=== PATIENT | female | born 1950 | race Caucasian/White ===

== ENCOUNTER 2017-06-03 18:30 | Inpatient (IN) ==
[2017-06-03] MEDS ORDERED: Lidocaine/EPI 1:100k 1% 20 ML VIAL INFILT ONE (18:58)
--- NOTE | 2017-06-03 19:50 | Emergency Department Note ---
Disposition Clinical Impression: Syncope Qualifiers: Syncope type: unspecified Qualified Code(s): R55 - Syncope and collapse Laceration of head Qualifiers: Encounter type: initial encounter Location of open wound of head: unspecified part of head Foreign body presence: without foreign body Qualified Code(s): S01.91XA - Laceration without foreign body of unspecified part of head, initial encounter Disposition: Admitted As Inpatient Condition: Good Fall HPI - General Chief Complaint: ED Fall Stated Complaint: fall Time Seen by Provider: 06/03/17 18:32 Source: patient Mode of arrival: EMS Limitations: no limitations Nursing Notes Reviewed: Yes Vital Signs Reviewed: Yes - History of Present Illness HPI Narrative: Patient is a 67-year-old female past medical history of an KS with 2 stents presented to the ED with after a fall with a laceration on her head. Patient states that just prior to coming the knee she was walking down the [place]" felt like something was not right" and got lightheaded and dizzy. Patient lost consciousness and is unsure how long she was down but believes it to be only a couple minutes.She states that she woke up and then fainted again after seeing her blood. She woke up again after that and walked back to her apartment and called 911. Patient states she did not hit anything else other than her head and is only bleeding from the laceration on her face above her eyebrow. She does not remembers any other part of her body hitting. She denies having pain that is abnormal from her chronic pain. Patient states that she is on Plavix. She states that she has never fainted before. She denies being sick recently or having a fever. She says that she was just walking and did not go up any stairs of have any chest pain prior to syncopal episode. She was able to walk without limping. Patient can't remember her last tetanus shot. Patient lives alone. Patient currently denies any vision changes, focal weakness, shortness of breath, chest pain, nausea, or vomiting. - Related Data Home Medications Medication Instructions Recorded Confirmed Atorvastatin [Lipitor] 40 mg PO HS 06/04/17 06/04/17 Clopidogrel [Plavix] 75 mg PO DAILY 06/04/17 06/04/17 Gabapentin [Neurontin] 1,200 mg PO HS 08/21/17 08/21/17 Gabapentin [Neurontin] 600 mg PO BID 06/04/17 06/04/17 Previous Rx's Medication Instructions Recorded Aspirin Enteric Coated [Aspirin EC] 81 mg PO DAILY tablet. 03/03/16 Lisinopril [Zestril] 5 mg PO DAILY #30 tablet 03/03/16 Metoprolol [Lopressor] 12.5 mg PO BID #30 tablet 03/03/16 Allergies Allergy/AdvReac Type Severity Reaction Status Date / Time sumatriptan [From Imitrex] Allergy Swelling Verified 06/03/17 18:43 of Lip/Tongue/Throat venom-honey bee Allergy Swelling Verified 06/03/17 18:43 [bee venom (honey bee)] of Lip/Tongue/Throat morphine AdvReac Nausea Verified 06/03/17 18:43 All systems ED: reviewed and negative except as stated. Review of Systems: As Per HPI Constitutional: Denies: fever, chills Neurological: Denies: weakness, numbness, confusion, abnormal gait Fall PMH - Past Medical History Medical history: Reports: arthritis, cancer, coronary artery disease, DVT, fibromyalgia, hyperlipidemia, hypertension, kidney stones, malignancy, migraine , myocardial infarction, seizures Surgical history: Reports: non-contributory, cholecystectomy, hip replacement, other Psychiatric history: Reports: anxiety, bipolar, depression, panic disorder, PTSD - Social History Smoking Status: Former smoker Alcohol use: Reports: none Drug use: Reports: none Physical Exam Constitutional: Alert, in no acute distress, well nourished, well developed. Head: 3-4cm in width laceration superior to her R eyebrow in an v-shape, fat and muscle visualized, Normocephalic, atraumatic, normal contour and symmetric, no masses, lesions or scars EENT: R eye periorbial swelling, PERRL, EOMI, peripheral and central vision intact, mouth with moist mucous membranes, Heart: Normal, regular rate and rhythm, no murmurs Lungs: Clear to auscultation, no wheezes, rales, or rhonchi Abdomen: Soft, nondistended, nontender, and no masses palpable, bowel sounds present and normal, no guarding or rigidity. Extremities: + 1 pitting edema, 1.5cm abrasion on R hand, No clubbing, cyanosis, radial pulse +2/4, capillary refill <2sec. Skin: Skin warm and dry, no rashes, no jaundice Neurologic: Cranial nerves II through XII intact, no focal deficits, strength within normal limits in all extremities Psych: Cooperative with exam, good eye contact, cognitive function intact, judgment good insight good, speech clear, thought process logical, and goal directed - General Limitations: no limitations General appearance: alert, in no apparent distress Course Course Narrative: CT of head, neck, and face were obtained and showed no acute abnormalities. CXR was negative. Cardiac work up showed an EKG with normal sinus rhythm and a negative troponin. CBC showed no elevation in WBC and normal kidney function. UA was pending. Laceration of face was sutured with 14 stitches. Tetnus shot was ordered. Patient was admitted to the medical floor for observation and work up for unknown cause of first syncopal episode. Vital Signs Temperature 98.0 F 06/03/17 18:44 Pulse Rate 78 06/03/17 18:44 Respiratory Rate 16 06/03/17 18:44 Blood Pressure 140/69 06/03/17 18:44 O2 Sat by Pulse Oximetry 96 06/03/17 18:44 Temperature 97.8 F 06/05/17 11:30 Pulse Rate 68 06/05/17 11:30 Respiratory Rate 16 06/05/17 11:30 Blood Pressure 109/60 06/05/17 11:30 O2 Sat by Pulse Oximetry 96 06/05/17 11:30 Oxygen Delivery Oxygen Delivery Room Air Fall - Medical Records Medical records reviewed: Yes I reviewed the patient's medical records. - Lab Data Lab results reviewed: Yes I reviewed the patient's lab results. Lab results narrative: All Lab Results (24 Hours) 06/03/17 06/03/17 06/03/17 Range/Units 19:44 19:44 19:44 WBC 7.7 (4.3-11.1) K/mcL RBC 4.17 (3.82-4.97) M/mcL Hgb 11.9 (11.5-15.4) g/dL Hct 37.9 (35.3-44.9) % MCV 90.9 (83.0-100.0) fL MCH 28.5 (28.0-33.3) pg MCHC 31.4 L (31.6-35.5) g/dL RDW 12.4 (11.5-14.5) % Plt Count 242 (140-400) K/mcL MPV 9.9 (9.4-12.4) fL Immature Gran % 0.3 (0-4) % Seg Neutrophils % 70.4 % Lymphocytes % 19.9 % Monocytes % 6.7 % Eosinophils % 2.3 % Basophils % 0.4 % Neutrophils # 5.4 (1.6-8.9) K/mcL Lymphocytes # 1.5 (0.6-4.6) K/mcL Monocytes # 0.5 (0.0-1.3) K/mcL Eosinophils # 0.2 (0.0-0.6) K/mcL Basophils # 0.0 (0.0-0.2) K/mcL PT 10.4 (9.4-12.1) Seconds INR 1.0 APTT 38.2 H (26.0-36.0) Seconds Sodium 141 (136-145) mEq/L Potassium 4.2 (3.5-4.5) mEq/L Chloride 106 (98-109) mEq/L Carbon Dioxide 27 (19-29) mEq/L BUN 17 (7-20) mg/dL Creatinine 0.80 (0.57-1.11) mg/dL Est GFR ( Amer) > 60 (> 60) Est GFR (Non-Af Amer) > 60 (> 60) BUN/Creatinine Ratio 21 (6-26) Glucose 105 H (70-99) mg/dL Calculated Osmolality 294 (280-300) Calcium 9.0 (8.6-10.8) mg/dL Troponin I (0-0.03) ng/mL 06/03/17 Range/Units 19:44 WBC (4.3-11.1) K/mcL RBC (3.82-4.97) M/mcL Hgb (11.5-15.4) g/dL Hct (35.3-44.9) % MCV (83.0-100.0) fL MCH (28.0-33.3) pg MCHC (31.6-35.5) g/dL RDW (11.5-14.5) % Plt Count (140-400) K/mcL MPV (9.4-12.4) fL Immature Gran % (0-4) % Seg Neutrophils % % Lymphocytes % % Monocytes % % Eosinophils % % Basophils % % Neutrophils # (1.6-8.9) K/mcL Lymphocytes # (0.6-4.6) K/mcL Monocytes # (0.0-1.3) K/mcL Eosinophils # (0.0-0.6) K/mcL Basophils # (0.0-0.2) K/mcL PT (9.4-12.1) Seconds INR APTT (26.0-36.0) Seconds Sodium (136-145) mEq/L Potassium (3.5-4.5) mEq/L Chloride (98-109) mEq/L Carbon Dioxide (19-29) mEq/L BUN (7-20) mg/dL Creatinine (0.57-1.11) mg/dL Est GFR ( Amer) (> 60) Est GFR (Non-Af Amer) (> 60) BUN/Creatinine Ratio (6-26) Glucose (70-99) mg/dL Calculated Osmolality (280-300) Calcium (8.6-10.8) mg/dL Troponin I 0.01 (0-0.03) ng/mL Result diagrams: 06/05/17 03:06 06/05/17 03:06 Lab Results 06/03/17 06/03/17 06/03/17 Range/Units 19:44 19:44 19:44 WBC 7.7 (4.3-11.1) K/mcL RBC 4.17 (3.82-4.97) M/mcL Hgb 11.9 (11.5-15.4) g/dL Hct 37.9 (35.3-44.9) % MCV 90.9 (83.0-100.0) fL MCH 28.5 (28.0-33.3) pg MCHC 31.4 L (31.6-35.5) g/dL RDW 12.4 (11.5-14.5) % Plt Count 242 (140-400) K/mcL MPV 9.9 (9.4-12.4) fL Immature Gran % 0.3 (0-4) % Seg Neutrophils % 70.4 % Lymphocytes % 19.9 % Monocytes % 6.7 % Eosinophils % 2.3 % Basophils % 0.4 % Neutrophils # 5.4 (1.6-8.9) K/mcL Lymphocytes # 1.5 (0.6-4.6) K/mcL Monocytes # 0.5 (0.0-1.3) K/mcL Eosinophils # 0.2 (0.0-0.6) K/mcL Basophils # 0.0 (0.0-0.2) K/mcL PT 10.4 (9.4-12.1) Seconds INR 1.0 APTT 38.2 H (26.0-36.0) Seconds Sodium 141 (136-145) mEq/L Potassium 4.2 (3.5-4.5) mEq/L Chloride 106 (98-109) mEq/L Carbon Dioxide 27 (19-29) mEq/L BUN 17 (7-20) mg/dL Creatinine 0.80 (0.57-1.11) mg/dL Est GFR ( Amer) > 60 (> 60) Est GFR (Non-Af Amer) > 60 (> 60) BUN/Creatinine Ratio 21 (6-26) Glucose 105 H (70-99) mg/dL Calculated Osmolality 294 (280-300) Calcium 9.0 (8.6-10.8) mg/dL Troponin I (0-0.03) ng/mL 06/03/17 Range/Units 19:44 WBC (4.3-11.1) K/mcL RBC (3.82-4.97) M/mcL Hgb (11.5-15.4) g/dL Hct (35.3-44.9) % MCV (83.0-100.0) fL MCH (28.0-33.3) pg MCHC (31.6-35.5) g/dL RDW (11.5-14.5) % Plt Count (140-400) K/mcL MPV (9.4-12.4) fL Immature Gran % (0-4) % Seg Neutrophils % % Lymphocytes % % Monocytes % % Eosinophils % % Basophils % % Neutrophils # (1.6-8.9) K/mcL Lymphocytes # (0.6-4.6) K/mcL Monocytes # (0.0-1.3) K/mcL Eosinophils # (0.0-0.6) K/mcL Basophils # (0.0-0.2) K/mcL PT (9.4-12.1) Seconds INR APTT (26.0-36.0) Seconds Sodium (136-145) mEq/L Potassium (3.5-4.5) mEq/L Chloride (98-109) mEq/L Carbon Dioxide (19-29) mEq/L BUN (7-20) mg/dL Creatinine (0.57-1.11) mg/dL Est GFR ( Amer) (> 60) Est GFR (Non-Af Amer) (> 60) BUN/Creatinine Ratio (6-26) Glucose (70-99) mg/dL Calculated Osmolality (280-300) Calcium (8.6-10.8) mg/dL Troponin I 0.01 (0-0.03) ng/mL - Radiology Data Radiology results reviewed: Yes I reviewed the patient's radiology results. Chest X-Ray 06/03/17 18:57 IMPRESSION: No acute cardiopulmonary process. D/ / Sebastian Davis MD / Sebastian Davis MD Interpreting Provider: Sebastian Davis MD Head CT 06/03/17 18:57 IMPRESSION: 1. No acute intracranial abnormality. D/ / Adriano Soto MD / Adriano Soto MD Interpreting Provider: Adriano Soto MD Cervical Spine CT 06/03/17 18:58 IMPRESSION: 1. No acute fracture. D/ / Adriano Soto MD / Adriano Soto MD Interpreting Provider: Adriano Soto MD Face CT 06/03/17 19:00 IMPRESSION: 1. No acute fracture. D/ / Adriano Soto MD / Adriano Soto MD Interpreting Provider: Adriano Soto MD Date of procedure: 06/03/17 Procedure: Laceration repair note Location: Right forehead and just superior to the right eyebrow Length: 4-5 cm Examination: Wound contaminated with nothing Distal neurovascular structures intact and without tendon injury. Local anesthesia used with [default value]ml of 1% lidocaine with epi. Wound was prepped and irrigated with saline, explored to base in a bloodless field, no foreign body identified. Repair: The wound was repaired/closed with #13 6-0 nylon sutures through the skin in a simple interrupted fashion.
[2017-06-03 19:51] LABS: Basophils % 0.4 %; Eosinophils # 0.2 K/mcL (0.0-0.6); Eosinophils % 2.3 %; Hematocrit 37.9 % (35.3-44.9); Hemoglobin 11.9 g/dL (11.5-15.4); Immature Granulocytes % 0.3 % (0-4); Lymphocytes # 1.5 K/mcL (0.6-4.6); Lymphocytes % 19.9 %; Mean Corpuscular HGB Conc 31.4 g/dL (31.6-35.5); Mean Corpuscular Hemoglobin 28.5 pg (28.0-33.3); Mean Corpuscular Volume 90.9 fL (83.0-100.0); Mean Platelet Volume 9.9 fL (9.4-12.4); Monocytes # 0.5 K/mcL (0.0-1.3); Monocytes % 6.7 %; Neutrophils # 5.4 K/mcL (1.6-8.9); Platelet Count 242 K/mcL (140-400); Red Blood Count 4.17 M/mcL (3.82-4.97); Red Cell Distribution Width 12.4 % (11.5-14.5); Segmented Neutrophils % 70.4 %
[2017-06-03 19:57] LABS: Prothrombin Time 10.4 Seconds (9.4-12.1)
[2017-06-03 20:00] LABS: Activated Partial Thrombo Time 38.2 Seconds (26.0-36.0)
[2017-06-03 20:03] LABS: BUN/Creatinine Ratio 21 (6-26); Blood Urea Nitrogen 17 mg/dL (7-20); Carbon Dioxide 27 mEq/L (19-29); Chloride 106 mEq/L (98-109); Glucose 105 mg/dL (70-99); Osmolality,Calculated 294 (280-300); Potassium 4.2 mEq/L (3.5-4.5); Sodium 141 mEq/L (136-145); eGFR For African Americans > 60 (> 60); eGFR For Non-African Americans > 60 (> 60)
--- NOTE | 2017-06-03 20:33 | Emergency Department Note ---
START Narrative - START START: I, Greg Lainez, examined this patient and my medical decision-making was reviewed with the CARPENTER MATE/PA/Advanced Practice Nurse/Resident Physician. I agree with the documented findings, disposition and treatment plan as described except to the extent set forth below. 67-year-old female presents to the emergency department after a syncopal episode. Patient states she was ambulating to her apartment from the street when she became lightheaded, lost consciousness, falling to the ground and striking her face. Patient states she woke and then syncopized again after seeing her blood. Patient then was able to ambulate after the fall. Patient does have a history of syncopal episodes in the past however not within the past 2 years. She denies chest pain, palpitations, fever, chills, headache, vomiting, diarrhea. EKG showed normal sinus rhythm with a rate of 83. CT of the head, neck, maxillofacial areas were negative for acute fracture or intracranial bleeding. X-ray of the chest was negative for pneumothorax or hemothorax. Patient sustained a laceration to the right forehead which was repaired by the resident with my supervision. Patient will be admitted to the hospital for further evaluation of her syncopal episode.
[2017-06-03] MEDS ORDERED: Tdap (Boostrix) Vaccine 0.5 ML SYRINGE IM ONE (21:11)
--- NOTE | 2017-06-03 23:10 | Internal Med History&Physical ---
Date of Encounter: 06/03/17 Time of Encounter: 23:07 Assessment and Plan (1) Coronary artery disease Current visit: Yes Status: Acute Continue aspirin, Brilinta, beta jase and statin. Trend troponin to rule out ACS. Qualifiers: Coronary Disease-Associated Artery/Lesion type: [place] artery [place] vs. transplanted heart: [place] heart Associated angina: without angina Qualified Code(s): I25.10 - Atherosclerotic heart disease of [place] coronary artery without angina pectoris (2) Morbid obesity with BMI of 40.0-44.9, adult Current visit: Yes Status: Acute Outpatient weight loss regimen. Lifestyle modifications. (3) Syncope Current visit: Yes Status: Acute Could be secondary to hypotension in the context of mild dehydration and use of right antihypertensives. Can be a result of cardiac arrhythmia versus ACS versus structural heart disease. Plan: Will place patient in observation, monitor on telemetry, trend troponins to rule out ACS, check orthostatics. We will give gentle IV fluid hydration. Due to concern for ischemic heart disease I will obtain a stress test in the morning. Qualifiers: Syncope type: unspecified Qualified Code(s): R55 - Syncope and collapse Internal Medicine - H&P: HPI Chief complaint: Syncope Admitted From: Emergency Dept Plans for Post Hospital Care: Home History of present illness: Ms. Goodson is a 67 year old female with past medical history significant for hypertension and CAD status post CT who was brought to the hospital after she suffered a syncope. She was in her usual state of health up until this afternoon when while walking inside her building she suddenly started feeling lightheaded, had blurry vision and within seconds she passed out and fell to the floor, she remember waking up and seeing blood in feeling nauseated. She denies any preceding or following chest pain. She has had no recent episodes of syncope. Denies nausea vomiting diarrhea cough, she has chronic shortness of breath. Denies bleeding bruising and blood clots. Denies depression and anxiety. Has a history of chronic migraine. Past medical history as above Surgical history: Multiple including left hip replacement, right shoulder sort surgery, cholecystectomy, hysterectomy. Family history positive for coronary artery disease in both parents Social history: She is a retired disabled from [place], denies tobacco alcohol and drug use. Past Med Surg Social Fam HX - Past Medical History Medical history: arthritis, cancer, coronary artery disease, DVT, fibromyalgia, hyperlipidemia, hypertension, kidney stones, malignancy, migraine, myocardial infarction, seizures Psychiatric history: anxiety, bipolar, depression, panic disorder, PTSD - Past Surgical History Surgical History: non-contributory, angioplasty/stent, cholecystectomy, hip replacement, other - Social History Smoking Status: Former smoker Smokeless Tobacco Status: No Alcohol use: none Drug use: none - Family History Mother Living Status: Still Living Hx Family Cardiac Disorders: Yes (father,grandfather) Hx Family Respiratory Disorders: No Hx Family Cancer: Yes (mother) Hx Family GI Disorders: No Hx Family Endocrine Disorder: No Hx Family Neuromuscular Disorders: No Hx Family Neurologic Disorders: No Hx Family HEENT Disorders: No Hx Family Autoimmune Disorders: Yes (RA) Internal Medicine - H&P: Meds Acetaminophen w/Cod 300-30 mg [Tylenol w/Codeine #3] 1 tab PO TID 02/29/16 [ History] OXcarbazepine [Oxcarbazepine] 600 mg PO BID 02/29/16 [History] Sertraline [Zoloft] 100 mg PO DAILY 02/29/16 [History] Aspirin Enteric Coated [Aspirin EC] 81 mg PO DAILY tablet. 03/03/16 [Rx] Atorvastatin [Lipitor] 40 mg PO HS #30 tablet 03/03/16 [Rx] Lisinopril [Zestril] 5 mg PO DAILY #30 tablet 03/03/16 [Rx] Metoprolol [Lopressor] 12.5 mg PO BID #30 tablet 03/03/16 [Rx] Ticagrelor [Brilinta] 90 mg PO BID #60 tablet 03/03/16 [Rx] Ondansetron ODT [Zofran ODT] 4 mg PO Q6HR #10 tab.rapdis 04/11/16 [Rx] Oxycodone HCl/Acetaminophen [Percocet 5-325 mg Tablet] 1 - 2 each PO Q6HR #20 tablet 04/11/16 [Rx] Tamsulosin HCl [Flomax] 0.4 mg PO DAILY #7 tab 04/11/16 [Rx] 3 Allergy/AdvReac Type Severity Reaction Status Date / Time sumatriptan [From Imitrex] Allergy Swelling Verified 06/03/17 18:43 of Lip/Tongue/Throat venom-honey bee Allergy Swelling Verified 06/03/17 18:43 [bee venom (honey bee)] of Lip/Tongue/Throat morphine AdvReac Nausea Verified 06/03/17 18:43 All Systems PM: A 10-system review of systems was performed and is negative for pertinent findings except as documented above in the HPI. - Constitutional Vitals: Temp Pulse Resp BP Pulse Ox 98.5 F 64 16 137/84 98 06/03/17 21:59 06/03/17 21:59 06/03/17 21:59 06/03/17 21:59 06/03/17 21:59 General appearance: Present: A&O X 3, no acute distress - Head Additional comments: Right eyebrow laceration closed with sutures, no bleeding, no dehiscence. - Eye Additional comments: Right palpebral ecchymoses - Respiratory Respiratory exam: Present: CTAB. Absent: accessory muscle use, rales, rhonchi, wheezes - Cardiovascular Cardiovascular exam: Present: RRR, +S1, +S2. Absent: diastolic murmur, gallop, rubs, systolic murmur - GI/Abdominal GI/Abdominal exam: Present: normal bowel sounds, soft, no peritoneal signs. Absent: distended, tenderness - Extremities Exam Extremities exam: Present: warm, radial pulses palpable and symmetrical. Absent : calf tenderness, cyanotic, pedal edema - Neurological Exam Neurological exam: Present: CN II-XII intact, oriented X3, no focal deficits. Absent: pronater drift, facial droop, speech deficit - Skin Skin exam: Present: dry, intact Internal Med - H&P Results - Labs CBC & Chem 7: 06/03/17 19:44 06/03/17 19:44 - EKG Data -: EKG Interpreted by Myself EKG shows normal: sinus rhythm (80 bpm), intervals, ST-T waves Rate: normal - EKG Data Prior EKG available for review: yes When compared to previous EKG: there is no significant change
[2017-06-03] MEDS ORDERED: Naloxone 0.4 MG/ML INJ IVP PRN (23:17)
[2017-06-03] MEDS ORDERED: Ondansetron 4 MG/2 ML VIAL IVP PRN (23:17)
[2017-06-03] MEDS: *HR* OxyCODONE Immed Rel 5 MG TABLET PO PRN (23:39)
[2017-06-03] MEDS: 0.9 % Sodium Chloride 1,000 ML IVC SCH (23:50)
[2017-06-04 00:55] LABS: Basophils % 0.4 %; Eosinophils # 0.2 K/mcL (0.0-0.6); Eosinophils % 2.1 %; Hematocrit 36.3 % (35.3-44.9); Hemoglobin 11.2 g/dL (11.5-15.4); Immature Granulocytes % 0.4 % (0-4); Lymphocytes % 24.7 %; Mean Corpuscular HGB Conc 30.9 g/dL (31.6-35.5); Mean Corpuscular Hemoglobin 28.3 pg (28.0-33.3); Mean Corpuscular Volume 91.7 fL (83.0-100.0); Mean Platelet Volume 10.2 fL (9.4-12.4); Monocytes # 0.5 K/mcL (0.0-1.3); Neutrophils # 5.5 K/mcL (1.6-8.9); Platelet Count 234 K/mcL (140-400); Red Blood Count 3.96 M/mcL (3.82-4.97); Red Cell Distribution Width 12.4 % (11.5-14.5); Segmented Neutrophils % 66.4 %
[2017-06-04 01:10] LABS: BUN/Creatinine Ratio 19 (6-26); Blood Urea Nitrogen 16 mg/dL (7-20); Calcium 8.8 mg/dL (8.6-10.8); Carbon Dioxide 28 mEq/L (19-29); Chloride 107 mEq/L (98-109); Glucose 149 mg/dL (70-99); Magnesium 2.2 mg/dL (1.6-2.6); Osmolality,Calculated 298 (280-300); Potassium 4.1 mEq/L (3.5-4.5); Sodium 142 mEq/L (136-145); eGFR For African Americans > 60 (> 60); eGFR For Non-African Americans > 60 (> 60)
[2017-06-04] MEDS ORDERED: Regadenoson 0.4 MG/5 ML SYRINGE IVP ONE (07:03)
[2017-06-04] MEDS ORDERED: *HR* Ticagrelor 90 MG TABLET PO SCH (09:00)
[2017-06-04] MEDS: 0.9 % Sodium Chloride 1,000 ML IVC SCH ×2 (13:19→21:05)
[2017-06-04] MEDS: Aspirin Enteric Coated 81 MG Tablet PO SCH (13:22)
[2017-06-04] MEDS: Gabapentin 300 MG CAPSULE PO SCH ×2 (13:22→21:09)
[2017-06-04] MEDS: Acetaminophen 325 MG TABLET PO PRN (13:38)
--- NOTE | 2017-06-04 18:12 | Electrocardiograph Report ---
[place] [id number] Test Date: 2017-06-03 Pat Name: Miriam Goodson Department: 0 Room: 3B11 Gender: F District Recruiter: [facility] : 1950 Requested By: Greg Lainez Order Number: [id number] Reading MD: Adan Julian MD Measurements Intervals [place] Rate: 83 P: 69 FL: 186 QRS: -15 QRSD: 90 T: 36 QT: 375 QTc: 415 Interpretive Statements SINUS RHYTHM LOW QRS VOLTAGE IN PRECORDIAL LEADS INFERIOR MYOCARDIAL INFARCTION, PROBABLY OLD Electronically Signed On 06-04-2017 18:10:29 EDT by Adan Julian MD
[2017-06-04] MEDS: *HR* OxyCODONE Immed Rel 5 MG TABLET PO PRN (18:54)
--- NOTE | 2017-06-04 19:31 | Internal Med Progress Note ---
Date of Encounter: 06/04/17 Time of Encounter: 07:35 - Assessment and plan (1) Syncope Current Visit: Yes Status: Acute Assessment and plan: Patient has what was most likely a syncopal event at home last night. She said that she was walking became lightheaded and fell. She is unsure of loss of consciousness. She denies nausea, vomiting, diarrhea, shortness of breath above her baseline. She denies chest pain prior to the fall or after. She denies mechanical fall. Questionable etiology at this time, labs are within normal limits, vitals were stable on arrival to the emergency department. Patient did have LHC in Feb, 2016 with PTCA/GINGER placement in the mid RCA, angioplasty of the RCA and another GINGER placement in the proximal LAD. There was severe 2 vessel coronary artery disease. Continue telemetry Stress test results pending Monitor labs and vital signs Fall precautions Qualifiers: Syncope type: unspecified Qualified Code(s): R55 - Syncope and collapse (2) Laceration of head Current Visit: Yes Status: Acute Assessment and plan: Patient fell at home, due to a syncopal episode. She has large hematoma extending over left forehead and in [address] facial bones with no acute fracture, head CT with no acute intracranial abnormality, cervical spine with no acute fracture. Bleeding controlled. Patient unsure of loss of consciousness. Qualifiers: Encounter type: initial encounter Location of open wound of head: unspecified part of head Foreign body presence: without foreign body Qualified Code(s): S01.91XA - Laceration without foreign body of unspecified part of head, initial encounter (3) Coronary artery disease Current Visit: Yes Status: Acute Assessment and plan: Patient denies chest pain. Continue aspirin, beta jase, statin, Brilinta. Troponins were negative 3. Echocardiogram normal sinus rhythm with probable old inferior DC. Rate 83, HI interval 186, QRS 90, QTC 415. Chest x-ray negative for any acute cardiopulmonary process. Patient is a 2 day stress test, day 2 tomorrow, results pending Continue telemetry Nitrates and morphine for pain control as needed. Qualifiers: Coronary Disease-Associated Artery/Lesion type: [place] artery [place] vs. transplanted heart: [place] heart Associated angina: without angina Qualified Code(s): I25.10 - Atherosclerotic heart disease of [place] coronary artery without angina pectoris (4) Morbid obesity with BMI of 40.0-44.9, adult Current Visit: Yes Status: Acute Assessment and plan: Chronic. Lifestyle changes. BMI 40.4 (5) DVT prophylaxis Current Visit: Yes Status: Acute - Time Spent With Patient less than 15 minutes - Subjective Interval history: Patient states at home she became lightheaded and fell is unsure of loss of consciousness. She is alert and oriented during assessment this morning. She does have a large hematoma to right forehead and orbital swelling. She denies chest pain prior to fall and denies tripping. She denies headache, nausea, vomiting, diarrhea, cough, shortness of breath above her baseline. - Constitutional Vitals: Temp Pulse Resp BP Pulse Ox 99.0 F 76 18 106/56 96 06/04/17 18:32 06/04/17 18:32 06/04/17 18:32 06/04/17 18:32 06/04/17 18:32 General appearance: Present: cooperative, A&O X 3, morbidly obese, no acute distress, answers questions appropriately - Head Head exam: Present: normocephalic. Absent: atraumatic, normal inspection - Expanded Head Exam Head exam expanded: Present: contusion, hematoma - Eye Eye exam: Present: PERRL, conjuntiva pink, sclera anicteric Pupils: Present: PERRL - Expanded Eye Exam Eyelids: right: swelling - ENT ENT exam: Present: mucous membranes moist, normal exam - Neck Neck exam general surgery: Present: supple, trachea midline. Absent: lymphadenopathy - Respiratory Respiratory exam: Present: CTAB. Absent: accessory muscle use, rales, rhonchi, wheezes - Cardiovascular Cardiovascular exam: Present: RRR, +S1, +S2. Absent: diastolic murmur, gallop, rubs, systolic murmur - GI/Abdominal GI/Abdominal exam: Present: normal bowel sounds, soft, no peritoneal signs. Absent: distended, tenderness - Extremities Exam Extremities exam: Present: warm, radial pulses palpable and symmetrical. Absent : calf tenderness, cyanotic, pedal edema - Neurological Exam Neurological exam: Present: CN II-XII intact, oriented X3, no focal deficits. Absent: pronater drift, facial droop, speech deficit - Skin Skin exam: Present: dry, intact Internal Medicine: Result - Labs CBC & Chem 7: 06/04/17 00:23 06/04/17 00:23 Labs: Short CBC 06/04/17 Range/Units 00:23 WBC 8.2 (4.3-11.1) K/mcL Hgb 11.2 L (11.5-15.4) g/dL Hct 36.3 (35.3-44.9) % Plt Count 234 (140-400) K/mcL Neutrophils # 5.5 (1.6-8.9) K/mcL BMP 06/04/17 00:23 Sodium 142 Potassium 4.1 Chloride 107 Carbon Dioxide 28 BUN 16 Creatinine 0.84 Glucose 149 H Calcium 8.8 Cardiac Enzymes 06/04/17 06/04/17 Range/Units 00:23 05:53 Troponin I 0.02 0.01 (0-0.03) ng/mL - ABG Interpretation ABG results: PT/INR, D-dimer PT 10.4 Seconds (9.4-12.1) 06/03/17 19:44 Consult Discharge Plan - Plan [facility]errals: [facility]Primary Care Provider[facility] -
[2017-06-04] MEDS ORDERED: Gabapentin 400 MG CAPSULE PO SCH (21:00)
[2017-06-05] MEDS: *HR* OxyCODONE Immed Rel 5 MG TABLET PO PRN (03:15)
[2017-06-05 03:37] LABS: Bilirubin,Urine Negative (Negative); Blood,Urine Negative (Negative); Clarity,Urine Clear (Clear); Color,Urine Yellow (Yellow); Glucose,Urine (UA) Normal (Normal); Ketones,Urine Negative (Negative); Leukocyte Esterase,Urine Negative (Negative); Nitrite,Urine Negative (Negative); Protein,Urine Negative (Neg-Trace); Specific Gravity,Urine 1.015 (1.010-1.025); Urobilinogen,Urine Normal (Normal)
[2017-06-05 03:45] LABS: Basophils % 0.4 %; Eosinophils # 0.2 K/mcL (0.0-0.6); Eosinophils % 3.4 %; Hematocrit 34.2 % (35.3-44.9); Hemoglobin 10.6 g/dL (11.5-15.4); Immature Granulocytes % 0.3 % (0-4); Lymphocytes # 2.7 K/mcL (0.6-4.6); Lymphocytes % 39.8 %; Mean Corpuscular Hemoglobin 28.8 pg (28.0-33.3); Mean Corpuscular Volume 92.9 fL (83.0-100.0); Mean Platelet Volume 10.2 fL (9.4-12.4); Monocytes # 0.7 K/mcL (0.0-1.3); Neutrophils # 3.1 K/mcL (1.6-8.9); Platelet Count 209 K/mcL (140-400); Red Blood Count 3.68 M/mcL (3.82-4.97); Red Cell Distribution Width 12.6 % (11.5-14.5); Segmented Neutrophils % 46.1 %
[2017-06-05 03:57] LABS: BUN/Creatinine Ratio 14 (6-26); Blood Urea Nitrogen 12 mg/dL (7-20); Calcium 8.7 mg/dL (8.6-10.8); Carbon Dioxide 27 mEq/L (19-29); Chloride 109 mEq/L (98-109); Glucose 108 mg/dL (70-99); Osmolality,Calculated 296 (280-300); Potassium 4.2 mEq/L (3.5-4.5); Sodium 143 mEq/L (136-145); eGFR For African Americans > 60 (> 60); eGFR For Non-African Americans > 60 (> 60)
[2017-06-05] MEDS: 0.9 % Sodium Chloride 1,000 ML IVC SCH (09:04)
[2017-06-05] MEDS: Aspirin Enteric Coated 81 MG Tablet PO SCH (09:06)
[2017-06-05] MEDS: Gabapentin 300 MG CAPSULE PO SCH (09:06)
[2017-06-05] MEDS: Acetaminophen 325 MG TABLET PO PRN ×2 (09:08→16:06)
[2017-06-05 11:31] VITALS: BP 109/60
--- NOTE | 2017-06-05 12:07 | Nuclear Medicine Stress Report ---
Regadenoson Nuclear 2 day Name: Miriam Goodson Date of Study: 06/04/2017 Date: 1950 Ht: 70.0 in Medical Record#: [id number] Age: 67 Wt: 288.0 lb Gender: Female Order #: [id number] Location: [facility] Room: [facility] Supervising Provider: Marifer Candelaria CNP Reading Physician: Hayley Bateman DO Ordering Physician: Alexandria Christian CNP Primary Care Physician: Tony Rodríguez, Stress Technologist: Johana Redd RESOURCE DIRECTOR, CCT Passenger Tire Inspector: Evelyn Velazquez Indications: Chest Pain Impression: Perfusion imaging was negative for ischemia or infarct. Pharmacologic ECG was negative for ischemia at the level of heart rate achieved. Gated EF = 69%. History: Hypertension Hypercholesteremia Prior PCI Stress Test Summary: Stress Test Type: Pharmacologic Regadenoson 0.4mg/5ml given IV Baseline Information: Initial Heart Rate: 77 Blood Pressure: 118/78 Stress Information: Test Terminated Due to (primary): As per protocol Maximum Blood Pressure: 110/74 Maximum Heart Rate: 88 Percent Maximum Heart Rate Achieved: 56 Double Product: 9680 METS Reached: 1 Symptoms: No chest symptoms Nuclear Summary: SPECT myocardial perfusion imaging using Tc99m Sestamibi given intravenously was performed at rest and following cardiac stress testing. The resting images were obtained following initial dose of 35.3 mCi. Following stress an additional dose of 34.7 mCi was given at peak exercise or 30 seconds post regadenoson infusion. Medication Given: Time Medication Dose Units Route Findings: Stress Note * Resting ECG demonstrated normal sinus rhythm. * Pharmacologic stress ECG is negative for ischemia at level of heart rate achieved. * No arrhythmias were noted during stress. * Patient had no chest pain during stress. Hemodynamic responses * Normal hemodynamic responses to pharmacologic stress. Study Quality * Study quality was fair. Gated EF % * Gated EF = 69%. Left Ventricle * The left ventricle is not dilated. TID * No evidence of transient ischemic dilatation. Lung Uptake * There is no evidence of increase lung uptake. NORMALS * Normal wall motion. PERFUSION * There is a small size, moderate intensity fixed perfusion defect involving the apical inferior wall and apex. Wall motion and thickening appear normal. Findings likely represent artifact. No evidence for ischemia. * Other segments demonstrate normal rest and stress perfusion. Updated by Hayley Bateman on 06/05/2017 9:36:41 AM electronically signed on 06/05/2017 9:38:17 AM with status of Final
--- NOTE | 2017-06-05 15:21 | Discharge Summary ---
Date of Encounter: 06/05/17 Time of Encounter: 14:15 - Discharge Diagnosis (1) Syncope Priority: Primary Status: Acute Comments: Unclear causation. Chest x-ray negative. Head CT negative. Cervical spine CT negative. A CT negative. Urinalysis negative. Carotid ultrasound unremarkable. 2 day stress test negative. Patient states she has a hyper allergy to marijuana and states that she passed by her neighbor's apartment, she had inhaled a large amount of marijuana and states this is when she passed out. Qualifiers: Syncope type: unspecified Qualified Code(s): R55 - Syncope and collapse (2) Laceration of head Priority: Primary Status: Acute Qualifiers: Encounter type: initial encounter Location of open wound of head: unspecified part of head Foreign body presence: without foreign body Qualified Code(s): S01.91XA - Laceration without foreign body of unspecified part of head, initial encounter (3) History of panic attacks Priority: Secondary Status: Chronic (4) History of post traumatic stress disorder Priority: Secondary Status: Chronic (5) History of depression Priority: Secondary Status: Chronic Comments: patient denied suicidal ideation on day of discharge. stated she felt safe at home (6) Coronary artery disease Priority: Secondary Status: Chronic Comments: Patient denied chest pain or shortness of breath on day of discharge Qualifiers: Coronary Disease-Associated Artery/Lesion type: [place] artery [place] vs. transplanted heart: [place] heart Associated angina: without angina Qualified Code(s): I25.10 - Atherosclerotic heart disease of [place] coronary artery without angina pectoris (7) Morbid obesity with BMI of 40.0-44.9, adult Priority: Secondary Status: Chronic (8) DVT prophylaxis Priority: Primary Status: Acute Comments: observation patient on brillinta at home - Discharge Medications Home Medications: Aspirin Enteric Coated [Aspirin EC] 81 mg PO DAILY tablet. 03/03/16 [Rx] Lisinopril [Zestril] 5 mg PO DAILY #30 tablet 03/03/16 [Rx] Metoprolol [Lopressor] 12.5 mg PO BID #30 tablet 03/03/16 [Rx] Atorvastatin [Lipitor] 40 mg PO HS 06/04/17 [History] Clopidogrel [Plavix] 75 mg PO DAILY 06/04/17 [History] Gabapentin [Neurontin] 1,200 mg PO HS 06/04/17 [History] Gabapentin [Neurontin] 600 mg PO BID 06/04/17 [History] Allergies/Adverse Reactions: 3 Allergy/AdvReac Type Severity Reaction Status Date / Time sumatriptan [From Imitrex] Allergy Swelling Verified 06/03/17 18:43 of Lip/Tongue/Throat venom-honey bee Allergy Swelling Verified 06/03/17 18:43 [bee venom (honey bee)] of Lip/Tongue/Throat morphine AdvReac Nausea Verified 06/03/17 18:43 Procedures/tests Complete & Pending: Procedures Performed prior 72 hours Category Date Time Status NM mercedes perf SPECT multi [NM] Routine Exams 06/04/17 08:19 Taken EV carotid duplex imaging BI Routine Y 06/04/17 23:20 Completed SP pharm nuclear stress Routine Y 06/04/17 07:31 Completed Date of admission: 06/03/17 21:00 Primary care physician: PCP JOEY Consults: 06/05/17 12:11 Consult to Tractor Drill Operator [CONS] Routine Reason for SW Consult: Passport Verification Discharging clinician: Rebeca Vogel Anticipated date of discharge: 06/05/17 - Patient Status Disposition: Home, Self-Care Condition: Good Functional capacity at discharge: independent ambulation Overall status at discharge: patient is progressing back to baseline - Discharge Instructions Follow Up With: JOEY,PCP [Primary Care Provider] - 06/11/17 9:00 am Additional Instructions: Follow-up with primary care provider as scheduled - Diet and Activity Activity: increase activity as tolerated Diet: low fat, low cholesterol, low salt diet Hospital course: Ms. Goodson is a 67 year old female with past medical history of hypertension, CAD status post [place], fibromyalgia, hyperlipidemia, migraines, seizures, panic disorder, bipolar disorder, PTSD, cholecystectomy, former tobacco abuse, history of DVT, morbid obesity. Patient presented to the emergency department chief complaint of syncopal episode. Patient states she was in her usual state of health up until the afternoon of presentation when she was walking outside of her building and she suddenly started to feel lightheaded, had blurred vision and within seconds, she passed out and fell to the floor. The next thing she remembers she woke up on the floor and she stated that she saw a lot of blood and felt nauseous. She denies any chest pain or recent episodes of syncope. Workup in the emergency department unremarkable. Chest x-ray negative. Head CT negative. Cervical spine CT negative. Face CT negative. Patient did have a laceration under her right eye that required 14 sutures. She was admitted to the hospitalist service for further evaluation and management. Carotid duplex unremarkable. She had a 2 day nuclear stress test that was negative for ischemia or infarct revealed an ejection fraction of 70%. Urinalysis negative. Patient had no focal neurological weakness is present during this admission and she was independently ambulatory so OT and PT consultations were not warranted. She does have passport services at home. Regarding possible causative factors, patient stating that she is "hyper allergic" to marijuana. She states that the gentleman who lives in the apartment beside her "smokes heavy dope". She states that she was walking passed his door on her way back to her door when she inhaled a large amount of marijuana smoke and at that time is when she had her syncopal episode. She states the last time prior to this that she was exposed to marijuana that her "throat was swollen shut." Patient was noted to be having some personal issues on day of discharge regarding her son and her son's girlfriend, but she stated that she felt safe at home and denied further needs or concerns. She was discharged home in stable condition with close outpatient followup recommended. Also of note, patient was offered oxycodone for her eye injury but she declined stating she would rather use acetaminophen. She readily admits to being "an addict" approximately 3 years ago. ITS Impressions Chest X-Ray 06/03/17 18:57 IMPRESSION: No acute cardiopulmonary process. D/ / Sebastian Davis MD / Sebastian Davis MD Interpreting Provider: Sebastian Davis MD Head CT 06/03/17 18:57 IMPRESSION: 1. No acute intracranial abnormality. D/ / Adriano Soto MD / Adriano Soto MD Interpreting Provider: Adriano Soto MD Cervical Spine CT 06/03/17 18:58 IMPRESSION: 1. No acute fracture. D/ / Adriano Soto MD / Adriano Soto MD Interpreting Provider: Adriano Soto MD Face CT 06/03/17 19:00 IMPRESSION: 1. No acute fracture. D/ / Adriano Soto MD / Adriano Soto MD Interpreting Provider: Adriano Soto MD Regadenoson Nuclear 2 day Date of Study: 06/04/2017 Impression: Perfusion imaging was negative for ischemia or infarct. Pharmacologic ECG was negative for ischemia at the level of heart rate achieved. Gated EF = 69%. 06/04/17 10:32 - Vascular Preliminary by Santana Mendez [facility] Num: [id number] : 1950 Patient Age: 67 Carotid ultrasound appears to show bilateral carotids to be within normal limits. No plaque noted. - Time Spent with Patient Total time spent providing and/or coordinating discharge services: - Constitutional Vitals: Temp Pulse Resp BP Pulse Ox 97.8 F 68 16 109/60 96 06/05/17 11:30 06/05/17 11:30 06/05/17 11:30 06/05/17 11:30 06/05/17 11:30 General appearance: Present: cooperative, A&O X 3, morbidly obese, no acute distress, answers questions appropriately - Head Head exam: Present: atraumatic, normocephalic - Eye Eye exam: Present: PERRL, conjuntiva pink, sclera anicteric Pupils: Present: PERRL - Neck Neck exam general surgery: Present: supple, trachea midline. Absent: lymphadenopathy - Respiratory Respiratory exam: Present: decreased breath sounds. Absent: accessory muscle use, rales, respiratory distress, rhonchi, wheezes - Cardiovascular Cardiovascular exam: Present: RRR, +S1, +S2. Absent: diastolic murmur, gallop, rubs, systolic murmur - GI/Abdominal GI/Abdominal exam: Present: normal bowel sounds, soft, no peritoneal signs. Absent: distended, tenderness - Extremities Exam Extremities exam: Present: warm, radial pulses palpable and symmetrical. Absent : calf tenderness, cyanotic, pedal edema - Neurological Exam Neurological exam: Present: alert, CN II-XII intact, normal gait, oriented X3, no focal deficits, strengths equal and symetr throughout. Absent: pronater drift, facial droop, speech deficit - Psychiatric Psychiatric exam: Present: agitated, anxious. Absent: homicidal ideation, suicidal ideation - Expanded Psychiatric Exam Focused psych exam: Present: psychomotor agitation, restlessness - Skin Skin exam: Present: dry, intact, normal color, warm
--- NOTE | 2017-06-06 07:47 | Carotid Imaging Report ---
Carotid Duplex Patient Name:Miriam Goodson Order Number:[id number] Procedure Date:06/04/2017 Date:1950ge:67 yrs Gender:Female Location:[facility] Room #: 3B11 Air Operations Manager:Farrukh Mendez RDCS Referring MD:Suraj Matthew MD flight test mechanic:None Reading MD:Mayco Coronado MD Primary Indications:Syncope Risk Factors Yes/No Hypertension Yes Hypercholesterolemia Yes Impressions: Findings: Bilateral carotid system is essentially normal. Recommendations: After imaging the patient returned to their room. Findings Carotid Duplex: Mari scale imaging combined with Doppler flow analysis suggests normal findings bilaterally. Right: The right proximal common carotid artery has a PSV of 142 cm/s and a EDV of 24 cm/s. The right mid common carotid artery has a PSV of 121 cm/s and a EDV of 32 cm/s. The right distal common carotid artery has a PSV of 78 cm/s and a EDV of 23 cm/s. The right bifurcation has a PSV of 64 cm/s and a EDV of 22 cm/s. The right proximal internal carotid artery has a PSV of 76 cm/s and a EDV of 32 cm/s. The right mid internal carotid artery has a PSV of 85 cm/s and a EDV of 25 cm/s. The right distal internal carotid artery has a PSV of 114 cm/s and a EDV of 34 cm/s. The right eca has a PSV of 121 cm/s and a EDV of 24 cm/s. The right vertebral artery has a PSV of 47 cm/s and a EDV of 16 cm/s. Left: The left proximal common carotid artery has a PSV of 165 cm/s and a EDV of 37 cm/s. The left mid common carotid artery has a PSV of 117 cm/s and a EDV of 30 cm/s. The left distal common carotid artery has a PSV of 74 cm/s and a EDV of 23 cm/s. The left bifurcation has a PSV of 106 cm/s and a EDV of 34 cm/s. The left proximal internal carotid artery has a PSV of 85 cm/s and a EDV of 27 cm/s. The left mid internal carotid artery has a PSV of 81 cm/s and a EDV of 36 cm/s. The left distal internal carotid artery has a PSV of 89 cm/s and a EDV of 40 cm/s. The left eca has a PSV of 97 cm/s and a EDV of 18 cm/s. The left vertebral artery has a PSV of 47 cm/s and a EDV of 19 cm/s. Prior Study: No prior study available for comparison. Carotid Results Right PSV EDV Assessment Proximal CCA 142 24 Normal Mid CCA 121 32 Normal Distal CCA 78 23 Normal Bifurcation 64 22 Normal Proximal ICA 76 32 Normal Mid ICA 85 25 Normal Distal ICA 114 34 Normal ECA 121 24 Normal Vertebral Artery 47 16 Normal Left PSV EDV Assessment Proximal CCA 165 37 Normal Mid CCA 117 30 Normal Distal CCA 74 23 Normal Bifurcation 106 34 Normal Proximal ICA 85 27 Normal Mid ICA 81 36 Normal Distal ICA 89 40 Normal ECA 97 18 Normal Vertebral Artery 47 19 Normal Ratio's Right ICA/CCA Ratio: 0.94 ICA/CCA Values: 114/121 Left ICA/CCA Ratio: 0.91 ICA/CCA Values: 106/117 Updated by Mayco Coronado MD on 06/06/2017 7:39:59 AM electronically signed on 06/06/2017 7:40:34 AM with status of Final
== END 2017-06-05 16:19 | disposition home or self-care (01) | DRG 312 ==
LOC: 3BNU 18:30 → EMEROO 18:30 → 3BNU 21:13
PROVIDERS: ADMIT Pediatrics; ATTEND Registered Nurse

== ENCOUNTER 2017-08-31 23:09 | Observation (INO) ==
[2017-08-31] MEDS ORDERED: Nitroglycerin 0.4 MG TAB.SUBL SL ONE (23:10)
[2017-08-31 23:27] LABS: Basophils % 0.4 %; Eosinophils # 0.2 K/mcL (0.0-0.6); Eosinophils % 2.9 %; Hematocrit 37.5 % (35.3-44.9); Hemoglobin 12.1 g/dL (11.5-15.4); Immature Granulocytes % 0.1 % (0-4); Lymphocytes # 2.4 K/mcL (0.6-4.6); Lymphocytes % 32.2 %; Mean Corpuscular HGB Conc 32.3 g/dL (31.6-35.5); Mean Corpuscular Hemoglobin 29.4 pg (28.0-33.3); Mean Platelet Volume 9.7 fL (9.4-12.4); Monocytes # 0.6 K/mcL (0.0-1.3); Monocytes % 7.9 %; Neutrophils # 4.1 K/mcL (1.6-8.9); Platelet Count 245 K/mcL (140-400); Red Blood Count 4.12 M/mcL (3.82-4.97); Red Cell Distribution Width 13.2 % (11.5-14.5); Segmented Neutrophils % 56.5 %
--- NOTE | 2017-08-31 23:29 | Emergency Department Note ---
Disposition Clinical Impression: Chest pain Disposition: Admitted As Inpatient Condition: Good Time of Disposition: 01:31 Chest Pain HPI - General Chief Complaint: ED Chest Pain Stated Complaint: Chest Pain Time Seen by Provider: 08/31/17 23:09 Source: patient, EMS Mode of arrival: EMS Limitations: no limitations Vital Signs Reviewed: Yes Nursing Notes Reviewed: Yes - History of Present Illness HPI Narrative: 67-year-old female with history of MA with stent placed in February 2016, arrives to [facility] emergency department complaining of left-sided chest pain that began roughly 1.5 hours ago. The patient states this feels similar to her previous MA in the past. She has associated shortness of breath without nausea, vomiting, diarrhea, fever, chills, cough. The patient was given 325 aspirin prior to arrival by EMS. The patient did not take any nitroglycerin. She denies any other complaints at this time. The patient's that she is worried as her previous MA. Pt complaint: chest pain Onset (ago): hour(s) (1.5) Duration: constant Onset: during rest Pain Location: substernal, left chest Severity: mild Severity scale (1-10): 3 Quality: tightness, aching Pain Radiation: LUE Improves with: other (Aspirin) Worsens with: nothing Associated symptoms: Reports: dyspnea Treatments prior to arrival chest pain: aspirin - Related Data On Oral Contraceptives: No Home Medications Medication Instructions Recorded Confirmed Atorvastatin [Lipitor] 40 mg PO HS 06/04/17 09/01/17 Clopidogrel [Plavix] 75 mg PO DAILY 06/04/17 09/01/17 Gabapentin [Neurontin] 1,200 mg PO HS 06/04/17 09/01/17 Gabapentin [Neurontin] 600 mg PO BID 06/04/17 09/01/17 Previous Rx's Medication Instructions Recorded Aspirin Enteric Coated [Aspirin EC] 81 mg PO DAILY tablet. 03/03/16 Lisinopril [Zestril] 5 mg PO DAILY #30 tablet 03/03/16 Metoprolol [Lopressor] 12.5 mg PO BID #30 tablet 03/03/16 Allergies Allergy/AdvReac Type Severity Reaction Status Date / Time sumatriptan [From Imitrex] Allergy Swelling Verified 06/03/17 18:43 of Lip/Tongue/Throat venom-honey bee Allergy Swelling Verified 06/03/17 18:43 [bee venom (honey bee)] of Lip/Tongue/Throat morphine AdvReac Nausea Verified 06/03/17 18:43 All systems ED: reviewed and negative except as stated. Constitutional: Denies: fever, chills, weakness ENT ED: Denies: congestion Cardiovascular: Reports: chest pain, dyspnea on exertion, edema. Denies: orthopnea, syncope Respiratory: Reports: dyspnea. Denies: cough, wheezes, hemoptysis, stridor, sputum production Gastrointestinal: Denies: abdominal pain, nausea Musculoskeletal: Denies: back pain, neck pain, arthralgia, myalgia Neurological: Denies: headache, numbness, confusion Chest Pain PMH - Past Medical History Medical history: Reports: arthritis, cancer, coronary artery disease, DVT, fibromyalgia, hyperlipidemia, hypertension, kidney stones, malignancy, migraine , myocardial infarction, seizures Surgical history: Reports: non-contributory, cholecystectomy, hip replacement, other Psychiatric history: Reports: anxiety, bipolar, depression, panic disorder, PTSD Prior Cardiac Testing/Procedures: Echocardiogram, Stress Test, Stenting, Cardiac Angiogram - Social History Smoking Status: Former smoker Alcohol use: Reports: none Drug use: Reports: none Physical Exam - General Limitations: no limitations General appearance: alert, in no apparent distress - Head Head exam: atraumatic, normocephalic, normal inspection - Eye Eye exam: Present: normal appearance, PERRL, EOMI - ENT ENT exam: normal exam, normal oropharynx, mucous membranes moist - Neck Neck exam: Present: normal inspection, full ROM, trachea midline - Chest Chest inspection: Present: normal inspection, symmetric chest wall rise - Respiratory Respiratory exam: Present: normal lung sounds bilaterally - Cardiovascular Cardiovascular exam: Present: regular rate, normal rhythm, normal heart sounds - Abdominal Exam Abdominal exam: Present: soft, Non-Tender. Absent: tenderness, distention, guarding, rebound, rigidity - Extremities Exam Extremities exam: Present: normal inspection, full ROM. Absent: tenderness, pedal edema - Neurological Exam Neurological exam: Present: alert, oriented X3 - Skin Skin exam: Present: warm, dry, intact, normal color Course Vital Signs Temperature 98.6 F 08/31/17 23:10 Pulse Rate 77 08/31/17 23:10 Respiratory Rate 20 08/31/17 23:10 Blood Pressure 133/97 08/31/17 23:10 O2 Sat by Pulse Oximetry 98 08/31/17 23:10 Temperature 97.6 F 09/02/17 02:36 Pulse Rate 72 09/02/17 02:36 Respiratory Rate 17 09/02/17 02:36 Blood Pressure 111/69 09/02/17 02:36 O2 Sat by Pulse Oximetry 95 09/02/17 02:36 Oxygen Delivery Oxygen Delivery Room Air Chest Pain - MDM Narrative Medical decision making narrative: Workup here in the emergency department demonstrates no acute process. Given the patient's symptoms and previous history, we will admit the patient to the hospitalist, accepted by Dr. Carrasco for ACS rule out. - Lab Data Lab results reviewed: Yes I reviewed the patient's lab results. Result diagrams: 08/31/17 23:18 08/31/17 23:15 Lab Results 08/31/17 08/31/17 08/31/17 Range/Units 23:15 23:15 23:15 WBC (4.3-11.1) K/mcL RBC (3.82-4.97) M/mcL Hgb (11.5-15.4) g/dL Hct (35.3-44.9) % MCV (83.0-100.0) fL MCH (28.0-33.3) pg MCHC (31.6-35.5) g/dL RDW (11.5-14.5) % Plt Count (140-400) K/mcL MPV (9.4-12.4) fL Immature Gran % (0-4) % Seg Neutrophils % % Lymphocytes % % Monocytes % % Eosinophils % % Basophils % % Neutrophils # (1.6-8.9) K/mcL Lymphocytes # (0.6-4.6) K/mcL Monocytes # (0.0-1.3) K/mcL Eosinophils # (0.0-0.6) K/mcL Basophils # (0.0-0.2) K/mcL PT 11.3 (9.4-12.1) Seconds INR 1.1 APTT 35.8 (26.0-36.0) Seconds Sodium 142 (136-145) mEq/L Potassium 4.3 (3.5-4.5) mEq/L Chloride 108 (98-109) mEq/L Carbon Dioxide 28 (19-29) mEq/L BUN 15 (7-20) mg/dL Creatinine 0.84 (0.57-1.11) mg/dL Est GFR ( Amer) > 60 (> 60) Est GFR (Non-Af Amer) > 60 (> 60) BUN/Creatinine Ratio 18 (6-26) Glucose 100 H (70-99) mg/dL Calculated Osmolality 295 (280-300) Calcium 9.0 (8.6-10.8) mg/dL Troponin I 0.00 (0-0.03) ng/mL 08/31/ Range/Units 23:18 WBC 7.3 (4.3-11.1) K/mcL RBC 4.12 (3.82-4.97) M/mcL Hgb 12.1 (11.5-15.4) g/dL Hct 37.5 (35.3-44.9) % MCV 91.0 (83.0-100.0) fL MCH 29.4 (28.0-33.3) pg MCHC 32.3 (31.6-35.5) g/dL RDW 13.2 (11.5-14.5) % Plt Count 245 (140-400) K/mcL MPV 9.7 (9.4-12.4) fL Immature Gran % 0.1 (0-4) % Seg Neutrophils % 56.5 % Lymphocytes % 32.2 % Monocytes % 7.9 % Eosinophils % 2.9 % Basophils % 0.4 % Neutrophils # 4.1 (1.6-8.9) K/mcL Lymphocytes # 2.4 (0.6-4.6) K/mcL Monocytes # 0.6 (0.0-1.3) K/mcL Eosinophils # 0.2 (0.0-0.6) K/mcL Basophils # 0.0 (0.0-0.2) K/mcL PT (9.4-12.1) Seconds INR APTT (26.0-36.0) Seconds Sodium (136-145) mEq/L Potassium (3.5-4.5) mEq/L Chloride (98-109) mEq/L Carbon Dioxide (19-29) mEq/L BUN (7-20) mg/dL Creatinine (0.57-1.11) mg/dL Est GFR ( Amer) (> 60) Est GFR (Non-Af Amer) (> 60) BUN/Creatinine Ratio (6-26) Glucose (70-99) mg/dL Calculated Osmolality (280-300) Calcium (8.6-10.8) mg/dL Troponin I (0-0.03) ng/mL - Radiology Data Radiology results reviewed: Yes I reviewed the patient's radiology results. - EKG Data EKG attestation: Yes I reviewed and interpreted this EKG. EKG results narrative: Heart rate 71 bpm period. 188 ms. QTC 48 ms. Normal sinus rhythm. No ST elevation or ST depression noted. EKG somewhat similar in appearance EKG from . There are some mild nonspecific changes noted. Critical Care Time Critical Care Time: No Attestation Statement - Attestation Attestation: I examined this patient and my medical decision-making was reviewed with the Resident Physician. I agree with the documented findings, disposition and treatment plan as described except to the extent set forth below. The patient to ED with chest pain. History of coronary disease with a stent placed in 2016. Still having pain on arrival. On her examination she is in no acute distress. Lungs clear. Plan. Cardiac workup here shows a negative workup. Her pain resolved with nitroglycerin. She is admitted secondary to risk factors.
[2017-08-31 23:31] LABS: INR 1.1; Prothrombin Time 11.3 Seconds (9.4-12.1)
[2017-08-31 23:34] LABS: Activated Partial Thrombo Time 35.8 Seconds (26.0-36.0)
[2017-09-01 00:05] LABS: BUN/Creatinine Ratio 18 (6-26); Blood Urea Nitrogen 15 mg/dL (7-20); Carbon Dioxide 28 mEq/L (19-29); Chloride 108 mEq/L (98-109); Glucose 100 mg/dL (70-99); Osmolality,Calculated 295 (280-300); Potassium 4.3 mEq/L (3.5-4.5); Sodium 142 mEq/L (136-145); eGFR For African Americans > 60 (> 60); eGFR For Non-African Americans > 60 (> 60)
[2017-09-01] MEDS ORDERED: Ondansetron 4 MG/2 ML VIAL IVP PRN (02:37)
[2017-09-01] MEDS ORDERED: Naloxone 0.4 MG/ML INJ IVP PRN (02:37)
[2017-09-01] MEDS ORDERED: *HR* HYDROcodone/Acet 5/325 mg TABLET PO PRN (02:37)
--- NOTE | 2017-09-01 02:42 | Internal Med History&Physical ---
Date of Encounter: 09/01/17 Time of Encounter: 03:21 Assessment and Plan (1) Chest pain Current visit: Yes Status: Acute Significant risk factors including prior IN, smoking hx, morbid obesity EKG done in ER showed, Normal sinus rhythm. No ST elevation or ST depression noted. EKG somewhat similar in appearance EKG from 06/03/17 Stress test done in 05/2017 negative CXR unremarkable CBC/Chem unremarkable, troponin is negative Cycle troponin, Obtain ECHO to evaluate wall motion and EF Continue home meds of ASA/Plavix /Statin /BB and ACEI. No indication for cardiology consult at this time Qualifiers: Chest pain type: unspecified Qualified Code(s): R07.9 - Chest pain, unspecified (2) Coronary artery disease Current visit: Yes Status: Chronic As above Qualifiers: Coronary Disease-Associated Artery/Lesion type: [place] artery [place] vs. transplanted heart: [place] heart Associated angina: without angina Qualified Code(s): I25.10 - Atherosclerotic heart disease of [place] coronary artery without angina pectoris (3) Morbid obesity with BMI of 40.0-44.9, adult Current visit: Yes Status: Chronic Lifestyle modification Internal Medicine - H&P: HPI Chief complaint: chest pain Admitted From: Home Plans for Post Hospital Care: Home History of present illness: 67 year old female with medical history significant for panic attacks, anxiety, PTSD and chronic body pain, pulmonary embolism s/p orthopedic surgery, CAD s/p NSTEMI in 2016 with stent placement Presented to the ER with complains of chest pain said to be sub-sternal and radiated to the L shoulder, on-radiating and associated with shortness of breath. No nausea, vomiting, dizziness, diaphoresis, cough, fever or chills. No recent travels or calf pain Patient is a former smoker She had a recent stress test in 05/2017 that was negative Other ROS is unremarkable. Chronic medical problems are stable Past Med Surg Social Fam HX - Past Medical History Medical history: arthritis, cancer, coronary artery disease, DVT, fibromyalgia, hyperlipidemia, hypertension, kidney stones, malignancy, migraine, myocardial infarction, seizures Psychiatric history: anxiety, bipolar, depression, panic disorder, PTSD - Past Surgical History Surgical History: non-contributory, cholecystectomy, hip replacement, other - Social History Smoking Status: Former smoker Smokeless Tobacco Status: No Alcohol use: none Drug use: none - Family History Mother Living Status: Still Living Hx Family Cardiac Disorders: Yes (father,grandfather) Hx Family Respiratory Disorders: No Hx Family Cancer: Yes (mother) Hx Family GI Disorders: No Hx Family Endocrine Disorder: No Hx Family Neuromuscular Disorders: No Hx Family Neurologic Disorders: No Hx Family HEENT Disorders: No Hx Family Autoimmune Disorders: Yes (RA) Father Living Status: Still Living Hx Family Cardiac Disorders: Yes Hx Family Cancer: Yes Internal Medicine - H&P: Meds Aspirin Enteric Coated [Aspirin EC] 81 mg PO DAILY tablet. 03/03/16 [Rx] Lisinopril [Zestril] 5 mg PO DAILY #30 tablet 03/03/16 [Rx] Metoprolol [Lopressor] 12.5 mg PO BID #30 tablet 03/03/16 [Rx] Atorvastatin [Lipitor] 40 mg PO HS 06/04/17 [History] Clopidogrel [Plavix] 75 mg PO DAILY 06/04/17 [History] Gabapentin [Neurontin] 1,200 mg PO HS 06/04/17 [History] Gabapentin [Neurontin] 600 mg PO BID 06/04/17 [History] 3 Allergy/AdvReac Type Severity Reaction Status Date / Time sumatriptan [From Imitrex] Allergy Swelling Verified 06/03/17 18:43 of Lip/Tongue/Throat venom-honey bee Allergy Swelling Verified 06/03/17 18:43 [bee venom (honey bee)] of Lip/Tongue/Throat morphine AdvReac Nausea Verified 06/03/17 18:43 All Systems PM: A 10-system review of systems was performed and is negative for pertinent findings except as documented above in the HPI. - Constitutional Constitutional: no chills, no fever(s), no night sweats - EENT Eyes: no change in vision, no discharge, no pain, no photophobia Ears: no ear discharge, no ear pain, no tinnitus Nose, mouth and throat: no dysphagia, no nasal discharge, no neck pain, no sore throat - Cardiovascular Cardiovascular ROS IM: no chest pain, no diaphoresis, no dyspnea, no lightheadedness, no palpitations, no syncope - Respiratory Respiratory: no cough, no dyspnea, no wheezing, no excessive phlegm production - Gastrointestinal Gastrointestinal: no abdominal pain, no diarrhea, no hematemesis, no hematochezia, no melena, no nausea, no vomiting - Genitourinary Genitourinary: no change in urinary stream, no dysuria, no flank pain, no hematuria - Musculoskeletal Musculoskeletal ROS IM: no numbness, no tingling - Integumentary Integumentary IM: no rash, no unusual bruising - Neurological Neurological ROS: no confusion, no convulsions, no focal weakness, no numbness, no tingling, no tremor(s) - Hematologic/Lymphatic Hematologic/Lymphatic: no easy bruising - Constitutional Vitals: Temp Pulse Resp BP Pulse Ox 98.6 F 74 16 111/89 98 08/31/17 23:10 09/01/17 01:05 09/01/17 01:58 09/01/17 01:58 09/01/17 01:05 General appearance: Present: A&O X 3, morbidly obese, pleasant, no acute distress - Head Head exam: Present: atraumatic, normocephalic - Eye Eye exam: Present: PERRL, conjuntiva pink, sclera anicteric Pupils: Present: PERRL - Neck Neck exam general surgery: Present: supple, trachea midline. Absent: lymphadenopathy - Respiratory Respiratory exam: Present: CTAB. Absent: accessory muscle use, rales, rhonchi, wheezes Additional comments: NO chest wall tenderness - Cardiovascular Cardiovascular exam: Present: RRR, +S1, +S2. Absent: diastolic murmur, gallop, rubs, systolic murmur - GI/Abdominal GI/Abdominal exam: Present: normal bowel sounds, soft, no peritoneal signs. Absent: distended, tenderness - Extremities Exam Extremities exam: Present: warm, radial pulses palpable and symmetrical. Absent : calf tenderness, cyanotic, pedal edema - Neurological Exam Neurological exam: Present: alert, CN II-XII intact, oriented X3, no focal deficits. Absent: pronater drift, facial droop, speech deficit - Skin Skin exam: Present: dry, intact Internal Med - H&P Results - Labs CBC & Chem 7: 08/31/17 23:18 08/31/17 23:15
[2017-09-01 06:42] LABS: Chol/HDL Ratio 2.9 (0-4.9)
[2017-09-01] MEDS: Aspirin Enteric Coated 81 MG Tablet PO SCH (08:55)
[2017-09-01] MEDS: Gabapentin 300 MG CAPSULE PO SCH ×2 (08:55→16:26)
[2017-09-01] MEDS: Acetaminophen 325 MG TABLET PO PRN ×3 (08:57→23:01)
--- NOTE | 2017-09-01 13:21 | Discharge Summary ---
Date of Encounter: 09/01/17 Time of Encounter: 09:20 - Discharge Diagnosis (1) Morbid obesity with BMI of 45.0-49.9, adult Priority: Secondary Status: Acute (2) Chest pain Priority: Primary Status: Resolved Qualifiers: Chest pain type: unspecified Qualified Code(s): R07.9 - Chest pain, unspecified (3) Coronary artery disease Priority: Secondary Status: Chronic Qualifiers: Coronary Disease-Associated Artery/Lesion type: [place] artery [place] vs. transplanted heart: [place] heart Associated angina: without angina Qualified Code(s): I25.10 - Atherosclerotic heart disease of [place] coronary artery without angina pectoris (4) DVT prophylaxis Priority: Secondary Status: Acute - Discharge Medications Home Medications: Aspirin Enteric Coated [Aspirin EC] 81 mg PO DAILY tablet. 03/03/16 [Rx] Lisinopril [Zestril] 5 mg PO DAILY #30 tablet 03/03/16 [Rx] Metoprolol [Lopressor] 12.5 mg PO BID #30 tablet 03/03/16 [Rx] Atorvastatin [Lipitor] 40 mg PO HS 06/04/17 [History] Clopidogrel [Plavix] 75 mg PO DAILY 06/04/17 [History] Gabapentin [Neurontin] 1,200 mg PO HS 06/04/17 [History] Gabapentin [Neurontin] 600 mg PO BID 06/04/17 [History] Allergies/Adverse Reactions: 3 Allergy/AdvReac Type Severity Reaction Status Date / Time sumatriptan [From Imitrex] Allergy Swelling Verified 06/03/17 18:43 of Lip/Tongue/Throat venom-honey bee Allergy Swelling Verified 06/03/17 18:43 [bee venom (honey bee)] of Lip/Tongue/Throat morphine AdvReac Nausea Verified 06/03/17 18:43 Procedures/tests Complete & Pending: Procedures Performed prior 72 hours Category Date Time Status EV echocardiogram Routine Y 09/01/17 03:20 Stop Req EV echocardiogram Stat Y 09/01/17 11:48 Ordered Date of admission: 09/01/17 01:41 Primary care physician: PCP JOEY Discharging clinician: Ly Haywood Anticipated date of discharge: 09/01/17 - Patient Status Disposition: Home, Self-Care Condition: Good Functional capacity at discharge: independent ambulation Overall status at discharge: patient is back to baseline - Discharge Instructions [facility] Care Provider[facility] - Additional Instructions: Please follow up with your primary care physician within one week after your discharge from the hospital Please follow up with cardiology within one to two weeks after your discharge from the hospital Please resume all your home medications as prescribed by your primary care physician. - Diet and Activity Activity: resume usual activities as tolerated Diet: low fat, low cholesterol, low salt diet Hospital course: Ms. Goodson is a 67 year old female with PMH Of CAD, HTN, morbid obesity who was admitted for evaluation of chest pain. Pt was recently admitted for the same complain. She underwent stress test that was negative for any ischemic perfusion defect. She had negative serial TNI and currently reports of complete resolution of her chest pain. Pt is hemodynamically stable, with complete resolution of her presenting symptoms. She will be discharged to home pending echo findings/reports. Pt in agreement with the discharge care and plan. - Time Spent with Patient Total time spent providing and/or coordinating discharge services: Less than 30 minutes - Constitutional Vitals: Temp Pulse Resp BP Pulse Ox 97.9 F 72 17 115/70 97 09/01/17 11:44 09/01/17 11:44 09/01/17 11:44 09/01/17 11:44 09/01/17 11:44 General appearance: Present: A&O X 3, morbidly obese, pleasant, no acute distress - Head Head exam: Present: atraumatic, normocephalic - Eye Eye exam: Present: conjuntiva pink, sclera anicteric - Respiratory Respiratory exam: Present: CTAB. Absent: accessory muscle use, rales, rhonchi, wheezes - Cardiovascular Cardiovascular exam: Present: RRR, +S1, +S2. Absent: diastolic murmur, gallop, rubs, systolic murmur - GI/Abdominal GI/Abdominal exam: Present: normal bowel sounds, soft, no peritoneal signs. Absent: distended, tenderness - Extremities Exam Extremities exam: Present: warm, radial pulses palpable and symmetrical. Absent : calf tenderness - Neurological Exam Neurological exam: Present: alert, oriented X3 - Psychiatric Psychiatric exam: Present: normal affect, normal mood
[2017-09-01] MEDS ORDERED: Gabapentin 400 MG CAPSULE PO SCH (21:00)
[2017-09-02] MEDS ORDERED: Perflutren Lipid Microsphere 1.3 ML in 0.9 % Sodium Chloride 8.7 ML IVP ONE (08:22)
[2017-09-02] MEDS: Aspirin Enteric Coated 81 MG Tablet PO SCH (08:42)
[2017-09-02] MEDS: Gabapentin 300 MG CAPSULE PO SCH (08:42)
--- NOTE | 2017-09-02 09:49 | Internal Med Progress Note ---
Date of Encounter: 09/02/17 Time of Encounter: 09:05 - Assessment and plan (1) Morbid obesity with BMI of 45.0-49.9, adult Current Visit: Yes Status: Acute (2) Chest pain Current Visit: Yes Status: Resolved Qualifiers: Chest pain type: unspecified Qualified Code(s): R07.9 - Chest pain, unspecified (3) Coronary artery disease Current Visit: No Status: Chronic Qualifiers: Coronary Disease-Associated Artery/Lesion type: [place] artery [place] vs. transplanted heart: [place] heart Associated angina: without angina Qualified Code(s): I25.10 - Atherosclerotic heart disease of [place] coronary artery without angina pectoris (4) DVT prophylaxis Current Visit: No Status: Acute - Subjective Interval history: Patient is a 67y/o female admitted for chest pain. Serial TNI negative Chest pain negative Pt was discharged to home yesterday pending echocardiogram Her echo was not done until this morning she will be discharged to home today with outpatient follow up with PCP and cardiology. continue home medications - Constitutional Vitals: Temp Pulse Resp BP Pulse Ox 97.6 F 66 16 126/82 97 09/02/17 07:30 09/02/17 07:30 09/02/17 07:30 09/02/17 07:30 09/02/17 07:30 General appearance: Present: A&O X 3, morbidly obese, pleasant, no acute distress - Head Head exam: Present: atraumatic, normocephalic - Eye Eye exam: Present: conjuntiva pink, sclera anicteric - Respiratory Respiratory exam: Present: CTAB. Absent: respiratory distress, wheezes - Cardiovascular Cardiovascular exam: Present: RRR, +S1, +S2. Absent: diastolic murmur, gallop, rubs, systolic murmur - GI/Abdominal GI/Abdominal exam: Present: normal bowel sounds, soft, no peritoneal signs. Absent: distended, tenderness - Extremities Exam Extremities exam: Present: warm, radial pulses palpable and symmetrical. Absent : calf tenderness, pedal edema - Neurological Exam Neurological exam: Present: alert, oriented X3 Internal Medicine: Result - Labs CBC & Chem 7: 08/31/17 23:18 08/31/17 23:15 Labs: Cardiac Enzymes 09/01/17 Range/Units 12:13 Troponin I 0.00 (0-0.03) ng/mL - ABG Interpretation ABG results: PT/INR, D-dimer PT 11.3 Seconds (9.4-12.1) 08/31/17 23:15 Consult Discharge Plan - Plan Additional Instructions: Please follow up with your primary care physician within one week after your discharge from the hospital Please follow up with cardiology within one to two weeks after your discharge from the hospital Please resume all your home medications as prescribed by your primary care physician. Referrals: [facility] [Primary Care Provider] -
[2017-09-02] MEDS: Acetaminophen 325 MG TABLET PO PRN (10:02)
[2017-09-02 11:33] VITALS: BP 116/73
--- NOTE | 2017-09-02 19:42 | Electrocardiograph Report ---
[place] [id number] Test Date: 2017-08-31 Pat Name: Miriam Goodson Department: 104 Room: 3B Gender: F Hospice Administrator: MAGDALENA : 1950 Requested By: Shay Forbes Order Number: [id number] Reading MD: Adan Julian MD Measurements Intervals [place] Rate: 71 P: 31 MO: 188 QRS: -6 QRSD: 84 T: 40 QT: 385 QTc: 408 Interpretive Statements SINUS RHYTHM LOW QRS VOLTAGE IN PRECORDIAL LEADS Electronically Signed On 09-02-2017 19:40:33 EST by Adan Julian MD
== END 2017-09-02 13:55 | disposition home or self-care (01) ==
LOC: EMEROO 23:09 → 3BNU 23:09 → SUATTDRO 09-01 01:41 → 3BNU 09-01 02:08
PROVIDERS: ADMIT Internal Medicine; ATTEND Internal Medicine

== ENCOUNTER 2018-07-29 22:46 | Observation (INO) ==
[2018-07-29] MEDS ORDERED: 0.9 % Sodium Chloride 500 ML IVC ONE (22:56)
[2018-07-29] MEDS ORDERED: Aspirin 81 MG TAB.CHEW PO ONE (22:56)
[2018-07-29] MEDS ORDERED: Nitroglycerin 0.4 MG TAB.SUBL SL ONE (22:56)
--- NOTE | 2018-07-29 23:15 | Emergency Department Note ---
Disposition Clinical Impression: Chest pain Qualifiers: Chest pain type: precordial pain Qualified Code(s): R07.2 - Precordial pain Disposition: Admitted As Inpatient Condition: Good Chest Pain HPI - General Stated Complaint: chest pain Time Seen by Provider: 07/29/18 22:55 Source: patient, family, EMS Mode of arrival: EMS Limitations: no limitations Vital Signs Reviewed: Yes Nursing Notes Reviewed: Yes - History of Present Illness HPI Narrative: Patient with history of coronary artery disease, status post [place] in 2016 with two stents placed presents from home by squad for evaluation of chest pain. Onset was about an hour and a half ago. It is in the left chest and radiates to the left upper extremity and left jaw. She took one of her home nitroglycerin which helped a little. She denies fever, cough, dyspnea on exertion, peripheral edema, hemoptysis, recent surgery or procedure. Pt complaint: chest pain Onset (ago): hour(s) (1.5) Duration: constant Onset: during rest, during exertion Pain Location: substernal, left chest Severity: moderate Quality: heaviness Pain Radiation: LUE, neck, jaw/teeth Improves with: nitroglycerin Worsens with: nothing Context: history of DVT/PE, other (Hx of CAD, [place] 2016 with 2 stents placed) Associated symptoms: Reports: dyspnea. Denies: nausea, vomiting, diaphoresis, sense of impending doom, syncope, palpitations, fever, cough, leg swelling Treatments prior to arrival chest pain: nitroglycerin - Related Data On Oral Contraceptives: No Home Medications Medication Instructions Recorded Confirmed Atorvastatin [Lipitor] 40 mg PO HS 06/04/17 09/01/17 Clopidogrel [Plavix] 75 mg PO DAILY 06/04/17 09/01/17 Gabapentin [Neurontin] 1,200 mg PO HS 06/04/17 09/01/17 Gabapentin [Neurontin] 600 mg PO BID 06/04/17 09/01/17 Previous Rx's Medication Instructions Recorded Aspirin Enteric Coated [Aspirin EC] 81 mg PO DAILY tablet. 03/03/16 Lisinopril [Zestril] 5 mg PO DAILY #30 tablet 03/03/16 Metoprolol [Lopressor] 12.5 mg PO BID #30 tablet 03/03/16 Allergies Allergy/AdvReac Type Severity Reaction Status Date / Time sumatriptan [From Imitrex] Allergy Swelling Verified 06/03/17 18:43 of Lip/Tongue/Throat venom-honey bee Allergy Swelling Verified 06/03/17 18:43 [bee venom (honey bee)] of Lip/Tongue/Throat morphine AdvReac Nausea Verified 06/03/17 18:43 All systems ED: reviewed and negative except as stated. Review of Systems: As Per HPI Constitutional: Denies: fever, chills, weakness Eyes: Denies: vision change ENT ED: Denies: throat pain, congestion, dysphagia Cardiovascular: Reports: as per HPI, chest pain. Denies: palpitations, dyspnea on exertion, orthopnea, edema, syncope Respiratory: Reports: dyspnea ("Sometimes, a little"). Denies: cough, wheezes, hemoptysis, stridor, sputum production Gastrointestinal: Denies: abdominal pain, nausea, vomiting, diarrhea Musculoskeletal: Denies: back pain, neck pain, joint swelling, arthralgia Neurological: Denies: headache, weakness, numbness, paresthesias, confusion, vertigo Hematological/Lymphatic: Denies: easy bleeding, easy bruising Chest Pain PMH - Past Medical History Medical history: Reports: arthritis, cancer, coronary artery disease, DVT, fibromyalgia, hyperlipidemia, hypertension, kidney stones, malignancy, migraine , myocardial infarction, seizures Surgical history: Reports: non-contributory, cholecystectomy, hip replacement, other Psychiatric history: Reports: anxiety, bipolar, depression, panic disorder, PTSD Prior Cardiac Testing/Procedures: Echocardiogram, Stress Test, Stenting, Cardiac Angiogram - Social History Smoking Status: Former smoker Alcohol use: Reports: none Drug use: Reports: none Physical Exam - General Limitations: no limitations General appearance: alert, in no apparent distress - Head Head exam: atraumatic, normocephalic, normal inspection - Eye Eye exam: Present: normal appearance, PERRL. Absent: scleral icterus, conjunctival injection, periorbital swelling - ENT ENT exam: mucous membranes dry - Neck Neck exam: Present: normal inspection, full ROM, trachea midline. Absent: tenderness, meningismus - Expanded Neck Exam Neck exam focused ED: Absent: JVD, carotid bruit - Chest Chest inspection: Present: normal inspection, symmetric chest wall rise. Absent : tenderness - Respiratory Respiratory exam: Present: normal lung sounds bilaterally. Absent: respiratory distress, wheezes, stridor - Cardiovascular Cardiovascular exam: Present: regular rate, normal rhythm, normal heart sounds - Abdominal Exam Abdominal exam: Present: soft, Non-Tender. Absent: distention, guarding, rebound, rigidity, mass, pulsatile mass - Extremities Exam Extremities exam: Present: normal inspection, normal capillary refill. Absent: pedal edema - Neurological Exam Neurological exam: Present: alert, oriented X3, CN II-XII intact - Psychiatric Psychiatric exam: Present: normal affect, anxious - Skin Skin exam: Present: warm, dry, intact, normal color Course Course Narrative: Patient presents from home by squad for evaluation of chest pain that started a little over an hour prior to arrival. She states that it feels similar to when she had a heart attack in 2016. She denies dizziness, syncope, fever, chills, recent illness, cough, hemoptysis, recent leg pain or swelling. She states, "I am under too much stress and I think it is causing me to have pain." She became very tearful and upset when talking about current stressors in her life. Her daughter is at bedside. Patient denies any other complaints. She did take one of her nitroglycerin, which was prescribed to her by her manager trading. This did provide some relief. EKG is unchanged c/w 08/2017. No ST elevation or depression. Troponin and other labs are normal. CXR normal. Pain down to a "2" after SL NTG. BP also down to 110 systolic. Patient appears comfortable. Case discussed with Dr. Alvarenga. He has had face to face time with the patient, reviewed the ECG and agrees with the assessment and plan to admit. Hospitalist paged. Vital Signs Temperature 98.7 F 07/29/18 22:49 Pulse Rate 75 07/29/18 22:49 Respiratory Rate 18 07/29/18 22:49 Blood Pressure 156/100 07/29/18 22:49 O2 Sat by Pulse Oximetry 96 07/29/18 22:49 Temperature 98.7 F 07/29/18 22:49 Pulse Rate 75 07/30/18 01:07 Respiratory Rate 20 07/30/18 01:07 Blood Pressure 120/74 07/30/18 01:07 O2 Sat by Pulse Oximetry 97 07/30/18 01:07 Oxygen Delivery Oxygen Delivery Room Air Chest Pain - Medical Records Medical records reviewed: Yes I reviewed the patient's medical records. - Lab Data Lab results reviewed: Yes I reviewed the patient's lab results. Lab results narrative: Laboratory Last Values WBC 8.0 K/mcL (4.3-11.1) 07/30/18 00:10 RBC 3.97 M/mcL (3.82-4.97) 07/30/18 00:10 Hgb 11.5 g/dL (11.5-15.4) 07/30/18 00:10 Hct 36.1 % (35.3-44.9) 07/30/18 00:10 MCV 90.9 fL (83.0-100.0) 07/30/18 00:10 MCH 29.0 pg (28.0-33.3) 07/30/18 00:10 MCHC 31.9 g/dL (31.6-35.5) 07/30/18 00:10 RDW 13.0 % (11.5-14.5) 07/30/18 00:10 Plt Count 230 K/mcL (140-400) 07/30/18 00:10 MPV 10.3 fL (9.4-12.4) 07/30/18 00:10 Immature Gran % 0.2 % (0-4) 07/30/18 00:10 Seg Neutrophils % 58.3 % 07/30/18 00:10 Lymphocytes % 31.3 % 07/30/18 00:10 Monocytes % 7.5 % 07/30/18 00:10 Eosinophils % 2.2 % 07/30/18 00:10 Basophils % 0.5 % 07/30/18 00:10 Neutrophils # 4.7 K/mcL (1.6-8.9) 07/30/18 00:10 Lymphocytes # 2.5 K/mcL (0.6-4.6) 07/30/18 00:10 Monocytes # 0.6 K/mcL (0.0-1.3) 07/30/18 00:10 Eosinophils # 0.2 K/mcL (0.0-0.6) 07/30/18 00:10 Basophils # 0.0 K/mcL (0.0-0.2) 07/30/18 00:10 PT 11.7 Seconds (9.4-12.1) 07/30/18 00:10 INR 1.0 07/30/18 00:10 APTT 42.9 Seconds (26.0-36.0) H 07/30/18 00:10 Sodium 140 mEq/L (136-145) 07/30/18 00:10 Potassium 4.0 mEq/L (3.5-5.1) 07/30/18 00:10 Chloride 107 mEq/L (98-107) 07/30/18 00:10 Carbon Dioxide 25 mEq/L (23-29) 07/30/18 00:10 BUN 24 mg/dL (8-23) H 07/30/18 00:10 Creatinine 1.02 mg/dL (0.60-1.20) 07/30/18 00:10 Est GFR ( Amer) > 60 (> 60) 07/30/18 00:10 Est GFR (Non-Af Amer) 54 (> 60) L 07/30/18 00:10 BUN/Creatinine Ratio 24 (6-26) 07/30/18 00:10 Glucose 114 mg/dL (70-105) H 07/30/18 00:10 Calculated Osmolality 295 (280-300) 07/30/18 00:10 Calcium 9.0 mg/dL (8.6-10.3) 07/30/18 00:10 Troponin I < 0.03 ng/mL (< 0.04) 07/30/18 00:10 B-Natriuretic Peptide 86 pg/mL (Less than 100) 07/30/18 00:10 Result diagrams: 07/30/18 00:10 07/30/18 00:10 Lab Results 07/30/18 07/30/18 07/30/18 Range/Units 00:10 00:10 00:10 WBC 8.0 (4.3-11.1) K/mcL RBC 3.97 (3.82-4.97) M/mcL Hgb 11.5 (11.5-15.4) g/dL Hct 36.1 (35.3-44.9) % MCV 90.9 (83.0-100.0) fL MCH 29.0 (28.0-33.3) pg MCHC 31.9 (31.6-35.5) g/dL RDW 13.0 (11.5-14.5) % Plt Count 230 (140-400) K/mcL MPV 10.3 (9.4-12.4) fL Immature Gran % 0.2 (0-4) % Seg Neutrophils % 58.3 % Lymphocytes % 31.3 % Monocytes % 7.5 % Eosinophils % 2.2 % Basophils % 0.5 % Neutrophils # 4.7 (1.6-8.9) K/mcL Lymphocytes # 2.5 (0.6-4.6) K/mcL Monocytes # 0.6 (0.0-1.3) K/mcL Eosinophils # 0.2 (0.0-0.6) K/mcL Basophils # 0.0 (0.0-0.2) K/mcL PT 11.7 (9.4-12.1) Seconds INR 1.0 APTT 42.9 H (26.0-36.0) Seconds Sodium (136-145) mEq/L Potassium (3.5-5.1) mEq/L Chloride (98-107) mEq/L Carbon Dioxide (23-29) mEq/L BUN (8-23) mg/dL Creatinine (0.60-1.20) mg/dL Est GFR ( Amer) (> 60) Est GFR (Non-Af Amer) (> 60) BUN/Creatinine Ratio (6-26) Glucose (70-105) mg/dL Calculated Osmolality (280-300) Calcium (8.6-10.3) mg/dL Troponin I (< 0.04) ng/mL B-Natriuretic Peptide 86 (Less than 100) pg/mL 07/30/18 Range/Units 00:10 WBC (4.3-11.1) K/mcL RBC (3.82-4.97) M/mcL Hgb (11.5-15.4) g/dL Hct (35.3-44.9) % MCV (83.0-100.0) fL MCH (28.0-33.3) pg MCHC (31.6-35.5) g/dL RDW (11.5-14.5) % Plt Count (140-400) K/mcL MPV (9.4-12.4) fL Immature Gran % (0-4) % Seg Neutrophils % % Lymphocytes % % Monocytes % % Eosinophils % % Basophils % % Neutrophils # (1.6-8.9) K/mcL Lymphocytes # (0.6-4.6) K/mcL Monocytes # (0.0-1.3) K/mcL Eosinophils # (0.0-0.6) K/mcL Basophils # (0.0-0.2) K/mcL PT (9.4-12.1) Seconds INR APTT (26.0-36.0) Seconds Sodium 140 (136-145) mEq/L Potassium 4.0 (3.5-5.1) mEq/L Chloride 107 (98-107) mEq/L Carbon Dioxide 25 (23-29) mEq/L BUN 24 H (8-23) mg/dL Creatinine 1.02 (0.60-1.20) mg/dL Est GFR ( Amer) > 60 (> 60) Est GFR (Non-Af Amer) 54 L (> 60) BUN/Creatinine Ratio 24 (6-26) Glucose 114 H (70-105) mg/dL Calculated Osmolality 295 (280-300) Calcium 9.0 (8.6-10.3) mg/dL Troponin I < 0.03 (< 0.04) ng/mL B-Natriuretic Peptide (Less than 100) pg/mL - Radiology Data Radiology results reviewed: Yes I reviewed the patient's radiology results. Chest X-Ray 07/29/18 22:57 IMPRESSION: Clear lungs. Severe DJD of the left shoulder. D/ / Narayan Yan MD / Narayan Yan MD Interpreting Provider: Narayan Yan MD Heart Score - Score History: Moderately Suspicious EKG: Normal Age: Greater than 65 Risk Factors: Equal/Greater than 3 risk factor or history of atherosclerotic disease Troponin: 1-3x normal limit HEART Score Total: 6
[2018-07-30 00:46] LABS: Basophils % 0.5 %; Eosinophils # 0.2 K/mcL (0.0-0.6); Eosinophils % 2.2 %; Hematocrit 36.1 % (35.3-44.9); Hemoglobin 11.5 g/dL (11.5-15.4); Immature Granulocytes % 0.2 % (0-4); Lymphocytes # 2.5 K/mcL (0.6-4.6); Lymphocytes % 31.3 %; Mean Corpuscular HGB Conc 31.9 g/dL (31.6-35.5); Mean Corpuscular Volume 90.9 fL (83.0-100.0); Mean Platelet Volume 10.3 fL (9.4-12.4); Monocytes # 0.6 K/mcL (0.0-1.3); Monocytes % 7.5 %; Neutrophils # 4.7 K/mcL (1.6-8.9); Platelet Count 230 K/mcL (140-400); Red Blood Count 3.97 M/mcL (3.82-4.97); Segmented Neutrophils % 58.3 %
[2018-07-30 00:51] LABS: Prothrombin Time 11.7 Seconds (9.4-12.1)
[2018-07-30 00:53] LABS: Activated Partial Thrombo Time 42.9 Seconds (26.0-36.0)
[2018-07-30 01:06] LABS: BUN/Creatinine Ratio 24 (6-26); Blood Urea Nitrogen 24 mg/dL (8-23); Carbon Dioxide 25 mEq/L (23-29); Chloride 107 mEq/L (98-107); Glucose 114 mg/dL (70-105); Osmolality,Calculated 295 (280-300); Sodium 140 mEq/L (136-145); Troponin I < 0.03 ng/mL (< 0.04); eGFR For Non-African Americans 54 (> 60)
--- NOTE | 2018-07-30 01:33 | Emergency Department Note ---
Disposition Clinical Impression: Chest pain Qualifiers: Chest pain type: unspecified Qualified Code(s): R07.9 - Chest pain, unspecified Disposition: Admitted As Inpatient Condition: Good General Adult HPI - General Chief complaint: ED Chest Pain Stated complaint: chest pain Time Seen by Provider: 07/29/18 22:55 Source: patient, family, EMS Mode of arrival: EMS Limitations: no limitations Nursing Notes Reviewed: Yes Vital Signs Reviewed: Yes - History of Present Illness Pain Scale: 7 - Related Data Home Medications Medication Instructions Recorded Confirmed Atorvastatin [Lipitor] 40 mg PO HS 06/04/17 07/30/18 Clopidogrel [Plavix] 75 mg PO DAILY 06/04/17 07/30/18 Gabapentin [Neurontin] 900 mg PO TID 06/04/17 07/30/18 Buspirone HCl [Buspar] 10 mg PO BID PRN 07/30/18 07/30/18 Cholecalciferol (Vitamin D3) 2,000 unit PO DAILY 07/30/18 07/30/18 [Vitamin D] Escitalopram Oxalate 20 mg PO DAILY 07/30/18 07/30/18 Isosorbide MONOnitrate (24 HR) 30 mg PO DAILY 07/30/18 07/30/18 [Imdur] Memantine HCl 5 mg PO DAILY 07/30/18 07/30/18 Pantoprazole Sodium [Protonix] 20 mg PO DAILY 07/30/18 07/30/18 Previous Rx's Medication Instructions Recorded Lisinopril [Zestril] 5 mg PO DAILY #30 tablet 03/03/16 Metoprolol [Lopressor] 12.5 mg PO BID #30 tablet 03/03/16 Allergies Allergy/AdvReac Type Severity Reaction Status Date / Time sumatriptan [From Imitrex] Allergy Swelling Verified 06/03/17 18:43 of Lip/Tongue/Throat venom-honey bee Allergy Swelling Verified 06/03/17 18:43 [bee venom (honey bee)] of Lip/Tongue/Throat morphine AdvReac Nausea Verified 06/03/17 18:43 Constitutional: Denies: fever, chills, weakness Eyes: Denies: vision change ENT ED: Denies: throat pain, congestion, dysphagia Cardiovascular: Reports: as per HPI, chest pain. Denies: palpitations, dyspnea on exertion, orthopnea, edema, syncope Respiratory: Reports: dyspnea ("Sometimes, a little"). Denies: cough, wheezes, hemoptysis, stridor, sputum production Gastrointestinal: Denies: abdominal pain, nausea, vomiting, diarrhea Musculoskeletal: Denies: back pain, neck pain, joint swelling, arthralgia Neurological: Denies: headache, weakness, numbness, paresthesias, confusion, vertigo Hematological/Lymphatic: Denies: easy bleeding, easy bruising Past Medical History - Past Medical History Medical history: Reports: arthritis, cancer, coronary artery disease, DVT, fibromyalgia, hyperlipidemia, hypertension, kidney stones, malignancy, migraine , myocardial infarction, seizures Surgical history: Reports: non-contributory, cholecystectomy, hip replacement, other Psychiatric history: Reports: anxiety, bipolar, depression, panic disorder, PTSD - Social History Smoking Status: Former smoker Smokeless Tobacco Status: No Alcohol use: Reports: none Drug use: Reports: none Physical Exam - General Limitations: no limitations General appearance: alert, in no apparent distress Course Vital Signs Temperature 98.7 F 07/29/18 22:49 Pulse Rate 75 07/29/18 22:49 Respiratory Rate 18 07/29/18 22:49 Blood Pressure 156/100 07/29/18 22:49 O2 Sat by Pulse Oximetry 96 07/29/18 22:49 Temperature 99.1 F 07/30/18 02:28 Pulse Rate 77 07/30/18 02:28 Respiratory Rate 16 07/30/18 02:28 Blood Pressure 155/80 07/30/18 02:28 O2 Sat by Pulse Oximetry 90 07/30/18 02:28 Oxygen Delivery Oxygen Delivery Room Air Medical Decision Making - Lab Data Result diagrams: 07/30/18 00:10 07/30/18 00:10 Lab Results 07/30/18 07/30/18 07/30/18 Range/Units 00:10 00:10 00:10 WBC 8.0 (4.3-11.1) K/mcL RBC 3.97 (3.82-4.97) M/mcL Hgb 11.5 (11.5-15.4) g/dL Hct 36.1 (35.3-44.9) % MCV 90.9 (83.0-100.0) fL MCH 29.0 (28.0-33.3) pg MCHC 31.9 (31.6-35.5) g/dL RDW 13.0 (11.5-14.5) % Plt Count 230 (140-400) K/mcL MPV 10.3 (9.4-12.4) fL Immature Gran % 0.2 (0-4) % Seg Neutrophils % 58.3 % Lymphocytes % 31.3 % Monocytes % 7.5 % Eosinophils % 2.2 % Basophils % 0.5 % Neutrophils # 4.7 (1.6-8.9) K/mcL Lymphocytes # 2.5 (0.6-4.6) K/mcL Monocytes # 0.6 (0.0-1.3) K/mcL Eosinophils # 0.2 (0.0-0.6) K/mcL Basophils # 0.0 (0.0-0.2) K/mcL PT 11.7 (9.4-12.1) Seconds INR 1.0 APTT 42.9 H (26.0-36.0) Seconds Sodium (136-145) mEq/L Potassium (3.5-5.1) mEq/L Chloride (98-107) mEq/L Carbon Dioxide (23-29) mEq/L BUN (8-23) mg/dL Creatinine (0.60-1.20) mg/dL Est GFR ( Amer) (> 60) Est GFR (Non-Af Amer) (> 60) BUN/Creatinine Ratio (6-26) Glucose (70-105) mg/dL Calculated Osmolality (280-300) Calcium (8.6-10.3) mg/dL Troponin I (< 0.04) ng/mL B-Natriuretic Peptide 86 (Less than 100) pg/mL 07/30/18 Range/Units 00:10 WBC (4.3-11.1) K/mcL RBC (3.82-4.97) M/mcL Hgb (11.5-15.4) g/dL Hct (35.3-44.9) % MCV (83.0-100.0) fL MCH (28.0-33.3) pg MCHC (31.6-35.5) g/dL RDW (11.5-14.5) % Plt Count (140-400) K/mcL MPV (9.4-12.4) fL Immature Gran % (0-4) % Seg Neutrophils % % Lymphocytes % % Monocytes % % Eosinophils % % Basophils % % Neutrophils # (1.6-8.9) K/mcL Lymphocytes # (0.6-4.6) K/mcL Monocytes # (0.0-1.3) K/mcL Eosinophils # (0.0-0.6) K/mcL Basophils # (0.0-0.2) K/mcL PT (9.4-12.1) Seconds INR APTT (26.0-36.0) Seconds Sodium 140 (136-145) mEq/L Potassium 4.0 (3.5-5.1) mEq/L Chloride 107 (98-107) mEq/L Carbon Dioxide 25 (23-29) mEq/L BUN 24 H (8-23) mg/dL Creatinine 1.02 (0.60-1.20) mg/dL Est GFR ( Amer) > 60 (> 60) Est GFR (Non-Af Amer) 54 L (> 60) BUN/Creatinine Ratio 24 (6-26) Glucose 114 H (70-105) mg/dL Calculated Osmolality 295 (280-300) Calcium 9.0 (8.6-10.3) mg/dL Troponin I < 0.03 (< 0.04) ng/mL B-Natriuretic Peptide (Less than 100) pg/mL Attestation Statement - Attestation Attestation: I examined this patient and my medical decision making was reviewed with the [facility]. I agree with the documented findings, disposition and treatment plan as described except to the extent set forth below. We independently had face-to- face contact with the patient. Patient with previous history of chest pain and multiple stents presenting for evaluation of chest pain that started today. Feels like previous chest pain that required stents. Pressure in the center of her chest that was partially relieved with at-home nitroglycerin. Patient received 1 nitroglycerin in the emergency department and did have further substantial relief. EKG shows nonspecific changes. Patient is undergoing further workup for evaluation of ACS. Patient will likely require admission for further ACS rule out. No acute distress, conversational, really enjoys [place] Regular rate and rhythm Clear to auscultation bilaterally Please see APAP note for further details and disposition.
--- NOTE | 2018-07-30 02:16 | Internal Med History&Physical ---
Date of Encounter: 07/30/18 Time of Encounter: 02:05 Internal Medicine - H&P: HPI Chief complaint: Chest pain Admitted From: Emergency Dept Plans for Post Hospital Care: Home History of present illness: Miriam Goodson is a 68-year-old morbidly obese and former smoker woman with a history of PTSD/anxiety disorder with panic attacks, chronic body pains, pulmonary embolism after orthopedic surgery, hypertension and coronary artery disease status post NSTEMI in 2016 with 2 stents placed who presents to the ER now with complaints of midsternal chest pain. She states that ever since her OH she has been having chest pain on and off however notices that it has been of increasing frequency, severity and duration now having symptoms even at rest. Today she states that while she was sitting down at home she felt a sudden chest depression as though a small elephant was sitting on her chest and this was associated with shortness of breath. She took one nitroglycerin at home however the pain persisted and on arrival here she received another nitroglycerin we provided modest relief as well as loading dose of aspirin. While here her hemodynamics were relatively stable and her EKG which was reviewed independently by me show normal sinus rhythm with no ST elevation or depressions noted. Lab work was grossly unremarkable and her troponin was negative. She is admitted for further observation based on her risk factors. At this time she reports that her chest pain is relieved. She does admit to having a lot of stressors at home which she feels has exacerbated the frequency of her chest pains. She reports a strong family history of heart disease in both her father and her mother. Review of old records revealed that she had a myocardial perfusion study done over a year ago that showed a small sized moderate intensity fixed perfusion defect involving the apical inferior wall but findings possibly representing artifact and no evidence for ischemia. 10 point review of systems was performed and negative except as stated above. Past Med Surg Social Fam HX - Past Medical History Medical history: arthritis, cancer, coronary artery disease, DVT, fibromyalgia, hyperlipidemia, hypertension, kidney stones, malignancy, migraine, myocardial infarction, seizures Additional medical history: uturine cancer. Left leg DVT Psychiatric history: anxiety, bipolar, depression, panic disorder, PTSD - Past Surgical History Surgical History: non-contributory, cholecystectomy, hip replacement, other Additional surgical history: Left hip replacement right shoulder Surgery - Social History Smoking Status: Former smoker Smokeless Tobacco Status: No Alcohol use: none Drug use: none - Family History Mother Living Status: Still Living Hx Family Cardiac Disorders: Yes (father,grandfather) Hx Family Respiratory Disorders: No Hx Family Cancer: Yes (mother) Hx Family GI Disorders: No Hx Family Endocrine Disorder: No Hx Family Neuromuscular Disorders: No Hx Family Neurologic Disorders: No Hx Family HEENT Disorders: No Hx Family Autoimmune Disorders: Yes (RA) Father Living Status: Still Living Hx Family Cardiac Disorders: Yes Hx Family Cancer: Yes Internal Medicine - H&P: Meds Lisinopril [Zestril] 5 mg PO DAILY #30 tablet 03/03/16 [Rx] Metoprolol [Lopressor] 12.5 mg PO BID #30 tablet 03/03/16 [Rx] Atorvastatin [Lipitor] 40 mg PO HS 06/04/17 [History] Clopidogrel [Plavix] 75 mg PO DAILY 06/04/17 [History] Gabapentin [Neurontin] 900 mg PO TID 06/04/17 [History] Buspirone HCl [Buspar] 10 mg PO BID PRN 07/30/18 [History] Cholecalciferol (Vitamin D3) [Vitamin D] 2,000 unit PO DAILY 07/30/18 [History] Escitalopram Oxalate 20 mg PO DAILY 07/30/18 [History] Isosorbide MONOnitrate (24 HR) [Imdur] 30 mg PO DAILY 07/30/18 [History] Memantine HCl 5 mg PO DAILY 07/30/18 [History] Pantoprazole Sodium [Protonix] 20 mg PO DAILY 07/30/18 [History] 3 Allergy/AdvReac Type Severity Reaction Status Date / Time sumatriptan [From Imitrex] Allergy Swelling Verified 06/03/17 18:43 of Lip/Tongue/Throat venom-honey bee Allergy Swelling Verified 06/03/17 18:43 [bee venom (honey bee)] of Lip/Tongue/Throat morphine AdvReac Nausea Verified 06/03/17 18:43 All Systems PM: A 10-system review of systems was performed and is negative for pertinent findings except as documented above in the HPI. - Constitutional Vitals: Temp Pulse Resp BP Pulse Ox 98.7 F 77 20 119/82 99 07/29/18 22:49 07/30/18 01:38 07/30/18 01:38 07/30/18 01:38 07/30/18 01:38 Exam: Vitals: Reviewed General: Obese white female lying comfortably in bed in no acute distress Skin: Warm and supple HEENT: Moist mucous membranes. No conjunctivae pallor. Neck: No lymphadenopathy. No JVD. No carotid bruits. No palpable thyroid. Chest: Normal thoracic expansion. Normal breath sounds. Clear to auscultation. Heart: Normal S1 & S2; rhythmic. No rubs or murmurs. Abdomen: Non-distended, soft and non-tender to palpation. Extremities: No clubbing, cyanosis or edema. No calf tenderness. Normal distal pulses. Neurological: Awake, alert and oriented to person, place and time. No focal deficits. Psych: Affect appropriate. Internal Med - H&P Results - Labs CBC & Chem 7: 07/30/18 00:10 07/30/18 00:10 - Assessment and plan (1) Unstable angina pectoris Current Visit: Yes Status: Acute Assessment and plan: The patient has moderate risk of ACS based on her HEART score. Her chest pain is somewhat typical with increasing frequency, duration and severity concerning for unstable angina. She will benefit from observation and serial troponins. She should get a stress test for evaluation. Monitor on telemetry. (2) Obesity Current Visit: Yes Status: Acute Assessment and plan: Counseled on weight loss. Will benefit from pipe setter. Qualifiers: Obesity type: due to excess calories Obesity classification: adult class 3 (BMI >= 40) Serious obesity comorbidity presence: with serious comorbidity Body mass index: BMI 50.0-59.9 Qualified Code(s): E66.01 - Morbid (severe) obesity due to excess calories; Z68.43 - Body mass index (BMI) 50-59.9, adult (3) Coronary artery disease Current Visit: Yes Status: Chronic Assessment and plan: Will resume nitrates and antiplatelet therapy pending further evaluation. Qualifiers: Coronary Disease-Associated Artery/Lesion type: [place] artery [place] vs. transplanted heart: [place] heart Associated angina: with unstable angina Qualified Code(s): I25.110 - Atherosclerotic heart disease of [place] coronary artery with unstable angina pectoris (4) Mood disorder Current Visit: Yes Status: Acute Assessment and plan: Will continue her antidepressants and anxiolytics. (5) DVT prophylaxis Current Visit: Yes Status: Acute Assessment and plan: SubQ heparin. - Time Spent With Patient Total time spent is greater than 50% in coordination of care (as documented) at patient's floor/unit and/or counseling patient: Greater than 35 minutes
[2018-07-30] MEDS: *HR* Heparin 5,000 UNIT/ML VIAL SQ SCH ×3 (05:48→22:34)
[2018-07-30] MEDS ORDERED: Regadenoson 0.4 MG/5 ML SYRINGE IVP ONE ×2 (08:24→08:31)
[2018-07-30] MEDS: Aspirin 81 MG TAB.CHEW PO SCH (10:35)
[2018-07-30] MEDS: Isosorbide MONOnitrate (24 HR) 30 MG TAB.ER.24H PO SCH (10:36)
[2018-07-30] MEDS: Gabapentin 300 MG CAPSULE PO SCH ×3 (10:36→22:34)
[2018-07-30] MEDS: Cholecalciferol (D-3) 1,000 UNIT TABLET PO SCH (10:38)
--- NOTE | 2018-07-30 15:54 | Event Note ---
Date of Encounter: 07/30/18 Time of Encounter: 15:50 68 yo female with Hx of CAD and stents placement presented with chest pain. She admitted significant stress due to home situation. Her troponin and EKG were both normal. Finished first part of 2-day stress test. will finish the 2nd part tomorrow. She states she still having baseline chest pain but has improved since admission.
[2018-07-30] MEDS: Acetaminophen 325 MG TABLET PO PRN (17:05)
[2018-07-31] MEDS ORDERED: Ibuprofen 400 MG TABLET PO PRN (00:31)
[2018-07-31] MEDS ORDERED: traMADol 50 MG TABLET PO ONE (00:31)
[2018-07-31] MEDS: Nitroglycerin 0.4 MG TAB.SUBL SL PRN ×3 (01:52→21:37)
[2018-07-31] MEDS: *HR* Heparin 5,000 UNIT/ML VIAL SQ SCH ×3 (06:05→20:45)
[2018-07-31] MEDS: Aspirin 81 MG TAB.CHEW PO SCH (09:25)
[2018-07-31] MEDS: Gabapentin 300 MG CAPSULE PO SCH ×3 (09:25→20:45)
[2018-07-31] MEDS: Cholecalciferol (D-3) 1,000 UNIT TABLET PO SCH (09:26)
[2018-07-31] MEDS: Isosorbide MONOnitrate (24 HR) 30 MG TAB.ER.24H PO SCH (09:26)
--- NOTE | 2018-07-31 11:47 | Internal Med Progress Note ---
Hospitalist Progress Note - Encounter Date of Encounter: 07/31/18 Time of Encounter: 11:45 - Subjective Interval History: No acute changes overnight, continuing to report intermittent chest pain/ pressure with diaphoresis, nausea, dizziness, shortness of breath. Significant CAD and prior AL. Discussed case with cardiology - Exam Vitals: Temp Pulse Resp BP Pulse Ox 98.2 F 67 16 102/65 96 07/31/18 10:58 07/31/18 10:58 07/31/18 10:58 07/31/18 10:58 07/31/18 10:58 Exam: Vitals: Reviewed General: Obese white female, A&O 3 without distress Skin: Warm and supple HEENT: Moist mucous membranes. No conjunctivae pallor. Neck: No lymphadenopathy. No JVD. No carotid bruits. No palpable thyroid. Chest: Normal thoracic expansion. Normal breath sounds. Clear to auscultation. No chest wall tenderness Heart: Normal S1 & S2; RRR. No murmurs rubs or gallops Abdomen: Non-distended, soft and non-tender to palpation. Extremities: No clubbing, cyanosis or edema. No calf tenderness. Normal distal pulses. Neurological: Awake, alert and oriented to person, place and time. No focal deficits. Psych: Affect appropriate. - Assessment and Plan (1) Unstable angina pectoris Current Visit: Yes Status: Acute Assessment and Plan: The patient has moderate risk of ACS based on her HEART score Continues to have intermittent midsternal chest pain/pressure with dyspnea, dizziness, fatigue, nausea, diaphoresis Reports that the pain is increasing in frequency Underwent 2 day stress test-awaiting results Discussed with cardiology as patient is continuing to have chest pain may benefit from additional evaluation or medication changes Consult cardiology, thank you and I appreciate your recommendations; benefit from titration of nitrates and/or further ischemic evaluation given history; defer to cardiology Serial troponins negative 3 Echo 08/31- LVEF 55%. Moderate left ventricular diastolic dysfunction. Definity echo contrast was used. RV is not well visualized. No significant valvular dysfunction. No pulmonary hypertension. Continue telemetry Continue cardiac meds Continue sublingual nitroglycerin PRN (2) Coronary artery disease Current Visit: Yes Status: Chronic Assessment and Plan: As above (3) Obesity Current Visit: Yes Status: Acute Assessment and Plan: Discussed diet, nutrition and lifestyle modifications (4) Mood disorder Current Visit: Yes Status: Acute Assessment and Plan: Continuing antidepressants and anxiolytics Mood stable, calm and cooperative (5) DVT prophylaxis Current Visit: Yes Status: Acute Assessment and Plan: Continue SubQ heparin. - Time Spent with Patient Total time spent is greater than 50% in coordination of care (as documented) at patient's floor/unit and/or counseling patient: less than 15 minutes Plan of Care Discussed with: patient Internal Medicine: Result - Labs CBC & Chem 7: 07/30/18 00:10 07/30/18 00:10 Labs: Cardiac Enzymes 07/30/18 Range/Units 12:30 Troponin I < 0.03 (< 0.04) ng/mL - ABG Interpretation ABG results: PT/INR, D-dimer PT 11.7 Seconds (9.4-12.1) 07/30/18 00:10 Consult Discharge Plan - Plan [facility] Provider[facility] - 08/08/18 11:15 am (2) Coronary artery disease Qualifiers: Coronary Disease-Associated Artery/Lesion type: [place] artery [place] vs. transplanted heart: [place] heart Associated angina: with unstable angina Qualified Code(s): I25.110 - Atherosclerotic heart disease of [place] coronary artery with unstable angina pectoris (3) Obesity Qualifiers: Obesity type: due to excess calories Obesity classification: adult class 3 ( BMI >= 40) Serious obesity comorbidity presence: with serious comorbidity Body mass index: BMI 50.0-59.9 Qualified Code(s): E66.01 - Morbid (severe) obesity due to excess calories; Z68.43 - Body mass index (BMI) 50-59.9, adult
--- NOTE | 2018-07-31 13:30 | Cardiology Consult Note ---
<Dequan Moreaumari Rios - Last Filed: 07/31/18 13:58> Date of Encounter: 07/31/18 Time of Encounter: 13:20 Assessment and Plan (1) Chest pain Current Visit: Yes Status: Resolved intermittent atypical chest pain. Currently improved. History of ID s/p 2 stent placements (PTCA/GINGER mid RCA and proximal LAD) in 2015 Troponin x3 <0.03. EKG on admission normal sinus rhythm with no evidence of acute ischemia. 2 day stress test completed today. Results reviewed. Pharmacologic stress ECG and perfusion imaging negative for ischemia or infarct. Will maximize medical therapy. Increase Imdur to 60mg PO qd and Lopressor to 25mg PO BID. Pt already received Imdur 30mg this morning. Give additional 30mg Imdur now and start 60mg dose tomorrow. Start metoprolol 25mg tonight. Keep the patient overnight to monitor her blood pressures. Ambulate the patient. If patient can tolerate the increase dose in these medications without drop in her blood pressure or dizziness, recommend further outpatient workup. Continue with lisinopril, lipitor, aspirin, and plavix as ordered. monitor tech. Qualifiers: Chest pain type: unspecified Qualified Code(s): R07.9 - Chest pain, unspecified (2) Coronary artery disease Current Visit: No Status: Chronic Severe 2 vessel CAD. PTCA/GINGER mid RCA and proximal LAD in 2016. Stress test from today negative for ischemia or infarct. Plan as above. Qualifiers: Coronary Disease-Associated Artery/Lesion type: [place] artery [place] vs. transplanted heart: [place] heart Associated angina: with stable angina Qualified Code(s): I25.118 - Atherosclerotic heart disease of [place] coronary artery with other forms of angina pectoris (3) Hypertension Current Visit: Yes Status: Acute Monitor blood pressures with increased doses of Lopressor and Imdur. Qualifiers: Hypertension type: essential hypertension Qualified Code(s): I10 - Essential (primary) hypertension Discussion w patient/family: The assessment and plan as outlined above was discussed with the patient and/or family members who expressed understanding and agreement. All questions were answered. Thank you for involving us in the care of your patient. Please call with any questions. History of Present Illness Consult date: 07/31/18 Requesting physician: Rufus Hernandez Consult reason: chest pain Chief complaint: chest pain History of present illness: Ms. Goodson is a 68 year old female with past medical history including CAD and ID s/p PTCA/GINGER in mid RCA and proximal LAD in February 2016 on aspirin and plavix, hypertension, hyperlipidemia, mood disorder, who presents with a chief complaint of chest pain. Patient states she has been having intermittent episodes of substernal chest pain for the past two years since her cardiac catheterization. She follows up with Cardiology at [facility]. Last appointment was three months ago. Since she states her chest pain has been more frequent. One and a half hours prior to arrival to the ED, patient developed substernal sharp chest pain at rest that radiated to her left arm and left jaw. Associated with shortness of breath and nausea. Denies lightheadedness, diaphoresis, abdominal pain. States this is similar to her episodes in the past but more intense pain. Took a nitroglycerin prior to coming to the ED that helped somewhat. In the ED, ekg showed no acute ischemia and unchanged from prior ekg. She was given nitroglycerin with improvement in pain and admitted. Troponin x3 <0.03. 2 day stress test completed, negative for ischemia or infarct. Cardiology consulted for further recommendations and evaluation of chest pain, titration of her medications. Patient seen and evaluated today. At present, she denies chest pain , shortness of breath, nausea, lightheadedness, or any other complaints. Past Med Surg Social Fam HX - Past Medical History Medical history: arthritis, cancer, coronary artery disease, DVT, fibromyalgia, hyperlipidemia, hypertension, kidney stones, malignancy, migraine, myocardial infarction, seizures Additional medical history: uturine cancer. Left leg DVT Psychiatric history: anxiety, bipolar, depression, panic disorder, PTSD - Past Surgical History Surgical History: non-contributory, cholecystectomy, hip replacement, other Additional surgical history: Left hip replacement right shoulder Surgery - Social History Smoking Status: Former smoker Smokeless Tobacco Status: No Alcohol use: none Drug use: none - Family History Mother Living Status: Still Living Hx Family Cardiac Disorders: Yes (father,grandfather) Hx Family Respiratory Disorders: No Hx Family Cancer: Yes (mother) Hx Family GI Disorders: No Hx Family Endocrine Disorder: No Hx Family Neuromuscular Disorders: No Hx Family Neurologic Disorders: No Hx Family HEENT Disorders: No Hx Family Autoimmune Disorders: Yes (RA) Father Living Status: Still Living Hx Family Cardiac Disorders: Yes Hx Family Cancer: Yes Medications and Allergies Lisinopril [Zestril] 5 mg PO DAILY #30 tablet 03/03/16 [Rx] Metoprolol [Lopressor] 12.5 mg PO BID #30 tablet 03/03/16 [Rx] Atorvastatin [Lipitor] 40 mg PO HS 06/04/17 [History] Clopidogrel [Plavix] 75 mg PO DAILY 06/04/17 [History] Gabapentin [Neurontin] 900 mg PO TID 06/04/17 [History] Buspirone HCl [Buspar] 10 mg PO BID PRN 07/30/18 [History] Cholecalciferol (Vitamin D3) [Vitamin D] 2,000 unit PO DAILY 07/30/18 [History] Escitalopram Oxalate 20 mg PO DAILY 07/30/18 [History] Isosorbide MONOnitrate (24 HR) [Imdur] 30 mg PO DAILY 07/30/18 [History] Memantine HCl 5 mg PO DAILY 07/30/18 [History] Pantoprazole Sodium [Protonix] 20 mg PO DAILY 07/30/18 [History] 3 Allergy/AdvReac Type Severity Reaction Status Date / Time sumatriptan [From Imitrex] Allergy Swelling Verified 06/03/17 18:43 of Lip/Tongue/Throat venom-honey bee Allergy Swelling Verified 06/03/17 18:43 [bee venom (honey bee)] of Lip/Tongue/Throat morphine AdvReac Nausea Verified 06/03/17 18:43 All Systems Review: The remainder of the systems were reviewed and are negative - Constitutional Constitutional: no fever(s), no headache(s), no lethargy, no weakness - EENT Eyes: no blurred vision Nose, mouth and throat: no dysphagia - Cardiovascular Cardiovascular: chest pain at rest, lightheadedness, no irregular heart rhythm, no leg edema, no palpitations - Respiratory Respiratory: dyspnea, no cough, no hemoptysis - Gastrointestinal Gastrointestinal: nausea, no abdominal pain, no constipation, no diarrhea - Genitourinary Genitourinary: no dysuria - Musculoskeletal Musculoskeletal: no back pain, no myalgias - Integumentary Integumentary: no rash - Neurological Neurological: no numbness, no tingling - Hematological/Lymphatic Hematologic/Lymphatic: no easy bleeding Physical Examination Vital Signs, Last 4 Hours Temp Pulse Resp BP Pulse Ox 07/31/18 10:58 98.2 F 67 16 102/65 96 07/31/18 09:30 98 F 63 14 101/64 95 General: Conversant, No Apparent Distress HEENT: Atraumatic, Normocephaly, Mucus Membranes Moist Neck: No JVD, Normal carotid pulses Cardiac: Reg Rate and Rhythm, Normal S1 and S2, No Murmur Lungs: Normal Breath Sounds, No Wheeze, Rales, Rhonchi Neuro: Alert and responsive, No focal deficits noted Abdomen: Soft, Non-Tender Skin: No rashes noted on visualized skin Musculoskeletal: No Chest Wall Tenderness Extremities: No Edema, Normal Pulses (bilateral radial pulses equal) Results 07/30/18 00:10 07/30/18 00:10 - Imaging and Cardiology Chest Xray: report reviewed Stress Test: report reviewed Echo: report reviewed Consult Discharge Plan - Plan [facility] Provider[facility] - 08/08/18 11:15 am <Thalia Klein - Last Filed: 07/31/18 15:07> Date of Encounter: 07/31/18 - Attending Attestation Patient was seen and evaluated independently by me. Findings, assessment and plan were discussed at length with patient, questions answered. Agree with nurse practitioner's documentation. Addition as follows, 68 yoCF ho CAD GINGER-LAD and RCA 2015 for NSTEMI, chronic stable angina 2 yrs with neg pharm SPECT 2017, HTN, P/w more frequent angina, neg trop, pharm SPECT neg for infarct or ischemia today. No syncope, dizziness, palpitations. VSS, obese, no JVD, CTA, RR, no M/G/R, NT, no LE edema. ECG SR, low voltage precordial 2017 TTE EF 55%, nl valves, no PH A: CAD, stable angina, class II-III, need anti-anginal med optimization P: up imdur from 30 to 60 up metoprolol from 12.5 to 25 bid walk pt around with BP and HR and watch for dizziness, if BP low with dizziness , d/c lisinopril. Ranexa in consideration if can't tolerate high dose of imdur and BB. c/w DAPT, lipitor Cardiology clinic f/u Thalia Klein MD, PhD Assessment and Plan Discussion w patient/family: The assessment and plan as outlined above was discussed with the patient and/or family members who expressed understanding and agreement. All questions were answered. Thank you for involving us in the care of your patient. Please call with any questions. History of Present Illness History of present illness: Ms. Goodson is a 68 year old female All Systems Review: The remainder of the systems were reviewed and are negative Physical Examination Vital Signs, Last 4 Hours Temp Pulse Resp BP Pulse Ox 07/31/18 10:58 98.2 F 67 16 102/65 96 Results 07/30/18 00:10 07/30/18 00:10
[2018-07-31] MEDS ORDERED: Isosorbide MONOnitrate (24 HR) 30 MG TAB.ER.24H PO ONE (13:53)
[2018-07-31] MEDS: Acetaminophen 325 MG TABLET PO PRN (13:55)
[2018-08-01] MEDS ORDERED: Isosorbide MONOnitrate (24 HR) 60 MG TAB.ER.24H PO SCH (09:00)
--- NOTE | 2018-08-01 12:35 | Event Note ---
Date of Encounter: 08/01/18 Time of Encounter: 12:34 - Cardiology Event Note Pateint seen and examined by cardiology during down time. See paper progress note on chart. Cardiology will sign off and recommend follow up with primary spare parts clerk.
[2018-08-01 12:57] LABS: Bilirubin,Urine Negative (Negative); Blood,Urine Negative (Negative); Clarity,Urine Clear (Clear); Color,Urine Yellow (Yellow); Glucose,Urine (UA) Normal (Normal); Ketones,Urine Negative (Negative); Leukocyte Esterase,Urine Negative (Negative); Nitrite,Urine Negative (Negative); Protein,Urine Negative (Neg-Trace); Specific Gravity,Urine 1.026 (1.010-1.025); Urobilinogen,Urine Normal (Normal)
[2018-08-01] MEDS: Aspirin 81 MG TAB.CHEW PO SCH (12:59)
[2018-08-01] MEDS: *HR* Heparin 5,000 UNIT/ML VIAL SQ SCH (12:59)
[2018-08-01] MEDS: Cholecalciferol (D-3) 1,000 UNIT TABLET PO SCH (13:00)
[2018-08-01] MEDS: Gabapentin 300 MG CAPSULE PO SCH (13:00)
--- NOTE | 2018-08-01 13:32 | Electrocardiograph Report ---
[place] [id number] Test Date: 2018-07-31 Pat Name: Miriam Goodson Department: 113 Room: 3B Gender: F Roving Hand: : 1950 Requested By: Rufus Hernandez Order Number: [id number] Reading MD: Hayley Bateman Measurements Intervals [place] Rate: 67 P: 27 CA: 215 QRS: -2 QRSD: 84 T: 49 QT: 409 QTc: 425 Interpretive Statements SINUS RHYTHM WITH FIRST DEGREE AV BLOCK LOW QRS VOLTAGE IN PRECORDIAL LEADS Electronically Signed On 08-01-2018 13:31:07 EDT by Hayley Bateman
[2018-08-01 13:33] VITALS: BP 112/69
[2018-08-01] MEDS: Acetaminophen 325 MG TABLET PO PRN (13:42)
--- NOTE | 2018-08-01 14:16 | Discharge Summary ---
- NOTES TO OUTPATIENT PROVIDER Notes to Outpatient Provider: Presented with chest pain. Imdur increased. Developed hypotension. BB decreased and Hemodynamics improved. CP resolved Orders not resulted at time of discharge: Pending orders 07/30/18 07:57 NM mercedes perf SPECT multi [NM] Routine 08/01/18 12:25 Urinalysis Reflex Cult & Micro [URIN] Routine Date of Encounter: 08/01/18 Time of Encounter: 14:13 - Discharge Diagnosis (1) Chest pain Priority: Primary Status: Acute Assessment and Plan: The patient has moderate risk of ACS based on her HEART score Presented with intermittent midsternal chest pain/pressure with dyspnea, dizziness, fatigue, nausea, diaphoresis History of CT S/P 2 stent placement (PTCA/GINGER mid RCA and proximal LAD ) in 02/2016 Throughout stay has had stable troponins less than 0.03 EKG without any acute ST changes Radiology seeing in consultation throughout stay; increased dose of Imdur to 60 mg by mouth daily and decrease Lopressor to 12.5 mg by mouth twice a day Chest pain has resolved Hemodynamically stable Plan discharged home this afternoon Echo 08/31- LVEF 55%. Moderate left ventricular diastolic dysfunction. Definity echo contrast was used. RV is not well visualized. No significant valvular dysfunction. No pulmonary hypertension. Continue telemetry Continue cardiac meds Continue sublingual nitroglycerin PRN Qualifiers: Chest pain type: unspecified Qualified Code(s): R07.9 - Chest pain, unspecified (2) Unstable angina pectoris Priority: Secondary Status: Ruled-out (3) Coronary artery disease Priority: Secondary Status: Chronic Qualifiers: Coronary Disease-Associated Artery/Lesion type: [place] artery [place] vs. transplanted heart: [place] heart Associated angina: with unstable angina Qualified Code(s): I25.110 - Atherosclerotic heart disease of [place] coronary artery with unstable angina pectoris (4) Obesity Priority: Secondary Status: Acute Qualifiers: Obesity type: due to excess calories Obesity classification: adult class 3 (BMI >= 40) Serious obesity comorbidity presence: with serious comorbidity Body mass index: BMI 50.0-59.9 Qualified Code(s): E66.01 - Morbid (severe) obesity due to excess calories; Z68.43 - Body mass index (BMI) 50-59.9, adult (5) Mood disorder Priority: Secondary Status: Acute (6) DVT prophylaxis Priority: Secondary Status: Acute Hospital course: Ms. Goodson is a 68 year old female The patient has moderate risk of ACS based on her HEART score Presented with intermittent midsternal chest pain/pressure with dyspnea, dizziness, fatigue, nausea, diaphoresis History of CT S/P 2 stent placement (PTCA/GINGER mid RCA and proximal LAD ) in 02/2016 Throughout stay has had stable troponins less than 0.03 EKG without any acute ST changes Radiology seeing in consultation throughout stay; increased dose of Imdur to 60 mg by mouth daily and decrease Lopressor to 12.5 mg by mouth twice a day Chest pain has resolved Hemodynamically stable Plan discharged home this afternoon Discharge discussed with: patient, family, nurse, hr business partner consultant - Time Spent with Patient Total time spent providing and/or coordinating discharge services: Less than 30 minutes - Discharge Medications Prescriptions: Isosorbide MONOnitrate (24 HR) [Imdur] 60 mg PO DAILY 30 Days #30 tab.er.24h Home Medications: Lisinopril [Zestril] 5 mg PO DAILY #30 tablet 03/03/16 [Rx] Metoprolol [Lopressor] 12.5 mg PO BID #30 tablet 03/03/16 [Rx] Atorvastatin [Lipitor] 40 mg PO HS 06/04/17 [History] Clopidogrel [Plavix] 75 mg PO DAILY 06/04/17 [History] Gabapentin [Neurontin] 900 mg PO TID 06/04/17 [History] Buspirone HCl [Buspar] 10 mg PO BID PRN 07/30/18 [History] Cholecalciferol (Vitamin D3) [Vitamin D3] 2,000 unit PO DAILY 07/30/18 [History] Escitalopram Oxalate 20 mg PO DAILY 07/30/18 [History] Memantine HCl 5 mg PO DAILY 07/30/18 [History] Pantoprazole Sodium [Protonix] 20 mg PO DAILY 07/30/18 [History] Aspirin 81 mg PO DAILY tab.chew 08/01/18 [Rx] Isosorbide MONOnitrate (24 HR) [Imdur] 60 mg PO DAILY 30 Days #30 tab.er.24h 08/01/18 [Rx] Allergies/Adverse Reactions: Allergy/AdvReac Type Severity Reaction Status Date / Time sumatriptan [From Imitrex] Allergy Swelling Verified 06/03/17 18:43 of Lip/Tongue/Throat venom-honey bee Allergy Swelling Verified 06/03/17 18:43 [bee venom (honey bee)] of Lip/Tongue/Throat morphine AdvReac Nausea Verified 06/03/17 18:43 Date of admission: 07/30/18 01:47 Primary care physician: PCP JOEY Consults: 07/31/18 11:42 Consult to Cardiology [CONS] Routine Comment: Consulting Provider: [facility] [place] Reason for Consult: chest pain Time Notified: 11:42 Call Completed: Yes Discharging clinician: Rufus Hernandez Anticipated date of discharge: 08/01/18 - Constitutional Vitals: Temp Pulse Resp BP Pulse Ox 98.1 F 68 15 112/69 96 08/01/18 13:32 08/01/18 13:32 08/01/18 13:32 08/01/18 13:32 08/01/18 13:32 Exam: . - Head Head exam: Present: atraumatic, normocephalic - Eye Eye exam: Present: PERRL, conjuntiva pink, sclera anicteric Pupils: Present: PERRL - Neck Neck exam general surgery: Present: supple, trachea midline. Absent: lymphadenopathy - Respiratory Respiratory exam: Present: CTAB. Absent: accessory muscle use, rales, rhonchi, wheezes - Cardiovascular Cardiovascular exam: Present: RRR, +S1, +S2. Absent: diastolic murmur, gallop, rubs, systolic murmur - GI/Abdominal GI/Abdominal exam: Present: normal bowel sounds, soft, no peritoneal signs. Absent: distended, tenderness - Extremities Exam Extremities exam: Present: warm, radial pulses palpable and symmetrical. Absent: calf tenderness, cyanotic, pedal edema - Neurological Exam Neurological exam: Present: CN II-XII intact, oriented X3, no focal deficits. Absent: pronater drift, facial droop, speech deficit - Skin Skin exam: Present: dry, intact - Patient Status Disposition: Home, Self-Care Condition: Good Functional capacity at discharge: independent ambulation Overall status at discharge: patient is progressing back to baseline - Discharge Instructions Instructions: Chest Pain (DC) [facility]: [facility] Care Provider[facility] - 08/08/18 11:15 am - Diet and Activity Activity: increase activity as tolerated, resume usual activities as tolerated Diet: diabetic diet, low fat, low cholesterol, low salt diet
--- NOTE | 2018-08-01 16:17 | Electrocardiograph Report ---
[place] [id number] Test Date: 2018-07-29 Pat Name: Miriam Goodson Department: [id number] Room: 3B65 Gender: F [employer]: : 1950 Requested By: Alcira Ridley Order Number: [id number] Reading MD: Hayley Bateman Measurements Intervals [place] Rate: 74 P: 43 NH: 191 QRS: -13 QRSD: 99 T: 46 QT: 402 QTc: 446 Interpretive Statements Sinus rhythm Low voltage, precordial leads Abnormal R-wave progression, consider lead misplacement Electronically Signed On 08-01-2018 16:15:45 EDT by Hayley Bateman
[2018-08-01] MEDS ORDERED: Isosorbide MONOnitrate (24 HR) 60 MG TAB.ER.24H PO ONE (17:59)
[2018-08-01] MEDS ORDERED: Gabapentin 300 MG CAPSULE PO ONE (17:59)
[2018-08-01] MEDS ORDERED: *HR* Heparin 5,000 UNIT/ML VIAL IVP ONE (17:59)
[2018-08-01] MEDS ORDERED: Aspirin 81 MG TAB.CHEW PO ONE (17:59)
[2018-08-01] MEDS ORDERED: Cholecalciferol (D-3) 1,000 UNIT TABLET PO ONE (17:59)
== END 2018-08-01 18:00 | disposition home or self-care (01) ==
LOC: 3BNU 22:46 → EMEROOARM 22:46 → 3BNU 07-30 02:10
PROVIDERS: ADMIT Internal Medicine; ATTEND Internal Medicine

== ENCOUNTER 2018-12-23 23:50 | Inpatient (IN) ==
[2018-12-23] MEDS ORDERED: 0.9 % Sodium Chloride 500 ML IVC ONE (23:56)
--- NOTE | 2018-12-24 00:47 | Emergency Department Note ---
Disposition Clinical Impression: Chest pain, Renal failure Disposition: Admitted As Inpatient Condition: Fair Time of Disposition: 03:05 Chest Pain HPI - General Chief Complaint: ED Chest Pain Stated Complaint: Chest pain, Nausea and vomiting Time Seen by Provider: 12/23/18 23:55 Source: patient, EMS Mode of arrival: EMS Limitations: no limitations Vital Signs Reviewed: Yes Nursing Notes Reviewed: Yes - History of Present Illness HPI Narrative: Patient presents to the ED with chief complaint of chest pain. Reports that she has a history of MN and this pain for similar. Reports that she is been sick for about a week with decreased appetite, nausea, vomiting and epigastric abdom inal pain. She states that the chest pain has been off and on over the last few days, but was worse tonight. States it felt like an elephant was sitting on her chest. However, she pointed to her epigastrium. sHe states the pain is gone now. She also reports that she is not really felt well for the last week and has not been eating or drinking well. She complains of some dysuria. Severity scale (1-10): 7 - Related Data Home Medications Medication Instructions Recorded Confirmed RX: Atorvastatin [Lipitor] 40 mg PO HS 10/05/18 11/05/18 RX: Buspirone HCl [Buspar] 10 mg PO BID 10/05/18 11/05/18 RX: Cholecalciferol (D-3) [Vitamin 2,000 unit PO DAILY 10/05/18 11/05/18 D] RX: Clopidogrel [Plavix] 75 mg PO DAILY 10/05/18 11/05/18 RX: Gabapentin [Neurontin] 900 mg PO TID 10/05/18 11/05/18 RX: Isosorbide MONOnitrate 60 mg PO DAILY 10/05/18 11/05/18 [Isosorbide Mononitrate ER] RX: Lisinopril [Zestril] 5 mg PO DAILY 10/05/18 11/05/18 RX: Memantine HCl 5 mg PO DAILY 10/05/18 11/05/18 RX: Metoprolol Tartrate [Lopressor] 12.5 mg PO BID 10/05/18 11/05/18 RX: Pantoprazole Sodium [Protonix] 20 mg PO DAILY 10/05/18 11/05/18 RX: hydrOXYzine HCl [Hydroxyzine 25 mg PO BID PRN 10/05/18 11/05/18 HCl] Previous Rx's Medication Instructions Recorded RX: Aspirin 81 mg PO DAILY #30 tab.chew 10/06/18 Allergies Allergy/AdvReac Type Severity Reaction Status Date / Time sumatriptan [From Imitrex] Allergy Swelling Verified 11/05/18 19:41 of Lip/Tongue/Throat venom-honey bee Allergy Swelling Verified 11/05/18 19:41 [bee venom (honey bee)] of Lip/Tongue/Throat morphine AdvReac Nausea Verified 11/05/18 19:41 Review of Systems: As reviewed in the HPI. All other systems reviewed are negative or normal. All systems ED: reviewed and negative except as stated. Review of Systems: As Per HPI Chest Pain PMH - Past Medical History Medical history: Reports: arthritis, cancer, coronary artery disease, DVT, fibromyalgia, hyperlipidemia, hypertension, kidney stones, malignancy, migraine, myocardial infarction, seizures Surgical history: Reports: angioplasty/stent, cholecystectomy, hip replacement, other Psychiatric history: Reports: depression, panic disorder, PTSD Prior Cardiac Testing/Procedures: Echocardiogram, Stress Test, Stenting, Cardiac Angiogram - Social History Smoking Status: Former smoker Alcohol use: Reports: none Drug use: Reports: none Physical Exam CONSTITUTIONAL: [chronically ill appearing, alert and in no acute distress, patient smells very strongly of old urine] EYES: [EOMI, clear conjunctiva, PERRLA] HENT: [Normocephalic, atraumatic, moist mucus membranes, normal oropharynx] NECK: [normal inspection, full ROM, trachea midline, no obvious swelling] PULMONARY: [normal lung sounds bilaterally, normal chest rise and fall, no respiratory distress or stridor, no wheezes, no rales, no rhonchi CARDIOVASCULAR: [mildly tachycardic, regular rhythm, normal heart sounds, no murmurs, distal extremities are warm and well perfused] GASTROINSTESTINAL: [soft, non-tender, non-rigid, baseline distended/obese, no guarding, no rebound, normal bowel sounds] GENITOURINARY/RECTAL: [deferred] NEUROLOGIC: [Alert, oriented x3, normal speech, moves all extremities] EXTREMITIES: [Normal inspection, full ROM, no tenderness, + pedal edema, normal capillary refill] MUSCULOSKELETAL: [no gross deformities, atraumatic] SKIN: [No cyanosis, no diaphoresis, normal color, warm, no rash] PSYCHIATRIC: [normal mood and affect] - General Limitations: no limitations General appearance: alert, in no apparent distress Course Course Narrative: Patient presenting with abdominal pain. Transvaginal ultrasound was performed and did show a gestational sac with aortic sac within the uterus. There is no free fluid. We will discharge home with follow-up to her [facility] Vital Signs Temperature 98.5 F 12/23/18 23:57 Pulse Rate 96 12/23/18 23:57 Respiratory Rate 20 12/23/18 23:57 Blood Pressure 135/84 12/23/18 23:57 O2 Sat by Pulse Oximetry 95 12/23/18 23:57 Temperature 98.5 F 12/23/18 23:57 Pulse Rate 93 12/24/18 02:13 Respiratory Rate 16 12/24/18 02:13 Blood Pressure 128/76 12/24/18 02:13 O2 Sat by Pulse Oximetry 99 12/24/18 02:13 Oxygen Delivery Oxygen Delivery Room Air Chest Pain - Lab Data Result diagrams: 12/24/18 00:36 12/24/18 00:36 Lab Results 12/24/18 12/24/18 12/24/18 Range/Units 00:36 00:36 00:36 WBC (4.3-11.1) K/mcL RBC (3.82-4.97) M/mcL Hgb (11.5-15.4) g/dL Hct (35.3-44.9) % MCV (83.0-100.0) fL MCH (28.0-33.3) pg MCHC (31.6-35.5) g/dL RDW (11.5-14.5) % Plt Count (140-400) K/mcL MPV (9.4-12.4) fL Immature Gran % (0-4) % Seg Neutrophils % % Lymphocytes % % Monocytes % % Eosinophils % % Basophils % % Neutrophils # (1.6-8.9) K/mcL Lymphocytes # (0.6-4.6) K/mcL Monocytes # (0.0-1.3) K/mcL Eosinophils # (0.0-0.6) K/mcL Basophils # (0.0-0.2) K/mcL PT 11.9 (9.4-12.1) Seconds INR 1.1 APTT 45.1 H (26.0-36.0) Seconds Sodium (136-145) mEq/L Potassium (3.5-5.1) mEq/L Chloride (98-107) mEq/L Carbon Dioxide (23-29) mEq/L BUN (8-23) mg/dL Creatinine (0.60-1.20) mg/dL Est GFR ( Amer) (> 60) Est GFR (Non-Af Amer) (> 60) BUN/Creatinine Ratio (6-26) Glucose (70-105) mg/dL Calculated Osmolality (280-300) Calcium (8.6-10.3) mg/dL Total Bilirubin 1.0 (0.3-1.0) mg/dL Direct Bilirubin 0.2 (0.0-0.2) mg/dL Indirect Bilirubin 0.8 (0.0-1.2) mg/dL AST 7 L (13-39) Units/L ALT 8 (7-52) Units/L Alkaline Phosphatase 129 H (34-104) Units/L Troponin I (< 0.04) ng/mL B-Natriuretic Peptide 41 (Less than 100) pg/mL Serum Total Protein 6.6 (6.4-8.9) g/dL Albumin 4.0 (3.5-5.7) g/dL Globulin 2.6 (2.4-3.5) g/dL Albumin/Globulin Ratio 1.5 (1.1-2.2) Lipase (11-82) Units/L Urine Color (Yellow) Urine Clarity (Clear) Urine pH (5.0-8.0) pH Units Ur Specific [place] (1.010-1.025) Urine Protein (Neg-Trace) mg/dL Urine Glucose (UA) (Normal) mg/dL Urine Ketones (Negative) mg/dL Urine Blood (Negative) Urine Nitrite (Negative) Urine Bilirubin (Negative) Urine Urobilinogen (Normal) mg/dL Ur Leukocyte Esterase (Negative) Urine Microscopic RBC (0-3) per hpf Urine Microscopic WBC (0-3) per hpf Ur Squamous Epith Cells (None-Few) per lpf Urine Bacteria (None-Few) per hpf Ur Culture Indicated? (NO) 12/24/18 12/24/18 12/24/18 Range/Units 00:36 00:36 00:49 WBC 6.0 (4.3-11.1) K/mcL RBC 4.64 (3.82-4.97) M/mcL Hgb 13.0 (11.5-15.4) g/dL Hct 41.2 (35.3-44.9) % MCV 88.8 (83.0-100.0) fL MCH 28.0 (28.0-33.3) pg MCHC 31.6 (31.6-35.5) g/dL RDW 13.0 (11.5-14.5) % Plt Count 303 (140-400) K/mcL MPV 10.9 (9.4-12.4) fL Immature Gran % 0.2 (0-4) % Seg Neutrophils % 68.7 % Lymphocytes % 22.6 % Monocytes % 6.5 % Eosinophils % 1.5 % Basophils % 0.5 % Neutrophils # 4.1 (1.6-8.9) K/mcL Lymphocytes # 1.4 (0.6-4.6) K/mcL Monocytes # 0.4 (0.0-1.3) K/mcL Eosinophils # 0.1 (0.0-0.6) K/mcL Basophils # 0.0 (0.0-0.2) K/mcL PT (9.4-12.1) Seconds INR APTT (26.0-36.0) Seconds Sodium 142 (136-145) mEq/L Potassium 4.7 (3.5-5.1) mEq/L Chloride 105 (98-107) mEq/L Carbon Dioxide 22 L (23-29) mEq/L BUN 63 H (8-23) mg/dL Creatinine 4.00 H (0.60-1.20) mg/dL Est GFR ( Amer) 14 L (> 60) Est GFR (Non-Af Amer) 11 L (> 60) BUN/Creatinine Ratio 16 (6-26) Glucose 85 (70-105) mg/dL Calculated Osmolality 311 H (280-300) Calcium 9.3 (8.6-10.3) mg/dL Total Bilirubin (0.3-1.0) mg/dL Direct Bilirubin (0.0-0.2) mg/dL Indirect Bilirubin (0.0-1.2) mg/dL AST (13-39) Units/L ALT (7-52) Units/L Alkaline Phosphatase (34-104) Units/L Troponin I < 0.03 (< 0.04) ng/mL B-Natriuretic Peptide (Less than 100) pg/mL Serum Total Protein (6.4-8.9) g/dL Albumin (3.5-5.7) g/dL Globulin (2.4-3.5) g/dL Albumin/Globulin Ratio (1.1-2.2) Lipase 11 (11-82) Units/L Urine Color Yellow (Yellow) Urine Clarity Cloudy A (Clear) Urine pH 5.5 (5.0-8.0) pH Units Ur Specific [place] 1.019 (1.010-1.025) Urine Protein Trace (Neg-Trace) mg/dL Urine Glucose (UA) Normal (Normal) mg/dL Urine Ketones Negative (Negative) mg/dL Urine Blood Negative (Negative) Urine Nitrite Negative (Negative) Urine Bilirubin Negative (Negative) Urine Urobilinogen Normal (Normal) mg/dL Ur Leukocyte Esterase Trace H (Negative) Urine Microscopic RBC 0-3 (0-3) per hpf Urine Microscopic WBC 15-30 H (0-3) per hpf Ur Squamous Epith Cells Many H (None-Few) per lpf Urine Bacteria Few (None-Few) per hpf Ur Culture Indicated? NO. A (NO) Attestation Statement - Attestation Attestation: Dr. Driver note: Patient seen in conjunction with resident Dr. Napoleon Dempsey. Please see his charting for complete documentation. Spent [id number] time with the patient and I agree with patient's treatment and disposition. No chest pain at the time of my evaluation but patient did report has been home. She is well-appearing. EKG with no acute changes. Blood work and troponin noted. Patient admitted and stabilized improved condition
[2018-12-24 00:48] LABS: Basophils % 0.5 %; Eosinophils # 0.1 K/mcL (0.0-0.6); Eosinophils % 1.5 %; Hematocrit 41.2 % (35.3-44.9); Immature Granulocytes % 0.2 % (0-4); Lymphocytes # 1.4 K/mcL (0.6-4.6); Lymphocytes % 22.6 %; Mean Corpuscular HGB Conc 31.6 g/dL (31.6-35.5); Mean Corpuscular Volume 88.8 fL (83.0-100.0); Mean Platelet Volume 10.9 fL (9.4-12.4); Monocytes # 0.4 K/mcL (0.0-1.3); Monocytes % 6.5 %; Neutrophils # 4.1 K/mcL (1.6-8.9); Platelet Count 303 K/mcL (140-400); Red Blood Count 4.64 M/mcL (3.82-4.97); Segmented Neutrophils % 68.7 %
[2018-12-24 00:57] LABS: INR 1.1; Prothrombin Time 11.9 Seconds (9.4-12.1)
[2018-12-24 00:58] LABS: Bilirubin,Urine Negative (Negative); Blood,Urine Negative (Negative); Clarity,Urine Cloudy (Clear); Color,Urine Yellow (Yellow); Glucose,Urine (UA) Normal (Normal); Ketones,Urine Negative (Negative); Leukocyte Esterase,Urine Trace (Negative); Nitrite,Urine Negative (Negative); PH,Urine 5.5 pH Units (5.0-8.0); Protein,Urine Trace mg/dL (Neg-Trace); Specific Gravity,Urine 1.019 (1.010-1.025); Urobilinogen,Urine Normal (Normal)
[2018-12-24 00:59] LABS: Bacteria,Urine Few per hpf (None-Few); Squamous Epithelial Cell,Urine Many per lpf (None-Few); WBC,Urine 15-30 per hpf (0-3)
[2018-12-24 01:00] LABS: Activated Partial Thrombo Time 45.1 Seconds (26.0-36.0)
[2018-12-24 01:09] LABS: RBC,Urine 0-3 per hpf (0-3)
[2018-12-24 01:11] LABS: Albumin/Globulin Ratio 1.5 (1.1-2.2); Bilirubin,Direct 0.2 mg/dL (0.0-0.2); Bilirubin,Indirect 0.8 mg/dL (0.0-1.2); Globulin 2.6 g/dL (2.4-3.5); Total Protein 6.6 g/dL (6.4-8.9)
[2018-12-24 01:12] LABS: BUN/Creatinine Ratio 16 (6-26); Blood Urea Nitrogen 63 mg/dL (8-23); Calcium 9.3 mg/dL (8.6-10.3); Carbon Dioxide 22 mEq/L (23-29); Chloride 105 mEq/L (98-107); Glucose 85 mg/dL (70-105); Lipase 11 Units/L (11-82); Osmolality,Calculated 311 (280-300); Potassium 4.7 mEq/L (3.5-5.1); Sodium 142 mEq/L (136-145); eGFR For Non-African Americans 11 (> 60)
[2018-12-24 01:13] LABS: Troponin I < 0.03 ng/mL (< 0.04)
[2018-12-24] MEDS ORDERED: 0.9 % Sodium Chloride 1,000 ML IVC SCH (02:00)
--- NOTE | 2018-12-24 03:09 | Emergency Department Note ---
Disposition Clinical Impression: Chest pain, Renal failure Disposition: Admitted As Inpatient Condition: Fair Chest Pain HPI - General Chief Complaint: ED Chest Pain Stated Complaint: Chest pain, Nausea and vomiting Time Seen by Provider: 12/23/18 23:55 Source: patient, EMS Mode of arrival: EMS Limitations: no limitations - History of Present Illness Severity scale (1-10): 7 - Related Data Home Medications Medication Instructions Recorded Confirmed RX: Atorvastatin [Lipitor] 40 mg PO HS 10/05/18 11/05/18 RX: Buspirone HCl [Buspar] 10 mg PO BID 10/05/18 11/05/18 RX: Cholecalciferol (D-3) [Vitamin 2,000 unit PO DAILY 10/05/18 11/05/18 D] RX: Clopidogrel [Plavix] 75 mg PO DAILY 10/05/18 11/05/18 RX: Gabapentin [Neurontin] 900 mg PO TID 10/05/18 11/05/18 RX: Isosorbide MONOnitrate 60 mg PO DAILY 10/05/18 11/05/18 [Isosorbide Mononitrate ER] RX: Lisinopril [Zestril] 5 mg PO DAILY 10/05/18 11/05/18 RX: Memantine HCl 5 mg PO DAILY 10/05/18 11/05/18 RX: Metoprolol Tartrate [Lopressor] 12.5 mg PO BID 10/05/18 11/05/18 RX: Pantoprazole Sodium [Protonix] 20 mg PO DAILY 10/05/18 11/05/18 RX: hydrOXYzine HCl [Hydroxyzine 25 mg PO BID PRN 10/05/18 11/05/18 HCl] Previous Rx's Medication Instructions Recorded RX: Aspirin 81 mg PO DAILY #30 tab.chew 10/06/18 Allergies Allergy/AdvReac Type Severity Reaction Status Date / Time sumatriptan [From Imitrex] Allergy Swelling Verified 11/05/18 19:41 of Lip/Tongue/Throat venom-honey bee Allergy Swelling Verified 11/05/18 19:41 [bee venom (honey bee)] of Lip/Tongue/Throat morphine AdvReac Nausea Verified 11/05/18 19:41 Chest Pain PMH - Past Medical History Medical history: Reports: arthritis, cancer, coronary artery disease, DVT, fibromyalgia, hyperlipidemia, hypertension, kidney stones, malignancy, migraine, myocardial infarction, seizures Surgical history: Reports: angioplasty/stent, cholecystectomy, hip replacement, other Psychiatric history: Reports: depression, panic disorder, PTSD Prior Cardiac Testing/Procedures: Echocardiogram, Stress Test, Stenting, Cardiac Angiogram - Social History Smoking Status: Former smoker Alcohol use: Reports: none Drug use: Reports: none Physical Exam - General Limitations: no limitations General appearance: alert, in no apparent distress Course Course Narrative: Please note previous charting , diagnosis and follow-up was entered in error. This was supposed to be for another patient. This patient is being admitted for chest pain and renal failure, suspected to be from dehydration. Please disregard any previous documentation about . Vital Signs Temperature 98.5 F 12/23/18 23:57 Pulse Rate 96 12/23/18 23:57 Respiratory Rate 20 12/23/18 23:57 Blood Pressure 135/84 12/23/18 23:57 O2 Sat by Pulse Oximetry 95 12/23/18 23:57 Temperature 98.5 F 12/23/18 23:57 Pulse Rate 93 12/24/18 02:13 Respiratory Rate 16 12/24/18 02:13 Blood Pressure 128/76 12/24/18 02:13 O2 Sat by Pulse Oximetry 99 12/24/18 02:13 Oxygen Delivery Oxygen Delivery Room Air Chest Pain - Lab Data Result diagrams: 12/24/18 00:36 12/24/18 00:36 Lab Results 12/24/18 12/24/18 12/24/18 Range/Units 00:36 00:36 00:36 WBC (4.3-11.1) K/mcL RBC (3.82-4.97) M/mcL Hgb (11.5-15.4) g/dL Hct (35.3-44.9) % MCV (83.0-100.0) fL MCH (28.0-33.3) pg MCHC (31.6-35.5) g/dL RDW (11.5-14.5) % Plt Count (140-400) K/mcL MPV (9.4-12.4) fL Immature Gran % (0-4) % Seg Neutrophils % % Lymphocytes % % Monocytes % % Eosinophils % % Basophils % % Neutrophils # (1.6-8.9) K/mcL Lymphocytes # (0.6-4.6) K/mcL Monocytes # (0.0-1.3) K/mcL Eosinophils # (0.0-0.6) K/mcL Basophils # (0.0-0.2) K/mcL PT 11.9 (9.4-12.1) Seconds INR 1.1 APTT 45.1 H (26.0-36.0) Seconds Sodium (136-145) mEq/L Potassium (3.5-5.1) mEq/L Chloride (98-107) mEq/L Carbon Dioxide (23-29) mEq/L BUN (8-23) mg/dL Creatinine (0.60-1.20) mg/dL Est GFR ( Amer) (> 60) Est GFR (Non-Af Amer) (> 60) BUN/Creatinine Ratio (6-26) Glucose (70-105) mg/dL Calculated Osmolality (280-300) Calcium (8.6-10.3) mg/dL Total Bilirubin 1.0 (0.3-1.0) mg/dL Direct Bilirubin 0.2 (0.0-0.2) mg/dL Indirect Bilirubin 0.8 (0.0-1.2) mg/dL AST 7 L (13-39) Units/L ALT 8 (7-52) Units/L Alkaline Phosphatase 129 H (34-104) Units/L Troponin I (< 0.04) ng/mL B-Natriuretic Peptide 41 (Less than 100) pg/mL Serum Total Protein 6.6 (6.4-8.9) g/dL Albumin 4.0 (3.5-5.7) g/dL Globulin 2.6 (2.4-3.5) g/dL Albumin/Globulin Ratio 1.5 (1.1-2.2) Lipase (11-82) Units/L Urine Color (Yellow) Urine Clarity (Clear) Urine pH (5.0-8.0) pH Units Ur Specific [place] (1.010-1.025) Urine Protein (Neg-Trace) mg/dL Urine Glucose (UA) (Normal) mg/dL Urine Ketones (Negative) mg/dL Urine Blood (Negative) Urine Nitrite (Negative) Urine Bilirubin (Negative) Urine Urobilinogen (Normal) mg/dL Ur Leukocyte Esterase (Negative) Urine Microscopic RBC (0-3) per hpf Urine Microscopic WBC (0-3) per hpf Ur Squamous Epith Cells (None-Few) per lpf Urine Bacteria (None-Few) per hpf Ur Culture Indicated? (NO) 12/24/18 12/24/18 12/24/18 Range/Units 00:36 00:36 00:49 WBC 6.0 (4.3-11.1) K/mcL RBC 4.64 (3.82-4.97) M/mcL Hgb 13.0 (11.5-15.4) g/dL Hct 41.2 (35.3-44.9) % MCV 88.8 (83.0-100.0) fL MCH 28.0 (28.0-33.3) pg MCHC 31.6 (31.6-35.5) g/dL RDW 13.0 (11.5-14.5) % Plt Count 303 (140-400) K/mcL MPV 10.9 (9.4-12.4) fL Immature Gran % 0.2 (0-4) % Seg Neutrophils % 68.7 % Lymphocytes % 22.6 % Monocytes % 6.5 % Eosinophils % 1.5 % Basophils % 0.5 % Neutrophils # 4.1 (1.6-8.9) K/mcL Lymphocytes # 1.4 (0.6-4.6) K/mcL Monocytes # 0.4 (0.0-1.3) K/mcL Eosinophils # 0.1 (0.0-0.6) K/mcL Basophils # 0.0 (0.0-0.2) K/mcL PT (9.4-12.1) Seconds INR APTT (26.0-36.0) Seconds Sodium 142 (136-145) mEq/L Potassium 4.7 (3.5-5.1) mEq/L Chloride 105 (98-107) mEq/L Carbon Dioxide 22 L (23-29) mEq/L BUN 63 H (8-23) mg/dL Creatinine 4.00 H (0.60-1.20) mg/dL Est GFR ( Amer) 14 L (> 60) Est GFR (Non-Af Amer) 11 L (> 60) BUN/Creatinine Ratio 16 (6-26) Glucose 85 (70-105) mg/dL Calculated Osmolality 311 H (280-300) Calcium 9.3 (8.6-10.3) mg/dL Total Bilirubin (0.3-1.0) mg/dL Direct Bilirubin (0.0-0.2) mg/dL Indirect Bilirubin (0.0-1.2) mg/dL AST (13-39) Units/L ALT (7-52) Units/L Alkaline Phosphatase (34-104) Units/L Troponin I < 0.03 (< 0.04) ng/mL B-Natriuretic Peptide (Less than 100) pg/mL Serum Total Protein (6.4-8.9) g/dL Albumin (3.5-5.7) g/dL Globulin (2.4-3.5) g/dL Albumin/Globulin Ratio (1.1-2.2) Lipase 11 (11-82) Units/L Urine Color Yellow (Yellow) Urine Clarity Cloudy A (Clear) Urine pH 5.5 (5.0-8.0) pH Units Ur Specific [place] 1.019 (1.010-1.025) Urine Protein Trace (Neg-Trace) mg/dL Urine Glucose (UA) Normal (Normal) mg/dL Urine Ketones Negative (Negative) mg/dL Urine Blood Negative (Negative) Urine Nitrite Negative (Negative) Urine Bilirubin Negative (Negative) Urine Urobilinogen Normal (Normal) mg/dL Ur Leukocyte Esterase Trace H (Negative) Urine Microscopic RBC 0-3 (0-3) per hpf Urine Microscopic WBC 15-30 H (0-3) per hpf Ur Squamous Epith Cells Many H (None-Few) per lpf Urine Bacteria Few (None-Few) per hpf Ur Culture Indicated? NO. A (NO) Attestation Statement - Attestation Attestation: Dr. Driver note: Patient seen in conjunction with resident Dr. Napoleon Dempsey. Please see his charting for complete documentation. Spent [id number] time with the patient and I agree with patient's treatment and disposition. Chest pain resolved, dehydration noted. Fluids given. Admitted pain-free kidney insufficiency note d.
[2018-12-24] MEDS ORDERED: Aspirin 81 MG TAB.CHEW PO ONE (03:39)
[2018-12-24] MEDS ORDERED: MetroNIDAZOLE 500 MG/100 ML 500 MG/100 ML BAG IVPB SCH (08:56)
[2018-12-24] MEDS ORDERED: cefTRIAXone 1,000 MG in Water for inj. (sterile) 20 ML 10 ML IVP SCH (09:00)
--- NOTE | 2018-12-24 09:01 | Internal Med History&Physical ---
Date of Encounter: 12/24/18 Time of Encounter: 08:30 Internal Medicine - H&P: HPI Chief complaint: Nausea or vomiting, abdominal pain and chest pain Admitted From: Emergency Dept History of present illness: Ms. Goodson is a 68 year old female patient with history of coronary artery disease status post stents, hypertension, hyperlipidemia, prior laparoscopic cholecystectomy who presented to the ER with complaints of intractable nausea and vomiting along with abdominal pain. Began 2 days back and has been progressively worsening. She notes that the pain in her abdomen is generalized. She is also had burning kind of chest pain in her lower middle chest. Nonradiating. She reports that she had burning pain during her previous heart attack and so was concerned about it. She denies any dizziness or lightheadedness. She complains of dysuria. No fevers or chills. She feels somewhat better since coming to the ER but continues to have abdominal discomfort. Past Med Surg Social Fam HX - Past Medical History Attestation: Yes The following information was validated with the patient. Source: patient Medical history: arthritis, cancer, coronary artery disease, DVT, fibromyalgia, hyperlipidemia, hypertension, kidney stones, malignancy, migraine, myocardial infarction, seizures Additional medical history: uturine cancer. Left leg DVT Psychiatric history: depression, panic disorder, PTSD - Past Surgical History Surgical History: angioplasty/stent, cholecystectomy, hip replacement, other Additional surgical history: Left hip replacement right shoulder Surgery - Social History Smoking Status: Former smoker Smokeless Tobacco Status: No Alcohol use: none Drug use: none - Family History Mother Family Member Ethnicity: Non- Living Status: Still Living Hx Family Cardiac Disorders: Yes ([place], CAD) Hx Family Respiratory Disorders: Yes Hx Family Cancer: Yes (Breast CA, uterine ca) Hx Family GI Disorders: No Hx Family Endocrine Disorder: No Hx Family Neuromuscular Disorders: No Hx Family Neurologic Disorders: No Hx Family HEENT Disorders: No Hx Family Autoimmune Disorders: No Father Family Member Ethnicity: Non- Living Status: Still Living Hx Family Cardiac Disorders: Yes ([place], HD) Hx Family Respiratory Disorders: No Hx Family Cancer: No Hx Family GI Disorders: No Hx Family Endocrine Disorder: No Hx Family Neuromuscular Disorders: No Hx Family Neurologic Disorders: No Hx Family HEENT Disorders: No Hx Family Autoimmune Disorders: No Brother Family Member Ethnicity: Non- Living Status: Still Living Internal Medicine - H&P: Meds Atorvastatin [Lipitor] 40 mg PO HS 10/05/18 [History] Buspirone HCl [Buspar] 10 mg PO BID 10/05/18 [History] Cholecalciferol (D-3) [Vitamin D] 2,000 unit PO DAILY 10/05/18 [History] Clopidogrel [Plavix] 75 mg PO DAILY 10/05/18 [History] Gabapentin [Neurontin] 900 mg PO TID 10/05/18 [History] Isosorbide MONOnitrate [Isosorbide Mononitrate ER] 60 mg PO DAILY 10/05/18 [History] Lisinopril [Zestril] 5 mg PO DAILY 10/05/18 [History] Memantine HCl 5 mg PO DAILY 10/05/18 [History] Metoprolol Tartrate [Lopressor] 12.5 mg PO BID 10/05/18 [History] Pantoprazole Sodium [Protonix] 20 mg PO DAILY 10/05/18 [History] hydrOXYzine HCl [Hydroxyzine HCl] 25 mg PO BID PRN 10/05/18 [History] Aspirin 81 mg PO DAILY #30 tab.chew 10/06/18 [Rx] Allergy/AdvReac Type Severity Reaction Status Date / Time sumatriptan [From Imitrex] Allergy Swelling Verified 11/05/18 19:41 of Lip/Tongue/Throat venom-honey bee Allergy Swelling Verified 11/05/18 19:41 [bee venom (honey bee)] of Lip/Tongue/Throat morphine AdvReac Nausea Verified 11/05/18 19:41 All Systems PM: A 10-system review of systems was performed and is negative for pertinent findings except as documented above in the HPI. - Constitutional Constitutional: anorexia, malaise, no chills, no fever(s), no night sweats - EENT Eyes: no change in vision, no discharge, no pain, no photophobia Ears: no ear discharge, no ear pain, no tinnitus Nose, mouth and throat: no dysphagia, no nasal discharge, no neck pain, no sore throat - Cardiovascular Cardiovascular ROS IM: chest pain, no diaphoresis, no dyspnea, no lightheadedness, no palpitations, no syncope - Respiratory Respiratory: no cough, no dyspnea, no wheezing, no excessive phlegm production - Gastrointestinal Gastrointestinal: abdominal pain, nausea, vomiting, no diarrhea, no hematemesis, no hematochezia, no melena - Genitourinary Genitourinary: dysuria, no change in urinary stream, no flank pain, no hematuria - Musculoskeletal Musculoskeletal ROS IM: no numbness, no tingling - Integumentary Integumentary IM: no rash, no unusual bruising - Neurological Neurological ROS: no confusion, no convulsions, no focal weakness, no numbness, no tingling, no tremor(s) - Hematologic/Lymphatic Hematologic/Lymphatic: no easy bruising - Constitutional Vitals: Temp Pulse Resp BP Pulse Ox 98.0 F 79 18 119/71 95 12/24/18 07:28 12/24/18 07:28 12/24/18 07:28 12/24/18 07:28 12/24/18 07:28 General appearance: Present: cooperative, mild distress, A&O X 3, pleasant, answers questions appropriately Exam: General: Patient is alert, mild distress, oriented x 3, morbidly obese Head: atraumatic, normocephalic, ENT: Mucous membranes moist Eye: normal appearance, PERRL, no scleral icterus, no conjunctival injection Neck: normal inspection, trachea midline, full ROM, no carotid bruits Chest: normal inspection, no chest wall tenderness symmetric chest rise Respiratory: Good respiratory effort. Normal breath sounds. No wheezing or crackles. Cardiovascular: Regular rate and rhythm. s1 and s2 normal No clicks, rubs, gallops, or murmurs. No pedal edema Abdomen: Abdomen is soft, tender in the right lower quadrant. Bowel sounds are present Musculoskeletal: Spontaneously moving all extremities Skin: warm, dry, intact. Neuro: Alert oriented x 3 normal cranial nerves, no focal deficits Psych: Patient's affect is normal Internal Med - H&P Results - Labs CBC & Chem 7: 12/24/18 00:36 12/24/18 00:36 Labs: Short CBC 12/24/18 Range/Units 00:36 WBC 6.0 (4.3-11.1) K/mcL Hgb 13.0 (11.5-15.4) g/dL Hct 41.2 (35.3-44.9) % Plt Count 303 (140-400) K/mcL Neutrophils # 4.1 (1.6-8.9) K/mcL BMP 12/24/18 00:36 Sodium 142 Potassium 4.7 Chloride 105 Carbon Dioxide 22 L BUN 63 H Creatinine 4.00 H Glucose 85 Calcium 9.3 Cardiac Enzymes 12/24/18 Range/Units 00:36 Troponin I < 0.03 (< 0.04) ng/mL Liver Function 12/24/18 Range/Units 00:36 Total Bilirubin 1.0 (0.3-1.0) mg/dL Direct Bilirubin 0.2 (0.0-0.2) mg/dL AST 7 L (13-39) Units/L ALT 8 (7-52) Units/L Alkaline Phosphatase 129 H (34-104) Units/L Albumin 4.0 (3.5-5.7) g/dL Urine 12/24/18 Range/Units 00:49 Urine Color Yellow (Yellow) Urine Clarity Cloudy A (Clear) Urine pH 5.5 (5.0-8.0) pH Units Ur Specific [place] 1.019 (1.010-1.025) Urine Protein Trace (Neg-Trace) mg/dL Urine Glucose (UA) Normal (Normal) mg/dL - Impressions ITS Impressions Abdomen/Pelvis CT 12/24/18 01:15 IMPRESSION: 1. Suspected tip appendicitis. 2. Bilateral nonobstructing intrarenal calculi. D/ / William Leblanc MD / William Leblanc MD Interpreting Provider: William Leblanc MD Chest X-Ray 12/24/18 23:56 IMPRESSION: No definite acute finding on a limited study. Consider dedicated PA and lateral radiographs obtained in the Radiology Department. D/ / William Leblanc MD / William Leblanc MD Interpreting Provider: William Leblanc MD - Assessment and Plan (1) Acute appendicitis Current Visit: Yes Status: Suspected Assessment and plan: CT scan of the abdomen and pelvis suggests dilated tip of the appendix concerning for tip appendicitis. Discussed with surgery. Will keep patient nothing by mouth. Follow surgery recommendations. IV fluids. Start her on antibiotics for now. Patient presented with intractable nausea and vomiting. We will keep her on IV PPI and antiemetics. Qualifiers: Acute appendicitis type: other Qualified Code(s): K35.890 - Other acute appendicitis without perforation or gangrene; K35.89 - Other acute appendicitis (2) Chest pain Current Visit: Yes Status: Acute Assessment and plan: Patient complaining of burning chest pain. Could be related to gastritis, given her intractable nausea and vomiting but patient does have underlying history of coronary artery disease. Check troponins. Qualifiers: Chest pain type: precordial pain Qualified Code(s): R07.2 - Precordial pain (3) Renal failure Current Visit: Yes Status: Suspected Assessment and plan: Patient with acute kidney injury. Creatinine 4. Her prior creatinine was normal. Will monitor input and output. Avoid nephrotoxic agents. Qualifiers: Renal failure chronicity: acute Acute renal failure type: with acute tubular necrosis Qualified Code(s): N17.0 - Acute kidney failure with tubular necrosis (4) Morbid obesity with BMI of 40.0-44.9, adult Current Visit: Yes Status: Chronic (5) HTN (hypertension) Current Visit: Yes Status: Chronic Assessment and plan: Blood pressure was elevated initially. Most likely due to pain. It has improved now. We will monitor blood pressure closely. Resume beta jase. Qualifiers: Hypertension type: essential hypertension Qualified Code(s): I10 - Essential (primary) hypertension (6) HLD (hyperlipidemia) Current Visit: Yes Status: Chronic Assessment and plan: Resume home medications when patient is able to take them Qualifiers: Hyperlipidemia type: mixed hyperlipidemia Qualified Code(s): E78.2 - Mixed hyperlipidemia (7) Coronary artery disease Current Visit: Yes Status: Chronic Assessment and plan: Patient with history of coronary artery disease now complaining of chest pain. Has been on aspirin and Plavix. Will hold for now in anticipation for possible surgery. Monitor troponins. Telemetry. EKG shows sinus rhythm with no acute ST segment changes. Qualifiers: Coronary Disease-Associated Artery/Lesion type: [place] artery [place] vs. transplanted heart: [place] heart Associated angina: with unstable angina Qualified Code(s): I25.110 - Atherosclerotic heart disease of [place] coronary artery with unstable angina pectoris - Time Spent With Patient Total time spent is greater than 50% in coordination of care (as documented) at patient's floor/unit and/or counseling patient:
[2018-12-24] MEDS ORDERED: *HR* Promethazine 25 MG/ML VIAL IVP PRN (09:10)
[2018-12-24] MEDS: Ringers Solution, Lactated 1,000 ML IVC SCH ×2 (11:00→20:29)
--- NOTE | 2018-12-24 13:41 | General Surgery Consult Note ---
Date of Encounter: 12/24/18 Time of Encounter: 13:30 Assessment and Plan (1) Abnormal abdominal CT scan Current Visit: Yes Status: Acute Clinically, the patient does not have acute appendicitis. White blood cell count is normal and her physical examination is completely negative. There is no localization of pain reported by the patient. CAT scan findings may be consistent with chronic lumen obliteration of the appendix. We will be glad to see her on a routine basis for physical examination reevaluation. At this time we would recommend aggressive hydration for her acute kidney injury and serial physical examinations as well as serial laboratory evaluation watching for leukocytosis. No surgery at this time. History of Present Illness Consult date: 12/24/18 Reason for consult: other (Nausea vomiting and acute kidney injury) History of present illness: The patient is a 68-year-old morbidly obese female who presented with atypical chest pain nausea and vomiting to the emergency room. She is been symptomatic for 7 days. She had one episode of diarrhea but this is not prominent in the symptoms complex. She has severe nausea and vomiting and has been unable to keep much down in the way of fluids for the last 5-7 days. This has resulted in acute kidney injury with a creatinine of 4. She is currently receiving IV hydration. To evaluate her central lower abdominal pain a CAT scan of the abdomen was obtained. The appendix is dilated area the possibility of "tip appendicitis"was raised in the radiology comments. Next I personally reviewed the CAT scan of the abdomen and examine the patient. CAT scan of the abdomen demonstrates a slightly dilated appendix with an obliterated lumen. Periappendiceal inflammation is minimal to none. There is no associated abscess. The remainder of the abdominal organs and exam are within normal limits. Past Med Surg Social Fam HX - Past Medical History Medical history: arthritis, cancer, coronary artery disease, DVT, fibromyalgia, hyperlipidemia, hypertension, kidney stones, malignancy, migraine, myocardial infarction, seizures Additional medical history: uturine cancer. Left leg DVT Psychiatric history: depression, panic disorder, PTSD - Past Surgical History Surgical History: angioplasty/stent, cholecystectomy, hip replacement, other Additional surgical history: Left hip replacement right shoulder Surgery - Social History Smoking Status: Former smoker Smokeless Tobacco Status: No Alcohol use: none Drug use: none - Family History Mother Family Member Ethnicity: Non- Living Status: Still Living Hx Family Cardiac Disorders: Yes ([place], CAD) Hx Family Respiratory Disorders: Yes Hx Family Cancer: Yes (Breast CA, uterine ca) Hx Family GI Disorders: No Hx Family Endocrine Disorder: No Hx Family Neuromuscular Disorders: No Hx Family Neurologic Disorders: No Hx Family HEENT Disorders: No Hx Family Autoimmune Disorders: No Father Family Member Ethnicity: Non- Living Status: Still Living Hx Family Cardiac Disorders: Yes ([place], HD) Hx Family Respiratory Disorders: No Hx Family Cancer: No Hx Family GI Disorders: No Hx Family Endocrine Disorder: No Hx Family Neuromuscular Disorders: No Hx Family Neurologic Disorders: No Hx Family HEENT Disorders: No Hx Family Autoimmune Disorders: No Brother Family Member Ethnicity: Non- Living Status: Still Living Medications and Allergies Atorvastatin [Lipitor] 40 mg PO HS 10/05/18 [History] Buspirone HCl [Buspar] 10 mg PO BID 10/05/18 [History] Cholecalciferol (D-3) [Vitamin D] 2,000 unit PO DAILY 10/05/18 [History] Clopidogrel [Plavix] 75 mg PO DAILY 10/05/18 [History] Gabapentin [Neurontin] 900 mg PO TID 10/05/18 [History] Isosorbide MONOnitrate [Isosorbide Mononitrate ER] 60 mg PO DAILY 10/05/18 [History] Lisinopril [Zestril] 5 mg PO DAILY 10/05/18 [History] Memantine HCl 5 mg PO DAILY 10/05/18 [History] Metoprolol Tartrate [Lopressor] 12.5 mg PO BID 10/05/18 [History] Pantoprazole Sodium [Protonix] 20 mg PO DAILY 10/05/18 [History] hydrOXYzine HCl [Hydroxyzine HCl] 25 mg PO BID PRN 10/05/18 [History] Aspirin 81 mg PO DAILY #30 tab.chew 10/06/18 [Rx] Allergy/AdvReac Type Severity Reaction Status Date / Time sumatriptan [From Imitrex] Allergy Swelling Verified 11/05/18 19:41 of Lip/Tongue/Throat venom-honey bee Allergy Swelling Verified 11/05/18 19:41 [bee venom (honey bee)] of Lip/Tongue/Throat morphine AdvReac Nausea Verified 11/05/18 19:41 Review of Systems All systems PM: The remainder of the systems were reviewed and are negative General Surgery Exam Initial Vital Signs Temp Pulse Resp BP Pulse Ox 98.5 F 96 20 135/84 95 12/23/18 23:57 12/23/18 23:57 12/23/18 23:57 12/23/18 23:57 12/23/18 23:57 - General physical appearance well developed, well nourished, no distress - Neck no masses, no bruits, trachea midline, no lymphadectomy, no venous distension - Respiratory normal expansion, normal respiratory effort, clear to percussion, clear to au scultation - Cardiovascular Cardiovascular exam: Present: RRR, no murmurs/rubs/gallops - Abdomen Abdomen general surgery: Present: bowel sounds present (I was unable to elicit any guarding or rebound. There is no localization of abdominal pain), soft, non tender - Neurologic Present: CN 2-12 grossly intact, normal coordination, normal sensation - Musculoskeletal Present: normal gait, normal posture - Psychiatric Psychiatric general surgery: Present: appropriate, oriented to person, oriented to place, oriented to time, speech is normal, memory intact Exam Initial Vital Signs Temp Pulse Resp BP Pulse Ox 98.5 F 96 20 135/84 95 12/23/18 23:57 12/23/18 23:57 12/23/18 23:57 12/23/18 23:57 12/23/18 23:57 Results - Labs 12/24/18 00:36 12/24/18 00:36 Abnormal lab results APTT 45.1 Seconds (26.0-36.0) H 12/24/18 00:36 Carbon Dioxide 22 mEq/L (23-29) L 12/24/18 00:36 BUN 63 mg/dL (8-23) H 12/24/18 00:36 Creatinine 4.00 mg/dL (0.60-1.20) H 12/24/18 00:36 Est GFR ( Amer) 14 (> 60) L 12/24/18 00:36 Est GFR (Non-Af Amer) 11 (> 60) L 12/24/18 00:36 Calculated Osmolality 311 (280-300) H 12/24/18 00:36 AST 7 Units/L (13-39) L 12/24/18 00:36 Alkaline Phosphatase 129 Units/L (34-104) H 12/24/18 00:36 Urine Clarity Cloudy (Clear) A 12/24/18 00:49 Ur Leukocyte Esterase Trace (Negative) H 12/24/18 00:49 Urine Microscopic WBC 15-30 per hpf (0-3) H 12/24/18 00:49 Ur Squamous Epith Cells Many per lpf (None-Few) H 12/24/18 00:49 Ur Culture Indicated? NO. (NO) A 12/24/18 00:49 Diabetes panel 12/24/18 12/24/18 Range/Units 00:36 00:36 Sodium 142 (136-145) mEq/L Potassium 4.7 (3.5-5.1) mEq/L Chloride 105 (98-107) mEq/L Carbon Dioxide 22 L (23-29) mEq/L BUN 63 H (8-23) mg/dL Creatinine 4.00 H (0.60-1.20) mg/dL Glucose 85 (70-105) mg/dL Calcium 9.3 (8.6-10.3) mg/dL AST 7 L (13-39) Units/L ALT 8 (7-52) Units/L Alkaline Phosphatase 129 H (34-104) Units/L Albumin 4.0 (3.5-5.7) g/dL Calcium panel 12/24/18 12/24/18 Range/Units 00:36 00:36 Calcium 9.3 (8.6-10.3) mg/dL Albumin 4.0 (3.5-5.7) g/dL Pituitary panel 12/24/18 Range/Units 00:36 Sodium 142 (136-145) mEq/L Potassium 4.7 (3.5-5.1) mEq/L Chloride 105 (98-107) mEq/L Carbon Dioxide 22 L (23-29) mEq/L BUN 63 H (8-23) mg/dL Creatinine 4.00 H (0.60-1.20) mg/dL Glucose 85 (70-105) mg/dL Calcium 9.3 (8.6-10.3) mg/dL Adrenal panel 12/24/18 12/24/18 Range/Units 00:36 00:36 Sodium 142 (136-145) mEq/L Potassium 4.7 (3.5-5.1) mEq/L Chloride 105 (98-107) mEq/L Carbon Dioxide 22 L (23-29) mEq/L BUN 63 H (8-23) mg/dL Creatinine 4.00 H (0.60-1.20) mg/dL Glucose 85 (70-105) mg/dL Calcium 9.3 (8.6-10.3) mg/dL Total Bilirubin 1.0 (0.3-1.0) mg/dL AST 7 L (13-39) Units/L ALT 8 (7-52) Units/L Alkaline Phosphatase 129 H (34-104) Units/L Albumin 4.0 (3.5-5.7) g/dL All other labs normal. Consult Discharge Plan - Plan Referrals: NONE,PCP [Primary Care Provider] -
--- NOTE | 2018-12-24 16:39 | Electrocardiograph Report ---
[place] [id number] Test Date: 2018-12-24 Pat Name: Miriam Goodson Department: [id number] Room: 3B63 Gender: F District Representative: : 1950 Requested By: Napoleon Dempsey Order Number: [id number] Reading MD: Hayley Bateman Measurements Intervals [place] Rate: 94 P: 53 VT: 199 QRS: -20 QRSD: 105 T: 44 QT: 368 QTc: 461 Interpretive Statements Sinus rhythm Borderline left axis deviation Low voltage, precordial leads Abnormal R-wave progression, early transition Electronically Signed On 12-24-2018 16:37:50 EDT by Hayley Bateman
[2018-12-24] MEDS: Pantoprazole 40 MG VIAL IVP SCH (16:52)
[2018-12-24] MEDS ORDERED: Ondansetron 4 MG/2 ML VIAL IVP SCH (18:00)
[2018-12-24] MEDS ORDERED: hydrOXYzine pamoate 25 MG CAPSULE PO PRN (18:49)
[2018-12-24] MEDS: Gabapentin 300 MG CAPSULE PO SCH (20:29)
[2018-12-24] MEDS: Ondansetron 4 MG/2 ML VIAL IVP PRN (20:37)
[2018-12-25] MEDS: Ringers Solution, Lactated 1,000 ML IVC SCH ×3 (03:39→13:17)
[2018-12-25] MEDS: *HR* Heparin 5,000 UNIT/ML VIAL SQ SCH ×2 (05:26→17:46)
[2018-12-25] MEDS: Pantoprazole 40 MG VIAL IVP SCH ×2 (05:26→17:46)
--- NOTE | 2018-12-25 07:36 | General Surgery Progress Note ---
<Talib Ho - Last Filed: 12/25/18 10:41> Date of Encounter: 12/25/18 Time of Encounter: 07:00 - Assessment and Plan (1) Abdominal pain Current Visit: Yes Status: Acute -Continues to have bilateral lower abdominal pain along with N/V, and questionable hematochezia mixed with loose stool -Pain is not localizable and without signs concerning for acute appendicitis -CT abd/plv 12/24/18: Suspected tip appendicitis, bilat nonobstructing intrarenal calculi -WBC 6, afebrile since arrival -Serial abdominal exams have not been consistent with appendicitis -Will continue to monitor her today along with continued serial abdominal exams and IV fluids but no plans for surgical intervention at this time Qualifiers: Abdominal location: lower abdomen, unspecified Qualified Code(s): R10.30 - Lower abdominal pain, unspecified (2) Abnormal abdominal CT scan Current Visit: Yes Status: Acute -As above Subjective Narrative: Having waxing and waning bilateral lower abdominal pain along with N/V, dysuria and possible hematochezia mixed with loose stool. Denies subjective f ever/chills, chest pain, dyspnea, abdominal pain elsewhere, referred pain. Objective Vital Signs - Last 8 Hours Temp Pulse Resp BP Pulse Ox 12/25/18 06:46 99.2 F 78 16 120/65 94 12/25/18 03:36 98.7 F 73 18 112/74 93 12/24/18 23:38 97.7 F 75 18 126/80 97 Intake and Output 12/24/18 12/24/18 12/25/18 15:59 23:59 07:59 Intake Total 1100 / 1100 1000 / 1000 1000 / 1000 Output Total 200 / 200 0 / 0 Balance 900 / 900 1000 / 1000 1000 / 1000 Intake: IV Fluids 1100 / 1100 1000 / 1000 1000 / 1000 0.9 % Sodium Chloride 1,000 ML 1000 / 1000 @ 200 mls/hr IVC .Q5H TIA Rx#: [id number] Lactated Ringers 1,000 ML @ 150 1000 / 1000 1000 / 1000 mls/hr IVC .[id number] TIA Rx#: [id number] Flagyl Premix 500 MG/100 ML 500 100 / 100 mg In 100 ml @ 100 mls/hr IVPB Q8H TIA Rx#:[id number] Oral 0 / 0 Output: Urine 200 / 200 0 / 0 Other: Meal npo Percent of Meal Consumed 0% Stool Size Small Moderate Stool Consistency liquid loose Stool Characteristics Pasty Stool Color Brown # Bowel Movements 1 # Bowel Movement Diapers 1 Weight 131.4 kg Patient Weight 12/25/18 23:59 Weight 131.4 kg - General physical appearance well developed, well nourished, no distress - Eyes normal ocular movement - ENT dry mucosa - Neck Neck exam: trachea midline - Respiratory normal expansion, normal respiratory effort, clear to auscultation - Cardiovascular Cardiovascular exam: Present: RRR. Absent: bradycardia, tachycardia, irregular rhythm, murmurs, clicks, rubs, gallop, distant heart sounds, JVD - Abdomen Abdomen: Present: bowel sounds present, soft. Absent: distended, organomegaly, masses, guarding, rebound, rigid, peritoneal Abdominal Tenderness: RLQ, LLQ, suprapubic - Integumentary no rash - Neurologic CN 2-12 grossly intact, normal coordination - Psychiatric oriented to time, oriented to person, oriented to place, speech is normal - Labs 12/25/18 07:30 12/25/18 07:30 Consult Discharge Plan - Plan Referrals: [facility],PCP [Non-Partnered Physician] - 12/30/18 9:45 am <Mayco Coronado - Last Filed: 12/27/18 12:17> Date of Encounter: 12/25/18 - Assessment and Plan (1) Abnormal abdominal CT scan Current Visit: Yes Status: Acute Objective Vital Signs - Last 8 Hours Temp Pulse Resp BP Pulse Ox 12/27/18 11:04 98.4 F 71 16 146/85 95 12/27/18 06:50 97.8 F 66 16 128/74 98 Intake and Output 12/26/18 12/27/18 12/27/18 23:59 07:59 15:59 Intake Total 1000 / 1000 1080 / 1080 Output Total 600 / 600 Balance 1000 / 1000 480 / 480 Intake: IV Fluids 1000 / 1000 0.45% Sodium Chloride 1000 Ml 1000 / 1000 1000 Ml 1,000 ML @ 75 mls/hr IVC .[id number] TIA Rx#:[id number] Oral 1080 / 1080 Output: Urine 600 / 600 Other: Meal Breakfast Percent of Meal Consumed 100% Weight 133.1 kg Patient Weight 12/27/18 23:59 Weight 133.1 kg - Labs 12/26/18 04:22 12/27/18 04:33 Diabetes panel 12/27/18 Range/Units 04:33 Sodium 143 (136-145) mEq/L Potassium 4.3 (3.5-5.1) mEq/L Chloride 111 H (98-107) mEq/L Carbon Dioxide 26 (23-29) mEq/L BUN 16 (8-23) mg/dL Creatinine 1.06 (0.60-1.20) mg/dL Glucose 105 (70-105) mg/dL Calcium 7.8 L (8.6-10.3) mg/dL Calcium panel 12/27/18 Range/Units 04:33 Calcium 7.8 L (8.6-10.3) mg/dL Pituitary panel 12/27/18 Range/Units 04:33 Sodium 143 (136-145) mEq/L Potassium 4.3 (3.5-5.1) mEq/L Chloride 111 H (98-107) mEq/L Carbon Dioxide 26 (23-29) mEq/L BUN 16 (8-23) mg/dL Creatinine 1.06 (0.60-1.20) mg/dL Glucose 105 (70-105) mg/dL Calcium 7.8 L (8.6-10.3) mg/dL Adrenal panel 12/27/18 Range/Units 04:33 Sodium 143 (136-145) mEq/L Potassium 4.3 (3.5-5.1) mEq/L Chloride 111 H (98-107) mEq/L Carbon Dioxide 26 (23-29) mEq/L BUN 16 (8-23) mg/dL Creatinine 1.06 (0.60-1.20) mg/dL Glucose 105 (70-105) mg/dL Calcium 7.8 L (8.6-10.3) mg/dL - Attending Attestation I have personally performed a face to face evaluation on this patient. I have reviewed and agree with the care plan. History and Exam by me shows: The patient is seen and evaluated on morning rounds. She is very nonspecific abdominal complaints and normal white blood cell count. Her nausea and vomiting has stopped. She continues to complain of bilateral lower abdominal discomfort. Dietary trial no localization of her pain I do not believe that this represents appendicitis Mayco Coronado MD FACS
[2018-12-25 07:55] LABS: Basophils % 0.5 %; Eosinophils # 0.1 K/mcL (0.0-0.6); Eosinophils % 2.4 %; Hematocrit 33.9 % (35.3-44.9); Immature Granulocytes % 0.3 % (0-4); Lymphocytes # 2.3 K/mcL (0.6-4.6); Lymphocytes % 39.7 %; Mean Corpuscular HGB Conc 31.9 g/dL (31.6-35.5); Mean Corpuscular Hemoglobin 28.4 pg (28.0-33.3); Mean Corpuscular Volume 89.2 fL (83.0-100.0); Mean Platelet Volume 10.8 fL (9.4-12.4); Monocytes # 0.5 K/mcL (0.0-1.3); Monocytes % 9.1 %; Neutrophils # 2.8 K/mcL (1.6-8.9); Platelet Count 251 K/mcL (140-400); Red Cell Distribution Width 13.1 % (11.5-14.5)
[2018-12-25 07:56] LABS: Hemoglobin 10.8 g/dL (11.5-15.4)
[2018-12-25 08:14] LABS: Calcium 8.7 mg/dL (8.6-10.3); Potassium 3.9 mEq/L (3.5-5.1)
[2018-12-25] MEDS: Isosorbide MONOnitrate (24 HR) 30 MG TAB.ER.24H PO SCH (09:34)
[2018-12-25] MEDS: Aspirin 81 MG TAB.CHEW PO SCH (09:34)
[2018-12-25] MEDS: Gabapentin 300 MG CAPSULE PO SCH ×3 (09:34→20:18)
[2018-12-25] MEDS: Ondansetron 4 MG/2 ML VIAL IVP PRN ×2 (10:45→15:39)
--- NOTE | 2018-12-25 11:04 | Internal Med Progress Note ---
Hospitalist Progress Note - Encounter Date of Encounter: 12/25/18 Time of Encounter: 11:04 - Subjective Interval History: Yossi was seen and examined at bedside currently has complaints of nausea vomiting and diarrhea. States that she has poor appetite however nursing reports patient has been ordering triple the amount of food that has been eating 100% of her meals I did discuss treatment plan with the patient who verbalized understanding - Exam Vitals: Temp Pulse Resp BP Pulse Ox 99.2 F 78 16 120/65 94 12/25/18 06:46 12/25/18 06:46 12/25/18 06:46 12/25/18 06:46 12/25/18 06:46 Exam: General: Patient is alert, mild distress, oriented x 3, morbidly obese Head: atraumatic, normocephalic, ENT: Mucous membranes moist Eye: normal appearance, PERRL, no scleral icterus, no conjunctival injection Neck: normal inspection, trachea midline, full ROM, no carotid bruits Chest: normal inspection, no chest wall tenderness symmetric chest rise Respiratory: Good respiratory effort. Normal breath sounds. No wheezing or crackles. Cardiovascular: Regular rate and rhythm. s1 and s2 normal No clicks, rubs, gallops, or murmurs. No pedal edema Abdomen: Abdomen is soft, tender in the right lower quadrant. Bowel sounds are present Musculoskeletal: Spontaneously moving all extremities Skin: warm, dry, intact. Neuro: Alert oriented x 3 normal cranial nerves, no focal deficits Psych: Patient's affect is normal - Assessment and Plan (1) Abnormal abdominal CT scan Current Visit: Yes Status: Acute Assessment and Plan: -CT abd/plv 12/24/18: Suspected tip appendicitis, bilat nonobstructing intrarenal calculi Surgery consulted and appreciate recommendations-no surgical intervention at this time (2) Abdominal pain Current Visit: Yes Status: Acute Assessment and Plan: Patient has been complaining of abdominal plain was on with nausea and vomiting however she has been eating 100% of her meals and ordering 3 times the food tray- -CT abd/plv 12/24/18: Suspected tip appendicitis, bilat nonobstructing intrarenal calculi No white count afebrile since arrival Surgery has been consultedsurgical intervention at this time continue with IV fluids (3) MERVIN (acute kidney injury) Current Visit: Yes Status: Acute Assessment and Plan: 1 creatinine 1.87 today down from yesterday on presentation her creatinine was 4-baseline is less than 1 we will continue with IV fluids and monitor closely Avoid nephrotoxins - Time Spent with Patient Total time spent is greater than 50% in coordination of care (as documented) at patient's floor/unit and/or counseling patient: Internal Medicine: Result - Labs CBC & Chem 7: 12/25/18 07:30 12/25/18 07:30 Labs: Short CBC 12/25/18 Range/Units 07:30 WBC 5.7 (4.3-11.1) K/mcL Hgb 10.8 L D (11.5-15.4) g/dL Hct 33.9 L (35.3-44.9) % Plt Count 251 (140-400) K/mcL Neutrophils # 2.8 (1.6-8.9) K/mcL BMP 12/25/18 07:30 Sodium 144 Potassium 3.9 Chloride 111 H Carbon Dioxide 25 BUN 41 H Creatinine 1.87 H Glucose 130 H Calcium 8.7 Cardiac Enzymes 12/24/18 Range/Units 14:57 Troponin I < 0.03 (< 0.04) ng/mL - ABG Interpretation ABG results: PT/INR, D-dimer PT 11.9 Seconds (9.4-12.1) 12/24/18 00:36 Consult Discharge Plan - Plan Referrals: NONE,PCP [Primary Care Provider] - (2) Abdominal pain Qualifiers: Abdominal location: lower abdomen, unspecified Qualified Code(s): R10.30 - Lower abdominal pain, unspecified
[2018-12-26 05:06] LABS: Basophils % 0.5 %; Eosinophils # 0.2 K/mcL (0.0-0.6); Hematocrit 32.1 % (35.3-44.9); Hemoglobin 9.9 g/dL (11.5-15.4); Immature Granulocytes % 0.2 % (0-4); Lymphocytes % 35.8 %; Mean Corpuscular HGB Conc 30.8 g/dL (31.6-35.5); Mean Corpuscular Volume 90.9 fL (83.0-100.0); Mean Platelet Volume 10.9 fL (9.4-12.4); Monocytes # 0.5 K/mcL (0.0-1.3); Monocytes % 8.6 %; Neutrophils # 2.9 K/mcL (1.6-8.9); Platelet Count 228 K/mcL (140-400); Red Blood Count 3.53 M/mcL (3.82-4.97); Red Cell Distribution Width 13.2 % (11.5-14.5); Segmented Neutrophils % 51.9 %
[2018-12-26 05:25] LABS: Calcium 8.2 mg/dL (8.6-10.3)
[2018-12-26] MEDS: Pantoprazole 40 MG VIAL IVP SCH ×2 (05:54→18:55)
[2018-12-26] MEDS: *HR* Heparin 5,000 UNIT/ML VIAL SQ SCH ×2 (05:54→14:43)
[2018-12-26] MEDS: Ondansetron 4 MG/2 ML VIAL IVP PRN (06:02)
[2018-12-26 06:50] LABS: Bilirubin,Urine Negative (Negative); Blood,Urine Negative (Negative); Clarity,Urine Cloudy (Clear); Color,Urine Yellow (Yellow); Glucose,Urine (UA) Normal (Normal); Ketones,Urine Negative (Negative); Leukocyte Esterase,Urine Negative (Negative); Nitrite,Urine Negative (Negative); Protein,Urine Negative (Neg-Trace); Specific Gravity,Urine 1.009 (1.010-1.025); Urobilinogen,Urine Normal (Normal)
[2018-12-26 06:53] LABS: Bacteria,Urine None Seen per hpf (None-Few); Hyaline Casts,Urine None Seen per lpf (None-Few); Squamous Epithelial Cell,Urine Many per lpf (None-Few); WBC,Urine 0-3 per hpf (0-3)
[2018-12-26] MEDS: Aspirin 81 MG TAB.CHEW PO SCH (08:49)
[2018-12-26] MEDS: Isosorbide MONOnitrate (24 HR) 30 MG TAB.ER.24H PO SCH (08:50)
[2018-12-26] MEDS: Gabapentin 300 MG CAPSULE PO SCH ×3 (08:50→21:02)
--- NOTE | 2018-12-26 13:37 | Internal Med Progress Note ---
Hospitalist Progress Note - Encounter Date of Encounter: 12/26/18 Time of Encounter: 13:34 - Subjective Interval History: Ms. Goodson is a 68 year old female patient with history of coronary artery disease status post stents, hypertension, hyperlipidemia, prior laparoscopic cholecystectomy who presented to the ER with complaints of intractable nausea an d vomiting along with abdominal pain. Began 2 days back and has been progressively worsening. She happened to have severe acute kidney injury with creatinine @ 4.0. Patient was admitted in the hospital and started her on aggressive IV hydration. Her creatinine started improving slowly. Her CT of abdomen showed questionable appendicitis, however patient was evaluated by surgery who did not recommend any surgical intervention now. Patient was seen and examined at bedside today. She still complaining about lightheadedness, dizziness and nausea. However her oral intake seems to be better today. She still complaining about lower abdominal discomfort radiating to her right flank. - Exam Vitals: Temp Pulse Resp BP Pulse Ox 99.0 F 70 20 117/66 95 12/26/18 10:34 12/26/18 10:34 12/26/18 10:34 12/26/18 10:34 12/26/18 10:34 Exam: Gen: Alert, awake, Oriented to time,place and person Chest: Diminished breath sounds B/L, No wheezing, No crackles, No rales Heart: S1S2+ RRR No murmurs Abd: Soft, Mild discomfort in lower abd, No CVA tenderness, BS +, No organomegaly Ext: No edema, pulses are palpable, No calf tenderness Neuro : Benign findings Skin: No rash. - Assessment and Plan (1) MERVIN (acute kidney injury) Current Visit: Yes Status: Acute Assessment and Plan: Severe MERVIN due to dehydration with intractable nausea and vomiting Improving Cr came down to 1.4 from 4.0 Baseline @ 0.9 Patient does need to stay in the hospital more than 3 midnights due to her complex medical problems. So we will change her to full admission today. I did review my colleague Dr. Muhammad's H & P including HPI, PMH, PSH, FH, SH, and ROS no changes noticed (2) Abdominal pain Current Visit: Yes Status: Acute Assessment and Plan: CT abd/plv 12/24/18: Suspected tip appendicitis, bilat nonobstructing intrarenal calculi No white count afebrile since arrival Surgery has been consulted. No surgical intervention at this time continue with IV fluids (3) Abnormal abdominal CT scan Current Visit: Yes Status: Acute Assessment and Plan: CT abd/plv 12/24/18: Suspected tip appendicitis, bilat nonobstructing intrarenal calculi Surgery consulted and appreciate recommendations-no surgical intervention at this time cont close monitoring (4) Coronary artery disease Current Visit: Yes Status: Chronic Assessment and Plan: Resumed all home medications (5) HTN (hypertension) Current Visit: Yes Status: Chronic Assessment and Plan: Stable blood pressure with current medication Cont home meds (6) HLD (hyperlipidemia) Current Visit: Yes Status: Chronic Assessment and Plan: Resumed home medications Statin (7) Morbid obesity with BMI of 40.0-44.9, adult Current Visit: Yes Status: Chronic Assessment and Plan: Counseled to loose weight and diet modifications - Time Spent with Patient Total time spent is greater than 50% in coordination of care (as documented) at patient's floor/unit and/or counseling patient: Internal Medicine: Result - Labs CBC & Chem 7: 12/26/18 04:22 12/26/18 04:22 Labs: Short CBC 12/26/18 Range/Units 04:22 WBC 5.6 (4.3-11.1) K/mcL Hgb 9.9 L (11.5-15.4) g/dL Hct 32.1 L (35.3-44.9) % Plt Count 228 (140-400) K/mcL Neutrophils # 2.9 (1.6-8.9) K/mcL BMP 12/26/18 04:22 Sodium 143 Potassium 4.0 Chloride 112 H Carbon Dioxide 25 BUN 25 H Creatinine 1.48 H Glucose 142 H Calcium 8.2 L Urine 12/26/18 Range/Units 06:23 Urine Color Yellow (Yellow) Urine Clarity Cloudy A (Clear) Urine pH 6.0 (5.0-8.0) pH Units Ur Specific [place] 1.009 L (1.010-1.025) Urine Protein Negative (Neg-Trace) mg/dL Urine Glucose (UA) Normal (Normal) mg/dL - ABG Interpretation ABG results: PT/INR, D-dimer PT 11.9 Seconds (9.4-12.1) 12/24/18 00:36 Consult Discharge Plan - Plan Referrals: NONE,PCP [Primary Care Provider] - (2) Abdominal pain Qualifiers: Abdominal location: lower abdomen, unspecified Qualified Code(s): R10.30 - Lower abdominal pain, unspecified (4) Coronary artery disease Qualifiers: Coronary Disease-Associated Artery/Lesion type: [place] artery [place] vs. transplanted heart: [place] heart Associated angina: with unstable angina Qualified Code(s): I25.110 - Atherosclerotic heart disease of [place] coronary artery with unstable angina pectoris (5) HTN (hypertension) Qualifiers: Hypertension type: essential hypertension Qualified Code(s): I10 - Essential (primary) hypertension (6) HLD (hyperlipidemia) Qualifiers: Hyperlipidemia type: mixed hyperlipidemia Qualified Code(s): E78.2 - Mixed hyperlipidemia
[2018-12-27] MEDS: Pantoprazole 40 MG VIAL IVP SCH (05:44)
[2018-12-27] MEDS: *HR* Heparin 5,000 UNIT/ML VIAL SQ SCH ×2 (05:44→16:07)
[2018-12-27 05:52] LABS: BUN/Creatinine Ratio 15 (6-26); Blood Urea Nitrogen 16 mg/dL (8-23); Calcium 7.8 mg/dL (8.6-10.3); Carbon Dioxide 26 mEq/L (23-29); Chloride 111 mEq/L (98-107); Glucose 105 mg/dL (70-105); Osmolality,Calculated 298 (280-300); Potassium 4.3 mEq/L (3.5-5.1); Sodium 143 mEq/L (136-145); eGFR For Non-African Americans 52 (> 60)
[2018-12-27] MEDS: Gabapentin 300 MG CAPSULE PO SCH ×3 (09:13→20:26)
[2018-12-27] MEDS: Isosorbide MONOnitrate (24 HR) 30 MG TAB.ER.24H PO SCH (09:13)
[2018-12-27] MEDS: Aspirin 81 MG TAB.CHEW PO SCH (09:14)
[2018-12-27] MEDS ORDERED: Isovue-370 500 ML BOTTLE IVP ONE (09:28)
--- NOTE | 2018-12-27 10:36 | General Surgery Progress Note ---
<Talib Ho - Last Filed: 12/27/18 10:34> Date of Encounter: 12/27/18 Time of Encounter: 09:20 - Assessment and Plan (1) Abdominal pain Current Visit: Yes Status: Acute -Pain is localizable to RLQ now which was previously not localizeable -CT abd/plv 12/24/18: Suspected tip appendicitis, bilat nonobstructing intrarenal calculi -WBC 5.6, afebrile since arrival -Self reported having to force herself to eat but she has been able to tolerate 3x amount food per notes -Will place NPO, repeat abdominal CT and if significant for appendicitis will plan for surgical intervention otherwise surgery will sign off and can be dc home Qualifiers: Abdominal location: right lower quadrant Qualified Code(s): R10.31 - Right lower quadrant pain (2) Abnormal abdominal CT scan Current Visit: Yes Status: Acute -As above Subjective Narrative: Continues to have abdominal pain she now localizes to RLQ. She says she has been having to force herself to eat due to abdominal pain. She denies subjective fever, chills, abdominal pain elsewhere, N/V, diarrhea. Objective Vital Signs - Last 8 Hours Temp Pulse Resp BP Pulse Ox 12/27/18 06:50 97.8 F 66 16 128/74 98 12/27/18 04:03 98.1 F 70 16 136/82 95 Intake and Output 12/26/18 12/27/18 12/27/18 23:59 07:59 15:59 Intake Total 1000 / 1000 1080 / 1080 Output Total 600 / 600 Balance 1000 / 1000 480 / 480 Intake: IV Fluids 1000 / 1000 0.45% Sodium Chloride 1000 Ml 1000 / 1000 1000 Ml 1,000 ML @ 75 mls/hr IVC .[id number] [facility] Rx#:[id number] Oral 1080 / 1080 Output: Urine 600 / 600 Other: Meal Breakfast Percent of Meal Consumed 100% Weight 133.1 kg Patient Weight 12/27/18 23:59 Weight 133.1 kg - Additional Exam General: Well developed, well nourished, no acute distress Eyes: Normal ocular movement Neck: trachea midline Respiratory: Normal expansion, normal respiratory effort, clear to auscultation Cardiovascular: RRR, no murmurs, rubs, gallops, JVD Abdomen: Bowel sounds present, soft, tender to palpation RLQ and periumbilical, no guarding, rebound, organomegaly Integumentary: No rash Neurologic: CN 2-12 grossly intact, normal coordination, AOx3 Psychiatric: Normal mood - Labs 12/26/18 04:22 12/27/18 04:33 Diabetes panel 12/27/18 Range/Units 04:33 Sodium 143 (136-145) mEq/L Potassium 4.3 (3.5-5.1) mEq/L Chloride 111 H (98-107) mEq/L Carbon Dioxide 26 (23-29) mEq/L BUN 16 (8-23) mg/dL Creatinine 1.06 (0.60-1.20) mg/dL Glucose 105 (70-105) mg/dL Calcium 7.8 L (8.6-10.3) mg/dL Calcium panel 12/27/18 Range/Units 04:33 Calcium 7.8 L (8.6-10.3) mg/dL Pituitary panel 12/27/18 Range/Units 04:33 Sodium 143 (136-145) mEq/L Potassium 4.3 (3.5-5.1) mEq/L Chloride 111 H (98-107) mEq/L Carbon Dioxide 26 (23-29) mEq/L BUN 16 (8-23) mg/dL Creatinine 1.06 (0.60-1.20) mg/dL Glucose 105 (70-105) mg/dL Calcium 7.8 L (8.6-10.3) mg/dL Adrenal panel 12/27/18 Range/Units 04:33 Sodium 143 (136-145) mEq/L Potassium 4.3 (3.5-5.1) mEq/L Chloride 111 H (98-107) mEq/L Carbon Dioxide 26 (23-29) mEq/L BUN 16 (8-23) mg/dL Creatinine 1.06 (0.60-1.20) mg/dL Glucose 105 (70-105) mg/dL Calcium 7.8 L (8.6-10.3) mg/dL Consult Discharge Plan - Plan [facility]errals: [facility] [Non-Partnered Physician] - 12/30/18 9:45 am <Mayco Coronado - Last Filed: 12/27/18 12:11> Date of Encounter: 12/27/18 - Assessment and Plan (1) Abnormal abdominal CT scan Current Visit: Yes Status: Acute Objective Vital Signs - Last 8 Hours Temp Pulse Resp BP Pulse Ox 12/27/18 11:04 98.4 F 71 16 146/85 95 12/27/18 06:50 97.8 F 66 16 128/74 98 Intake and Output 12/26/18 12/27/18 12/27/18 23:59 07:59 15:59 Intake Total 1000 / 1000 1080 / 1080 Output Total 600 / 600 Balance 1000 / 1000 480 / 480 Intake: IV Fluids 1000 / 1000 0.45% Sodium Chloride 1000 Ml 1000 / 1000 1000 Ml 1,000 ML @ 75 mls/hr IVC .[id number] [facility] Rx#:[id number] Oral 1080 / 1080 Output: Urine 600 / 600 Other: Meal Breakfast Percent of Meal Consumed 100% Weight 133.1 kg Patient Weight 12/27/18 23:59 Weight 133.1 kg - Labs 12/26/18 04:22 12/27/18 04:33 Diabetes panel 12/27/18 Range/Units 04:33 Sodium 143 (136-145) mEq/L Potassium 4.3 (3.5-5.1) mEq/L Chloride 111 H (98-107) mEq/L Carbon Dioxide 26 (23-29) mEq/L BUN 16 (8-23) mg/dL Creatinine 1.06 (0.60-1.20) mg/dL Glucose 105 (70-105) mg/dL Calcium 7.8 L (8.6-10.3) mg/dL Calcium panel 12/27/18 Range/Units 04:33 Calcium 7.8 L (8.6-10.3) mg/dL Pituitary panel 12/27/18 Range/Units 04:33 Sodium 143 (136-145) mEq/L Potassium 4.3 (3.5-5.1) mEq/L Chloride 111 H (98-107) mEq/L Carbon Dioxide 26 (23-29) mEq/L BUN 16 (8-23) mg/dL Creatinine 1.06 (0.60-1.20) mg/dL Glucose 105 (70-105) mg/dL Calcium 7.8 L (8.6-10.3) mg/dL Adrenal panel 12/27/18 Range/Units 04:33 Sodium 143 (136-145) mEq/L Potassium 4.3 (3.5-5.1) mEq/L Chloride 111 H (98-107) mEq/L Carbon Dioxide 26 (23-29) mEq/L BUN 16 (8-23) mg/dL Creatinine 1.06 (0.60-1.20) mg/dL Glucose 105 (70-105) mg/dL Calcium 7.8 L (8.6-10.3) mg/dL - Attending Attestation I examined this patient and my medical decision-making was reviewed with the Resident Physician. I agree with the documented findings, disposition and treatment plan as described except to the extent set forth below. The patient is seen and evaluated on morning rounds. She has pain in the right lower quadrant. This is the first time the pain is localized. We will repeat her CAT scan today. Surgical plan will be based on CAT scan findings. Mayco Coronado MD FACS
--- NOTE | 2018-12-27 14:47 | Discharge Summary ---
- NOTES TO OUTPATIENT PROVIDER Notes to Outpatient Provider: Follow up with PCP in one week. Date of Encounter: 12/27/18 Time of Encounter: 14:44 - Discharge Diagnosis (1) MERVIN (acute kidney injury) Priority: Primary Status: Acute (2) Abdominal pain Priority: Primary Status: Acute Qualifiers: Abdominal location: right lower quadrant Qualified Code(s): R10.31 - Right lower quadrant pain (3) Abnormal abdominal CT scan Priority: Secondary Status: Acute (4) Coronary artery disease Priority: Secondary Status: Chronic Qualifiers: Coronary Disease-Associated Artery/Lesion type: [place] artery [place] vs. transplanted heart: [place] heart Associated angina: with unstable angina Qualified Code(s): I25.110 - Atherosclerotic heart disease of [place] coronary artery with unstable angina pectoris (5) HTN (hypertension) Priority: Secondary Status: Chronic Qualifiers: Hypertension type: essential hypertension Qualified Code(s): I10 - Essential (primary) hypertension (6) HLD (hyperlipidemia) Priority: Secondary Status: Chronic Qualifiers: Hyperlipidemia type: mixed hyperlipidemia Qualified Code(s): E78.2 - Mixed hyperlipidemia (7) Morbid obesity with BMI of 40.0-44.9, adult Priority: Secondary Status: Chronic Hospital course: Ms. Goodson is a 68 year old female patient with history of coronary artery disease status post stents, hypertension, hyperlipidemia, prior laparoscopic cholecystectomy who presented to the ER with complaints of intractable nausea and vomiting along with abdominal pain. Began 2 days back and has been progressively worsening. She happened to have severe acute kidney injury with creatinine @ 4.0. Patient was admitted in the hospital and started her on aggressive IV hydration. Her creatinine started improving slowly. Her CT of abdomen showed questionable appendicitis, however patient was evaluated by surgery who did not recommend any surgical intervention now. With aggressive IV hydration creatinine improved, today @ 1.06. She is tolerating oral intake well. She had repeat CT of abdomen and pelvis done today which did not show any appendicitis. Surgery cleared her to discharge home today. Will discharge her home in a stable condition today. Patient did mention she might not have any family members at home to receive her. So will try to call family to arrange safe discharge transportation. - Time Spent with Patient Total time spent providing and/or coordinating discharge services: - Discharge Medications Prescriptions: Continue Clopidogrel [Plavix] 75 mg PO DAILY Buspirone HCl [Buspar] 10 mg PO BID Memantine HCl 5 mg PO DAILY Cholecalciferol (D-3) [Vitamin D] 2,000 unit PO DAILY Isosorbide MONOnitrate [Isosorbide Mononitrate ER] 30 mg PO DAILY Gabapentin [Neurontin] 900 mg PO TID Pantoprazole Sodium [Protonix] 20 mg PO DAILY Aspirin 81 mg PO DAILY #30 tab.chew Acetaminophen w/Cod 300-30 mg [Tylenol w/Codeine #3] 1 tab PO TID PRN PRN Reason: Mild To Moderate Pain Atorvastatin Calcium [Lipitor] 40 mg PO HS Benzonatate [Tessalon] 100 mg PO QID PRN PRN Reason: Cough Cetirizine HCl [24Hour Allergy] 5 mg PO DAILY PRN PRN Reason: Allergy Symptoms Escitalopram [Lexapro] 20 mg PO DAILY GuaiFENesin/Dextromethorphan [Robitussin/Dm] 10 ml PO Q4H PRN PRN Reason: Cough Lisinopril [Zestril] 5 mg PO DAILY Magnesium Oxide [Magnesium] 400 mg PO BID Metoprolol [Lopressor] 12.5 mg PO BID Nitroglycerin [Nitrostat] 0.4 mg SL AD PRN PRN Reason: Chest Pain Home Medications: Buspirone HCl [Buspar] 10 mg PO BID 10/05/18 [History] Cholecalciferol (D-3) [Vitamin D] 2,000 unit PO DAILY 10/05/18 [History] Clopidogrel [Plavix] 75 mg PO DAILY 10/05/18 [History] Gabapentin [Neurontin] 900 mg PO TID 10/05/18 [History] Isosorbide MONOnitrate [Isosorbide Mononitrate ER] 30 mg PO DAILY 10/05/18 [History] Memantine HCl 5 mg PO DAILY 10/05/18 [History] Pantoprazole Sodium [Protonix] 20 mg PO DAILY 10/05/18 [History] Aspirin 81 mg PO DAILY #30 tab.chew 10/06/18 [Rx] Acetaminophen w/Cod 300-30 mg [Tylenol w/Codeine #3] 1 tab PO TID PRN 12/25/18 [History] Atorvastatin Calcium [Lipitor] 40 mg PO HS 12/25/18 [History] Benzonatate [Tessalon] 100 mg PO QID PRN 12/25/18 [History] Cetirizine HCl [24Hour Allergy] 5 mg PO DAILY PRN 12/25/18 [History] Escitalopram [Lexapro] 20 mg PO DAILY 12/25/18 [History] GuaiFENesin/Dextromethorphan [Robitussin/Dm] 10 ml PO Q4H PRN 12/25/18 [History] Lisinopril [Zestril] 5 mg PO DAILY 12/25/18 [History] Magnesium Oxide [Magnesium] 400 mg PO BID 12/25/18 [History] Metoprolol [Lopressor] 12.5 mg PO BID 12/25/18 [History] Nitroglycerin [Nitrostat] 0.4 mg SL AD PRN 12/25/18 [History] Allergies/Adverse Reactions: Allergy/AdvReac Type Severity Reaction Status Date / Time sumatriptan [From Imitrex] Allergy Swelling Verified 12/25/18 07:52 of Lip/Tongue/Throat venom-honey bee Allergy Swelling Verified 12/25/18 07:52 [bee venom (honey bee)] of Lip/Tongue/Throat morphine AdvReac Nausea Verified 12/25/18 07:52 Date of admission: 12/26/18 13:23 Primary care physician: PCP NONE Consults: 12/24/18 08:54 Consult to Surgery [CONS] Routine Consulting Provider: Surgery [facility] Reason for Consult: Tip appendicitis per CT Time Notified: 08:55 Call Completed: Yes - Constitutional Vitals: Temp Pulse Resp BP Pulse Ox 98.4 F 71 16 146/85 95 12/27/18 11:04 12/27/18 11:04 12/27/18 11:04 12/27/18 11:04 12/27/18 11:04 General appearance: Present: cooperative, A&O X 3, pleasant, answers questions appropriately Exam: Gen: Alert, awake, Oriented to time,place and person Chest: Diminished breath sounds B/L, No wheezing, No crackles, No rales Heart: S1S2+ RRR No murmurs Abd: Soft, NT, No CVA tenderness, BS +, No organomegaly Ext: No edema, pulses are palpable, No calf tenderness Neuro : Benign findings Skin: No rash. - Patient Status Disposition: Home, Self-Care Condition: Fair - Discharge Instructions Instructions: Coronary Artery Disease (DC), Chest Pain (DC) Follow Up With: [facility] [Non-Partnered Physician] - 12/30/18 9:45 am Additional Instructions: Follow-up appointments: If there is not an appointment listed below, please call your physician and schedule a follow-up appointment. If you have congestive heart failure and your symptoms return, make an appointment with your physician. Medication List: Carry an up to date list of medications you are taking at all time. We have given you an updated medication list including any new medications that you have been prescribed. Please provide that list to your primary provider Symptoms: If your condition changes or you experience any of the following symptoms, notify your physician immediately: Unusual or worsening pain, fever, persistent nausea and vomiting, bleeding, increase in swelling (especially in your legs), sudden weight gain, extreme dizziness, chest pain, increased drainage or redness from a wound or incision. Go to the emergency department if you experience a problem with breathing. Weights: If you have a history of swelling or shortness of breath, weigh yourself daily and notify your physician if you have a weight gain of two or more pounds in one day or 5 or more pounds in a week. If you experience any of the warning signs for stroke: Sudden numbness or weakness of the face, arm or leg; especially on one side of the body, sudden confusion, trouble speaking or understanding, sudden trouble seeing in one or both eyes, sudden trouble walking, dizziness, loss of balance o r coordination, sudden sever headache with no cause; Call 911 or go to the emergency room. Stroke is a medical emergency. Some risk factors for stroke: Age, cigarette smoking, diabetes, excessive alcohol consumption, family history, high blood pressure, overweight, physical inactivity, prior stroke, heart attack, diagnosis of carotid artery stenosis or other artery disease. If you smoke, STOP: Smoking or tobacco use significantly increases your risk of heart and lung disease. Your chance of disease greatly increases if you continue to smoke. For more information, call the [place] tobacco quit line for smoking cessation 5-427-DSJG-NOW ( ) - Diet and Activity Activity: increase activity as tolerated
[2018-12-27] MEDS: Ondansetron 4 MG/2 ML VIAL IVP PRN (16:15)
[2018-12-28] MEDS: *HR* Heparin 5,000 UNIT/ML VIAL SQ SCH (06:02)
[2018-12-28] MEDS: Ringers Solution, Lactated 1,000 ML IVC SCH ×3 (07:44→07:52)
--- NOTE | 2018-12-28 08:10 | Internal Med Progress Note ---
<Cristian Figueroa - Last Filed: 12/28/18 08:08> Hospitalist Progress Note - Encounter Date of Encounter: 12/28/18 Time of Encounter: 08:09 - Subjective Interval History: No acute events overnight. Patient was discharged yesterday however there is no one at home for her to go with therefore she stay overnight. She denies chest pain, abdominal pain, nausea, vomiting, diarrhea. She is tolerating her diet and has no problems having bowel movements are urinating. - Exam Vitals: Temp Pulse Resp BP Pulse Ox 98.7 F 75 16 150/73 97 12/28/18 07:08 12/28/18 07:08 12/28/18 07:08 12/28/18 07:08 12/28/18 07:08 Exam: General: pleasant, without distress Cardiovascualr: Regular rate and rhythm with no murmur, absent gallops or rubs, absent pedal edema, radial pulses 2 out of 4 Lungs: Clear to auscultation bilaterally, not in respiratory distress Abdomen: Soft nontender, nondistended positive bowel sounds, Skin: warm and dry, absent rash, absent open wounds and nodules Neuro: Alert and oriented 3 no focal deficits Psych: good insight and judgment, anxious, depressed - Assessment and Plan (1) Abdominal pain Current Visit: Yes Status: Resolved Assessment and Plan: Resolved. (2) Abnormal abdominal CT scan Current Visit: Yes Status: Acute Assessment and Plan: Since initial CT scan showed a suspected appendicitis Repeat CT scan reports appendix was not visualized there were no findings suggestive of appendicitis Surgery cleared patient for discharge. (3) MERVIN (acute kidney injury) Current Visit: Yes Status: Resolved Assessment and Plan: Secondary to nausea vomiting Resolved (4) HLD (hyperlipidemia) Current Visit: Yes Status: Chronic Assessment and Plan: Continue medications (5) HTN (hypertension) Current Visit: Yes Status: Chronic Assessment and Plan: Controlled continue home medications DVT Prophylaxis: Heparin subcutaneous - Time Spent with Patient Total time spent is greater than 50% in coordination of care (as documented) at patient's floor/unit and/or counseling patient: Internal Medicine: Result - Labs CBC & Chem 7: 12/26/18 04:22 12/27/18 04:33 - ABG Interpretation ABG results: PT/INR, D-dimer PT 11.9 Seconds (9.4-12.1) 12/24/18 00:36 - Impressions Impressions Abdomen/Pelvis CT 12/27/18 09:28 IMPRESSION: Nonobstructing renal stones measuring up to 4 mm. Appendix not visualized however no findings to suggest acute appendicitis. D/ / Robina Bruce MD / Robina Bruce MD Interpreting Provider: Robina Bruce MD Consult Discharge Plan - Plan Instructions: Coronary Artery Disease (DC), Chest Pain (DC) Additional Instructions: Follow-up appointments: If there is not an appointment listed below, please call your physician and schedule a follow-up appointment. If you have congestive heart failure and your symptoms return, make an appointment with your physician. Medication List: Carry an up to date list of medications you are taking at all time. We have given you an updated medication list including any new medications that you have been prescribed. Please provide that list to your primary provider Symptoms: If your condition changes or you experience any of the following symptoms, notify your physician immediately: Unusual or worsening pain, fever, persistent nausea and vomiting, bleeding, increase in swelling (especially in your legs), sudden weight gain, extreme dizziness, chest pain, increased drainage or redness from a wound or incision. Go to the emergency department if you experience a problem with breathing. Weights: If you have a history of swelling or shortness of breath, weigh yourself daily and notify your physician if you have a weight gain of two or more pounds in one day or 5 or more pounds in a week. If you experience any of the warning signs for stroke: Sudden numbness or weakness of the face, arm or leg; especially on one side of the body, sudden confusion, trouble speaking or understanding, sudden trouble seeing in one or both eyes, sudden trouble walking, dizziness, loss of balance or coordination, sudden sever headache with no cause; Call 911 or go to the emergency room. Stroke is a medical emergency. Some risk factors for stroke: Age, cigarette smoking, diabetes, excessive alcohol consumption, family history, high blood pressure, overweight, physical inactivity, prior stroke, heart attack, diagnosis of carotid artery stenosis or other artery disease. If you smoke, STOP: Smoking or tobacco use significantly increases your risk of heart and lung dis ease. Your chance of disease greatly increases if you continue to smoke. For more information, call the [place] tobacco quit line for smoking cessation 7-565-KSCB-NOW ( ) [facility]errals: [facility] [Non-Partnered Physician] - 12/30/18 9:45 am <Dian Echevarria - Last Filed: 12/28/18 16:07> Hospitalist Progress Note - Encounter Date of Encounter: 12/28/18 - Exam Vitals: Temp Pulse Resp BP Pulse Ox 98.8 F 75 16 140/69 95 12/28/18 15:38 12/28/18 15:38 12/28/18 15:38 12/28/18 15:38 12/28/18 15:38 - Assessment and Plan (1) Morbid obesity with BMI of 40.0-44.9, adult Current Visit: Yes Status: Chronic (2) Coronary artery disease Current Visit: Yes Status: Chronic (3) HLD (hyperlipidemia) Current Visit: Yes Status: Chronic (4) HTN (hypertension) Current Visit: Yes Status: Chronic (5) Abnormal abdominal CT scan Current Visit: Yes Status: Acute (6) Abdominal pain Current Visit: Yes Status: Resolved (7) MERVIN (acute kidney injury) Current Visit: Yes Status: Resolved - Time Spent with Patient Total time spent is greater than 50% in coordination of care (as documented) at patient's floor/unit and/or counseling patient: Internal Medicine: Result - Labs CBC & Chem 7: 12/26/18 04:22 12/27/18 04:33 - ABG Interpretation ABG results: PT/INR, D-dimer PT 11.9 Seconds (9.4-12.1) 12/24/18 00:36 - Attending Attestation I have seen and independently assessed this patient and I agree with plan as documented Plan Abdominal pain. Appendicitis ruled out. Okay for discharge <Cristian Figueroa Becka - Last Filed: 12/28/18 08:08> (1) Abdominal pain Qualifiers: Abdominal location: right lower quadrant Qualified Code(s): R10.31 - Right lower quadrant pain (4) HLD (hyperlipidemia) Qualifiers: Hyperlipidemia type: mixed hyperlipidemia Qualified Code(s): E78.2 - Mixed hyperlipidemia (5) HTN (hypertension) Qualifiers: Hypertension type: essential hypertension Qualified Code(s): I10 - Essential (primary) hypertension <Dian Echevarria - Last Filed: 12/28/18 16:07> (2) Coronary artery disease Qualifiers: Coronary Disease-Associated Artery/Lesion type: [place] artery [place] vs. transplanted heart: [place] heart Associated angina: with unstable angina Qualified Code(s): I25.110 - Atherosclerotic heart disease of [place] coronary artery with unstable angina pectoris (3) HLD (hyperlipidemia) Qualifiers: Hyperlipidemia type: mixed hyperlipidemia Qualified Code(s): E78.2 - Mixed hyperlipidemia (4) HTN (hypertension) Qualifiers: Hypertension type: essential hypertension Qualified Code(s): I10 - Essential (primary) hypertension (6) Abdominal pain Qualifiers: Abdominal location: right lower quadrant Qualified Code(s): R10.31 - Right lower quadrant pain
[2018-12-28] MEDS: Aspirin 81 MG TAB.CHEW PO SCH (09:28)
[2018-12-28] MEDS: Isosorbide MONOnitrate (24 HR) 30 MG TAB.ER.24H PO SCH (09:29)
[2018-12-28] MEDS: Gabapentin 300 MG CAPSULE PO SCH ×2 (09:29→14:55)
[2018-12-28 15:39] VITALS: BP 140/69
== END 2018-12-28 17:07 | disposition home or self-care (01) | DRG 683 ==
LOC: EMEROOARM 23:50 → 3BNU 23:50 → SUATTDRO 12-26 13:23
PROVIDERS: ADMIT Pediatrics; ATTEND Student in an Organized Health Care Education/Training Program

== ENCOUNTER 2019-03-23 17:11 | Observation (INO) ==
[2019-03-23 17:44] LABS: Basophils % 0.6 %; Eosinophils # 0.1 K/mcL (0.0-0.6); Eosinophils % 2.1 %; Hematocrit 36.1 % (35.3-44.9); Hemoglobin 11.5 g/dL (11.5-15.4); Immature Granulocytes % 0.2 % (0-4); Lymphocytes # 1.6 K/mcL (0.6-4.6); Lymphocytes % 29.9 %; Mean Corpuscular HGB Conc 31.9 g/dL (31.6-35.5); Mean Corpuscular Hemoglobin 28.6 pg (28.0-33.3); Mean Corpuscular Volume 89.8 fL (83.0-100.0); Mean Platelet Volume 10.6 fL (9.4-12.4); Monocytes # 0.4 K/mcL (0.0-1.3); Monocytes % 6.9 %; Neutrophils # 3.2 K/mcL (1.6-8.9); Platelet Count 241 K/mcL (140-400); Red Blood Count 4.02 M/mcL (3.82-4.97); Red Cell Distribution Width 13.2 % (11.5-14.5); Segmented Neutrophils % 60.3 %; White Blood Count 5.3 K/mcL (4.3-11.1)
--- NOTE | 2019-03-23 17:49 | Emergency Department Note ---
Disposition Clinical Impression: Chest pain Qualifiers: Chest pain type: unspecified Qualified Code(s): R07.9 - Chest pain, unspecified Syncope Qualifiers: Syncope type: unspecified Qualified Code(s): R55 - Syncope and collapse Disposition: Admitted As Inpatient Condition: Undetermined Referrals: NONE,PCP [Primary Care Provider] - Forms: ED Satisfaction Letter Time of Disposition: 18:50 Chest Pain HPI - General Chief Complaint: ED Fall Stated Complaint: fall Time Seen by Provider: 03/23/19 17:16 Source: patient, EMS Mode of arrival: EMS Limitations: no limitations Vital Signs Reviewed: Yes Nursing Notes Reviewed: Yes - History of Present Illness HPI Narrative: 68-year-old female with history of DC arrives to the emergency department with 2 separate complaints. The patient states that she has syncopal episode yesterday fell and struck her face and head. Patient takes Plavix. Denies headache and facial swelling or ecchymosis. In addition the patient was noted to have chest pain that was 8 out of 10. Relieved with nitroglycerin in route to the hospital. The patient states this feels like her previous DC. She has a stent placed previously. She denies any other complaints at this time including hemoptysis, unilateral leg swelling, recent surgeries or immobilizations. He denies any fevers, chills, denies any abdominal pain. She is lucid and answering questions appropriately. GCS 15. Severity scale (1-10): 7 - Related Data Home Medications Medication Instructions Recorded Confirmed Cholecalciferol (D-3) [Vitamin D] 2,000 unit PO DAILY 10/05/18 01/23/19 Memantine HCl 5 mg PO DAILY 10/05/18 01/23/19 Cetirizine HCl [24Hour Allergy] 5 mg PO DAILY PRN 12/25/18 01/23/19 Previous Rx's Medication Instructions Recorded Aspirin 81 mg PO DAILY #30 tab.chew 10/06/18 Atorvastatin Calcium [Lipitor] 40 mg PO HS #15 02/08/19 Bumetanide [Bumex] 0.5 mg PO DAILY #15 tablet 02/08/19 Buspirone HCl [Buspar] 10 mg PO BID #60 tablet 02/08/19 Clopidogrel [Plavix] 75 mg PO DAILY #30 tablet 02/08/19 Escitalopram [Lexapro] 20 mg PO DAILY #30 tablet 02/08/19 Isosorbide MONOnitrate (24 HR) 60 mg PO DAILY #30 tab.er.24h 02/08/19 [Imdur] Magnesium Oxide [Magnesium] 400 mg PO BID #60 tablet 02/08/19 Memantine [Namenda] 5 mg PO DAILY #30 tablet 02/08/19 Metoprolol XL (24 HR) Succ [Toprol 12.5 mg PO DAILY #15 tab.er.24h 02/08/19 XL] Nitroglycerin 0.4 mg SL Q5M PRN #25 tab.subl 02/08/19 Pantoprazole Sodium [Protonix] 40 mg PO DAILY PRN #30 02/08/19 Allergies Allergy/AdvReac Type Severity Reaction Status Date / Time sumatriptan [From Imitrex] Allergy Swelling Verified 01/19/19 14:55 of Lip/Tongue/Throat venom-honey bee Allergy Swelling Verified 01/19/19 14:55 [bee venom (honey bee)] of Lip/Tongue/Throat morphine AdvReac Nausea Verified 01/19/19 14:55 All systems ED: reviewed and negative except as stated. Constitutional: Denies: fever, chills, weakness Eyes: Denies: vision change ENT ED: Denies: dysphagia Cardiovascular: Reports: chest pain, dyspnea on exertion, syncope. Denies: edema Respiratory: Reports: dyspnea. Denies: cough, sputum production Gastrointestinal: Denies: abdominal pain, nausea, vomiting Genitourinary: Denies: urgency, dysuria Musculoskeletal: Denies: back pain, neck pain Integumentary: Denies: rash Neurological: Reports: headache, vertigo. Denies: weakness, numbness, paresthesias, confusion Chest Pain PMH - Past Medical History Medical history: Reports: arthritis, cancer, coronary artery disease, DVT, fibromyalgia, GERD, hyperlipidemia, hypertension, kidney stones, malignancy, migraine, myocardial infarction, seizures Surgical history: Reports: angioplasty/stent, cholecystectomy, hip replacement, other Psychiatric history: Reports: anxiety, depression, panic disorder, PTSD Prior Cardiac Testing/Procedures: Echocardiogram, Stress Test, Stenting, Cardiac Angiogram - Social History Smoking Status: Former smoker Alcohol use: Reports: none Drug use: Reports: none Physical Exam - General Limitations: no limitations General appearance: alert, in no apparent distress - Head Head exam: normocephalic, normal inspection, other (Ecchymosis to left side of face and head) - Eye Eye exam: Present: normal appearance, PERRL, EOMI, periorbital swelling, periorbital tenderness - ENT ENT exam: normal exam, normal oropharynx, mucous membranes moist, TM's normal bilaterally - Neck Neck exam: Present: normal inspection, full ROM, trachea midline - Chest Chest inspection: Present: normal inspection, symmetric chest wall rise - Respiratory Respiratory exam: Present: normal lung sounds bilaterally - Cardiovascular Cardiovascular exam: Present: regular rate, normal rhythm, normal heart sounds - Abdominal Exam Abdominal exam: Present: soft, Non-Tender. Absent: tenderness, distention, guarding, rebound, rigidity - Extremities Exam Extremities exam: Present: normal inspection, full ROM, normal capillary refill. Absent: tenderness, pedal edema - Neurological Exam Neurological exam: Present: alert, oriented X3 - Skin Skin exam: Present: warm, dry, intact, other (ecchymosis) Course Vital Signs Temperature 98.7 F 03/23/19 17:20 Pulse Rate 73 03/23/19 17:20 Respiratory Rate 18 03/23/19 17:20 Blood Pressure 137/80 03/23/19 17:20 O2 Sat by Pulse Oximetry 98 03/23/19 17:20 Temperature 98.7 F 03/23/19 17:20 Pulse Rate 72 03/23/19 18:43 Respiratory Rate 20 03/23/19 18:43 Blood Pressure 142/72 03/23/19 18:43 O2 Sat by Pulse Oximetry 94 03/23/19 18:43 Oxygen Delivery Oxygen Delivery Room Air Chest Pain - [facility] Narrative Medical decision making narrative: Patient's workup in the emergency department demonstrates findings concerning for her chest pain. Head CT, max face and service 1 CTs demonstrated no acute process. The patient is chest pain-free at this time after receiving 3 nitroglycerin and a aspirin. The patient's troponin and EKG are unremarkable. The emergency department. Patient will be admitted to the hospital [place] further workup and care. No further questions or concerns noted. Patient admitted to the hospital, accepted by Dr. Dowd. - Lab Data Lab results reviewed: Yes I reviewed the patient's lab results. Result diagrams: 03/23/19 17:28 03/23/19 17:28 Lab Results 06/09/19 06/09/19 Range/Units 17:28 17:28 WBC 5.3 (4.3-11.1) K/mcL RBC 4.02 (3.82-4.97) M/mcL Hgb 11.5 (11.5-15.4) g/dL Hct 36.1 (35.3-44.9) % MCV 89.8 (83.0-100.0) fL MCH 28.6 (28.0-33.3) pg MCHC 31.9 (31.6-35.5) g/dL RDW 13.2 (11.5-14.5) % Plt Count 241 (140-400) K/mcL MPV 10.6 (9.4-12.4) fL Immature Gran % 0.2 (0-4) % Seg Neutrophils % 60.3 % Lymphocytes % 29.9 % Monocytes % 6.9 % Eosinophils % 2.1 % Basophils % 0.6 % Neutrophils # 3.2 (1.6-8.9) K/mcL Lymphocytes # 1.6 (0.6-4.6) K/mcL Monocytes # 0.4 (0.0-1.3) K/mcL Eosinophils # 0.1 (0.0-0.6) K/mcL Basophils # 0.0 (0.0-0.2) K/mcL Sodium 140 (136-145) mEq/L Potassium 4.1 (3.5-5.1) mEq/L Chloride 107 (98-107) mEq/L Carbon Dioxide 28 (23-29) mEq/L BUN 10 (8-23) mg/dL Creatinine 0.79 (0.60-1.20) mg/dL Est GFR ( Amer) > 60 (> 60) Est GFR (Non-Af Amer) > 60 (> 60) BUN/Creatinine Ratio 13 (6-26) Glucose 96 (70-105) mg/dL Calculated Osmolality 289 (280-300) Calcium 9.1 (8.6-10.3) mg/dL Troponin I < 0.03 (< 0.04) ng/mL - Radiology Data Radiology results reviewed: Yes I reviewed the patient's radiology results. Cervical Spine CT 03/23/19 17:19 IMPRESSION: No acute intracranial abnormality. No acute traumatic injury of the facial bones. [id number] degenerative changes cervical spine without acute fracture traumatic malalignment. D/ / Faraz Garcia / Faraz Garcia Interpreting Provider: Faraz Garcia Chest X-Ray 03/23/19 17:19 IMPRESSION: 1. No acute cardiopulmonary process identified. D/ / Sebastian Davis MD / Sebastian Davis MD Interpreting Provider: Sebastian Davis MD Face CT 03/23/19 17:19 IMPRESSION: No acute intracranial abnormality. No acute traumatic injury of the facial bones. [id number] degenerative changes cervical spine without acute fracture traumatic malalignment. D/ / Faraz Garcia / Faraz Garcia Interpreting Provider: Faraz Garcia Head CT 03/23/19 17:19 IMPRESSION: No acute intracranial abnormality. No acute traumatic injury of the facial bones. [id number] degenerative changes cervical spine without acute fracture traumatic malalignment. D/ / Faraz Garcia / Faraz Garcia Interpreting Provider: Faraz Garcia - EKG Data EKG attestation: Yes I reviewed and interpreted this EKG. EKG results narrative: Heart rate 71 beats for minute. Normal sinus rhythm. No ST elevation or ST depression noted. No acute changes noted.
[2019-03-23 18:04] LABS: BUN/Creatinine Ratio 13 (6-26); Blood Urea Nitrogen 10 mg/dL (8-23); Calcium 9.1 mg/dL (8.6-10.3); Carbon Dioxide 28 mEq/L (23-29); Chloride 107 mEq/L (98-107); Glucose 96 mg/dL (70-105); Osmolality,Calculated 289 (280-300); Potassium 4.1 mEq/L (3.5-5.1); Sodium 140 mEq/L (136-145); eGFR For African Americans > 60 (> 60); eGFR For Non-African Americans > 60 (> 60)
[2019-03-23 18:05] LABS: Troponin I < 0.03 ng/mL (< 0.04)
--- NOTE | 2019-03-23 18:43 | Emergency Department Note ---
Disposition Clinical Impression: Chest pain Qualifiers: Chest pain type: unspecified Qualified Code(s): R07.9 - Chest pain, unspecified Syncope Qualifiers: Syncope type: unspecified Qualified Code(s): R55 - Syncope and collapse Disposition: Admitted As Inpatient Condition: Undetermined Forms: ED Satisfaction Letter General Adult HPI - General Chief complaint: ED Fall Stated complaint: fall Time Seen by Provider: 03/23/19 17:16 Source: patient, EMS Mode of arrival: EMS Limitations: no limitations - History of Present Illness Pain Scale: 7 - Related Data Home Medications Medication Instructions Recorded Confirmed Cholecalciferol (D-3) [Vitamin D] 2,000 unit PO DAILY 10/05/18 01/23/19 Memantine HCl 5 mg PO DAILY 10/05/18 01/23/19 Cetirizine HCl [24Hour Allergy] 5 mg PO DAILY PRN 12/25/18 01/23/19 Previous Rx's Medication Instructions Recorded Aspirin 81 mg PO DAILY #30 tab.chew 10/06/18 Atorvastatin Calcium [Lipitor] 40 mg PO HS #15 02/08/19 Bumetanide [Bumex] 0.5 mg PO DAILY #15 tablet 02/08/19 Buspirone HCl [Buspar] 10 mg PO BID #60 tablet 02/08/19 Clopidogrel [Plavix] 75 mg PO DAILY #30 tablet 02/08/19 Escitalopram [Lexapro] 20 mg PO DAILY #30 tablet 02/08/19 Isosorbide MONOnitrate (24 HR) 60 mg PO DAILY #30 tab.er.24h 02/08/19 [Imdur] Magnesium Oxide [Magnesium] 400 mg PO BID #60 tablet 02/08/19 Memantine [Namenda] 5 mg PO DAILY #30 tablet 02/08/19 Metoprolol XL (24 HR) Succ [Toprol 12.5 mg PO DAILY #15 tab.er.24h 02/08/19 XL] Nitroglycerin 0.4 mg SL Q5M PRN #25 tab.subl 02/08/19 Pantoprazole Sodium [Protonix] 40 mg PO DAILY PRN #30 02/08/19 Allergies Allergy/AdvReac Type Severity Reaction Status Date / Time sumatriptan [From Imitrex] Allergy Swelling Verified 01/19/19 14:55 of Lip/Tongue/Throat venom-honey bee Allergy Swelling Verified 01/19/19 14:55 [bee venom (honey bee)] of Lip/Tongue/Throat morphine AdvReac Nausea Verified 01/19/19 14:55 Constitutional: Denies: fever, chills, weakness Eyes: Denies: vision change ENT ED: Denies: dysphagia Cardiovascular: Reports: chest pain, dyspnea on exertion, syncope. Denies: edema Respiratory: Reports: dyspnea. Denies: cough, sputum production Gastrointestinal: Denies: abdominal pain, nausea, vomiting Genitourinary: Denies: urgency, dysuria Musculoskeletal: Denies: back pain, neck pain Integumentary: Denies: rash Neurological: Reports: headache, vertigo. Denies: weakness, numbness, paresthesias, confusion Past Medical History - Past Medical History Medical history: Reports: arthritis, cancer, coronary artery disease, DVT, fibromyalgia, GERD, hyperlipidemia, hypertension, kidney stones, malignancy, migraine, myocardial infarction, seizures Surgical history: Reports: angioplasty/stent, cholecystectomy, hip replacement, other Psychiatric history: Reports: anxiety, depression, panic disorder, PTSD - Social History Smoking Status: Former smoker Smokeless Tobacco Status: No Alcohol use: Reports: none Drug use: Reports: none Physical Exam - General Limitations: no limitations General appearance: alert, in no apparent distress Course Vital Signs Temperature 98.7 F 03/23/19 17:20 Pulse Rate 73 03/23/19 17:20 Respiratory Rate 18 03/23/19 17:20 Blood Pressure 137/80 03/23/19 17:20 O2 Sat by Pulse Oximetry 98 03/23/19 17:20 Temperature 98.7 F 03/23/19 17:20 Pulse Rate 70 03/23/19 18:09 Respiratory Rate 16 03/23/19 18:09 Blood Pressure 124/72 03/23/19 18:09 O2 Sat by Pulse Oximetry 94 03/23/19 18:09 Oxygen Delivery Oxygen Delivery Room Air Medical Decision Making - Lab Data Result diagrams: 03/23/19 17:28 03/23/19 17:28 Lab Results 03/23/19 03/23/19 Range/Units 17:28 17:28 WBC 5.3 (4.3-11.1) K/mcL RBC 4.02 (3.82-4.97) M/mcL Hgb 11.5 (11.5-15.4) g/dL Hct 36.1 (35.3-44.9) % MCV 89.8 (83.0-100.0) fL MCH 28.6 (28.0-33.3) pg MCHC 31.9 (31.6-35.5) g/dL RDW 13.2 (11.5-14.5) % Plt Count 241 (140-400) K/mcL MPV 10.6 (9.4-12.4) fL Immature Gran % 0.2 (0-4) % Seg Neutrophils % 60.3 % Lymphocytes % 29.9 % Monocytes % 6.9 % Eosinophils % 2.1 % Basophils % 0.6 % Neutrophils # 3.2 (1.6-8.9) K/mcL Lymphocytes # 1.6 (0.6-4.6) K/mcL Monocytes # 0.4 (0.0-1.3) K/mcL Eosinophils # 0.1 (0.0-0.6) K/mcL Basophils # 0.0 (0.0-0.2) K/mcL Sodium 140 (136-145) mEq/L Potassium 4.1 (3.5-5.1) mEq/L Chloride 107 (98-107) mEq/L Carbon Dioxide 28 (23-29) mEq/L BUN 10 (8-23) mg/dL Creatinine 0.79 (0.60-1.20) mg/dL Est GFR ( Amer) > 60 (> 60) Est GFR (Non-Af Amer) > 60 (> 60) BUN/Creatinine Ratio 13 (6-26) Glucose 96 (70-105) mg/dL Calculated Osmolality 289 (280-300) Calcium 9.1 (8.6-10.3) mg/dL Troponin I < 0.03 (< 0.04) ng/mL Attestation Statement - Attestation Attestation: I examined this patient and my medical decision-making was reviewed with the Resident Physician. I agree with the documented findings, disposition and treatment plan as described except to the extent set forth below. Patient had a syncopal episode yesterday resulting in a fall with facial trauma. Imaging negative. Has had chest pain adamantly throughout the day today. EKG nonischemic, currently pain-free. Will require admission for cardiac evaluation.
[2019-03-23] MEDS ORDERED: Nitroglycerin 0.4 MG TAB.SUBL SL PRN (21:22)
[2019-03-23] MEDS ORDERED: Naloxone 0.4 MG/ML INJ IVP PRN (21:22)
--- NOTE | 2019-03-23 21:35 | Internal Med History&Physical ---
Date of Encounter: 03/23/19 Time of Encounter: 21:30 Internal Medicine - H&P: HPI Chief complaint: Chest pain/syncope History of present illness: Ms. Goodson is a 68 year old female with multiple cardiac risk factors and comorbidities known coronary artery disease status post-PCI in the past 2 who presented to the ED with chief complaints of one episode of syncope and chest pain. Patient states that earlier today as she was entering her apartment using her walker she lost consciousness. The next thing she recalls was waking up on the floor with her daughter looking over her. Syncope was unwitnessed however per her daughters report, she was out for about five minutes. No reports of loss of bowel or bladder control, tongue biting or seizure like activity. Patient states that the only symptoms she recalls prior to passing out was palpitations and the feeling of butterflies in her stomach. She did suffer trauma to the left side of her face. Patient is currently on aspirin and Plavix. She then took a nap and when she later awoke noted to begin amount of pain, swelling and bruising of the left side of her head, eyes and cheek. It was at this point the patient decided to come in for evaluation. Patient denies any weakness or paresthesias. Denies any previous history of stroke. No recent illnesses, nausea, vomiting or diarrhea. Patient does have prior history of DVT several years ago but denies any recent leg swelling, pain or shortness of breath. Patient does endorse feeling lightheaded whenever she gets up to ambulate. Patient also reports intermittent chest pain which occurs randomly whether at rest or with activity. This has been ongoing since her heart attack in 2016 she states. However, she has noted increased frequency of these episodes. Pain described as a elephant sitting on her chest. Typically last several minutes and resolves with nitroglycerin. Patient has nonobstructive disease involving the distal RCA and distal circumflex and was here in January for a similar presentation. Stress test completed at the [facility] in November 2018 was negative for ischemia. TTE completed in January showed preserved EF and no wall motion abnormalities. She was seen by Dr. Villa who recommend continued optimization of medical management and no further cardiac testing. Her Imdur was increased and chest pain improved. On my assessment patient was lying in bed in no acute distress. She did have evidence of ecchymosis and bruising on the left side of the face. Does not currently have any chest pain. Exam was nonfocal. Admitting for syncope and chest pain workup. Patient is full code. Past Med Surg Social Fam HX - Past Medical History Medical history: arthritis, cancer, coronary artery disease, DVT, fibromyalgia, GERD, hyperlipidemia, hypertension, kidney stones, malignancy, migraine, myocardial infarction, seizures Additional medical history: uturine cancer. Left leg DVT. fibromyalgia Psychiatric history: anxiety, depression, panic disorder, PTSD - Past Surgical History Surgical History: angioplasty/stent, cholecystectomy, hip replacement, other Additional surgical history: Left hip replacement right shoulder Surgery - Social History Smoking Status: Former smoker Smokeless Tobacco Status: No Alcohol use: none Drug use: none - Family History Mother Family Member Ethnicity: Non- Living Status: Still Living Hx Family Cardiac Disorders: Yes (AL) Hx Family Respiratory Disorders: Yes Hx Family Cancer: Yes ("female") Hx Family GI Disorders: No Hx Family Endocrine Disorder: No Hx Family Neuromuscular Disorders: No Hx Family Neurologic Disorders: No Hx Family HEENT Disorders: No Hx Family Autoimmune Disorders: No Father Family Member Ethnicity: Non- Living Status: Unknown Hx Family Cardiac Disorders: Yes (AL) Hx Family Respiratory Disorders: No Hx Family Cancer: No Hx Family GI Disorders: No Hx Family Endocrine Disorder: No Hx Family Neuromuscular Disorders: No Hx Family Neurologic Disorders: No Hx Family HEENT Disorders: No Hx Family Autoimmune Disorders: No Brother Family Member Ethnicity: Non- Living Status: Still Living Hx Family Cardiac Disorders: Yes (CAD) Internal Medicine - H&P: Meds Cholecalciferol (D-3) [Vitamin D] 2,000 unit PO DAILY 10/05/18 [History] Aspirin 81 mg PO DAILY #30 tab.chew 10/06/18 [Rx] Cetirizine HCl [24Hour Allergy] 5 mg PO DAILY PRN 12/25/18 [History] Atorvastatin Calcium [Lipitor] 40 mg PO HS #15 02/08/19 [Rx] Buspirone HCl [Buspar] 10 mg PO BID #60 tablet 02/08/19 [Rx] Clopidogrel [Plavix] 75 mg PO DAILY #30 tablet 02/08/19 [Rx] Escitalopram [Lexapro] 20 mg PO DAILY #30 tablet 02/08/19 [Rx] Isosorbide MONOnitrate (24 HR) [Imdur] 60 mg PO DAILY #30 tab.er.24h 02/08/19 [Rx] Magnesium Oxide [Magnesium] 400 mg PO BID #60 tablet 02/08/19 [Rx] Memantine [Namenda] 5 mg PO DAILY #30 tablet 02/08/19 [Rx] Metoprolol XL (24 HR) Succ [Toprol XL] 12.5 mg PO DAILY #15 tab.er.24h 02/08/19 [Rx] Nitroglycerin 0.4 mg SL Q5M PRN #25 tab.subl 02/08/19 [Rx] Pantoprazole Sodium [Protonix] 40 mg PO DAILY PRN #30 02/08/19 [Rx] Acetaminophen w/Cod 300-30 mg [Tylenol w/Codeine #3] 1 each PO Q8HR 03/23/19 [History] Gabapentin [Neurontin] 900 mg PO TID 03/23/19 [History] Allergy/AdvReac Type Severity Reaction Status Date / Time sumatriptan [From Imitrex] Allergy Swelling Verified 01/19/19 14:55 of Lip/Tongue/Throat venom-honey bee Allergy Swelling Verified 01/19/19 14:55 [bee venom (honey bee)] of Lip/Tongue/Throat morphine AdvReac Nausea Verified 01/19/19 14:55 All Systems PM: A 10-system review of systems was performed and is negative for pertinent findings except as documented above in the HPI. - Constitutional Constitutional: no chills, no fever(s), no night sweats - EENT Eyes: no change in vision, no discharge, no pain, no photophobia Ears: no ear discharge, no ear pain, no tinnitus Nose, mouth and throat: no dysphagia, no nasal discharge, no neck pain, no sore throat - Cardiovascular Cardiovascular ROS IM: no chest pain, no diaphoresis, no dyspnea, no light headedness, no palpitations, no syncope - Respiratory Respiratory: no cough, no dyspnea, no wheezing, no excessive phlegm production - Gastrointestinal Gastrointestinal: no abdominal pain, no diarrhea, no hematemesis, no h ematochezia, no melena, no nausea, no vomiting - Genitourinary Genitourinary: no change in urinary stream, no dysuria, no flank pain, no hematuria - Musculoskeletal Musculoskeletal ROS IM: no numbness, no tingling - Integumentary Integumentary IM: no rash, no unusual bruising - Neurological Neurological ROS: no confusion, no convulsions, no focal weakness, no numbness, no tingling, no tremor(s) - Hematologic/Lymphatic Hematologic/Lymphatic: no easy bruising - Constitutional Vitals: Temp Pulse Resp BP Pulse Ox 98.6 F 72 16 149/73 95 03/23/19 20:52 03/23/19 20:52 03/23/19 20:52 03/23/19 20:52 03/23/19 20:52 Exam: General: Alert and oriented 3 sitting up in bed in no acute distress Skin: Ecchymosis around the left eye as well as bruising along the left cheek. HEENT:EOM, pupils equal, round and reactive. Cardiovascular:Normal S1 & S2, no rubs, murmurs or gallops. No JVD. Pulse regular. Lungs:Normal breath sounds, no wheezes or crackles. Abdomen:Soft, non-tender, no rigidity. Extremities:No deformity, no edema or tenderness, no joint swelling or clubbing. Neurological:Normal cognition and motor skills. Cranial nerves II through XII intact. Muscle strength in the upper and lower extremities 5 out of 5 bilaterally. No pronator drift. No evidence of dysmetria. Pulses:Carotid and radial pulses normal +2. Rest of the physical exam is non contributory Internal Med - H&P Results - Labs CBC & Chem 7: 03/24/19 00:17 03/24/19 00:17 Labs: Short CBC 03/23/19 Range/Units 17:28 WBC 5.3 (4.3-11.1) K/mcL Hgb 11.5 (11.5-15.4) g/dL Hct 36.1 (35.3-44.9) % Plt Count 241 (140-400) K/mcL Neutrophils # 3.2 (1.6-8.9) K/mcL BMP 03/23/19 17:28 Sodium 140 Potassium 4.1 Chloride 107 Carbon Dioxide 28 BUN 10 Creatinine 0.79 Glucose 96 Calcium 9.1 Cardiac Enzymes 03/23/19 Range/Units 17:28 Troponin I < 0.03 (< 0.04) ng/mL - Impressions ITS Impressions Cervical Spine CT 03/23/19 17:19 IMPRESSION: No acute intracranial abnormality. No acute traumatic injury of the facial bones. Ildm-dv-[id number] degenerative changes cervical spine without acute fracture traumatic malalignment. D/ / Faraz Garcia / Faraz Garcia Interpreting Provider: Fraaz Garcia Chest X-Ray 03/23/19 17:19 IMPRESSION: 1. No acute cardiopulmonary process identified. D/ / Sebastian Davis MD / Sebastian Davis MD Interpreting Provider: Sebastian Davis MD Face CT 03/23/19 17:19 IMPRESSION: No acute intracranial abnormality. No acute traumatic injury of the facial bones. Jmir-es-ddsrandp degenerative changes cervical spine without acute fracture traumatic malalignment. D/ / Faraz Garcia / Faraz Garcia Interpreting Provider: Faraz Garcia Head CT 03/23/19 17:19 IMPRESSION: No acute intracranial abnormality. No acute traumatic injury of the facial bones. King-gv-aocnhtab degenerative changes cervical spine without acute fracture traumatic malalignment. D/ / Faraz Garcia / Faraz Garcia Interpreting Provider: Faraz Garcia - Assessment and Plan (1) Syncope Current Visit: Yes Status: Acute Assessment and plan: 68-year-old female with a past medical history of coronary artery disease presenting with unwitnessed syncopal episode occurring while ambulating with her walker. When asked about prodromal symptoms and palpitations, patient states she had sensation of butterflies in her stomach before she passed out. Reportedly unconscious for 5 minutes per daughter. No reports of postictal co nfusion, loss of bowel or bladder control or tongue biting. No tonic-clonic activity reported. Neurologic exam intact. No murmurs appreciated. Patient is on aspirin and Plavix though imaging does not show any evidence of bleed or acute intracranial abnormalities. Review of EKG shows normal sinus rhythm in the absence of any ST or T-wave abnormalities. QTC 436. [place] interval 190. Negative troponin. Patient recently had her Imdur dose increased during previous admission in January and does endorse symptoms consistent with orthostasis. Differential includes vasovagal versus orthostatic versus arrhythmia. Low suspicion for CVA/TIA. -We will place patient on telemetry -We will check orthostatics -We will obtain limited echo -Patient reportedly had stress testing in November of this year which was negative. Unclear there is utility in stress testing again. Discuss with Cardiology. -Cardiology consult Qualifiers: Syncope type: unspecified Qualified Code(s): R55 - Syncope and collapse (2) Chest pain Current Visit: Yes Status: Acute Assessment and plan: Pt c/o increased frequency of intermittent substernal chest pain occurring at rest and with exertion relieved with nitroglycerin. Negative troponin. EKG shows sinus rhythm with no ischemic changes. Patient reportedly received loading dose of aspirin. History of CAD status post prior PCI. She underwent LHC in September 2018 with no intervention. Moderate nonobstructive disease seen at that time. (patent LAD stent, 50% stenosis mLCX artery and dRCA). Stress test completed at the [facility] in November 2018 was negative for ischemia. TTE completed in January showed preserved EF and no wall motion abnormalities. -We will trend troponin -Sublingual nitroglycerin as needed -Obtain limited echo -Cardiology consult in light of syncopal event Qualifiers: Chest pain type: unspecified Qualified Code(s): R07.9 - Chest pain, unspecified (3) Coronary artery disease Current Visit: No Status: Chronic Assessment and plan: History of CAD and prior PCI to the LAD. Continue aspirin, statin, and beta jase, Plavix and Imdur Qualifiers: Coronary Disease-Associated Artery/Lesion type: lummi artery [place] vs. transplanted heart: lummi heart Associated angina: angina presence unspecified Qualified Code(s): I25.10 - Atherosclerotic heart disease of lummi coronary artery without angina pectoris (4) DVT prophylaxis Current Visit: Yes Status: Acute - Time Spent With Patient Total time spent is greater than 50% in coordination of care (as documented) at patient's floor/unit and/or counseling patient:
[2019-03-24 00:28] LABS: Basophils % 0.6 %; Eosinophils # 0.1 K/mcL (0.0-0.6); Eosinophils % 1.7 %; Hematocrit 34.5 % (35.3-44.9); Hemoglobin 10.8 g/dL (11.5-15.4); Lymphocytes # 2.2 K/mcL (0.6-4.6); Lymphocytes % 40.9 %; Mean Corpuscular HGB Conc 31.3 g/dL (31.6-35.5); Mean Corpuscular Hemoglobin 28.4 pg (28.0-33.3); Mean Corpuscular Volume 90.8 fL (83.0-100.0); Mean Platelet Volume 10.4 fL (9.4-12.4); Monocytes # 0.4 K/mcL (0.0-1.3); Monocytes % 7.2 %; Neutrophils # 2.7 K/mcL (1.6-8.9); Platelet Count 209 K/mcL (140-400); Red Cell Distribution Width 13.3 % (11.5-14.5); Segmented Neutrophils % 49.6 %; White Blood Count 5.4 K/mcL (4.3-11.1)
[2019-03-24 00:37] LABS: INR 1.2
[2019-03-24 00:49] LABS: Alanine Aminotransferase 9 Units/L (7-52); Albumin 3.4 g/dL (3.5-5.7); Albumin/Globulin Ratio 1.4 (1.1-2.2); Alkaline Phosphatase 109 Units/L (34-104); Aspartate Amino Transferase 10 Units/L (13-39); BUN/Creatinine Ratio 13 (6-26); Bilirubin,Total 0.9 mg/dL (0.3-1.0); Blood Urea Nitrogen 10 mg/dL (8-23); Calcium 8.8 mg/dL (8.6-10.3); Carbon Dioxide 28 mEq/L (23-29); Chloride 108 mEq/L (98-107); Globulin 2.4 g/dL (2.4-3.5); Glucose 133 mg/dL (70-105); Osmolality,Calculated 293 (280-300); Potassium 3.7 mEq/L (3.5-5.1); Sodium 141 mEq/L (136-145); Total Protein 5.8 g/dL (6.4-8.9); Troponin I < 0.03 ng/mL (< 0.04); eGFR For African Americans > 60 (> 60); eGFR For Non-African Americans > 60 (> 60)
[2019-03-24] MEDS: *HR* Heparin 5,000 UNIT/ML VIAL SQ SCH ×4 (02:29→20:56)
[2019-03-24] MEDS ORDERED: Isosorbide MONOnitrate (24 HR) 60 MG TAB.ER.24H PO SCH (09:00)
--- NOTE | 2019-03-24 09:05 | Cardiology Consult Note ---
<Sven Mehta R - Last Filed: 03/24/19 10:01> Date of Encounter: 03/24/19 Time of Encounter: 09:01 Assessment and Plan (1) Chest pain Current Visit: Yes Status: Acute Endorses increasing chest pain episodes. Reports chest heaviness multiple times per week radiating to left arm associated with dyspnea and nausea, relieved with nitro. Troponin negative x 2. Presents with syncope. No ischemic ECG changes. Limited TTE 01/18/19: LVEF 60%, normal wall motion. Documented [place] test 11/2018 [place] negative for ischemia. [facility] 10/06/18: Moderate 2V CAD. Nonobstructive CAD in dRCA and dLCx. Repeat TTE. Increase Imdur to 120mg daily. Will discuss and review with Dr. Klein regarding repeat ischemic eval ([facility]) during stay. Qualifiers: Chest pain type: unspecified Qualified Code(s): R07.9 - Chest pain, unspecified (2) Syncope Current Visit: Yes Status: Acute Yesterday she was entering her apartment using her walker when she lost consciousness, fell to the floor. She suffered trauma to the left side of her face. Reports dizziness/lightheadedness prior to syncope. Orthostatic vitals negative. Limited TTE 01/18/19: LVEF 60%, normal wall motion. Documented stress test 11/2018 at [place] negative for ischemia. [facility] 10/06/18: Moderate 2V CAD. Nonobstructive CAD in dRCA and dLCx. No events noted on tele. Repeat TTE. Qualifiers: Syncope type: unspecified Qualified Code(s): R55 - Syncope and collapse (3) Coronary artery disease Current Visit: No Status: Chronic Hx CAD and PCI. Continue ASA, Plavix, Statin, BB. Qualifiers: Coronary Disease-Associated Artery/Lesion type: [place] artery [place] vs. transplanted heart: [place] heart Associated angina: angina presence unspecified Qualified Code(s): I25.10 - Atherosclerotic heart disease of [place] coronary artery without angina pectoris Discussion w patient/family: The assessment and plan as outlined above was discussed with the patient and/or family members who expressed understanding and agreement. All questions were answered. Thank you for involving us in the care of your patient. Please call with any questions. I will discuss all the above with Dr. Klein and make changes as necessary. History of Present Illness Consult date: 03/24/19 Requesting physician: Delicia Plaza Consult reason: Syncope and chest pain Chief complaint: syncope and chest pain History of present illness: Ms. Goodson is a 68 year old female with PMH of CAD s/p PCI, HTN, HLD that presents to ED with syncope and chest pain. Yesterday she was entering her apartment using her walker when she lost consciousness, fell to the floor. She suffered trauma to the left side of her face. She also endorses increasing chest pain episodes. Reports chest heaviness multiple times per week radiating to left arm associated with dyspnea and nausea, relieved with nitro. Troponin negative x 2. Cardiology consulted for further recs. Prior CV testing: Limited TTE 01/18/19: LVEF 60%, normal wall motion. Documented stress test 11/2018 [place] negative for ischemia. [facility] 10/06/18: Moderate 2V CAD. Nonobstructive CAD in dRCA and dLCx. Past Med Surg Social Fam HX - Past Medical History Medical history: arthritis, cancer, coronary artery disease, DVT, fibromyalgia, GERD, hyperlipidemia, hypertension, kidney stones, malignancy, migraine, myocardial infarction, seizures Additional medical history: uturine cancer. Left leg DVT. fibromyalgia Psychiatric history: anxiety, depression, panic disorder, PTSD - Past Surgical History Surgical History: angioplasty/stent, cholecystectomy, hip replacement, other Additional surgical history: Left hip replacement right shoulder Surgery - Social History Smoking Status: Former smoker Smokeless Tobacco Status: No Alcohol use: none Drug use: none - Family History Mother Family Member Ethnicity: Non- Living Status: Still Living Hx Family Cardiac Disorders: Yes ([place]) Hx Family Respiratory Disorders: Yes Hx Family Cancer: Yes ("female") Hx Family GI Disorders: No Hx Family Endocrine Disorder: No Hx Family Neuromuscular Disorders: No Hx Family Neurologic Disorders: No Hx Family HEENT Disorders: No Hx Family Autoimmune Disorders: No Father Family Member Ethnicity: Non- Living Status: Unknown Hx Family Cardiac Disorders: Yes ([place]) Hx Family Respiratory Disorders: No Hx Family Cancer: No Hx Family GI Disorders: No Hx Family Endocrine Disorder: No Hx Family Neuromuscular Disorders: No Hx Family Neurologic Disorders: No Hx Family HEENT Disorders: No Hx Family Autoimmune Disorders: No Brother Family Member Ethnicity: Non- Living Status: Still Living Hx Family Cardiac Disorders: Yes (CAD) Medications and Allergies Cholecalciferol (D-3) [Vitamin D] 2,000 unit PO DAILY 10/05/18 [History] Aspirin 81 mg PO DAILY #30 tab.chew 10/06/18 [Rx] Cetirizine HCl [24Hour Allergy] 5 mg PO DAILY PRN 12/25/18 [History] Atorvastatin Calcium [Lipitor] 40 mg PO HS #15 02/08/19 [Rx] Buspirone HCl [Buspar] 10 mg PO BID #60 tablet 02/08/19 [Rx] Clopidogrel [Plavix] 75 mg PO DAILY #30 tablet 02/08/19 [Rx] Escitalopram [Lexapro] 20 mg PO DAILY #30 tablet 02/08/19 [Rx] Isosorbide MONOnitrate (24 HR) [Imdur] 60 mg PO DAILY #30 tab.er.24h 02/08/19 [Rx] Magnesium Oxide [Magnesium] 400 mg PO BID #60 tablet 02/08/19 [Rx] Memantine [Namenda] 5 mg PO DAILY #30 tablet 02/08/19 [Rx] Metoprolol XL (24 HR) Succ [Toprol XL] 12.5 mg PO DAILY #15 tab.er.24h 02/08/19 [Rx] Nitroglycerin 0.4 mg SL Q5M PRN #25 tab.subl 02/08/19 [Rx] Pantoprazole Sodium [Protonix] 40 mg PO DAILY PRN #30 02/08/19 [Rx] Acetaminophen w/Cod 300-30 mg [Tylenol w/Codeine #3] 1 each PO Q8HR 03/23/19 [History] Gabapentin [Neurontin] 900 mg PO TID 03/23/19 [History] Allergy/AdvReac Type Severity Reaction Status Date / Time sumatriptan [From Imitrex] Allergy Swelling Verified 01/19/19 14:55 of Lip/Tongue/Throat venom-honey bee Allergy Swelling Verified 01/19/19 14:55 [bee venom (honey bee)] of Lip/Tongue/Throat morphine AdvReac Nausea Verified 01/19/19 14:55 All Systems Review: The remainder of the systems were reviewed and are negative - Cardiovascular Cardiovascular: as per HPI, chest pain at rest, chest pain with exertion, dyspnea on exertion, radiating jaw, neck or arm pain, syncope - Respiratory Respiratory: dyspnea - Gastrointestinal Gastrointestinal: nausea Physical Examination Vital Signs, Last 4 Hours Temp Pulse Resp BP Pulse Ox 03/24/19 06:55 97.7 F 61 16 118/63 92 Vital Signs Temp Pulse Resp BP BP BP BP 03/24/19 06:55 97.7 F 61 16 118/63 03/24/19 03:39 98.2 F 67 16 110/64 03/23/19 22:59 99.4 F 80 16 108/61 108/61 132/80 150/90 03/23/19 20:52 98.6 F 72 16 149/73 03/23/19 20:04 73 14 122/63 03/23/19 18:43 72 20 142/72 03/23/19 18:09 70 16 124/72 03/23/19 17:20 98.7 F 73 18 137/80 Pulse Ox 03/24/19 06:55 92 03/24/19 03:39 93 03/23/19 22:59 92 03/23/19 20:52 95 03/23/19 20:04 92 03/23/19 18:43 94 03/23/19 18:09 94 03/23/19 17:20 98 Intake and Output 03/23/19 03/24/19 03/24/19 23:59 07:59 15:59 Intake Total 240 / 240 Output Total 100 / 100 Balance 140 / 140 Intake: Oral 240 / 240 Output: Urine 100 / 100 Other: Meal PM SNACK Percent of Meal Consumed 100% Weight 130 kg 130.8 kg Patient Weight 03/24/19 23:59 Weight 130.8 kg General: Conversant, No Apparent Distress HEENT: Atraumatic, Normocephaly, Mucus Membranes Moist Neck: No JVD, Normal carotid pulses Cardiac: Reg Rate and Rhythm, Normal S1 and S2, No Murmur Lungs: Normal Breath Sounds, No Wheeze, Rales, Rhonchi Neuro: Alert and responsive, No focal deficits noted Abdomen: Soft, Non-Tender Skin: No rashes noted on visualized skin Musculoskeletal: No Chest Wall Tenderness Extremities: No Clubbing, No Cyanosis, No Edema, Normal Pulses Results 03/24/19 00:17 03/24/19 00:17 Lab Results 03/23/19 03/23/19 03/24/19 17:28 17:28 00:17 WBC 5.3 Hgb 11.5 Hct 36.1 Plt Count 241 INR Sodium 140 141 Potassium 4.1 3.7 Chloride 107 108 H Carbon Dioxide 28 28 BUN 10 10 Creatinine 0.79 0.79 Glucose 96 133 H Calcium 9.1 8.8 Total Bilirubin 0.9 AST 10 L ALT 9 Alkaline Phosphatase 109 H Troponin I < 0.03 < 0.03 03/24/19 03/24/19 00:17 00:17 WBC 5.4 Hgb 10.8 L Hct 34.5 L Plt Count 209 INR 1.2 Sodium Potassium Chloride Carbon Dioxide BUN Creatinine Glucose Calcium Total Bilirubin AST ALT Alkaline Phosphatase Troponin I Short CBC 03/24/19 03/24/19 03/24/19 Range/Units 00:17 00:17 00:17 WBC 5.4 (4.3-11.1) K/mcL RBC 3.80 L (3.82-4.97) M/mcL Hgb 10.8 L (11.5-15.4) g/dL Hct 34.5 L (35.3-44.9) % MCV 90.8 (83.0-100.0) fL MCH 28.4 (28.0-33.3) pg MCHC 31.3 L (31.6-35.5) g/dL RDW 13.3 (11.5-14.5) % Plt Count 209 (140-400) K/mcL MPV 10.4 (9.4-12.4) fL Immature Gran % 0.0 (0-4) % Seg Neutrophils % 49.6 % Lymphocytes % 40.9 % Monocytes % 7.2 % Eosinophils % 1.7 % Basophils % 0.6 % Neutrophils # 2.7 (1.6-8.9) K/mcL Lymphocytes # 2.2 (0.6-4.6) K/mcL Monocytes # 0.4 (0.0-1.3) K/mcL Eosinophils # 0.1 (0.0-0.6) K/mcL Basophils # 0.0 (0.0-0.2) K/mcL PT 13.0 H (9.4-12.1) Seconds INR 1.2 Sodium 141 (136-145) mEq/L Potassium 3.7 (3.5-5.1) mEq/L Chloride 108 H (98-107) mEq/L Carbon Dioxide 28 (23-29) mEq/L BUN 10 (8-23) mg/dL Creatinine 0.79 (0.60-1.20) mg/dL Est GFR ( Amer) > 60 (> 60) Est GFR (Non-Af Amer) > 60 (> 60) BUN/Creatinine Ratio 13 (6-26) Glucose 133 H (70-105) mg/dL Calculated Osmolality 293 (280-300) Calcium 8.8 (8.6-10.3) mg/dL Total Bilirubin 0.9 (0.3-1.0) mg/dL AST 10 L (13-39) Units/L ALT 9 (7-52) Units/L Alkaline Phosphatase 109 H (34-104) Units/L Troponin I < 0.03 (< 0.04) ng/mL Serum Total Protein 5.8 L (6.4-8.9) g/dL Albumin 3.4 L (3.5-5.7) g/dL Globulin 2.4 (2.4-3.5) g/dL Albumin/Globulin Ratio 1.4 (1.1-2.2) 03/23/19 03/23/19 Range/Units 17:28 17:28 WBC 5.3 (4.3-11.1) K/mcL RBC 4.02 (3.82-4.97) M/mcL Hgb 11.5 (11.5-15.4) g/dL Hct 36.1 (35.3-44.9) % MCV 89.8 (83.0-100.0) fL MCH 28.6 (28.0-33.3) pg MCHC 31.9 (31.6-35.5) g/dL RDW 13.2 (11.5-14.5) % Plt Count 241 (140-400) K/mcL MPV 10.6 (9.4-12.4) fL Immature Gran % 0.2 (0-4) % Seg Neutrophils % 60.3 % Lymphocytes % 29.9 % Monocytes % 6.9 % Eosinophils % 2.1 % Basophils % 0.6 % Neutrophils # 3.2 (1.6-8.9) K/mcL Lymphocytes # 1.6 (0.6-4.6) K/mcL Monocytes # 0.4 (0.0-1.3) K/mcL Eosinophils # 0.1 (0.0-0.6) K/mcL Basophils # 0.0 (0.0-0.2) K/mcL PT (9.4-12.1) Seconds INR Sodium 140 (136-145) mEq/L Potassium 4.1 (3.5-5.1) mEq/L Chloride 107 (98-107) mEq/L Carbon Dioxide 28 (23-29) mEq/L BUN 10 (8-23) mg/dL Creatinine 0.79 (0.60-1.20) mg/dL Est GFR ( Amer) > 60 (> 60) Est GFR (Non-Af Amer) > 60 (> 60) BUN/Creatinine Ratio 13 (6-26) Glucose 96 (70-105) mg/dL Calculated Osmolality 289 (280-300) Calcium 9.1 (8.6-10.3) mg/dL Total Bilirubin (0.3-1.0) mg/dL AST (13-39) Units/L ALT (7-52) Units/L Alkaline Phosphatase (34-104) Units/L Troponin I < 0.03 (< 0.04) ng/mL Serum Total Protein (6.4-8.9) g/dL Albumin (3.5-5.7) g/dL Globulin (2.4-3.5) g/dL Albumin/Globulin Ratio (1.1-2.2) BMP 03/24/19 03/23/19 Range/Units 00:17 17:28 Sodium 141 140 (136-145) mEq/L Potassium 3.7 4.1 (3.5-5.1) mEq/L Chloride 108 H 107 (98-107) mEq/L Carbon Dioxide 28 28 (23-29) mEq/L BUN 10 10 (8-23) mg/dL Creatinine 0.79 0.79 (0.60-1.20) mg/dL Glucose 133 H 96 (70-105) mg/dL Calcium 8.8 9.1 (8.6-10.3) mg/dL Cardiac Enzymes 03/24/19 03/23/19 Range/Units 00:17 17:28 Troponin I < 0.03 < 0.03 (< 0.04) ng/mL Liver Function 03/24/19 Range/Units 00:17 Total Bilirubin 0.9 (0.3-1.0) mg/dL AST 10 L (13-39) Units/L ALT 9 (7-52) Units/L Alkaline Phosphatase 109 H (34-104) Units/L Albumin 3.4 L (3.5-5.7) g/dL Impressions Cervical Spine CT 03/23/19 17:19 IMPRESSION: No acute intracranial abnormality. No acute traumatic injury of the facial bones. Dnaq-wm-[id number] degenerative changes cervical spine without acute fracture traumatic malalignment. D/ / Faraz Garcia / Faraz Garcia Interpreting Provider: Faraz Garcia Chest X-Ray 03/23/19 17:19 IMPRESSION: 1. No acute cardiopulmonary process identified. D/ / Sebastian Davis MD / Sebastian Davis MD Interpreting Provider: Sebastian Davis MD Face CT 03/23/19 17:19 IMPRESSION: No acute intracranial abnormality. No acute traumatic injury of the facial bones. Morh-qd-zywpdpes degenerative changes cervical spine without acute fracture traumatic malalignment. D/ / Faraz Garcia / Faraz Garcia Interpreting Provider: Faraz Garcia Head CT 03/23/19 17:19 IMPRESSION: No acute intracranial abnormality. No acute traumatic injury of the facial bones. Pqep-iz-vlogbvbl degenerative changes cervical spine without acute fracture traumatic malalignment. D/ / Faraz Garcia / Faraz Garcia Interpreting Provider: Faraz Garcia Active Medications Acetaminophen (Tylenol) 650 mg PO Q6H PRN PRN Reason: Pain Stop: 09/22/19 22:56 Last Admin: 03/23/19 23:19 Dose: 650 mg Documented by: Aspirin (Aspirin) 81 mg PO DAILY TIA Stop: 09/23/19 09:01 Atorvastatin Calcium (Lipitor) 40 mg PO HS TIA Stop: 09/22/19 21:31 Last Admin: 03/23/19 22:27 Dose: 40 mg Documented by: Buspirone HCl (Buspar Hcl) 10 mg PO BID TIA Stop: 09/23/19 09:01 Clopidogrel Bisulfate (Plavix) 75 mg PO DAILY TIA Stop: 09/23/19 09:01 Escitalopram Oxalate (Lexapro) 20 mg PO DAILY TIA Stop: 09/23/19 09:01 Gabapentin (Neurontin) 900 mg PO TID TIA Stop: 09/23/19 09:01 Heparin Sodium (Porcine) (Heparin) 5,000 unit SQ Q8HCO TIA Stop: 09/23/19 00:46 Last Admin: 03/24/19 05:00 Dose: 5,000 unit Documented by: Isosorbide Mononitrate (Imdur) 60 mg PO DAILY [facility] Stop: 09/23/19 09:01 Magnesium Oxide (Mag-Ox) 400 mg PO BID TIA Stop: 09/23/19 09:01 Memantine (Namenda) 5 mg PO DAILY [facility] Stop: 09/23/19 09:01 Metoprolol Succinate (Toprol Xl) 12.5 mg PO DAILY [facility] Stop: 09/23/19 09:01 Naloxone HCl (Narcan) 0.4 mg IVP Q2MPRN PRN PRN Reason: SEE COMMENTS Stop: 09/22/19 21:23 Nitroglycerin (Nitroglycerin) 0.4 mg SL Q5MPRN PRN PRN Reason: Chest Pain Stop: 09/22/19 21:23 Omeprazole (Prilosec) 20 mg PO DAILY PRN PRN Reason: Dyspepsia Vitamin D (Vitamin D) 1,000 unit PO DAILY [facility] Stop: 09/23/19 09:01 - Imaging and Cardiology Stress Test: report reviewed Echo: report reviewed Cardiac cath: report reviewed - EKG Interpretation EKG results cardiology: personally reviewed (SR, no ischemic changes), other (12 hr tele AVG HR 68, SR, no significant pauses or arrhythmias noted.) Consult Discharge Plan - Plan Referrals: NONE,PCP [Primary Care Provider] - <Thalia Klein - Last Filed: 03/24/19 17:26> Date of Encounter: 03/24/19 - Attending Attestation Patient was seen and evaluated independently by me. Findings, assessment and plan were discussed at length with patient, questions answered. Agree with nurse practitioner's/resident's documentation. Addition as follows, 68 yoCF ho CAD PCI on DAPT (last C 09/2018 moderate dRCA and dLCx, last [facility] test 11/2018 no ischemia), HTN, HLD. P/w a syncopal episode c/b left facial trauma at the setting of several weeks of more frequent typical and atypical angina requiring NTG twice/wk. Non-ischemic ECG, tele non-revealing, neg trop, neg orthostatic vitals. 01/2019 TTE EF 60% w/o RWMA. VSS, CTA B/L, RR, no LE edema. Hb 10-11 baseline, no MERVIN. A: Accelerating typical and atypical angina CAD, ho PCI Syncope, cannot rule out ischemic and arrhythmic etiology P: - TTE - up imdur, c/w DAPT, statin, BB - will discuss with interventional cardiology re [facility] - will need event monitor upon discharge Thalia Klein MD, PhD Assessment and Plan Discussion w patient/family: The assessment and plan as outlined above was discussed with the patient and/or family members who expressed understanding and agreement. All questions were answered. Thank you for involving us in the care of your patient. Please call with any questions. History of Present Illness History of present illness: Ms. Goodson is a 68 year old female All Systems Review: The remainder of the systems were reviewed and are negative Physical Examination Vital Signs, Last 4 Hours Temp Pulse Resp BP Pulse Ox 03/24/19 15:49 98.1 F 67 16 96/57 95 Results 03/24/19 00:17 03/24/19 00:17 Lab Results 03/23/19 03/23/19 03/24/19 17:28 17:28 00:17 WBC 5.3 Hgb 11.5 Hct 36.1 Plt Count 241 INR Sodium 140 141 Potassium 4.1 3.7 Chloride 107 108 H Carbon Dioxide 28 28 BUN 10 10 Creatinine 0.79 0.79 Glucose 96 133 H Calcium 9.1 8.8 Total Bilirubin 0.9 AST 10 L ALT 9 Alkaline Phosphatase 109 H Troponin I < 0.03 < 0.03 03/24/19 03/24/19 00:17 00:17 WBC 5.4 Hgb 10.8 L Hct 34.5 L Plt Count 209 INR 1.2 Sodium Potassium Chloride Carbon Dioxide BUN Creatinine Glucose Calcium Total Bilirubin AST ALT Alkaline Phosphatase Troponin I
[2019-03-24] MEDS ORDERED: Perflutren Lipid Microsphere 1.3 ML in 0.9 % Sodium Chloride 8.7 ML IVP ONE (10:52)
--- NOTE | 2019-03-24 12:00 | Internal Med Progress Note ---
Hospitalist Progress Note - Encounter Date of Encounter: 03/24/19 Time of Encounter: 10:00 - Subjective Interval History: Ms. Goodson is a 68 year old female with known HTN, HLD, GERD, DVT, Fibromyalgia and coronary artery disease status post-PCI in the past 2 who presented to the ED with one episode of syncope and chest pain. Patient states that earlier as she was entering her apartment using her walker she lost consciousness. The next thing she recalls was waking up on the floor with her daughter looking over her. Syncope was unwitnessed however per her daughters report, she was out for about five minutes. No reports of loss of bowel or bladder control, tongue biting or seizure like activity. Patient states that the only symptoms she recalls prior to passing out was palpitations and the feeling of butterflies in her stomach. She did suffer trauma to the left side of her face. Patient is currently on aspirin and Plavix. She also c/o chest pressure before she passed out. She was admitted in the hospital and placed on cardiac cath tech. Her serial troponin came back as negative. She denied any active chest pain now. She does have visible bruise on Left side of her face - Exam Vitals: Temp Pulse Resp BP Pulse Ox 97.7 F 61 16 118/63 92 03/24/19 06:55 03/24/19 06:55 03/24/19 06:55 03/24/19 06:55 03/24/19 06:55 Exam: Gen: Alert, awake, Oriented to time,place and person HEENT: Ecchymosis around the left eye as well as bruising along the left cheek. Chest: Diminished breath sounds B/L, No wheezing, No crackles, No rales Heart: S1S2+ RRR No murmurs Abd: Soft, NT, BS +, No organomegaly Ext: No edema, pulses are palpable, No calf tenderness Neuro : No acute focal neuro deficits noticed - Assessment and Plan (1) Chest pain Current Visit: Yes Status: Acute Assessment and Plan: Pt c/o increased frequency of intermittent substernal chest pain lately occurring at rest and with exertion relieved with nitroglycerin. So far serial troponin X3 negative EKG shows sinus rhythm with no ischemic changes She underwent LHC in September 2018 with no intervention. Moderate nonobstructive disease seen at that time. (patent LAD stent, 50% stenosis mLCX artery and dRCA) Stress test completed at the [facility] in November 2018 was negative for ischemia. Card consulted - appreciate recommendation Since pt is high risk for ACS, she is scheduled for LHC in AM Mean while cont her home med ASA< Plavix, Statin and BB, Im[employer]ur [employer] her Imdur dose (2) Coronary artery disease Current Visit: No Status: Chronic Assessment and Plan: History of CAD and prior PCI to the LAD. Continue aspirin, statin, and beta jase, Plavix and Imdur (3) Syncope Current Visit: Yes Status: Acute Assessment and Plan: cont on tele Scheduled for LHC in AM Ortho stat vital daily Concenring for acute CVA too, since pt passed out for a good 5 minutes and she had prodromal sudden onset lightheadedness and dizziness Will get Brain MRI Reviewed CT of head- No acute intracranial abnormality. No acute traumatic injury of the facial bones. (4) DVT prophylaxis Current Visit: Yes Status: Acute Assessment and Plan: on SQ Heparin (5) Facial bruising Current Visit: Yes Status: Acute Assessment and Plan: cont close monitoring on fall precautions - Time Spent with Patient Total time spent is greater than 50% in coordination of care (as documented) at patient's floor/unit and/or counseling patient: Internal Medicine: Result - Labs CBC & Chem 7: 03/24/19 00:17 03/24/19 00:17 Labs: Short CBC 03/23/19 03/24/19 Range/Units 17:28 00:17 WBC 5.3 5.4 (4.3-11.1) K/mcL Hgb 11.5 10.8 L (11.5-15.4) g/dL Hct 36.1 34.5 L (35.3-44.9) % Plt Count 241 209 (140-400) K/mcL Neutrophils # 3.2 2.7 (1.6-8.9) K/mcL BMP 03/23/19 03/24/19 17:28 00:17 Sodium 140 141 Potassium 4.1 3.7 Chloride 107 108 H Carbon Dioxide 28 28 BUN 10 10 Creatinine 0.79 0.79 Glucose 96 133 H Calcium 9.1 8.8 Cardiac Enzymes 03/23/19 03/24/19 Range/Units 17:28 00:17 Troponin I < 0.03 < 0.03 (< 0.04) ng/mL Liver Function 03/24/19 Range/Units 00:17 Total Bilirubin 0.9 (0.3-1.0) mg/dL AST 10 L (13-39) Units/L ALT 9 (7-52) Units/L Alkaline Phosphatase 109 H (34-104) Units/L Albumin 3.4 L (3.5-5.7) g/dL - ABG Interpretation ABG results: PT/INR, D-dimer PT 13.0 Seconds (9.4-12.1) H 03/24/19 00:17 - Impressions Impressions Cervical Spine CT 03/23/19 17:19 IMPRESSION: No acute intracranial abnormality. No acute traumatic injury of the facial bones. Txct-lz-gaowgewe degenerative changes cervical spine without acute fracture traumatic malalignment. D/ / Faraz Garcia / Faraz Garcia Interpreting Provider: Faraz Garcia Chest X-Ray 03/23/19 17:19 IMPRESSION: 1. No acute cardiopulmonary process identified. D/ / Sebastian Davis MD / Sebastian Davis MD Interpreting Provider: Sebastian Davis MD Face CT 03/23/19 17:19 IMPRESSION: No acute intracranial abnormality. No acute traumatic injury of the facial bones. Kclm-ak-utgjusss degenerative changes cervical spine without acute fracture traumatic malalignment. D/ / Faraz Garcia / Faraz Garcia Interpreting Provider: Faraz Garcia Head CT 03/23/19 17:19 IMPRESSION: No acute intracranial abnormality. No acute traumatic injury of the facial bones. Ezes-ec-jagkjxhf degenerative changes cervical spine without acute fracture traumatic malalignment. D/ / Faraz Garcia / Faraz Garcia Interpreting Provider: Faraz Garcia Consult Discharge Plan - Plan Referrals: NONE,PCP [Primary Care Provider] - (1) Chest pain Qualifiers: Chest pain type: unspecified Qualified Code(s): R07.9 - Chest pain, unspecified (2) Coronary artery disease Qualifiers: Coronary Disease-Associated Artery/Lesion type: [place] artery [place] vs. transplanted heart: [place] heart Associated angina: angina presence unspecified Qualified Code(s): I25.10 - Atherosclerotic heart disease of [place] coronary artery without angina pectoris (3) Syncope Qualifiers: Syncope type: vasovagal syncope Qualified Code(s): R55 - Syncope and collapse (5) Facial bruising Qualifiers: Encounter type: initial encounter Qualified Code(s): S00.83XA - Contusion of other part of head, initial encounter
[2019-03-24] MEDS: BUSPIRONE HCL 10 MG TABLET PO SCH ×2 (12:47→20:56)
[2019-03-24] MEDS: Gabapentin 300 MG CAPSULE PO SCH ×3 (12:47→20:56)
[2019-03-24] MEDS: Metoprolol XL (24 HR) Succ 25 MG TAB.ER.24H PO SCH (12:47)
[2019-03-24] MEDS: Cholecalciferol (D-3) 1,000 UNIT TABLET PO SCH (12:47)
[2019-03-24] MEDS: Magnesium Oxide 400 MG TABLET PO SCH ×2 (12:47→20:56)
[2019-03-24] MEDS: Aspirin 81 MG TAB.CHEW PO SCH (12:48)
[2019-03-24] MEDS: Isosorbide MONOnitrate (24 HR) 60 MG TAB.ER.24H PO SCH (15:41)
--- NOTE | 2019-03-24 21:31 | Electrocardiograph Report ---
[address] [address] Test Date: 2019-03-23 Pat Name: Miriam Goodson Department: [id number] Room: 3B12 Gender: F Box Blank Machine Feeder: : [id number] Requested By: Shay Forbes Order Number: [id number] Reading MD: Thalia Klein Measurements Intervals [place] Rate: 71 P: 47 CA: 190 QRS: -13 QRSD: 96 T: 27 QT: 401 QTc: 436 Interpretive Statements Sinus rhythm Low voltage, precordial leads Abnormal R-wave progression, early transition Electronically Signed On 03-24-2019 21:30:15 EDT by Thalia Klein
[2019-03-24] MEDS ORDERED: *HR* Promethazine 25 MG/ML VIAL IVP PRN (21:52)
[2019-03-25] MEDS: *HR* Heparin 5,000 UNIT/ML VIAL SQ SCH ×2 (05:47→13:41)
[2019-03-25] MEDS: Aspirin 81 MG TAB.CHEW PO SCH (09:00)
[2019-03-25] MEDS: Gabapentin 300 MG CAPSULE PO SCH ×2 (09:00→13:40)
[2019-03-25] MEDS ORDERED: Isosorbide MONOnitrate (24 HR) 60 MG TAB.ER.24H PO SCH (09:00)
[2019-03-25] MEDS ORDERED: *HR* Bivalirudin 250 MG VIAL IVC ONE ×2 (09:17→10:16)
[2019-03-25] MEDS ORDERED: Nitroglycerin 1,000 MCG/10 ML VIAL IV ONE (09:17)
[2019-03-25] MEDS ORDERED: *HR* Heparin 10,000 UNIT/10 ML VIAL ONE (09:17)
[2019-03-25] MEDS ORDERED: ISOVUE-370 200 ML INFUS..BTL ONE (09:17)
[2019-03-25] MEDS ORDERED: Heparin 1,000 UNITS/500 mL 500 ML ONE (09:17)
[2019-03-25] MEDS ORDERED: 0.9 % Sodium Chloride 2,000 ML ONE (09:21)
--- NOTE | 2019-03-25 09:24 | Pre-Sedation Evaluation ---
Pre-sedation evaluation - Pre-sedation checklist Date of procedure: 03/25/19 Procedure: left heart catheterization Recent Vitals: Last Vital Signs Temp 98.0 F 03/25/19 07:18 Pulse 62 03/25/19 07:18 Resp 18 03/25/19 07:18 BP 99/50 03/25/19 07:18 Pulse Ox 91 03/25/19 07:18 H&P (including ROS) documented in medical record: Yes Previous reaction to sedatives/anesthetics: No Dietary Status: NPO after Midnight Airway Assessment: Patient can open mouth completely, TMJ function normal, Micrognathia (under-bite, receding chin) absent, Neck with adequate range of motion Dentition: No loose teeth or bridges Possible difficult airway: No ASA Classification *see protocol: CLASS II-Mild systemic disease Plan of Care: Pt appropriate candidate for procedure/moderate/conscious sedation, Risks/benefits of procedure/sedation discussed w/ patient/family Cardiac Registry (Cardio Only) - Functional Capacity Functional Capacity: < 4 METS - Clincal Frailty Scale Clinical Frailty Scale: Vulnerable
[2019-03-25] MEDS ORDERED: *HR* Midazolam HCl 2 MG/2 ML VIAL ONE (09:41)
[2019-03-25] MEDS ORDERED: *HR* FentaNYL (PF) 100 MCG/2 ML VIAL ONE (09:41)
--- NOTE | 2019-03-25 11:33 | Event Note ---
Date of Encounter: 03/25/19 Time of Encounter: 11:23 - Cardiology Event Note C nonobstructive CAD. No intervention. No events on tele. No significant findings on TTE. 4 week event monitor to be ordered at d/c given syncope. Cardiology signing off. Reconsult PRN. Will coordinate outpt follow-up.
--- NOTE | 2019-03-25 12:52 | Invasive Diagnostic Lab Proc ---
Name: Miriam Goodson Date of Study: 03/25/2019 Date: 1950 Ht: 68.1in Medical Record#: [id number] Age: 68 Wt: 288.81lb Gender: Female BSA: 2.39 Order #: [id number] BMI: 43.77 Physicians Procedure Physician: Kimmy Fish MD, [facility] Referring MD: Referring MD: Indications Indication Unstable Angina Procedures Performed Procedure L HRT ARTERY/VENTRICLE ANGIO IV Doppler BLD Flow 1st Vessel Pre-Procedure Checklist Informed consent is complete signed and on chart. H&P is on chart. ID band is on and ID verified with patient. Patient NPO for procedure The procedure was described for the patient and questions were answered. Blood Pressure: 99/50 ECG is on chart. Rhythm: NSR Plan of Care Patient will tolerate the procedure without complications. Adequate level of comfort will be maintained. Hemodynamics will remain stable Patient will recover from procedure without complications. Respiratory function will be maintained. Cardiac rhythm will remain stable. Patient temperature will be maintained. Patient and/or family have verbalized understanding of the procedure. Patient Education Intravenous Access Time IV Size Location DC'd Fluid/Drip Rate Units RN 20g 1 /" Patent On Arrival Allergies sumatriptan bee venom (honey bee) Bee Venom morphine IMITREX venom-honey bee Vital Signs Time BP (mmHg) HR (bpm) O2 Sat. RR (bpm) LOC 09:44 AM / % 5 = Fully awake and oriented or at pre-proc level 09:44 AM / % 4 = Oriented but drowsy 09:59 AM / % 4 = Oriented but drowsy 10:30 AM 127 / 76 64 96 % 18 09:49 AM 132 / 65 66 100 % 14 09:54 AM 119 / 70 65 98 % 16 09:59 AM 120 / 64 64 98 % 13 10:04 AM 120 / 63 66 98 % 12 10:09 AM 117 / 63 67 99 % 10 10:14 AM 126 / 58 68 99 % 14 10:19 AM 134 / 71 74 97 % 10 10:45 AM 126 / 75 64 94 % 12 11:00 AM 130 / 71 64 94 % 14 11:15 AM 124 / 75 61 98 % 16 11:30 AM 117 / 66 66 96 % 14 11:45 AM 128 / 83 62 96 % 17 12:00 PM 113 / 63 62 95 % 17 12:15 PM 119 / 69 59 95 % 16 12:38 PM 126 / 71 63 97 % 16 5 = Fully awake and oriented or at pre-proc level Procedural Medications Time Medication Dose Units Method Given By 09:45 AM Oxygen 2 L/min nasal cannula Bertha Stevenson RN 09:48 AM Versed 2 mg Intravenous Bertha Stevenson RN 09:49 AM Fentanyl 50 mcg Intravenous Bertha Stevenson RN 09:54 AM Benadryl 25 mg Intravenous Bertha Stevenson RN 09:56 AM Lidocaine 2% 19 ml Subcutaneous Kimmy Fish MD, FACC 10:07 AM Angiomax 0.75mg/kg bolus: 19.5 ml Intravenous Bertha Stevenson RN 10:07 AM Angiomax 1.75mg/kg/hr: 45.5 ml Intravenous Bertha Stevenson RN 10:13 AM 90mg Adenosine in 90 ml 0.9 NS 999 ml/hr Intravenous Bertha Stevenson RN ASA Classification: CLASS II- Mild systemic disease (i.e. well-controlled diabetes, hypertension, asthma, cigarette smoking) Michelle Score Preprocedure Postprocedure Activity 2- Moves 4 extremities sustained head lift Activity 2- Moves 4 extremities sustained head lift Circulation 2- SBP +/= 20 points of pre-anesthetic level Circulation 2- SBP +/= 20 points of pre-anesthetic level Consciousness 2- Awake and alert oriented x 3 Consciousness 2- Awake and alert oriented x 3 O2 Saturation 2- Able to maintain O2 satruation of 92% on room air O2 Saturation 2- Able to maintain O2 satruation of 92% on room air Respiratory 2- Able to deep breathe and cough well Respiratory 2- Able to deep breathe and cough well Total Score 10 Total Score 10 Contrast Agent: Isovue Diagnostic Contrast: 70 ml Total Contrast: 70 ml Fluoro Dose: 36 mGy Procedure Log Time Note Enter By 09:43 AM Pt arrived to labor relations director 2 at 09:43 cedwards 09:43 AM Patient charges- Angio tray pack, Navilyst 3mm J, Pulse Oximetry and ACIST tubing and transducer cedwards 09:43 AM IV Supplies used: J loop Angio Cath. cedwards 09:43 AM Physician arrived 09:43 cedwards 09:43 AM ASA Class CLASS II- Mild systemic disease (i.e. well-controlled diabetes, hypertension, asthma, cigarette smoking) ced:43 AM Meet and jasmin completed ced:43 AM Sign in performed according to hospital policy. Informed consent was obtained. ced:43 AM Procedure start ced:44 AM Time: Patient comfortable and pain free: Yes ced:44 AM Time: :44LOC: 5 = Fully awake and oriented or at pre-proc level ced:44 AM Hair removed from procedure site in procedure lab using clippers. Bilateral groin prepped with Chloraprep by Bertha Stevenson RN, then patient was draped. Skin intact. ced:45 AM Time: :45 Oxygen on at 2 L/min per nasal cannula by Bertha Stevenson RN cedwards :46 AM Vitals capture started with the following parameters, Patient=Adult, Interval=5 min, Initial Rniqlxuc=385 mmHg, Deflation Rate=5 mmHg, Cuff placed on Left Arm 09:46 AM Vitals capture stopped. 09:46 AM Case Start 09:46 AM CathStat 09:46 AM Recorded ECG: HR=69 Condition=Condition 1 09:48 AM Vitals capture started with the following parameters, Patient=Adult, Interval=5 min, Initial Kudjpgjh=601 mmHg, Deflation Rate=5 mmHg, Cuff placed on Left Arm 09:49 AM Time: 09:48 Versed 2 mg Intravenous Given by Bertha Stevenson RN cedwards 09:49 AM Time: 09:49 Fentanyl 50 mcg Intravenous Given by Bertha Stevenson RN cedwards 09:49 AM HR=66 bpm, TBFE=102/65 mmhg, FnR7=080.0 %, Resp=14 B/min, EtCO2=50 mmHg, Comment=NSR 09:54 AM HR=65 bpm, GLKE=241/70 mmhg, SpO2=98.0 %, Resp=16 B/min, EtCO2=40 mmHg, Comment=NSR 09:55 AM Time: :54 Benadryl 25 mg Intravenous Given by Bertha Stevenson RN cedwards 09:55 AM Clinical Presentation: Unstable angina cedwards 09:56 AM Time out was performed according to hospital policy. Conscious sedation and anesthesia was achieved (see medication log with in this report above) cedwards 09:57 AM Time: :56 19 ml Lidocaine 2% to right groin Subcutaneous Given by Kimmy Fish MD, [facility] cedwards 09:58 AM Access obtained by percutaneous puncture. 5Fr 10cm Terumo [place] sheath placed in right Femoral artery. [id number] cedwards 09:58 AM 5Fr FL 4 catheter inserted over the wire [facility] cedwards 09:58 AM LCA angiography performed in multiple views. cedwards 09:59 AM HR=64 bpm, LHFV=830/64 mmhg, SpO2=98.0 %, Resp=13 B/min 09:59 AM Pressure channel 1 zero failed. 09:59 AM Pressure channel 1 zeroed. 09:59 AM Recorded Pressure: Ao, HR=64, Condition=Condition 1 (Aorta) Ao 111/62/83 09:59 AM Time: 09:44LOC: 4 = Oriented but drowsy cedwards 09:59 AM Time: 09:44 Patient comfortable and pain free: Yes cedwards 10:01 AM Catheter removed cedwards 10:01 AM 0.035 145cm Navilyst 3mmJ wire [id number] cedwards 10:01 AM 5Fr FR 4 catheter inserted over the wire [facility] cedwards 10:01 AM RCA angiography performed in multiple views. cedwards 10:01 AM Coronary Dominance: right cedwards 10:02 AM Catheter removed cedwards 10:02 AM 5Fr Pigtail catheter inserted over the wire [facility] cedwards 10:02 AM Catheter crossed the aortic valve and was selectively placed in the left ventricle. Pressures recorded on pullback for left heart catheterization. cedwards 10:04 AM HR=66 bpm, NFZR=918/63 mmhg, SpO2=98.0 %, Resp=12 B/min 10:04 AM Recorded Pressure: LV, HR=57, Condition=Condition 1 (Left Ventricle) LV 126/-9/13 10:04 AM Bolus angiogram of left Ventricle complete: 8 ml/sec for a total of 24 mls cedwards 10:05 AM Recorded Pressure: LV, HR=67, Condition=Condition 1 (Left Ventricle) LV 124/-7/11 10:05 AM Recorded Pressure: LV, Ao, HR=59, Condition=Condition 1 (Left Ventricle) LV 107/-6/65, (Aorta) Ao 104/64/83 10:05 AM Catheter removed cedwards 10:06 AM Sheath exchanged for a 6 Fr 10 cm Terumo [place] sheath [id number] cedwards 10:06 AM 6Fr XB LAD 3.5 Cordis guide catheter was used to cannulate the PCI vessel successfully. reused? No cedwards 10:07 AM Inflation device was opened. cedwards 10:07 AM Time: 10:07 Angiomax 0.75mg/kg bolus: 19.5 ml Intravenous Given by Bertha Stevenson RN Hernandez pump cedwards 10:07 AM Time: 10:07 Angiomax 1.75mg/kg/hr: 45.5 ml Intravenous Given by Bertha Stevenson RN Hernandez pump cedwards 10:09 AM HR=67 bpm, GOOL=169/63 mmhg, SpO2=99 %, Resp=10 B/min 10:09 AM Pressure channel 4 zeroed. 10:10 AM Lesion found in Mid Circumflex. Pre Stenosis: 60 Pre AZ Flow: 3: Complete and Brisk Flow/Perfusion cedwards 10:10 AM .014 Prowater 180cm guide wire across target lesion- successful. reused? No cedwards 10:10 AM Asist FFR Catheter advanced to target lesion. cedwards 10:12 AM Pressure channel 4 equalized to channel 1. 10:13 AM Time: 10:13 90mg Adenosine in 90 ml 0.9 NS 999 ml/hr Intravenous Given by Bertha Stevenson RN Hernandez pump cedwards 10:13 AM FFR: Value=-9.00, Condition=Condition 1, Device=VOLCANO PRIME WIRE 10:13 AM Recorded Pressure: Ao, PV1, FFR=-9.00, HR=65, Condition=Condition 1 (Aorta) Ao 0/0/0, (Portal Vein) PV1 -2/-2/-2 10:14 AM HR=68 bpm, SMHE=417/58 mmhg, SpO2=99 %, Resp=14 B/min 10:14 AM Time: 09:59 Patient comfortable and pain free: Yes cedwards 10:14 AM Time: 09:59LOC: 4 = Oriented but drowsy cedwards 10:15 AM FFR Measurement: 0.92 cedwards 10:15 AM Adenosine stopped, Angiomax stopped cedwards 10:17 AM Guide wire removed intact. cedwards 10:17 AM Guide catheter removed intact. cedwards 10:19 AM HR=74 bpm, MTTA=723/71 mmhg, SpO2=97.0 %, Resp=10 B/min, Comment=NSR 10:20 AM Procedure completed at 10:20 03/25/2019 cedwards 10:20 AM Did you address AZ flow and Dominance? YesCoronary Dominance: right cedwards 10:21 AM Sign out completed: Radiation Dose 259.88 mGy, 36.1 Gy/cm2 Fluoro Time: 2.6 Isovue 370 - 200ml contrast 70 ml given by Kimmy Fish MD, [facility]. Complications: None. The patient was discharged out of the labor relations director in stable condition. Sedation minutes 37. Cardiac Rehab Consult needed: No. Confirmed administered medications: Yes cedwards 10:21 AM Isovue 370 - 200ml,1 Bottle(s) used. cedwards 10:21 AM Sheath left in place to be pulled on floor/holding areaV+Pad cedwards 10:21 AM Estimated Blood Loss: minimal cedwards 10:22 AM Post ECG NSR cedwards 10:22 AM Post Blood Pressure 134/71 cedwards 10:22 AM Information taught Cardiac Cath and IVUS/Flowire cedwards 10:23 AM Education needs Procedure, Plan of Care, and Disease Process cedwards 10:23 AM Learning barriers :None cedwards 10:23 AM Education Methods Verbal cedwards 10:23 AM Education evaluation Able to repeat information cedwards 10:23 AM Site status No bleeding/hematoma - Rt Groin as reported by Sites, Michelle RT (R) at 10:23 cedwards 10:23 AM Report given to Jennifer GODDARD Pt taken to Holding room Room #3. 10:23 cedwards 10:23 AM Plavix, Effient or Brilinta given No cedwards 10:23 AM no family available cedwards 10:24 AM Complications: None cedwards 10:24 AM Lesion found in Proximal RCA. Pre Stenosis: 30 Pre AZ Flow: cedwards 10:24 AM Lesion found in Mid RCA. Pre Stenosis: 20 Pre AZ Flow: cedwards 10:25 AM Lesion found in Distal RCA. Pre Stenosis: 30 Pre AZ Flow: cedwards 10:25 AM Lesion found in Proximal LAD. Pre Stenosis: 20 Pre AZ Flow: cedwards 10:25 AM Lesion found in Mid LAD. Pre Stenosis: 25 Pre AZ Flow: cedwards 10:25 AM Lesion found in Proximal Circumflex. Pre Stenosis: 30 Pre AZ Flow: cedwards 10:30 AM Patient to holding room 3 at this time. vitals obtained. pt states 8/10 back pain. repositioned for comfort and administered Tylenol 1000mg per Dr. Robles order. denies any needs at this time. bed in lowest position, call light within reach, side rails up x2. kmavis 12:20 PM Arterial sheath pulled using manual compression and V+ Pad for 15 minutes by Kandice Kolb RT (R) [email or web address] 12:40 PM Site status No bleeding/hematoma - Rt Groin as reported by Kandice Kolb RT (R) at 12:40 [email or web address] 12:40 PM Opsite applied [email or web address] 12:40 PM Report given to Daphne GODDARD Pt taken to 3B Room #12. 12:40 [email or web address] 12:40 PM Patient out of room: 12:40 [email or web address] Complications Complication None None Hemodynamics Pressures Site Systolic/A Wave Diastolic/V Wave Mean AO 111 62 83 LV 126 -9 13 LV 124 -7 11 LV 107 -6 65 AO 104 64 83 AO 0 0 0 PV1 -2 -2 -2 Post Procedure Information Blood Pressure: 134/71 mmHg Rhythm: NSR Post procedural instructions were given Site Checks Time Location Status Staff Sheath In? Note 10:23 AM Rt Groin No bleeding/hematoma Sites, Michelle RT (R) 10:31 AM Rt Groin No bleeding/ No Hematoma Julee Singh RN Yes 10:45 AM Rt Groin No bleeding/ No Hematoma Julee Singh RN Yes 11:00 AM Rt Groin No bleeding/ No Hematoma Julee Singh RN Yes 11:15 AM Rt Groin No bleeding/ No Hematoma Julee Singh RN Yes 11:30 AM Rt Groin No bleeding/ No Hematoma Julee Singh RN Yes 11:45 AM Rt Groin No bleeding/ No Hematoma Julee Singh RN Yes 12:00 PM Rt Groin No bleeding/ No Hematoma Jennifer Toussaint RN 12:15 PM Rt Groin No bleeding/ No Hematoma Kandice Kolb RT (R) 12:37 PM Rt Groin No bleeding/ No Hematoma Kandice Kolb RT (R) 12:40 PM Rt Groin No bleeding/hematoma Kandice Kolb RT (R) Pulses Time Site Pre-Procedure Post-Procedure Note Bilateral radial 2+ Bilateral DP & PT 2+ 03/25/2019 12:00:00 PM Bilateral DP & PT 2+ 03/25/2019 12:15:00 PM Bilateral DP & PT 2+ 03/25/2019 12:37:00 PM Bilateral DP & PT 2+ Updated by RT Tadeo(R) on 03/25/2019 12:43:29 PM electronically signed on 03/25/2019 12:44:07 PM with status of Final
--- NOTE | 2019-03-25 13:24 | Discharge Summary ---
- NOTES TO OUTPATIENT PROVIDER Notes to Outpatient Provider: f/u with PCP in one week. f/u with Cardiology in 2-4 weeks. Please wear cardiac event monitor for 4 weeks. Orders not resulted at time of discharge: Pending orders 03/23/19 CT 3D reconstruction [CT] Routine 03/25/19 11:34 ECG event monitor 4 weeks [ECG] Routine Date of Encounter: 03/25/19 Time of Encounter: 13:21 - Discharge Diagnosis (1) Syncope Priority: Primary Status: Acute Qualifiers: Syncope type: vasovagal syncope Qualified Code(s): R55 - Syncope and collapse (2) Chest pain Priority: Primary Status: Acute Qualifiers: Chest pain type: unspecified Qualified Code(s): R07.9 - Chest pain, unspecified (3) Coronary artery disease Priority: Secondary Status: Chronic Qualifiers: Coronary Disease-Associated Artery/Lesion type: [place] artery [place] vs. transplanted heart: [place] heart Associated angina: angina presence unspecified Qualified Code(s): I25.10 - Atherosclerotic heart disease of [place] coronary artery without angina pectoris (4) DVT prophylaxis Priority: Secondary Status: Acute (5) Facial bruising Priority: Secondary Status: Acute Qualifiers: Encounter type: initial encounter Qualified Code(s): S00.83XA - Contusion of other part of head, initial encounter (6) Morbid obesity with BMI of 45.0-49.9, adult Priority: Secondary Status: Chronic Hospital course: Ms. Goodson is a 68 year old female with known HTN, HLD, GERD, DVT, Fibromyalgia and coronary artery disease status post-PCI in the past 2 who presented to the ED with one episode of syncope and chest pain. Patient states that earlier as she was entering her apartment using her walker she lost consciousness. The next thing she recalls was waking up on the floor with her daughter looking over her. Syncope was unwitnessed however per her daughters report, she was out for about five minutes. No reports of loss of bowel or bladder control, tongue biting or seizure like activity. Patient states that the only symptoms she recalls prior to passing out was palpitations and the feeling of butterflies in her stomach. She did suffer trauma to the left side of her face. Patient is currently on aspirin and Plavix. She also c/o chest pressure before she passed out. She was admitted in the hospital and placed on vehicle monitor technician. Her serial troponin came back as negative. She did have visible bruise on Left side of her face, which improved today. Regarding her CP rm, EKG shows sinus rhythm with no ischemic changes She underwent LHC in September 2018 with no intervention. Moderate nonobstructive disease seen at that time. (patent LAD stent, 50% stenosis mLCX artery and dRCA). Stress test completed at the [facility] in November 2018 was negative for ischemia. Pt was evaluated by tool carrier who did LHC today which came back as non obstructive CAD. Recommend to continue current medical management. Regarding her syncope, card recommended 4 weeks of event monitor. So will d/c her home in stable condition today with event monitor for 4 weeks. - Time Spent with Patient Total time spent providing and/or coordinating discharge services: - Discharge Medications Prescriptions: Continued Cholecalciferol (D-3) [Vitamin D] 2,000 unit PO DAILY Aspirin 81 mg PO DAILY #30 tab.chew Cetirizine HCl [24Hour Allergy] 5 mg PO DAILY PRN PRN Reason: Allergy Symptoms Gabapentin [Neurontin] 900 mg PO TID Acetaminophen w/Cod 300-30 mg [Tylenol w/Codeine #3] 1 each PO Q8HR Isosorbide MONOnitrate (24 HR) [Imdur] 60 mg PO DAILY #30 tab.er.24h Memantine [Namenda] 5 mg PO DAILY #30 tablet Metoprolol XL (24 HR) Succ [Toprol Xl] 12.5 mg PO DAILY #15 tab.er.24h Buspirone HCl [Buspar] 10 mg PO BID #60 tablet Escitalopram [Lexapro] 20 mg PO DAILY #30 tablet Atorvastatin Calcium [Lipitor] 40 mg PO HS #15 Magnesium Oxide [Magnesium] 400 mg PO BID #60 tablet Nitroglycerin 0.4 mg SL Q5M PRN #25 tab.subl PRN Reason: Chest Pain Clopidogrel [Plavix] 75 mg PO DAILY #30 tablet Pantoprazole Sodium [Protonix] 40 mg PO DAILY PRN #30 PRN Reason: Dyspepsia Home Medications: Cholecalciferol (D-3) [Vitamin D] 2,000 unit PO DAILY 10/05/18 [History] Aspirin 81 mg PO DAILY #30 tab.chew 10/06/18 [Rx] Cetirizine HCl [24Hour Allergy] 5 mg PO DAILY PRN 12/25/18 [History] Atorvastatin Calcium [Lipitor] 40 mg PO HS #15 02/08/19 [Rx] Buspirone HCl [Buspar] 10 mg PO BID #60 tablet 02/08/19 [Rx] Clopidogrel [Plavix] 75 mg PO DAILY #30 tablet 02/08/19 [Rx] Escitalopram [Lexapro] 20 mg PO DAILY #30 tablet 02/08/19 [Rx] Isosorbide MONOnitrate (24 HR) [Imdur] 60 mg PO DAILY #30 tab.er.24h 02/08/19 [Rx] Magnesium Oxide [Magnesium] 400 mg PO BID #60 tablet 02/08/19 [Rx] Memantine [Namenda] 5 mg PO DAILY #30 tablet 02/08/19 [Rx] Metoprolol XL (24 HR) Succ [Toprol Xl] 12.5 mg PO DAILY #15 tab.er.24h 02/08/19 [Rx] Nitroglycerin 0.4 mg SL Q5M PRN #25 tab.subl 02/08/19 [Rx] Pantoprazole Sodium [Protonix] 40 mg PO DAILY PRN #30 02/08/19 [Rx] Acetaminophen w/Cod 300-30 mg [Tylenol w/Codeine #3] 1 each PO Q8HR 03/23/19 [History] Gabapentin [Neurontin] 900 mg PO TID 03/23/19 [History] Allergies/Adverse Reactions: Allergy/AdvReac Type Severity Reaction Status Date / Time sumatriptan [From Imitrex] Allergy Swelling Verified 01/19/19 14:55 of Lip/Tongue/Throat venom-honey bee Allergy Swelling Verified 01/19/19 14:55 [bee venom (honey bee)] of Lip/Tongue/Throat morphine AdvReac Nausea Verified 01/19/19 14:55 Date of admission: 03/23/19 19:15 Primary care physician: PCP NONE Consults: 03/24/19 00:30 Consult to Cardiology [CONS] Routine Comment: Consulting Provider: Cardiology Lauren Reason for Consult: Syncope/chest pain Call Completed: No - Constitutional Vitals: Temp Pulse Resp BP Pulse Ox 98.1 F 62 18 137/81 91 03/25/19 13:01 03/25/19 13:01 03/25/19 13:01 03/25/19 13:01 03/25/19 07:18 General appearance: Present: A&O X 3, no acute distress, answers questions appropriately Exam: Gen: Alert, awake, Oriented to time,place and person HEENT: Improving ecchymosis around the left eye as well as bruising along the left cheek. Chest: Diminished breath sounds B/L, No wheezing, No crackles, No rales Heart: S1S2+ RRR No murmurs Abd: Soft, NT, BS +, No organomegaly Ext: No edema, pulses are palpable, No calf tenderness Neuro : No acute focal neuro deficits noticed - Patient Status Disposition: Home, Self-Care Condition: Good Overall status at discharge: patient is back to baseline - Discharge Instructions Follow Up With: NONE,PCP [Primary Care Provider] - Hayley Bateman DO [Partnered Physician] - - Diet and Activity Activity: increase activity as tolerated Diet: low salt diet
[2019-03-25] MEDS: Cholecalciferol (D-3) 1,000 UNIT TABLET PO SCH (13:38)
[2019-03-25] MEDS: Metoprolol XL (24 HR) Succ 25 MG TAB.ER.24H PO SCH (13:39)
[2019-03-25] MEDS: Isosorbide MONOnitrate (24 HR) 60 MG TAB.ER.24H PO SCH (13:39)
[2019-03-25] MEDS: Magnesium Oxide 400 MG TABLET PO SCH (13:40)
[2019-03-25] MEDS ORDERED: Acetaminophen 325 MG TABLET PO PRN (15:00)
[2019-03-25 17:58] VITALS: BP 120/70
== END 2019-03-25 17:15 | disposition home or self-care (01) ==
LOC: 3BNU 17:11 → EMEROOARM 17:11 → SUATTDRO 19:15 → 3BNU 20:43
PROVIDERS: ADMIT Internal Medicine Nephrology; ATTEND Family Medicine

== ENCOUNTER 2019-03-27 00:29 | Inpatient (IN) ==
[2019-03-27 01:56] LABS: Basophils % 0.3 %; Eosinophils # 0.1 K/mcL (0.0-0.6); Eosinophils % 1.3 %; Hematocrit 37.4 % (35.3-44.9); Hemoglobin 11.9 g/dL (11.5-15.4); Immature Granulocytes % 0.3 % (0-4); Lymphocytes # 2.3 K/mcL (0.6-4.6); Lymphocytes % 32.2 %; Mean Corpuscular HGB Conc 31.8 g/dL (31.6-35.5); Mean Corpuscular Hemoglobin 28.4 pg (28.0-33.3); Mean Corpuscular Volume 89.3 fL (83.0-100.0); Mean Platelet Volume 10.2 fL (9.4-12.4); Monocytes # 0.5 K/mcL (0.0-1.3); Monocytes % 7.3 %; Neutrophils # 4.1 K/mcL (1.6-8.9); Platelet Count 228 K/mcL (140-400); Red Blood Count 4.19 M/mcL (3.82-4.97); Red Cell Distribution Width 13.3 % (11.5-14.5); Segmented Neutrophils % 58.6 %
[2019-03-27 02:03] LABS: Prothrombin Time 11.8 Seconds (9.4-12.1)
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
[2019-03-27 02:06] LABS: Activated Partial Thrombo Time 45.2 Seconds (26.0-36.0)
[2019-03-27 02:17] LABS: BUN/Creatinine Ratio 14 (6-26); Blood Urea Nitrogen 11 mg/dL (8-23); Calcium 9.2 mg/dL (8.6-10.3); Carbon Dioxide 27 mEq/L (23-29); Chloride 107 mEq/L (98-107); Glucose 86 mg/dL (70-105); Osmolality,Calculated 289 (280-300); Potassium 4.2 mEq/L (3.5-5.1); Sodium 140 mEq/L (136-145); Troponin I < 0.03 ng/mL (< 0.04); eGFR For African Americans > 60 (> 60); eGFR For Non-African Americans > 60 (> 60)
[2019-03-27 03:47] LABS: Bilirubin,Urine Negative (Negative); Blood,Urine Trace-intact (Negative); Clarity,Urine Clear (Clear); Color,Urine Yellow (Yellow); Glucose,Urine (UA) Normal (Normal); Ketones,Urine Negative (Negative); Leukocyte Esterase,Urine Negative (Negative); Nitrite,Urine Negative (Negative); PH,Urine 7.5 pH Units (5.0-8.0); Protein,Urine Negative (Neg-Trace); Urobilinogen,Urine Normal (Normal)
[2019-03-27] MEDS ORDERED: Isovue-370 500 ML BOTTLE IVP ONE (04:07)
[2019-03-27 04:16] LABS: Hyaline Casts,Urine None Seen per lpf (None-Few); Squamous Epithelial Cell,Urine Few per lpf (None-Few)
[2019-03-27 04:21] LABS: Bacteria,Urine None Seen per hpf (None-Few); RBC,Urine 0-3 per hpf (0-3); WBC,Urine 0-3 per hpf (0-3)
[2019-03-27] MEDS ORDERED: Naloxone 0.4 MG/ML INJ IVP PRN (05:17)
[2019-03-27] MEDS ORDERED: Acetaminophen IV 500 MG/50 ML INFUS..BTL IVPB ONE (05:20)
--- NOTE | 2019-03-27 05:38 | Internal Med History&Physical ---
Date of Encounter: 03/27/19 Time of Encounter: 04:30 Internal Medicine - H&P: HPI Chief complaint: Near Syncope, Left Sided Weakness Admitted From: Home Plans for Post Hospital Care: Home History of present illness: Ms. Goodson is a 68 year old female with past medical history significant for CAD with stents 2, DVT, hyperlipidemia, hypertension, fibromyalgia, GERD, arthritis, cancer, kidney stones, seizures, migraine, anxiety, depression, panic disorder, and PTSD who presents for complaints of continued intermittent dizziness and lightheadedness feeling like she is going to pass out along with left-sided weakness which she has had since a syncopal episode on Sunday. Also continues to complain of headache with nausea and vomiting since syncopal episode as well. Reports symptoms are worse with positional changes. Currently denies any numbness, tingling, chest pain, shortness of breath, abdominal pain, nausea, bowel or bladder changes. Patient was admitted for the same along with complaints of chest pain on Sunday03/23/19 and recently discharged on 03/25/19. During that admission patient had a CT of her face, head, and cervical spine which showed no acute intracranial abnormality, no acute traumatic injury of the facial bones, and mild to moderate degenerative changes of the cervical spine without acute fracture or traumatic malalignment. Patient also had a brain MRI which showed no acute intracranial abnormality or mass lesion. Had an echocardiogram completed during admission showing a 55% EF. Also underwent a cardiac catheterization which showed triple vessel coronary artery disease, pr eviously stented RCA and LAD patent, with normal left ventricle and normal contractility with EF of 55%. Upon discharge cardiology recommended 4 week event monitor which patient has been wearing. ER reported EKG as sinus rhythm with first-degree AV block and no acute ST elevation or depression. ER also obtained a chest x-ray which showed no acute disease. ER also obtained a head CT which showed no acute intracranial abnormality. ER will also obtain a CTA of the head and neck prior to leaving ER. Patient denies having any follow-up since discharge. Past Med Surg Social Fam HX - Past Medical History Medical history: arthritis, cancer, coronary artery disease, DVT, fibromyalgia, GERD, hyperlipidemia, hypertension, kidney stones, malignancy, migraine, myocardial infarction, seizures Additional medical history: uturine cancer. Left leg DVT. fibromyalgia Psychiatric history: anxiety, depression, panic disorder, PTSD - Past Surgical History Surgical History: angioplasty/stent, cholecystectomy, hip replacement, other Additional surgical history: Left hip replacement. right shoulder Surgery - Social History Smoking Status: Former smoker Smokeless Tobacco Status: No Alcohol use: none Drug use: none - Family History Mother Family Member Ethnicity: Non- Living Status: Still Living Hx Family Cardiac Disorders: Yes ([place]) Hx Family Respiratory Disorders: Yes Hx Family Cancer: Yes ("female") Hx Family GI Disorders: No Hx Family Endocrine Disorder: No Hx Family Neuromuscular Disorders: No Hx Family Neurologic Disorders: No Hx Family HEENT Disorders: No Hx Family Autoimmune Disorders: No Father Family Member Ethnicity: Non- Living Status: Unknown Hx Family Cardiac Disorders: Yes ([place]) Hx Family Respiratory Disorders: No Hx Family Cancer: No Hx Family GI Disorders: No Hx Family Endocrine Disorder: No Hx Family Neuromuscular Disorders: No Hx Family Neurologic Disorders: No Hx Family HEENT Disorders: No Hx Family Autoimmune Disorders: No Brother Family Member Ethnicity: Non- Living Status: Still Living Hx Family Cardiac Disorders: Yes (CAD) Internal Medicine - H&P: Meds Cholecalciferol (D-3) [Vitamin D] 1,000 unit PO QAM 10/05/18 [History] Cetirizine HCl [24Hour Allergy] 10 mg PO QAM 12/25/18 [History] Atorvastatin Calcium [Lipitor] 40 mg PO HS #15 02/08/19 [Rx] Buspirone HCl [Buspar] 10 mg PO BID #60 tablet 02/08/19 [Rx] Clopidogrel [Plavix] 75 mg PO DAILY #30 tablet 02/08/19 [Rx] Escitalopram [Lexapro] 20 mg PO DAILY #30 tablet 02/08/19 [Rx] Isosorbide MONOnitrate (24 HR) [Imdur] 60 mg PO DAILY #30 tab.er.24h 02/08/19 [Rx] Magnesium Oxide [Magnesium] 400 mg PO BID #60 tablet 02/08/19 [Rx] Memantine [Namenda] 5 mg PO DAILY #30 tablet 02/08/19 [Rx] Nitroglycerin 0.4 mg SL Q5M PRN #25 tab.subl 02/08/19 [Rx] Acetaminophen w/Cod 300-30 mg [Tylenol w/Codeine #3] 1 tab PO Q4H PRN 03/23/19 [History] Gabapentin [Neurontin] 900 mg PO TID 03/23/19 [History] Aspirin [Adult Aspirin Regimen] 81 mg PO DAILY 03/25/19 [History] Metoprolol XL (24 HR) Succ [Toprol Xl] 25 mg PO DAILY 03/25/19 [History] Pantoprazole Sodium 40 mg PO QAM 03/25/19 [History] Allergy/AdvReac Type Severity Reaction Status Date / Time sumatriptan [From Imitrex] Allergy Swelling Verified 03/27/19 00:45 of Lip/Tongue/Throat venom-honey bee Allergy Swelling Verified 03/27/19 00:45 [bee venom (honey bee)] of Lip/Tongue/Throat morphine AdvReac Nausea Verified 03/27/19 00:45 All Systems PM: A 10-system review of systems was performed and is negative for pertinent findings except as documented above in the HPI. - Constitutional Vitals: Temp Pulse Resp BP Pulse Ox 99 F 78 17 156/93 98 03/27/19 00:41 03/27/19 04:26 03/27/19 04:26 03/27/19 04:26 03/27/19 04:26 Exam: General: Alert and oriented. Skin:Normal color, no rash. Swelling and bruising noted to left side of face from fall during prior syncopal episode. HEENT:Pupils equal, round and reactive. Cardiovascular:Normal S1 & S2, no rubs, murmurs or gallops. No JVD. Pulse regular. Lungs:Normal breath sounds, no wheezes or crackles. Abdomen:Soft, non-tender, no rigidity. Extremities:No deformity, no edema or tenderness, no joint swelling or clubbing. Neurological:Normal cognition. Weakness noted to left upper and lower extre mities. GCS 15. Pulses:Carotid and radial pulses normal +2. Rest of the physical exam is non contributory. Internal Med - H&P Results - Labs CBC & Chem 7: 03/27/19 01:45 03/27/19 01:45 Labs: Short CBC 03/27/19 Range/Units 01:45 WBC 7.0 (4.3-11.1) K/mcL Hgb 11.9 (11.5-15.4) g/dL Hct 37.4 (35.3-44.9) % Plt Count 228 (140-400) K/mcL Neutrophils # 4.1 (1.6-8.9) K/mcL BMP 03/27/19 01:45 Sodium 140 Potassium 4.2 Chloride 107 Carbon Dioxide 27 BUN 11 Creatinine 0.78 Glucose 86 Calcium 9.2 Cardiac Enzymes 03/27/19 Range/Units 01:45 Troponin I < 0.03 (< 0.04) ng/mL Urine 03/27/19 Range/Units 03:40 Urine Color Yellow (Yellow) Urine Clarity Clear (Clear) Urine pH 7.5 (5.0-8.0) pH Units Ur Specific [place] 1.020 (1.010-1.025) Urine Protein Negative (Neg-Trace) mg/dL Urine Glucose (UA) Normal (Normal) mg/dL - Impressions ITS Impressions Chest X-Ray 03/27/19 01:17 IMPRESSION: No acute disease. D/ / William Leblanc MD / William Leblanc MD Interpreting Provider: William Leblanc MD Head CT 03/27/19 02:05 IMPRESSION: No acute intracranial abnormality. D/ / William Leblanc MD / William Leblanc MD Interpreting Provider: William Leblanc MD Head CTA 03/27/19 04:07 IMPRESSION: Unremarkable CTA of the head and neck without significant stenosis or occlusion. Mild soft tissue swelling in the left cheek region. D/ / Jaime Muhammad / Jaime Muhammad Interpreting Provider: Jaime Muhammad Neck CTA 03/27/19 04:07 IMPRESSION: Unremarkable CTA of the head and neck without significant stenosis or occlusion. Mild soft tissue swelling in the left cheek region. D/ / Jaime Muhammad / Jaime Muhammad Interpreting Provider: Jaime Muhammad - Assessment and Plan (1) Near syncope Current Visit: Yes Status: Acute Assessment and plan: Acute on chronic. Reports has been present since syncopal episode on Sunday. Recently discharged 03/25/[address] of head, neck, and face, MRI of head, echocardiogram, and cardiac catheterization. ER obtained new head CT which showed no acute intracranial abnormality. ER will also obtain CTA of the head and neck which are pending. Orthostatic vitals ordered. Carotid dopplers last performed in 2016 and were normal, repeat carotid dopplers ordered. PT/OT consults ordered. (2) Left-sided weakness Current Visit: Yes Status: Acute Assessment and plan: Plan as stated above. (3) Headache Current Visit: Yes Status: Acute Assessment and plan: Plan as stated above. Head CT with no acute intracranial abnormality. Has history of migraine. Ofirmev ordered. Qualifiers: Qualified Code(s): G44.89 - Other headache syndrome (4) Hypertension Current Visit: Yes Status: Chronic Assessment and plan: Continue home medications once verified. Qualifiers: Hypertension type: unspecified Qualified Code(s): I10 - Essential (primary) hypertension (5) Depression with anxiety Current Visit: Yes Status: Chronic Assessment and plan: Continue home medications once verified. - Time Spent With Patient Total time spent is greater than 50% in coordination of care (as documented) at patient's floor/unit and/or counseling patient:
[2019-03-27] MEDS ORDERED: Nitroglycerin 0.4 MG TAB.SUBL SL PRN (11:23)
[2019-03-27] MEDS ORDERED: *HR* Acetaminophen w/Cod 300-30 mg 1 TAB TABLET PO PRN (11:23)
--- NOTE | 2019-03-27 13:13 | Internal Med Progress Note ---
Hospitalist Progress Note - Encounter Date of Encounter: 03/27/19 Time of Encounter: 11:00 - Subjective Interval History: Ms. Goodson is a 68 year old female with past medical history significant for CAD with stents 2, DVT, hyperlipidemia, hypertension, fibromyalgia, GERD, arthritis, cancer, kidney stones, seizures, migraine, anxiety, depression, panic disorder, and PTSD who presents for complaints of continued intermittent dizziness and lightheadedness feeling like she is going to pass out along with left-sided weakness which she has had since a syncopal episode on Sunday. Also continues to complain of headache with nausea and vomiting since syncopal episode as well. She was admitted in the hospital and placed on classroom monitor. When I di scharged her 2 days ago she was discharged home on holter monitor. She denied any LOC. She feels light headedness and dizzy. Her intracranial abnormality head CT did not show any acute intracranial abnormality. Her Brain MRI from 03/24/19 - no acute CVA noticed. She denied any CP . SOB. She denied any more N/V/Diarrhea. - Exam Vitals: Temp Pulse Resp BP Pulse Ox 98.4 F 75 16 113/66 93 03/27/19 11:19 03/27/19 11:19 03/27/19 11:19 03/27/19 11:19 03/27/19 11:19 Exam: Gen: Alert, awake, Oriented to time,place and person.. Resolving bruise / petechiae over LLeft side of face from last fall Chest: Diminished breath sounds B/L, No wheezing, No crackles, No rales Heart: S1S2+ RRR No murmurs Abd: Soft, NT, BS +, No organomegaly Ext: No edema, pulses are palpable, No calf tenderness Neuro : No acute focal neuro deficits noticed chronic b/l LE weakness.. No loss of sensation Skin: No rash. - Assessment and Plan (1) Near syncope Current Visit: Yes Status: Acute Assessment and Plan: Mostly vaso vagal / Ortho static as well as due to severe deconditioning Cont on tele will talk to card to review her event monitor Initial trop < 0.03 All her CVA work up from 2 days ago - WNL Will check Daily ortho stats PT / OT eval May need ECF placement SW / CM consulted Patient does need to stay in the hospital more than 2 midnights due to her complex medical problems. Multiple comorbidities and severe physical deconditioning. She is high risk for falls at home and further neurological damage. So we will change her to full admission today. I did review my colleague SHALA Ceron's H & P including HPI, PMH, PSH, FH, SH, and ROS no changes noticed (2) Headache Current Visit: Yes Status: Acute Assessment and Plan: Head CT with no acute intracranial abnormality. Has history of migraine. resumed home meds on tramadol PRN (3) Hypertension Current Visit: Yes Status: Chronic Assessment and Plan: Well controlled with current regimen continue home medications (4) Depression with anxiety Current Visit: Yes Status: Chronic Assessment and Plan: Continue home medications (5) Coronary artery disease Current Visit: No Status: Chronic Assessment and Plan: Continue current home medications had [facility] on 03/24/19 - Non obstructive CAD (6) GERD (gastroesophageal reflux disease) Current Visit: No Status: Chronic Assessment and Plan: on PPI (7) HLD (hyperlipidemia) Current Visit: No Status: Chronic Assessment and Plan: on Lipitor (8) Morbid obesity with BMI of 45.0-49.9, adult Current Visit: No Status: Chronic - Time Spent with Patient Total time spent is greater than 50% in coordination of care (as documented) at patient's floor/unit and/or counseling patient: Internal Medicine: Result - Labs CBC & Chem 7: 03/27/19 01:45 03/27/19 01:45 Labs: Short CBC 03/27/19 Range/Units 01:45 WBC 7.0 (4.3-11.1) K/mcL Hgb 11.9 (11.5-15.4) g/dL Hct 37.4 (35.3-44.9) % Plt Count 228 (140-400) K/mcL Neutrophils # 4.1 (1.6-8.9) K/mcL BMP 03/27/19 01:45 Sodium 140 Potassium 4.2 Chloride 107 Carbon Dioxide 27 BUN 11 Creatinine 0.78 Glucose 86 Calcium 9.2 Cardiac Enzymes 03/27/19 Range/Units 01:45 Troponin I < 0.03 (< 0.04) ng/mL Urine 03/27/19 Range/Units 03:40 Urine Color Yellow (Yellow) Urine Clarity Clear (Clear) Urine pH 7.5 (5.0-8.0) pH Units Ur Specific [place] 1.020 (1.010-1.025) Urine Protein Negative (Neg-Trace) mg/dL Urine Glucose (UA) Normal (Normal) mg/dL - ABG Interpretation ABG results: PT/INR, D-dimer PT 11.8 Seconds (9.4-12.1) 03/27/19 01:45 - Impressions Impressions Chest X-Ray 03/27/19 01:17 IMPRESSION: No acute disease. D/ / William Leblanc MD / William Leblanc MD Interpreting Provider: William Leblanc MD Head CT 03/27/19 02:05 IMPRESSION: No acute intracranial abnormality. D/ / William Leblanc MD / William Leblanc MD Interpreting Provider: William Leblanc MD Head CTA 03/27/19 04:07 IMPRESSION: Unremarkable CTA of the head and neck without significant stenosis or occlusion. Mild soft tissue swelling in the left cheek region. D/ / Jaime Muhammad / Jaime Muhammad Interpreting Provider: Jaime Muhammad Neck CTA 03/27/19 04:07 IMPRESSION: Unremarkable CTA of the head and neck without significant stenosis or occlusion. Mild soft tissue swelling in the left cheek region. D/ / Jaime Muhammad / Jaime Muhammad Interpreting Provider: Jaime Muhammad Consult Discharge Plan - Plan Referrals: [facility] [Primary Care Provider] - (2) Headache Qualifiers: Qualified Code(s): G44.89 - Other headache syndrome (3) Hypertension Qualifiers: Hypertension type: unspecified Qualified Code(s): I10 - Essential (primary) hypertension (5) Coronary artery disease Qualifiers: Coronary Disease-Associated Artery/Lesion type: [place] artery [place] vs. transplanted heart: [place] heart Associated angina: angina presence unspecified Qualified Code(s): I25.10 - Atherosclerotic heart disease of [place] coronary artery without angina pectoris (6) GERD (gastroesophageal reflux disease) Qualifiers: Esophagitis presence: esophagitis presence not specified Qualified Code(s): K21.9 - Gastro-esophageal reflux disease without esophagitis (7) HLD (hyperlipidemia) Qualifiers: Hyperlipidemia type: mixed hyperlipidemia Qualified Code(s): E78.2 - Mixed hyperlipidemia
[2019-03-27] MEDS: Loratadine 10 MG TABLET PO SCH (13:20)
[2019-03-27] MEDS: BUSPIRONE HCL 10 MG TABLET PO SCH ×2 (13:20→21:17)
[2019-03-27] MEDS: traMADol 50 MG TABLET PO PRN ×2 (13:20→21:21)
[2019-03-27] MEDS: Aspirin Enteric Coated 81 MG Tablet PO SCH (13:20)
[2019-03-27] MEDS: Metoprolol XL (24 HR) Succ 25 MG TAB.ER.24H PO SCH (13:20)
[2019-03-27] MEDS: Isosorbide MONOnitrate (24 HR) 60 MG TAB.ER.24H PO SCH (13:20)
[2019-03-27] MEDS: Gabapentin 300 MG CAPSULE PO SCH ×2 (13:20→21:18)
[2019-03-27] MEDS: *HR* Heparin 5,000 UNIT/ML VIAL SQ SCH (17:48)
--- NOTE | 2019-03-27 17:56 | Electrocardiograph Report ---
[address] [address] Test Date: 2019-03-27 Pat Name: Miriam Goodson Department: 104 Room: 3B39 Gender: F [employer]ating [employer] Tender: Miranda : 1950 Requested By: [id number] Order Number: [id number] Reading MD: Kimmy Fish Measurements Intervals [place] Rate: 76 P: 56 RI: 204 QRS: -8 QRSD: 92 T: 47 QT: 370 QTc: 401 Interpretive Statements SINUS RHYTHM LOW QRS VOLTAGE IN PRECORDIAL LEADS MINIMAL VOLTAGE CRITERIA FOR LVH, CONSIDER NORMAL VARIANT Electronically Signed On 03-27-2019 17:55:22 EDT by Kimmy Fish
[2019-03-27] MEDS ORDERED: Ketorolac 15 MG/ML VIAL IVP ONE (23:05)
[2019-03-28] MEDS: *HR* Heparin 5,000 UNIT/ML VIAL SQ SCH ×2 (06:12→17:48)
[2019-03-28 06:46] LABS: Basophils % 0.7 %; Eosinophils # 0.2 K/mcL (0.0-0.6); Eosinophils % 2.9 %; Hematocrit 35.2 % (35.3-44.9); Hemoglobin 10.9 g/dL (11.5-15.4); Immature Granulocytes % 0.2 % (0-4); Lymphocytes # 2.8 K/mcL (0.6-4.6); Lymphocytes % 45.1 %; Mean Corpuscular Hemoglobin 28.4 pg (28.0-33.3); Mean Corpuscular Volume 91.7 fL (83.0-100.0); Mean Platelet Volume 9.9 fL (9.4-12.4); Monocytes # 0.5 K/mcL (0.0-1.3); Monocytes % 7.8 %; Neutrophils # 2.7 K/mcL (1.6-8.9); Platelet Count 206 K/mcL (140-400); Red Blood Count 3.84 M/mcL (3.82-4.97); Red Cell Distribution Width 13.4 % (11.5-14.5); Segmented Neutrophils % 43.3 %; White Blood Count 6.1 K/mcL (4.3-11.1)
[2019-03-28 07:07] LABS: BUN/Creatinine Ratio 17 (6-26); Blood Urea Nitrogen 14 mg/dL (8-23); Calcium 8.7 mg/dL (8.6-10.3); Carbon Dioxide 24 mEq/L (23-29); Chloride 109 mEq/L (98-107); Glucose 111 mg/dL (70-105); Osmolality,Calculated 293 (280-300); Potassium 3.9 mEq/L (3.5-5.1); Sodium 141 mEq/L (136-145); eGFR For African Americans > 60 (> 60); eGFR For Non-African Americans > 60 (> 60)
[2019-03-28] MEDS: Isosorbide MONOnitrate (24 HR) 60 MG TAB.ER.24H PO SCH (08:05)
[2019-03-28] MEDS: Gabapentin 300 MG CAPSULE PO SCH ×3 (08:05→20:32)
[2019-03-28] MEDS: Cholecalciferol (D-3) 1,000 UNIT TABLET PO SCH (08:05)
[2019-03-28] MEDS: Aspirin Enteric Coated 81 MG Tablet PO SCH (08:06)
[2019-03-28] MEDS: BUSPIRONE HCL 10 MG TABLET PO SCH ×2 (08:06→20:32)
[2019-03-28] MEDS: Metoprolol XL (24 HR) Succ 25 MG TAB.ER.24H PO SCH (08:06)
[2019-03-28] MEDS: Loratadine 10 MG TABLET PO SCH (08:06)
[2019-03-28] MEDS: traMADol 50 MG TABLET PO PRN ×2 (08:12→20:32)
--- NOTE | 2019-03-28 14:29 | Internal Med Progress Note ---
Hospitalist Progress Note - Encounter Date of Encounter: 03/28/19 Time of Encounter: 09:45 - Subjective Interval History: Ms. Goodson is a 68 year old female with past medical history significant for CAD with stents 2, DVT, hyperlipidemia, hypertension, fibromyalgia, GERD, arthritis, cancer, kidney stones, seizures, migraine, anxiety, depression, panic disorder, and PTSD who presents for complaints of continued intermittent dizziness and lightheadedness feeling like she is going to pass out along with left-sided weakness which she has had since a syncopal episode on Sunday. Also continues to complain of headache with nausea and vomiting since syncopal episode as well. She was admitted in the hospital and placed on cardiac surgeon. When I di scharged her 2 days ago she was discharged home on holter monitor. She denied any LOC. She feels light headedness and dizzy. Her intracranial abnormality head CT did not show any acute intra cranial abnormality. Her Brain MRI from 03/24/19 - no acute CVA noticed. She denied any CP / SOB. She denied any more N/V/Diarrhea. No events over night. She did c.o head ache today - Exam Vitals: Temp Pulse Resp BP Pulse Ox 98.4 F 64 16 91/54 94 03/28/19 11:13 03/28/19 11:13 03/28/19 11:13 03/28/19 11:13 03/28/19 11:13 Exam: Gen: Alert, awake, Oriented to time,place and person.. Resolving bruise / petechiae over LLeft side of face from last fall Chest: Diminished breath sounds B/L, No wheezing, No crackles, No rales Heart: S1S2+ RRR No murmurs Abd: Soft, NT, BS +, No organomegaly Ext: No edema, pulses are palpable, No calf tenderness Neuro : No acute focal neuro deficits noticed chronic b/l LE weakness.. No loss of sensation Skin: No rash. - Assessment and Plan (1) Near syncope Current Visit: Yes Status: Acute Assessment and Plan: Mostly vaso vagal / Ortho static as well as due to severe deconditioning Cont on tele Initial trop < 0.03 All her CVA work up from 2 days ago - WNL Will check Daily ortho stats PT / OT eval done - recommend ECF for short term rehab SW / CM consulted (2) Headache Current Visit: Yes Status: Acute Assessment and Plan: Head CT with no acute intracranial abnormality. Has history of migraine. resumed home meds on tramadol PRN (3) Hypertension Current Visit: Yes Status: Chronic Assessment and Plan: Well controlled with current regimen continue home medications (4) Depression with anxiety Current Visit: Yes Status: Chronic Assessment and Plan: Continue home medications (5) Coronary artery disease Current Visit: No Status: Chronic Assessment and Plan: Continue current home medications had [facility] on 03/24/19 - Non obstructive CAD (6) GERD (gastroesophageal reflux disease) Current Visit: No Status: Chronic Assessment and Plan: on PPI (7) HLD (hyperlipidemia) Current Visit: No Status: Chronic Assessment and Plan: on Lipitor (8) Morbid obesity with BMI of 45.0-49.9, adult Current Visit: No Status: Chronic - Time Spent with Patient Total time spent is greater than 50% in coordination of care (as documented) at patient's floor/unit and/or counseling patient: Internal Medicine: Result - Labs CBC & Chem 7: 03/28/19 06:33 03/28/19 06:33 Labs: Short CBC 03/28/19 Range/Units 06:33 WBC 6.1 (4.3-11.1) K/mcL Hgb 10.9 L (11.5-15.4) g/dL Hct 35.2 L (35.3-44.9) % Plt Count 206 (140-400) K/mcL Neutrophils # 2.7 (1.6-8.9) K/mcL BMP 03/28/19 06:33 Sodium 141 Potassium 3.9 Chloride 109 H Carbon Dioxide 24 BUN 14 Creatinine 0.84 Glucose 111 H Calcium 8.7 - ABG Interpretation ABG results: PT/INR, D-dimer PT 11.8 Seconds (9.4-12.1) 03/27/19 01:45 Consult Discharge Plan - Plan Referrals: [facility] [Primary Care Provider] - (2) Headache Qualifiers: Qualified Code(s): G44.89 - Other headache syndrome (3) Hypertension Qualifiers: Hypertension type: unspecified Qualified Code(s): I10 - Essential (primary) hypertension (5) Coronary artery disease Qualifiers: Coronary Disease-Associated Artery/Lesion type: [place] artery [place] vs. transplanted heart: [place] heart Associated angina: angina presence unspecified Qualified Code(s): I25.10 - Atherosclerotic heart disease of [place] coronary artery without angina pectoris (6) GERD (gastroesophageal reflux disease) Qualifiers: Esophagitis presence: esophagitis presence not specified Qualified Code(s): K21.9 - Gastro-esophageal reflux disease without esophagitis (7) HLD (hyperlipidemia) Qualifiers: Hyperlipidemia type: mixed hyperlipidemia Qualified Code(s): E78.2 - Mixed hyperlipidemia
[2019-03-29] MEDS: *HR* Heparin 5,000 UNIT/ML VIAL SQ SCH ×2 (06:20→17:37)
[2019-03-29] MEDS: Cholecalciferol (D-3) 1,000 UNIT TABLET PO SCH (09:26)
[2019-03-29] MEDS: Gabapentin 300 MG CAPSULE PO SCH ×3 (09:26→20:23)
[2019-03-29] MEDS: traMADol 50 MG TABLET PO PRN ×2 (09:26→20:23)
[2019-03-29] MEDS: Aspirin Enteric Coated 81 MG Tablet PO SCH (09:26)
[2019-03-29] MEDS: Isosorbide MONOnitrate (24 HR) 60 MG TAB.ER.24H PO SCH (09:26)
[2019-03-29] MEDS: Metoprolol XL (24 HR) Succ 25 MG TAB.ER.24H PO SCH (09:26)
[2019-03-29] MEDS: BUSPIRONE HCL 10 MG TABLET PO SCH ×2 (09:26→20:23)
[2019-03-29] MEDS: Loratadine 10 MG TABLET PO SCH (09:27)
--- NOTE | 2019-03-29 09:42 | Internal Med Progress Note ---
Hospitalist Progress Note - Encounter Date of Encounter: 03/29/19 Time of Encounter: 09:40 - Subjective Interval History: PT seen and examined in the room No acute distress. - Exam Vitals: Temp Pulse Resp BP Pulse Ox 98.4 F 65 16 109/72 95 03/29/19 07:25 03/29/19 07:25 03/29/19 07:25 03/29/19 07:25 03/29/19 07:25 Exam: Gen: Alert, awake, Oriented to time,place and person.. Resolving bruise / petechiae over LLeft side of face from last fall Chest: Diminished breath sounds B/L, No wheezing, No crackles, No rales Heart: S1S2+ RRR No murmurs Abd: Soft, NT, BS +, No organomegaly Ext: No edema, pulses are palpable, No calf tenderness Neuro : No acute focal neuro deficits noticed chronic b/l LE weakness.. No loss of sensation Skin: No rash. - Assessment and Plan (1) Near syncope Current Visit: Yes Status: Acute Assessment and Plan: Mostly vaso vagal / Ortho static as well as due to severe deconditioning Cont on tele Initial trop < 0.03 All her CVA work up from 2 days ago - WNL Will check Daily ortho stats PT / OT eval done - recommend ECF for short term rehab SW / CM consulted (2) Coronary artery disease Current Visit: No Status: Chronic Assessment and Plan: Continue current home medications had [facility] on 03/24/19 - Non obstructive CAD (3) Morbid obesity with BMI of 45.0-49.9, adult Current Visit: No Status: Chronic Assessment and Plan: weight control discussed with patient. (4) HLD (hyperlipidemia) Current Visit: No Status: Chronic Assessment and Plan: on Lipitor (5) GERD (gastroesophageal reflux disease) Current Visit: No Status: Chronic Assessment and Plan: on PPI (6) Headache Current Visit: Yes Status: Acute Assessment and Plan: Head CT with no acute intracranial abnormality. Has history of migraine. resumed home meds on tramadol PRN (7) Hypertension Current Visit: Yes Status: Chronic Assessment and Plan: Well controlled with current regimen continue home medications (8) Depression with anxiety Current Visit: Yes Status: Chronic Assessment and Plan: Continue home medications DVT Prophylaxis: Heparin sq. - Time Spent with Patient Total time spent is greater than 50% in coordination of care (as documented) at patient's floor/unit and/or counseling patient: Greater than 35 minutes Plan of Care Discussed with: patient Internal Medicine: Result - Labs CBC & Chem 7: 03/28/19 06:33 03/28/19 06:33 - ABG Interpretation ABG results: PT/INR, D-dimer PT 11.8 Seconds (9.4-12.1) 03/27/19 01:45 Consult Discharge Plan - Plan Referrals: [facility] [Primary Care Provider] - (Unable to make follow up appointment due to office being closed. Please call Sunday to schedule hospital follow up appointment for 7-10 days from date of discharge. ) (2) Coronary artery disease Qualifiers: Coronary Disease-Associated Artery/Lesion type: [place] artery [place] vs. transplanted heart: [place] heart Associated angina: angina presence unspecified Qualified Code(s): I25.10 - Atherosclerotic heart disease of [place] coronary artery without angina pectoris (4) HLD (hyperlipidemia) Qualifiers: Hyperlipidemia type: mixed hyperlipidemia Qualified Code(s): E78.2 - Mixed hyperlipidemia (5) GERD (gastroesophageal reflux disease) Qualifiers: Esophagitis presence: esophagitis presence not specified Qualified Code(s): K21.9 - Gastro-esophageal reflux disease without esophagitis (6) Headache Qualifiers: Qualified Code(s): G44.89 - Other headache syndrome (7) Hypertension Qualifiers: Hypertension type: unspecified Qualified Code(s): I10 - Essential (primary) hypertension
[2019-03-29] MEDS: Ipratropium/Albuterol Neb 3 ML IH PRN ×2 (11:56→20:33)
[2019-03-30] MEDS: Ipratropium/Albuterol Neb 3 ML IH PRN ×2 (02:47→10:29)
[2019-03-30 03:12] LABS: Basophils % 0.5 %; Eosinophils # 0.2 K/mcL (0.0-0.6); Eosinophils % 2.4 %; Hematocrit 35.8 % (35.3-44.9); Hemoglobin 11.1 g/dL (11.5-15.4); Immature Granulocytes % 0.1 % (0-4); Lymphocytes # 2.9 K/mcL (0.6-4.6); Lymphocytes % 36.6 %; Mean Corpuscular Hemoglobin 28.3 pg (28.0-33.3); Mean Corpuscular Volume 91.3 fL (83.0-100.0); Mean Platelet Volume 10.1 fL (9.4-12.4); Monocytes # 0.6 K/mcL (0.0-1.3); Monocytes % 7.6 %; Neutrophils # 4.1 K/mcL (1.6-8.9); Platelet Count 222 K/mcL (140-400); Red Blood Count 3.92 M/mcL (3.82-4.97); Red Cell Distribution Width 13.4 % (11.5-14.5); Segmented Neutrophils % 52.8 %; White Blood Count 7.8 K/mcL (4.3-11.1)
[2019-03-30 03:32] LABS: BUN/Creatinine Ratio 19 (6-26); Blood Urea Nitrogen 16 mg/dL (8-23); Carbon Dioxide 26 mEq/L (23-29); Chloride 106 mEq/L (98-107); Glucose 110 mg/dL (70-105); Osmolality,Calculated 294 (280-300); Sodium 141 mEq/L (136-145); eGFR For African Americans > 60 (> 60); eGFR For Non-African Americans > 60 (> 60)
[2019-03-30] MEDS: *HR* Heparin 5,000 UNIT/ML VIAL SQ SCH (05:56)
[2019-03-30 07:47] VITALS: BP 113/72
--- NOTE | 2019-03-30 08:11 | Physician Discharge Referral ---
ExtendedCare Referral Info Provider in Charge after Transfer: Other Institutional Level of Care: Skilled - Diagnosis (1) Near syncope Priority: Primary Status: Acute (2) Coronary artery disease Priority: Secondary Status: Chronic (3) Morbid obesity with BMI of 45.0-49.9, adult Priority: Secondary Status: Chronic (4) HLD (hyperlipidemia) Priority: Secondary Status: Chronic (5) GERD (gastroesophageal reflux disease) Priority: Secondary Status: Chronic (6) Headache Priority: Primary Status: Acute (7) Hypertension Priority: Secondary Status: Chronic (8) Depression with anxiety Priority: Secondary Status: Chronic Prognosis: Fair Aware of Diagnosis: Patient Aware of Prognosis: Patient - Transfer Medications Home Medications: Cholecalciferol (D-3) [Vitamin D] 1,000 unit PO QAM 10/05/18 [History] Cetirizine HCl [24Hour Allergy] 10 mg PO QAM 12/25/18 [History] Atorvastatin Calcium [Lipitor] 40 mg PO HS #15 02/08/19 [Rx] Buspirone HCl [Buspar] 10 mg PO BID #60 tablet 02/08/19 [Rx] Clopidogrel [Plavix] 75 mg PO DAILY #30 tablet 02/08/19 [Rx] Escitalopram [Lexapro] 20 mg PO DAILY #30 tablet 02/08/19 [Rx] Isosorbide MONOnitrate (24 HR) [Imdur] 60 mg PO DAILY #30 tab.er.24h 02/08/19 [Rx] Magnesium Oxide [Magnesium] 400 mg PO BID #60 tablet 02/08/19 [Rx] Memantine [Namenda] 5 mg PO DAILY #30 tablet 02/08/19 [Rx] Nitroglycerin 0.4 mg SL Q5M PRN #25 tab.subl 02/08/19 [Rx] Acetaminophen w/Cod 300-30 mg [Tylenol w/Codeine #3] 1 tab PO Q4H PRN 03/23/19 [History] Gabapentin [Neurontin] 900 mg PO TID 03/23/19 [History] Aspirin [Adult Aspirin Regimen] 81 mg PO DAILY 03/25/19 [History] Metoprolol XL (24 HR) Succ [Toprol Xl] 25 mg PO DAILY 03/25/19 [History] Pantoprazole Sodium 40 mg PO QAM 03/25/19 [History] Allergies/Adverse Reactions: Allergy/AdvReac Type Severity Reaction Status Date / Time sumatriptan [From Imitrex] Allergy Swelling Verified 03/27/19 00:45 of Lip/Tongue/Throat venom-honey bee Allergy Swelling Verified 03/27/19 00:45 [bee venom (honey bee)] of Lip/Tongue/Throat morphine AdvReac Nausea Verified 03/27/19 00:45 - Respiratory Orders Smoking Cessation: Smoking cessation has been advised. For more information, call the [place] Tobacco Quit Line at 2-947-SCEK-NOW. - Advance Directives Code Status: Full Code CERTIFICATION: I certify that the transfer of the above named patient to an Extended Care Facility is necessary for the continuing treatment of the diagnosis listed. The above information is true and accurate reflection of patient's current condition. Confidential - Redisclosure prohibited without a patient's written consent.
--- NOTE | 2019-03-30 08:13 | Discharge Summary ---
- NOTES TO OUTPATIENT PROVIDER Notes to Outpatient Provider: f/u with PCP within a month. Orders not resulted at time of discharge: Pending orders 03/27/19 01:17 ECG 12 lead ECG [ECG] Stat Date of Encounter: 03/30/19 Time of Encounter: 08:11 - Discharge Diagnosis (1) Near syncope Priority: Primary Status: Acute (2) Coronary artery disease Priority: Secondary Status: Chronic Qualifiers: Coronary Disease-Associated Artery/Lesion type: [place] artery [place] vs. transplanted heart: [place] heart Associated angina: angina presence unspecified Qualified Code(s): I25.10 - Atherosclerotic heart disease of [place] coronary artery without angina pectoris (3) Morbid obesity with BMI of 45.0-49.9, adult Priority: Secondary Status: Chronic (4) HLD (hyperlipidemia) Priority: Secondary Status: Chronic Qualifiers: Hyperlipidemia type: mixed hyperlipidemia Qualified Code(s): E78.2 - Mixed hyperlipidemia (5) GERD (gastroesophageal reflux disease) Priority: Secondary Status: Chronic Qualifiers: Esophagitis presence: esophagitis presence not specified Qualified Code(s): K21.9 - Gastro-esophageal reflux disease without esophagitis (6) Headache Priority: Primary Status: Acute Qualifiers: Qualified Code(s): G44.89 - Other headache syndrome (7) Hypertension Priority: Secondary Status: Chronic Qualifiers: Hypertension type: unspecified Qualified Code(s): I10 - Essential (primary) hypertension (8) Depression with anxiety Priority: Secondary Status: Chronic Hospital course: Ms. Goodson is a 68 year old female with past medical history significant for CAD with stents 2, DVT, hyperlipidemia, hypertension, fibromyalgia, GERD, arthritis, cancer, kidney stones, seizures, migraine, anxiety, depression, panic disorder, and PTSD who presents for complaints of continued intermittent dizziness and lightheadedness feeling like she is going to pass out along with left-sided weakness which she has had since a syncopal episode on Sunday. Al so continues to complain of headache with nausea and vomiting since syncopal episode as well. Reports symptoms are worse with positional changes. Currently denies any numbness, tingling, chest pain, shortness of breath, abdominal pain, nausea, bowel or bladder changes. Patient was admitted for the same along with complaints of chest pain on Sunday03/23/19 and recently discharged on 03/25/19. During that admission patient had a CT of her face, head, and cervical spine which showed no acute intracranial abnormality, no acute traumatic injury of the facial bones, and mild to moderate degenerative changes of the cervical spine without acute fracture or traumatic malalignment. Patient also had a brain MRI which showed no acute intracranial abnormality or mass lesion. Had an echocardiogram completed during admission showing a 55% EF. Also underwent a cardiac catheterization which showed triple vessel coronary artery disease, previously stented RCA and LAD patent, with normal left ventricle and normal contractility with EF of 55%. Upon discharge cardiology recommended 4 week event monitor which patient has been wearing. ER reported EKG as sinus rhythm with first-degree AV block and no acute ST elevation or depression. ER also obtained a chest x-ray which showed no acute disease. ER also obtained a head CT which showed no acute intracranial abnormality. ER will also obtain a CTA of the head and neck prior to leaving ER. Further tests failed to reveal any organic/structural abnormalities. PT/OT recommended rehab. She is discharged to [facility] for rehab. F/u with PCP within a [place] [facility]. Discharge discussed with: patient Time spent discussing smoking cessation with patient: more than 10 minutes - Time Spent with Patient Total time spent providing and/or coordinating discharge services: Time spent: Greater than 30 minutes - Discharge Medications Prescriptions: Continued Cholecalciferol (D-3) [Vitamin D] 1,000 unit PO QAM Cetirizine HCl [24Hour Allergy] 10 mg PO QAM Gabapentin [Neurontin] 900 mg PO TID Acetaminophen w/Cod 300-30 mg [Tylenol w/Codeine #3] 1 tab PO Q4H PRN PRN Reason: Pain Aspirin [Adult Aspirin Regimen] 81 mg PO DAILY Metoprolol XL (24 HR) Succ [Toprol Xl] 25 mg PO DAILY Pantoprazole Sodium 40 mg PO QAM Isosorbide MONOnitrate (24 HR) [Imdur] 60 mg PO DAILY #30 tab.er.24h Memantine [Namenda] 5 mg PO DAILY #30 tablet Buspirone HCl [Buspar] 10 mg PO BID #60 tablet Escitalopram [Lexapro] 20 mg PO DAILY #30 tablet Atorvastatin Calcium [Lipitor] 40 mg PO HS #15 Magnesium Oxide [Magnesium] 400 mg PO BID #60 tablet Nitroglycerin 0.4 mg SL Q5M PRN #25 tab.subl PRN Reason: Chest Pain Clopidogrel [Plavix] 75 mg PO DAILY #30 tablet Home Medications: Cholecalciferol (D-3) [Vitamin D] 1,000 unit PO QAM 10/05/18 [History] Cetirizine HCl [24Hour Allergy] 10 mg PO QAM 12/25/18 [History] Atorvastatin Calcium [Lipitor] 40 mg PO HS #15 02/08/19 [Rx] Buspirone HCl [Buspar] 10 mg PO BID #60 tablet 02/08/19 [Rx] Clopidogrel [Plavix] 75 mg PO DAILY #30 tablet 02/08/19 [Rx] Escitalopram [Lexapro] 20 mg PO DAILY #30 tablet 02/08/19 [Rx] Isosorbide MONOnitrate (24 HR) [Imdur] 60 mg PO DAILY #30 tab.er.24h 02/08/19 [Rx] Magnesium Oxide [Magnesium] 400 mg PO BID #60 tablet 02/08/19 [Rx] Memantine [Namenda] 5 mg PO DAILY #30 tablet 02/08/19 [Rx] Nitroglycerin 0.4 mg SL Q5M PRN #25 tab.subl 02/08/19 [Rx] Acetaminophen w/Cod 300-30 mg [Tylenol w/Codeine #3] 1 tab PO Q4H PRN 03/23/19 [History] Gabapentin [Neurontin] 900 mg PO TID 03/23/19 [History] Aspirin [Adult Aspirin Regimen] 81 mg PO DAILY 03/25/19 [History] Metoprolol XL (24 HR) Succ [Toprol Xl] 25 mg PO DAILY 03/25/19 [History] Pantoprazole Sodium 40 mg PO QAM 03/25/19 [History] Allergies/Adverse Reactions: Allergy/AdvReac Type Severity Reaction Status Date / Time sumatriptan [From Imitrex] Allergy Swelling Verified 03/27/19 00:45 of Lip/Tongue/Throat venom-honey bee Allergy Swelling Verified 03/27/19 00:45 [bee venom (honey bee)] of Lip/Tongue/Throat morphine AdvReac Nausea Verified 03/27/19 00:45 Date of admission: 03/27/19 16:18 [facility] care physician[facility] Consults: 03/27/19 05:19 Consult to Occupational Therapy [CONS] Routine Comment: Evaluate, develop and implement POC Reason for Consult: Left sided weakness. Please evaluate and treat. Does patient have active BEDREST order?: No Is patient medically & hemodynamically stable?: Yes Consult to Physical Therapy [CONS] Routine Comment: Evaluate, develop and implement POC Reason for Consult: Left sided weakness. Please evaluate and treat. Does patient have active BEDREST order?: No Is patient medically & hemodynamically stable?: Yes 03/28/19 08:53 Consult to Political Science Chair [CONS] Routine Reason for SW Consult: PT/OT RECOMMEND SNF Anticipated date of discharge: 03/30/19 - Constitutional Vitals: Temp Pulse Resp BP Pulse Ox 98.1 F 76 16 113/72 93 03/30/19 07:42 03/30/19 07:42 03/30/19 07:42 03/30/19 07:42 03/30/19 07:42 General appearance: Present: A&O X 3 Exam: Gen: Alert, awake, Oriented to time,place and person.. Resolving bruise / petechiae over LLeft side of face from last fall Chest: Diminished breath sounds B/L, No wheezing, No crackles, No rales Heart: S1S2+ RRR No murmurs Abd: Soft, NT, BS +, No organomegaly Ext: No edema, pulses are palpable, No calf tenderness Neuro : No acute focal neuro deficits noticed chronic b/l LE weakness.. No loss of sensation Skin: No rash. - Patient Status Disposition: Transfer SNF Condition: Fair Functional capacity at discharge: uses cane/walker Overall status at discharge: patient is progressing back to baseline - Discharge Instructions [facility] Up With: [facility] [Primary Care Provider[facility] - (Unable to make follow up appointment due to office being closed. Please call Sunday to schedule hospital follow up appointment for 7-10 days from date of discharge. ) - Diet and Activity Activity: increase activity as tolerated Diet: low fat, low cholesterol, low salt diet
[2019-03-30] MEDS: Loratadine 10 MG TABLET PO SCH (09:47)
[2019-03-30] MEDS: Isosorbide MONOnitrate (24 HR) 60 MG TAB.ER.24H PO SCH (09:47)
[2019-03-30] MEDS: BUSPIRONE HCL 10 MG TABLET PO SCH (09:47)
[2019-03-30] MEDS: Aspirin Enteric Coated 81 MG Tablet PO SCH (09:47)
[2019-03-30] MEDS: Cholecalciferol (D-3) 1,000 UNIT TABLET PO SCH (09:47)
[2019-03-30] MEDS: Metoprolol XL (24 HR) Succ 25 MG TAB.ER.24H PO SCH (09:47)
[2019-03-30] MEDS: Gabapentin 300 MG CAPSULE PO SCH (09:47)
[2019-03-30] MEDS: traMADol 50 MG TABLET PO PRN (10:20)
== END 2019-03-30 10:46 | DRG 57 ==
LOC: 3BNU 00:29 → EMEROOARM 00:29 → SUATTDRO 05:32 → 3BNU 08:00
PROVIDERS: ADMIT Internal Medicine; ATTEND Family Medicine

== ENCOUNTER 2019-10-21 18:22 | Inpatient (IN) ==
[2019-10-21] MEDS ORDERED: Nitroglycerin 0.4 MG TAB.SUBL SL PRN (18:44)
[2019-10-21] MEDS ORDERED: Aspirin 81 MG TAB.CHEW PO ONE (18:44)
[2019-10-21 20:09] LABS: INR 1.1; Prothrombin Time 12.7 Seconds (9.4-12.1)
[2019-10-21 20:12] LABS: Activated Partial Thrombo Time 43.2 Seconds (26.0-36.0)
[2019-10-21 20:36] LABS: Basophils % 0.4 %; Eosinophils # 0.1 K/mcL (0.0-0.6); Eosinophils % 1.3 %; Hematocrit 36.9 % (35.3-44.9); Hemoglobin 11.9 g/dL (11.5-15.4); Immature Granulocytes % 0.3 % (0-4); Lymphocytes # 2.8 K/mcL (0.6-4.6); Lymphocytes % 35.5 %; Mean Corpuscular HGB Conc 32.2 g/dL (31.6-35.5); Mean Corpuscular Hemoglobin 28.7 pg (28.0-33.3); Mean Corpuscular Volume 88.9 fL (83.0-100.0); Mean Platelet Volume 10.6 fL (9.4-12.4); Monocytes # 0.6 K/mcL (0.0-1.3); Monocytes % 7.8 %; Neutrophils # 4.3 K/mcL (1.6-8.9); Platelet Count 246 K/mcL (140-400); Red Blood Count 4.15 M/mcL (3.82-4.97); Red Cell Distribution Width 13.9 % (11.5-14.5); Segmented Neutrophils % 54.7 %; White Blood Count 7.9 K/mcL (4.3-11.1)
[2019-10-21 20:51] LABS: BUN/Creatinine Ratio 13 (6-26); Blood Urea Nitrogen 9 mg/dL (8-23); Calcium 8.9 mg/dL (8.6-10.3); Carbon Dioxide 23 mEq/L (23-29); Chloride 104 mEq/L (98-107); Glucose 100 mg/dL (70-105); Osmolality,Calculated 289 (280-300); Potassium 3.4 mEq/L (3.5-5.1); Sodium 140 mEq/L (136-145); Troponin I < 0.03 ng/mL (< 0.04); eGFR For African Americans > 60 (> 60); eGFR For Non-African Americans > 60 (> 60)
[2019-10-22] MEDS ORDERED: Naloxone 0.4 MG/ML INJ IVP PRN (03:29)
[2019-10-22] MEDS: Acetaminophen 325 MG TABLET PO PRN (04:27)
[2019-10-22] MEDS: *HR* Heparin 5,000 UNIT/ML VIAL SQ SCH ×2 (05:43→17:22)
[2019-10-22 06:47] LABS: Hematocrit 36.3 % (35.3-44.9); Hemoglobin 11.9 g/dL (11.5-15.4); Mean Corpuscular HGB Conc 32.8 g/dL (31.6-35.5); Mean Corpuscular Hemoglobin 28.2 pg (28.0-33.3); Mean Platelet Volume 10.1 fL (9.4-12.4); Platelet Count 232 K/mcL (140-400); Red Blood Count 4.22 M/mcL (3.82-4.97); Red Cell Distribution Width 14.1 % (11.5-14.5); White Blood Count 5.7 K/mcL (4.3-11.1)
[2019-10-22 07:15] LABS: BUN/Creatinine Ratio 13 (6-26); Blood Urea Nitrogen 9 mg/dL (8-23); Calcium 8.8 mg/dL (8.6-10.3); Carbon Dioxide 27 mEq/L (23-29); Chloride 104 mEq/L (98-107); Glucose 95 mg/dL (70-105); Osmolality,Calculated 288 (280-300); Potassium 3.8 mEq/L (3.5-5.1); Sodium 140 mEq/L (136-145); Troponin I < 0.03 ng/mL (< 0.04); eGFR For African Americans > 60 (> 60); eGFR For Non-African Americans > 60 (> 60)
[2019-10-22] MEDS ORDERED: Regadenoson 0.4 MG/5 ML SYRINGE IVP ONE (08:26)
[2019-10-22] MEDS: Budesonide/Formoterol 160/4.5 1 PUFF INH IH SCH ×2 (08:58→20:03)
[2019-10-22] MEDS ORDERED: Acetaminophen 325 MG TABLET PO PRN (11:52)
[2019-10-22] MEDS: Bumetanide 1 MG TABLET PO SCH (12:00)
[2019-10-22] MEDS: Isosorbide MONOnitrate (24 HR) 60 MG TAB.ER.24H PO SCH (12:00)
[2019-10-22] MEDS: Metoprolol XL (24 HR) Succ 25 MG TAB.ER.24H PO SCH (12:00)
[2019-10-22] MEDS ORDERED: Isosorbide MONOnitrate (24 HR) 60 MG TAB.ER.24H PO SCH (15:00)
[2019-10-22] MEDS ORDERED: Metoprolol XL (24 HR) Succ 25 MG TAB.ER.24H PO SCH (15:00)
[2019-10-22] MEDS: Gabapentin 300 MG CAPSULE PO SCH ×2 (15:34→21:28)
[2019-10-22] MEDS ORDERED: Perflutren Lipid Microsphere 1.3 ML in 0.9 % Sodium Chloride 8.7 ML IVP ONE (15:42)
[2019-10-22] MEDS: Magnesium Oxide 400 MG TABLET PO SCH (21:29)
[2019-10-23] MEDS: *HR* Heparin 5,000 UNIT/ML VIAL SQ SCH ×2 (06:07→18:44)
[2019-10-23] MEDS: Ascorbic Acid 500 MG TABLET PO SCH (06:07)
[2019-10-23 06:50] LABS: Hematocrit 35.8 % (35.3-44.9); Hemoglobin 11.6 g/dL (11.5-15.4); Mean Corpuscular HGB Conc 32.4 g/dL (31.6-35.5); Mean Corpuscular Hemoglobin 28.6 pg (28.0-33.3); Mean Corpuscular Volume 88.2 fL (83.0-100.0); Mean Platelet Volume 10.7 fL (9.4-12.4); Platelet Count 244 K/mcL (140-400); Red Blood Count 4.06 M/mcL (3.82-4.97); Red Cell Distribution Width 14.1 % (11.5-14.5); White Blood Count 7.7 K/mcL (4.3-11.1)
[2019-10-23 07:14] LABS: Potassium 4.1 mEq/L (3.5-5.1)
[2019-10-23] MEDS: Budesonide/Formoterol 160/4.5 1 PUFF INH IH SCH ×2 (07:31→19:41)
[2019-10-23] MEDS ORDERED: *HR* Promethazine 25 MG/ML VIAL IVP ONE (07:58)
[2019-10-23] MEDS: Magnesium Oxide 400 MG TABLET PO SCH ×2 (07:59→19:57)
[2019-10-23] MEDS: *HR* LORazepam 0.5 MG TABLET PO PRN (08:00)
[2019-10-23] MEDS: Metoprolol XL (24 HR) Succ 25 MG TAB.ER.24H PO SCH (08:01)
[2019-10-23] MEDS: Acetaminophen 325 MG TABLET PO PRN ×3 (08:01→19:57)
[2019-10-23] MEDS: Bumetanide 1 MG TABLET PO SCH (08:01)
[2019-10-23] MEDS: Isosorbide MONOnitrate (24 HR) 60 MG TAB.ER.24H PO SCH (08:01)
[2019-10-23] MEDS: Gabapentin 300 MG CAPSULE PO SCH ×3 (08:02→19:57)
[2019-10-23] MEDS ORDERED: Ibuprofen 400 MG TABLET PO ONE (08:10)
[2019-10-23] MEDS: Isosorbide MONOnitrate (24 HR) 30 MG TAB.ER.24H PO SCH (09:26)
[2019-10-23] MEDS: Ondansetron 4 MG/2 ML VIAL IVP PRN (16:07)
[2019-10-24] MEDS: Ascorbic Acid 500 MG TABLET PO SCH (05:55)
[2019-10-24] MEDS: *HR* Heparin 5,000 UNIT/ML VIAL SQ SCH ×2 (05:55→17:38)
[2019-10-24] MEDS: Ondansetron 4 MG/2 ML VIAL IVP PRN ×2 (06:04→15:15)
[2019-10-24] MEDS: Acetaminophen 325 MG TABLET PO PRN (07:00)
[2019-10-24] MEDS: Budesonide/Formoterol 160/4.5 1 PUFF INH IH SCH ×2 (07:35→19:44)
[2019-10-24] MEDS: Magnesium Oxide 400 MG TABLET PO SCH ×2 (11:28→20:12)
[2019-10-24] MEDS: Isosorbide MONOnitrate (24 HR) 30 MG TAB.ER.24H PO SCH (11:28)
[2019-10-24] MEDS: Metoprolol XL (24 HR) Succ 50 MG TAB.ER.24H PO SCH (11:29)
[2019-10-24] MEDS: Gabapentin 300 MG CAPSULE PO SCH ×3 (11:29→20:13)
[2019-10-24] MEDS: *HR* Acetaminophen w/Cod 300-30 mg 1 TAB TABLET PO PRN (11:29)
[2019-10-24] MEDS: Bumetanide 1 MG TABLET PO SCH (11:29)
[2019-10-24 15:54] LABS: Calcium 8.6 mg/dL (8.6-10.3); Potassium 3.8 mEq/L (3.5-5.1)
[2019-10-24] MEDS ORDERED: Ringers Solution, Lactated 1,000 ML IVC SCH (16:15)
[2019-10-24] MEDS ORDERED: Acetaminophen/Aspirin/Caffeine TABLET PO PRN (17:00)
[2019-10-25] MEDS: *HR* Acetaminophen w/Cod 300-30 mg 1 TAB TABLET PO PRN ×2 (03:54→23:18)
[2019-10-25] MEDS: Ondansetron 4 MG/2 ML VIAL IVP PRN ×2 (03:54→21:13)
[2019-10-25] MEDS: Nystatin POWDER 30 GM BOTTLE TP SCH ×3 (04:03→21:13)
[2019-10-25] MEDS: Ascorbic Acid 500 MG TABLET PO SCH (05:57)
[2019-10-25] MEDS: *HR* Heparin 5,000 UNIT/ML VIAL SQ SCH ×2 (05:57→16:43)
[2019-10-25] MEDS: Budesonide/Formoterol 160/4.5 1 PUFF INH IH SCH ×2 (07:56→20:15)
[2019-10-25] MEDS: Gabapentin 300 MG CAPSULE PO SCH ×3 (08:28→21:13)
[2019-10-25] MEDS: Isosorbide MONOnitrate (24 HR) 30 MG TAB.ER.24H PO SCH (08:28)
[2019-10-25] MEDS: Metoprolol XL (24 HR) Succ 50 MG TAB.ER.24H PO SCH (08:28)
[2019-10-25] MEDS: Magnesium Oxide 400 MG TABLET PO SCH ×2 (08:28→21:13)
[2019-10-25 09:01] LABS: Calcium 8.4 mg/dL (8.6-10.3); Potassium 4.2 mEq/L (3.5-5.1)
[2019-10-25] MEDS ORDERED: methylPREDNISolone 125 MG/2 ML VIAL IVP ONE (11:02)
[2019-10-25] MEDS ORDERED: *HR* Promethazine 25 MG/ML VIAL IVP ONE (11:03)
[2019-10-25] MEDS ORDERED: Ringers Solution, Lactated 1,000 ML IVC ONE (13:31)
[2019-10-25] MEDS: *HR* LORazepam 0.5 MG TABLET PO PRN (21:13)
[2019-10-26] MEDS ORDERED: *HR* Promethazine 25 MG/ML VIAL IVP ONE (00:20)
[2019-10-26] MEDS: Ascorbic Acid 500 MG TABLET PO SCH (05:31)
[2019-10-26] MEDS: *HR* Heparin 5,000 UNIT/ML VIAL SQ SCH (05:31)
[2019-10-26 06:29] LABS: BUN/Creatinine Ratio 21 (6-26); Blood Urea Nitrogen 21 mg/dL (8-23); Calcium 8.9 mg/dL (8.6-10.3); Carbon Dioxide 25 mEq/L (23-29); Chloride 109 mEq/L (98-107); Glucose 153 mg/dL (70-105); Osmolality,Calculated 300 (280-300); Potassium 4.4 mEq/L (3.5-5.1); Sodium 142 mEq/L (136-145); eGFR For African Americans > 60 (> 60); eGFR For Non-African Americans 56 (> 60)
[2019-10-26] MEDS: Budesonide/Formoterol 160/4.5 1 PUFF INH IH SCH (08:18)
[2019-10-26] MEDS: Metoprolol XL (24 HR) Succ 50 MG TAB.ER.24H PO SCH (09:30)
[2019-10-26] MEDS: Gabapentin 300 MG CAPSULE PO SCH (09:30)
[2019-10-26] MEDS: Isosorbide MONOnitrate (24 HR) 30 MG TAB.ER.24H PO SCH (09:30)
[2019-10-26] MEDS: Magnesium Oxide 400 MG TABLET PO SCH (09:30)
[2019-10-26] MEDS: *HR* Acetaminophen w/Cod 300-30 mg 1 TAB TABLET PO PRN (09:34)
[2019-10-26] MEDS: Nystatin POWDER 30 GM BOTTLE TP SCH (09:43)
[2019-10-26 12:25] VITALS: BP 141/87
[2019-10-26] MEDS: Ondansetron 4 MG/2 ML VIAL IVP PRN (14:23)
[2019-10-27 10:21] LABS: Estimated Average Glucose 111 mg/dl
== END 2019-10-26 16:19 | DRG 302 ==
LOC: EMEROOARM 18:22 → CDU 18:22 → SUATTDRO 21:33 → CDU 22:45 → 3BNU 10-22 14:28
PROVIDERS: ADMIT Family Medicine; ATTEND Internal Medicine

== ENCOUNTER 2020-03-16 22:43 | Inpatient (IN) ==
[2020-03-16 23:30] LABS: Basophils % 0.6 %; Eosinophils # 0.1 K/mcL (0.0-0.6); Eosinophils % 1.9 %; Hematocrit 37.3 % (35.3-44.9); Hemoglobin 11.6 g/dL (11.5-15.4); Immature Granulocytes % 0.6 % (0-4); Lymphocytes # 2.3 K/mcL (0.6-4.6); Lymphocytes % 34.1 %; Mean Corpuscular HGB Conc 31.1 g/dL (31.6-35.5); Mean Corpuscular Hemoglobin 27.9 pg (28.0-33.3); Mean Corpuscular Volume 89.7 fL (83.0-100.0); Monocytes # 0.6 K/mcL (0.0-1.3); Monocytes % 8.1 %; Neutrophils # 3.7 K/mcL (1.6-8.9); Platelet Count 240 K/mcL (140-400); Red Blood Count 4.16 M/mcL (3.82-4.97); Red Cell Distribution Width 12.8 % (11.5-14.5); Segmented Neutrophils % 54.7 %; White Blood Count 6.8 K/mcL (4.3-11.1)
[2020-03-16] MEDS: Nitroglycerin 0.4 MG TAB.SUBL SL PRN ×3 (23:37→23:57)
[2020-03-16 23:50] LABS: BUN/Creatinine Ratio 21 (6-26); Blood Urea Nitrogen 19 mg/dL (8-23); Calcium 9.2 mg/dL (8.6-10.3); Carbon Dioxide 26 mEq/L (23-29); Chloride 107 mEq/L (98-107); Glucose 96 mg/dL (70-105); Osmolality,Calculated 296 (280-300); Potassium 3.6 mEq/L (3.5-5.1); Sodium 142 mEq/L (136-145); eGFR For African Americans > 60 (> 60); eGFR For Non-African Americans > 60 (> 60)
[2020-03-16 23:51] LABS: Troponin I < 0.03 ng/mL (< 0.04)
[2020-03-16] MEDS ORDERED: Isovue-370 500 ML BOTTLE IVP ONE (23:52)
[2020-03-17] MEDS ORDERED: Aspirin 81 MG TAB.CHEW PO STA (01:06)
[2020-03-17] MEDS ORDERED: Ondansetron 4 MG/2 ML VIAL IVP PRN (03:15)
[2020-03-17] MEDS ORDERED: Naloxone 0.4 MG/ML INJ IVP PRN (03:15)
[2020-03-17 05:02] LABS: INR 1.1
[2020-03-17 05:16] LABS: BUN/Creatinine Ratio 20 (6-26); Blood Urea Nitrogen 18 mg/dL (8-23); Calcium 8.8 mg/dL (8.6-10.3); Carbon Dioxide 24 mEq/L (23-29); Chloride 108 mEq/L (98-107); Chol/HDL Ratio 3.2 (0-4.9); Cholesterol 145 mg/dL (< 200); Glucose 85 mg/dL (70-105); HDL Cholesterol 45 mg/dL (40-59); LDL Cholesterol,Calculated 83 mg/dL (0-99); Magnesium 1.7 mg/dL (1.6-2.6); Osmolality,Calculated 291 (280-300); Phosphorous 3.2 mg/dL (2.7-4.5); Potassium 3.5 mEq/L (3.5-5.1); Sodium 140 mEq/L (136-145); Triglycerides 83 mg/dL (< 150); eGFR For African Americans > 60 (> 60); eGFR For Non-African Americans > 60 (> 60)
[2020-03-17] MEDS: *HR* Heparin 5,000 UNIT/ML VIAL SQ SCH ×3 (05:38→20:46)
[2020-03-17 06:25] LABS: Hematocrit 33.3 % (35.3-44.9); Hemoglobin 10.7 g/dL (11.5-15.4); Mean Corpuscular HGB Conc 32.1 g/dL (31.6-35.5); Mean Corpuscular Hemoglobin 28.8 pg (28.0-33.3); Mean Corpuscular Volume 89.5 fL (83.0-100.0); Mean Platelet Volume 10.2 fL (9.4-12.4); Platelet Count 214 K/mcL (140-400); Red Blood Count 3.72 M/mcL (3.82-4.97); White Blood Count 6.3 K/mcL (4.3-11.1)
[2020-03-17] MEDS ORDERED: Furosemide 20 MG/2 ML VIAL IVP SCH (09:00)
[2020-03-17] MEDS: Budesonide/Formoterol 160/4.5 1 PUFF INH IH SCH ×2 (13:00→20:18)
[2020-03-17] MEDS: Gabapentin 300 MG CAPSULE PO SCH ×2 (13:19→20:46)
[2020-03-17] MEDS: Metoprolol XL (24 HR) Succ 50 MG TAB.ER.24H PO SCH (20:46)
[2020-03-17] MEDS: traZODone 50 MG TABLET PO SCH (20:48)
[2020-03-18] MEDS: *HR* Heparin 5,000 UNIT/ML VIAL SQ SCH ×3 (05:16→20:12)
[2020-03-18] MEDS: Budesonide/Formoterol 160/4.5 1 PUFF INH IH SCH ×2 (07:53→21:27)
[2020-03-18] MEDS: Gabapentin 300 MG CAPSULE PO SCH ×3 (11:49→20:12)
[2020-03-18] MEDS: Aspirin Enteric Coated 81 MG Tablet PO SCH (11:49)
[2020-03-18] MEDS: traZODone 50 MG TABLET PO SCH (20:12)
[2020-03-18] MEDS: Metoprolol XL (24 HR) Succ 50 MG TAB.ER.24H PO SCH (20:15)
[2020-03-18] MEDS ORDERED: Acetaminophen 325 MG TABLET PO ONE (20:15)
[2020-03-18] MEDS: Ipratropium/Albuterol Neb 3 ML IH PRN (23:57)
[2020-03-19] MEDS: *HR* Heparin 5,000 UNIT/ML VIAL SQ SCH ×3 (05:29→21:23)
[2020-03-19] MEDS: Gabapentin 300 MG CAPSULE PO SCH ×3 (09:09→21:23)
[2020-03-19] MEDS: Aspirin Enteric Coated 81 MG Tablet PO SCH (09:09)
[2020-03-19] MEDS: Budesonide/Formoterol 160/4.5 1 PUFF INH IH SCH ×2 (10:20→20:35)
[2020-03-19] MEDS ORDERED: Acetaminophen 325 MG TABLET PO PRN (10:25)
[2020-03-19] MEDS ORDERED: Ringers Solution, Lactated 1,000 ML IVC ONE (15:07)
[2020-03-19] MEDS: traZODone 50 MG TABLET PO SCH (21:23)
[2020-03-19] MEDS: Metoprolol XL (24 HR) Succ 50 MG TAB.ER.24H PO SCH (21:23)
[2020-03-20 05:14] LABS: Hematocrit 34.4 % (35.3-44.9); Hemoglobin 10.5 g/dL (11.5-15.4); Mean Corpuscular HGB Conc 30.5 g/dL (31.6-35.5); Mean Corpuscular Hemoglobin 28.3 pg (28.0-33.3); Mean Corpuscular Volume 92.7 fL (83.0-100.0); Platelet Count 207 K/mcL (140-400); Red Blood Count 3.71 M/mcL (3.82-4.97); Red Cell Distribution Width 13.2 % (11.5-14.5); White Blood Count 6.5 K/mcL (4.3-11.1)
[2020-03-20 05:30] LABS: BUN/Creatinine Ratio 24 (6-26); Blood Urea Nitrogen 21 mg/dL (8-23); Calcium 8.1 mg/dL (8.6-10.3); Carbon Dioxide 26 mEq/L (23-29); Chloride 113 mEq/L (98-107); Glucose 117 mg/dL (70-105); Osmolality,Calculated 304 (280-300); Potassium 3.7 mEq/L (3.5-5.1); Sodium 145 mEq/L (136-145); eGFR For African Americans > 60 (> 60); eGFR For Non-African Americans > 60 (> 60)
[2020-03-20] MEDS: *HR* Heparin 5,000 UNIT/ML VIAL SQ SCH ×3 (05:42→20:13)
[2020-03-20] MEDS: Gabapentin 300 MG CAPSULE PO SCH ×3 (07:23→20:14)
[2020-03-20] MEDS: Aspirin Enteric Coated 81 MG Tablet PO SCH (07:24)
[2020-03-20] MEDS: Budesonide/Formoterol 160/4.5 1 PUFF INH IH SCH ×2 (07:53→21:36)
[2020-03-20] MEDS ORDERED: Ringers Solution, Lactated 500 ML IVC ONE (11:19)
[2020-03-20] MEDS: Metoprolol XL (24 HR) Succ 50 MG TAB.ER.24H PO SCH (20:14)
[2020-03-20] MEDS: traZODone 50 MG TABLET PO SCH (20:14)
[2020-03-20 20:16] LABS: Bilirubin,Urine Negative (Negative); Blood,Urine Negative (Negative); Clarity,Urine Cloudy (Clear); Color,Urine Yellow (Yellow); Glucose,Urine (UA) Normal (Normal); Ketones,Urine Negative (Negative); Leukocyte Esterase,Urine Large (Negative); Nitrite,Urine Positive (Negative); Protein,Urine Negative (Neg-Trace); Specific Gravity,Urine 1.016 (1.010-1.025); Urobilinogen,Urine Normal (Normal)
[2020-03-20 20:19] LABS: Bacteria,Urine Many per hpf (None-Few); Hyaline Casts,Urine None Seen per lpf (None-Few); RBC,Urine 0-3 per hpf (0-3); Squamous Epithelial Cell,Urine Many per lpf (None-Few); WBC,Urine 15-30 per hpf (0-3)
[2020-03-20] MEDS: Ipratropium/Albuterol Neb 3 ML IH PRN (21:36)
[2020-03-21] MEDS: *HR* Heparin 5,000 UNIT/ML VIAL SQ SCH ×3 (05:25→20:39)
[2020-03-21] MEDS: Budesonide/Formoterol 160/4.5 1 PUFF INH IH SCH ×2 (07:33→19:39)
[2020-03-21] MEDS: Gabapentin 300 MG CAPSULE PO SCH ×3 (08:45→20:34)
[2020-03-21] MEDS: Aspirin Enteric Coated 81 MG Tablet PO SCH (08:45)
[2020-03-21] MEDS: Ertapenem 1,000 MG in 0.9 % Sodium Chloride Mini Bag 100 ML IVPB SCH (11:00)
[2020-03-21] MEDS: Metoprolol XL (24 HR) Succ 50 MG TAB.ER.24H PO SCH (20:33)
[2020-03-21] MEDS: traZODone 50 MG TABLET PO SCH (20:34)
[2020-03-22] MEDS: *HR* Heparin 5,000 UNIT/ML VIAL SQ SCH ×2 (05:00→14:52)
[2020-03-22] MEDS: Gabapentin 300 MG CAPSULE PO SCH ×2 (09:47→14:53)
[2020-03-22] MEDS: Ertapenem 1,000 MG in 0.9 % Sodium Chloride Mini Bag 100 ML IVPB SCH (09:48)
[2020-03-22] MEDS: Aspirin Enteric Coated 81 MG Tablet PO SCH (09:48)
[2020-03-22] MEDS: Budesonide/Formoterol 160/4.5 1 PUFF INH IH SCH (11:18)
[2020-03-22 14:13] VITALS: BP 108/61
== END 2020-03-22 17:21 | disposition home health service (06) | DRG 866 ==
LOC: EMEROOARM 22:43 → 3BNU 22:43 → 2NENU 03-17 01:41 → 3ANU 03-18 19:26 → SUATTDRO 03-19 21:58
PROVIDERS: ADMIT Student in an Organized Health Care Education/Training Program; ATTEND Internal Medicine

== ENCOUNTER 2020-03-30 01:41 | Observation (INO) ==
[2020-03-30] MEDS ORDERED: Nitroglycerin 0.4 MG TAB.SUBL SL PRN ×2 (01:43→09:56)
[2020-03-30] MEDS ORDERED: Aspirin 81 MG TAB.CHEW PO ONE (01:43)
[2020-03-30 02:36] LABS: INR 1.2; Prothrombin Time 13.1 Seconds (9.4-12.1)
[2020-03-30 02:39] LABS: Activated Partial Thrombo Time 46.4 Seconds (26.0-36.0)
[2020-03-30 02:40] LABS: Basophils % 0.5 %; Eosinophils # 0.1 K/mcL (0.0-0.6); Eosinophils % 1.4 %; Hematocrit 37.3 % (35.3-44.9); Immature Granulocytes % 0.3 % (0-4); Lymphocytes # 1.8 K/mcL (0.6-4.6); Lymphocytes % 24.6 %; Mean Corpuscular HGB Conc 32.2 g/dL (31.6-35.5); Mean Corpuscular Hemoglobin 29.3 pg (28.0-33.3); Mean Corpuscular Volume 91.2 fL (83.0-100.0); Mean Platelet Volume 9.9 fL (9.4-12.4); Monocytes # 0.5 K/mcL (0.0-1.3); Monocytes % 6.9 %; Neutrophils # 4.9 K/mcL (1.6-8.9); Platelet Count 282 K/mcL (140-400); Red Blood Count 4.09 M/mcL (3.82-4.97); Red Cell Distribution Width 13.5 % (11.5-14.5); Segmented Neutrophils % 66.3 %; White Blood Count 7.4 K/mcL (4.3-11.1)
[2020-03-30 02:58] LABS: BUN/Creatinine Ratio 13 (6-26); Blood Urea Nitrogen 11 mg/dL (8-23); Calcium 9.4 mg/dL (8.6-10.3); Carbon Dioxide 24 mEq/L (23-29); Chloride 103 mEq/L (98-107); Glucose 95 mg/dL (70-105); Osmolality,Calculated 287 (280-300); Potassium 3.6 mEq/L (3.5-5.1); Sodium 139 mEq/L (136-145); Troponin I < 0.03 ng/mL (< 0.04); eGFR For African Americans > 60 (> 60); eGFR For Non-African Americans > 60 (> 60)
[2020-03-30] MEDS ORDERED: Isovue-370 500 ML BOTTLE IVP ONE (02:59)
[2020-03-30] MEDS ORDERED: *HR* OxyCODONE/APAP 5/325 TABLET PO ONE (05:39)
[2020-03-30] MEDS ORDERED: *HR* Enoxaparin 40 MG/0.4 ML SYRINGE SQ ONE (06:40)
[2020-03-30] MEDS ORDERED: *HR* Enoxaparin 150 MG/ML SYRINGE SQ ONE (08:30)
[2020-03-30] MEDS ORDERED: Acetaminophen 325 MG TABLET PO PRN (09:56)
[2020-03-30 10:33] LABS: Bilirubin,Urine Negative (Negative); Blood,Urine Negative (Negative); Clarity,Urine Clear (Clear); Color,Urine Yellow (Yellow); Glucose,Urine (UA) Normal (Normal); Ketones,Urine Negative (Negative); Leukocyte Esterase,Urine Negative (Negative); Nitrite,Urine Negative (Negative); Protein,Urine Negative (Neg-Trace); Specific Gravity,Urine 1.015 (1.010-1.025)
[2020-03-30] MEDS: Budesonide/Formoterol 160/4.5 1 PUFF INH IH SCH ×2 (11:04→22:23)
[2020-03-30] MEDS: Gabapentin 300 MG CAPSULE PO SCH ×2 (15:04→21:13)
[2020-03-30] MEDS: *HR* Acetaminophen w/Cod 300-30 mg 1 TAB TABLET PO PRN (15:04)
[2020-03-30] MEDS: Metoprolol XL (24 HR) Succ 50 MG TAB.ER.24H PO SCH (15:04)
[2020-03-30] MEDS: Magnesium Oxide 400 MG TABLET PO SCH (21:13)
[2020-03-30] MEDS: traZODone 50 MG TABLET PO SCH (21:14)
[2020-03-31] MEDS: *HR* Acetaminophen w/Cod 300-30 mg 1 TAB TABLET PO PRN ×2 (00:27→08:37)
[2020-03-31 03:32] LABS: Basophils % 0.7 %; Eosinophils # 0.2 K/mcL (0.0-0.6); Eosinophils % 3.9 %; Hematocrit 33.4 % (35.3-44.9); Hemoglobin 10.6 g/dL (11.5-15.4); Immature Granulocytes % 0.3 % (0-4); Lymphocytes # 2.1 K/mcL (0.6-4.6); Lymphocytes % 35.2 %; Mean Corpuscular HGB Conc 31.7 g/dL (31.6-35.5); Mean Corpuscular Hemoglobin 29.4 pg (28.0-33.3); Mean Corpuscular Volume 92.5 fL (83.0-100.0); Mean Platelet Volume 9.8 fL (9.4-12.4); Monocytes # 0.5 K/mcL (0.0-1.3); Monocytes % 8.4 %; Neutrophils # 3.1 K/mcL (1.6-8.9); Platelet Count 256 K/mcL (140-400); Red Blood Count 3.61 M/mcL (3.82-4.97); Red Cell Distribution Width 13.7 % (11.5-14.5); Segmented Neutrophils % 51.5 %; White Blood Count 5.9 K/mcL (4.3-11.1)
[2020-03-31 03:48] LABS: BUN/Creatinine Ratio 15 (6-26); Blood Urea Nitrogen 14 mg/dL (8-23); Calcium 8.8 mg/dL (8.6-10.3); Carbon Dioxide 26 mEq/L (23-29); Chloride 105 mEq/L (98-107); Glucose 129 mg/dL (70-105); Osmolality,Calculated 288 (280-300); Potassium 3.5 mEq/L (3.5-5.1); Sodium 138 mEq/L (136-145); eGFR For African Americans > 60 (> 60); eGFR For Non-African Americans > 60 (> 60)
[2020-03-31] MEDS: Magnesium Oxide 400 MG TABLET PO SCH ×2 (08:06→20:47)
[2020-03-31] MEDS: Gabapentin 300 MG CAPSULE PO SCH ×3 (08:06→20:47)
[2020-03-31] MEDS: Aspirin Enteric Coated 81 MG Tablet PO SCH (08:06)
[2020-03-31] MEDS: Metoprolol XL (24 HR) Succ 50 MG TAB.ER.24H PO SCH (08:37)
[2020-03-31] MEDS: Budesonide/Formoterol 160/4.5 1 PUFF INH IH SCH ×2 (11:26→22:23)
[2020-03-31] MEDS: traZODone 50 MG TABLET PO SCH (20:47)
[2020-04-01 07:30] VITALS: BP 121/66
[2020-04-01] MEDS: Aspirin Enteric Coated 81 MG Tablet PO SCH (08:50)
[2020-04-01] MEDS: Magnesium Oxide 400 MG TABLET PO SCH (08:50)
[2020-04-01] MEDS: Gabapentin 300 MG CAPSULE PO SCH (08:50)
[2020-04-01] MEDS: Metoprolol XL (24 HR) Succ 50 MG TAB.ER.24H PO SCH (08:51)
== END 2020-04-01 08:00 ==
LOC: EMEROOARM 01:41 → 3BNU 01:41 → SUATTDRO 06:47 → 3BNU 09:04
PROVIDERS: ADMIT Internal Medicine; ATTEND Internal Medicine

== ENCOUNTER 2020-06-29 11:43 | Inpatient (IN) ==
[2020-06-29] MEDS ORDERED: Aspirin 81 MG TAB.CHEW PO ONE (11:48)
[2020-06-29] MEDS ORDERED: Nitroglycerin 0.4 MG TAB.SUBL SL PRN (11:48)
[2020-06-29 12:29] LABS: Bacteria,Urine Few per hpf (None-Few); Bilirubin,Urine Negative (Negative); Blood,Urine Negative (Negative); Clarity,Urine Turbid (Clear); Color,Urine Yellow (Yellow); Glucose,Urine (UA) Normal (Normal); Ketones,Urine 10 mg/dL (Negative); Leukocyte Esterase,Urine Negative (Negative); Mucus,Urine Few per lpf (None-Few); Nitrite,Urine Negative (Negative); Protein,Urine 30 mg/dL (Neg-Trace); RBC,Urine 0-3 per hpf (0-3); Specific Gravity,Urine 1.024 (1.010-1.025); Squamous Epithelial Cell,Urine Moderate per hpf (None-Few); Urobilinogen,Urine Normal (Normal); WBC,Urine 0-3 per hpf (0-3)
[2020-06-29 13:07] LABS: Basophils % 0.3 %; Eosinophils # 0.1 K/mcL (0.0-0.6); Eosinophils % 1.2 %; Hematocrit 35.7 % (35.3-44.9); Hemoglobin 11.4 g/dL (11.5-15.4); Immature Granulocytes % 0.7 % (0-4); Lymphocytes # 1.4 K/mcL (0.6-4.6); Lymphocytes % 23.1 %; Mean Corpuscular HGB Conc 31.9 g/dL (31.6-35.5); Mean Corpuscular Hemoglobin 28.5 pg (28.0-33.3); Mean Corpuscular Volume 89.3 fL (83.0-100.0); Mean Platelet Volume 10.2 fL (9.4-12.4); Monocytes # 0.5 K/mcL (0.0-1.3); Monocytes % 7.8 %; Platelet Count 211 K/mcL (140-400); Red Cell Distribution Width 13.3 % (11.5-14.5); Segmented Neutrophils % 66.9 %
[2020-06-29 13:18] LABS: BUN/Creatinine Ratio 19 (6-26); Blood Urea Nitrogen 15 mg/dL (8-23); Calcium 8.5 mg/dL (8.6-10.3); Carbon Dioxide 22 mEq/L (23-29); Chloride 108 mEq/L (98-107); Glucose 95 mg/dL (70-105); Osmolality,Calculated 289 (280-300); Potassium 3.8 mEq/L (3.5-5.1); Sodium 139 mEq/L (136-145); eGFR For African Americans > 60 (> 60); eGFR For Non-African Americans > 60 (> 60)
[2020-06-29 13:19] LABS: INR 1.1; Prothrombin Time 12.7 Seconds (9.4-12.1); Troponin I < 0.03 ng/mL (< 0.04)
[2020-06-29 13:22] LABS: Activated Partial Thrombo Time 38.9 Seconds (26.0-36.0)
[2020-06-29] MEDS ORDERED: Acetaminophen 325 MG TABLET PO PRN (15:35)
[2020-06-29] MEDS ORDERED: Naloxone 0.4 MG/ML INJ IVP PRN (15:35)
[2020-06-29] MEDS ORDERED: Ondansetron 4 MG/2 ML VIAL IVP PRN (15:35)
[2020-06-29] MEDS ORDERED: Benzonatate 100 MG CAPSULE PO PRN (15:39)
[2020-06-29 16:30] LABS: Adenovirus Not Detected (Not Detect); Bordetella Pertussis Not Detected (Not Detect); Chlamydophila pneumoniae Not Detected (Not Detect); Coronavirus 229E Not Detected (Not Detect); Coronavirus HKU1 Not Detected (Not Detect); Coronavirus NL63 Not Detected (Not Detect); Coronavirus OC43 Not Detected (Not Detect); Human Metapneumovirus Not Detected (Not Detect); Human Rhinovirus/Enterovirus Not Detected (Not Detect); Influenza A Subtype 2009 H1 Not Detected (Not Detect); Influenza B Not Detected (Not Detect); Mycoplasma pneumoniae Not Detected (Not Detect); Parainfluenza Virus 1 Not Detected (Not Detect); Parainfluenza Virus 2 Not Detected (Not Detect); Parainfluenza Virus 3 Not Detected (Not Detect); Parainfluenza Virus 4 Not Detected (Not Detect); Respiratory Syncytial Virus Not Detected (Not Detect)
[2020-06-29 16:31] LABS: SARS-CoV-2 DETECTED (Not Detect)
[2020-06-29] MEDS: *HR* Heparin 5,000 UNIT/ML VIAL SQ SCH (18:39)
[2020-06-30 05:51] LABS: Basophils % 0.5 %; Eosinophils # 0.1 K/mcL (0.0-0.6); Eosinophils % 2.6 %; Hematocrit 35.4 % (35.3-44.9); Hemoglobin 10.9 g/dL (11.5-15.4); Immature Granulocytes % 0.2 % (0-4); Lymphocytes # 1.8 K/mcL (0.6-4.6); Lymphocytes % 42.8 %; Mean Corpuscular HGB Conc 30.8 g/dL (31.6-35.5); Mean Corpuscular Hemoglobin 28.2 pg (28.0-33.3); Mean Corpuscular Volume 91.7 fL (83.0-100.0); Mean Platelet Volume 10.2 fL (9.4-12.4); Monocytes # 0.4 K/mcL (0.0-1.3); Monocytes % 9.7 %; Neutrophils # 1.9 K/mcL (1.6-8.9); Platelet Count 197 K/mcL (140-400); Red Blood Count 3.86 M/mcL (3.82-4.97); Red Cell Distribution Width 13.4 % (11.5-14.5); Segmented Neutrophils % 44.2 %; White Blood Count 4.2 K/mcL (4.3-11.1)
[2020-06-30 06:13] LABS: BUN/Creatinine Ratio 18 (6-26); Blood Urea Nitrogen 15 mg/dL (8-23); Calcium 8.5 mg/dL (8.6-10.3); Carbon Dioxide 26 mEq/L (23-29); Chloride 109 mEq/L (98-107); Glucose 99 mg/dL (70-105); Osmolality,Calculated 293 (280-300); Potassium 3.6 mEq/L (3.5-5.1); Sodium 141 mEq/L (136-145); eGFR For African Americans > 60 (> 60); eGFR For Non-African Americans > 60 (> 60)
[2020-06-30] MEDS: *HR* Heparin 5,000 UNIT/ML VIAL SQ SCH ×2 (06:17→16:47)
[2020-06-30] MEDS ORDERED: Acetaminophen 325 MG TABLET PO PRN (12:47)
[2020-06-30] MEDS ORDERED: Ertapenem 1,000 MG in 0.9 % Sodium Chloride Mini Bag 100 ML IVPB SCH (14:00)
[2020-06-30] MEDS: Gabapentin 300 MG CAPSULE PO SCH ×2 (14:19→20:29)
[2020-06-30] MEDS: *HR* HYDROcodone/Acet 5/325 mg TABLET PO PRN ×2 (14:19→22:47)
[2020-06-30] MEDS: Magnesium Oxide 400 MG TABLET PO SCH (20:29)
[2020-06-30] MEDS: traZODone 50 MG TABLET PO SCH (20:29)
[2020-06-30] MEDS: Budesonide/Formoterol 160/4.5 1 PUFF INH IH SCH (21:24)
[2020-07-01 05:20] LABS: Basophils % 0.2 %; Eosinophils # 0.1 K/mcL (0.0-0.6); Eosinophils % 2.8 %; Hematocrit 34.1 % (35.3-44.9); Hemoglobin 10.7 g/dL (11.5-15.4); Immature Granulocytes % 0.2 % (0-4); Lymphocytes % 40.9 %; Mean Corpuscular HGB Conc 31.4 g/dL (31.6-35.5); Mean Corpuscular Volume 92.4 fL (83.0-100.0); Mean Platelet Volume 10.2 fL (9.4-12.4); Monocytes # 0.5 K/mcL (0.0-1.3); Monocytes % 9.7 %; Neutrophils # 2.3 K/mcL (1.6-8.9); Platelet Count 207 K/mcL (140-400); Red Blood Count 3.69 M/mcL (3.82-4.97); Red Cell Distribution Width 13.3 % (11.5-14.5); Segmented Neutrophils % 46.2 %
[2020-07-01] MEDS: *HR* Heparin 5,000 UNIT/ML VIAL SQ SCH ×2 (05:36→17:27)
[2020-07-01 07:14] LABS: Alanine Aminotransferase 9 Units/L (7-52); Albumin 3.4 g/dL (3.5-5.7); Albumin/Globulin Ratio 1.3 (1.1-2.2); Alkaline Phosphatase 105 Units/L (34-104); Aspartate Amino Transferase 10 Units/L (13-39); BUN/Creatinine Ratio 14 (6-26); Bilirubin,Total 0.7 mg/dL (0.3-1.0); Blood Urea Nitrogen 12 mg/dL (8-23); Calcium 8.6 mg/dL (8.6-10.3); Carbon Dioxide 28 mEq/L (23-29); Chloride 107 mEq/L (98-107); Globulin 2.6 g/dL (2.4-3.5); Glucose 124 mg/dL (70-105); Osmolality,Calculated 293 (280-300); Potassium 3.6 mEq/L (3.5-5.1); Sodium 141 mEq/L (136-145); eGFR For African Americans > 60 (> 60); eGFR For Non-African Americans > 60 (> 60)
[2020-07-01] MEDS: Budesonide/Formoterol 160/4.5 1 PUFF INH IH SCH ×2 (07:36→20:29)
[2020-07-01] MEDS: Gabapentin 300 MG CAPSULE PO SCH ×3 (09:30→21:04)
[2020-07-01] MEDS: Cholecalciferol (D-3) 1,000 UNIT (25MCG) TABLET PO SCH (09:30)
[2020-07-01] MEDS: lisinopriL 5 MG TABLET PO SCH (09:30)
[2020-07-01] MEDS: Loratadine 10 MG TABLET PO SCH (09:31)
[2020-07-01] MEDS: Magnesium Oxide 400 MG TABLET PO SCH ×2 (09:31→21:04)
[2020-07-01] MEDS: Aspirin Enteric Coated 81 MG Tablet PO SCH (09:31)
[2020-07-01] MEDS: *HR* HYDROcodone/Acet 5/325 mg TABLET PO PRN ×2 (10:05→21:10)
[2020-07-01] MEDS: cephALEXin 500 MG CAPSULE PO SCH ×3 (13:55→21:05)
[2020-07-01] MEDS: traZODone 50 MG TABLET PO SCH (21:04)
[2020-07-02] MEDS: *HR* Heparin 5,000 UNIT/ML VIAL SQ SCH (05:52)
[2020-07-02] MEDS: Budesonide/Formoterol 160/4.5 1 PUFF INH IH SCH (07:23)
[2020-07-02] MEDS: Cholecalciferol (D-3) 1,000 UNIT (25MCG) TABLET PO SCH (07:48)
[2020-07-02] MEDS: Magnesium Oxide 400 MG TABLET PO SCH (07:48)
[2020-07-02] MEDS: cephALEXin 500 MG CAPSULE PO SCH ×2 (07:48→12:03)
[2020-07-02] MEDS: Aspirin Enteric Coated 81 MG Tablet PO SCH (07:49)
[2020-07-02] MEDS: Loratadine 10 MG TABLET PO SCH (07:49)
[2020-07-02] MEDS: Gabapentin 300 MG CAPSULE PO SCH (07:49)
[2020-07-02] MEDS: *HR* HYDROcodone/Acet 5/325 mg TABLET PO PRN (12:02)
[2020-07-02] MEDS: lisinopriL 5 MG TABLET PO SCH (12:03)
[2020-07-02 12:09] VITALS: BP 119/71
== END 2020-07-02 16:43 | DRG 178 ==
LOC: 2NENU 11:43 → EMEROOARM 11:43 → SUATTDRO 16:48 → 2NENU 17:42
PROVIDERS: ADMIT Student in an Organized Health Care Education/Training Program; ATTEND Internal Medicine

== ENCOUNTER 2022-06-30 20:59 | Observation (INO) ==
[2022-06-30 21:49] LABS: Basophils % 0.5 %; Eosinophils # 0.3 K/mcL (0.0-0.6); Eosinophils % 4.8 %; Hematocrit 35.6 % (35.3-44.9); Hemoglobin 10.9 g/dL (11.5-15.4); Immature Granulocytes % 0.2 % (0-4); Lymphocytes # 2.3 K/mcL (0.6-4.6); Lymphocytes % 40.2 %; Mean Corpuscular HGB Conc 30.6 g/dL (31.6-35.5); Mean Corpuscular Hemoglobin 27.9 pg (28.0-33.3); Mean Platelet Volume 10.4 fL (9.4-12.4); Monocytes # 0.4 K/mcL (0.0-1.3); Monocytes % 7.9 %; Neutrophils # 2.6 K/mcL (1.6-8.9); Platelet Count 247 K/mcL (140-400); Red Blood Count 3.91 M/mcL (3.82-4.97); Red Cell Distribution Width 13.1 % (11.5-14.5); Segmented Neutrophils % 46.4 %; White Blood Count 5.6 K/mcL (4.3-11.1)
[2022-06-30 22:08] LABS: Albumin 3.8 g/dL (3.5-5.7); Bilirubin,Total 0.6 mg/dL (0.3-1.0); Globulin 3.8 g/dL (2.4-3.5); Potassium 4.9 mEq/L (3.5-5.1); Total Protein 7.6 g/dL (6.4-8.9)
[2022-06-30 22:48] LABS: Influenza A PCR Negative (Negative); Influenza B PCR Negative (Negative); Resp. Syncytial Virus PCR Negative (Negative); SARS-CoV-2 by PCR (In House) Negative (Negative)
[2022-06-30] MEDS ORDERED: 0.9 % Sodium Chloride 1,000 ML IVC ONE (23:30)
[2022-07-01 01:09] LABS: Adenovirus Not Detected (Not Detect); Bordetella Pertussis Not Detected (Not Detect); Chlamydophila pneumoniae Not Detected (Not Detect); Coronavirus 229E Not Detected (Not Detect); Coronavirus HKU1 Not Detected (Not Detect); Coronavirus NL63 Not Detected (Not Detect); Coronavirus OC43 Not Detected (Not Detect); Human Metapneumovirus Not Detected (Not Detect); Human Rhinovirus/Enterovirus Not Detected (Not Detect); Influenza A Subtype 2009 H1 Not Detected (Not Detect); Influenza B Not Detected (Not Detect); Mycoplasma pneumoniae Not Detected (Not Detect); Parainfluenza Virus 1 Not Detected (Not Detect); Parainfluenza Virus 2 Not Detected (Not Detect); Parainfluenza Virus 3 Not Detected (Not Detect); Parainfluenza Virus 4 Not Detected (Not Detect); Respiratory Syncytial Virus Not Detected (Not Detect); SARS-CoV-2 Not Detected (Not Detect)
[2022-07-01] MEDS ORDERED: cefTRIAXone 1,000 MG in Water for inj. (sterile) 10 ML IVP ONE (01:35)
[2022-07-01 03:59] LABS: Bilirubin,Urine Negative (Negative); Blood,Urine Negative (Negative); Clarity,Urine Clear (Clear); Color,Urine Colorless (Yellow); Glucose,Urine (UA) Normal (Normal); Ketones,Urine Negative (Negative); Leukocyte Esterase,Urine Negative (Negative); Nitrite,Urine Negative (Negative); PH,Urine 5.5 pH Units (5.0-8.0); Protein,Urine Negative (Neg-Trace); Specific Gravity,Urine 1.011 (1.010-1.025); Urobilinogen,Urine Normal (Normal)
[2022-07-01] MEDS ORDERED: Ondansetron 4 MG/2 ML VIAL IVP PRN (04:39)
[2022-07-01] MEDS ORDERED: Acetaminophen 325 MG TABLET PO PRN (04:39)
[2022-07-01] MEDS ORDERED: Naloxone 0.4 MG/ML INJ IVP PRN (04:39)
[2022-07-01] MEDS ORDERED: Melatonin 3 MG TABLET PO PRN (04:39)
[2022-07-01] MEDS: Ringers Solution, Lactated 1,000 ML IVC SCH ×2 (06:29→13:19)
[2022-07-01] MEDS ORDERED: Ipratropium/Albuterol Neb 3 ML IH PRN (07:47)
[2022-07-01 08:44] LABS: Basophils % 0.5 %; Eosinophils # 0.3 K/mcL (0.0-0.6); Eosinophils % 4.4 %; Hematocrit 32.8 % (35.3-44.9); Hemoglobin 10.3 g/dL (11.5-15.4); Immature Granulocytes % 0.2 % (0-4); Lymphocytes % 34.7 %; Mean Corpuscular HGB Conc 31.4 g/dL (31.6-35.5); Mean Corpuscular Hemoglobin 27.9 pg (28.0-33.3); Mean Corpuscular Volume 88.9 fL (83.0-100.0); Mean Platelet Volume 10.2 fL (9.4-12.4); Monocytes # 0.4 K/mcL (0.0-1.3); Monocytes % 6.9 %; Platelet Count 215 K/mcL (140-400); Red Blood Count 3.69 M/mcL (3.82-4.97); Red Cell Distribution Width 12.9 % (11.5-14.5); Segmented Neutrophils % 53.3 %; White Blood Count 5.6 K/mcL (4.3-11.1)
[2022-07-01 08:52] LABS: INR 1.5; Prothrombin Time 17.2 Seconds (9.4-12.1)
[2022-07-01 08:55] LABS: Activated Partial Thrombo Time 60.3 Seconds (26.0-36.0)
[2022-07-01] MEDS: Apixaban 5 MG TABLET PO SCH ×2 (09:02→21:19)
[2022-07-01 09:05] LABS: Albumin 3.5 g/dL (3.5-5.7); Albumin/Globulin Ratio 1.1 (1.1-2.2); Bilirubin,Total 0.5 mg/dL (0.3-1.0); Calcium 8.8 mg/dL (8.6-10.3); Globulin 3.2 g/dL (2.4-3.5); Magnesium 2.8 mg/dL (1.6-2.6); Phosphorous 5.1 mg/dL (2.7-4.5); Potassium 5.1 mEq/L (3.5-5.1); Total Protein 6.7 g/dL (6.4-8.9)
[2022-07-01] MEDS: Budesonide/Formoterol 160/4.5 1 PUFF INH IH SCH ×2 (10:53→20:22)
[2022-07-01] MEDS ORDERED: *HR* Heparin 5,000 UNIT/ML VIAL SQ SCH (14:00)
[2022-07-01] MEDS: 0.9 % Sodium Chloride 1,000 ML IVC SCH ×2 (19:26→21:20)
[2022-07-02] MEDS: Apixaban 5 MG TABLET PO SCH ×2 (07:46→21:55)
[2022-07-02] MEDS: 0.9 % Sodium Chloride 1,000 ML IVC SCH (07:47)
[2022-07-02] MEDS: Budesonide/Formoterol 160/4.5 1 PUFF INH IH SCH ×2 (08:07→20:28)
[2022-07-02] MEDS ORDERED: Acetaminophen/Butalbital/CaffeineTABLET PO PRN (08:08)
[2022-07-02] MEDS ORDERED: Ondansetron ODT 4 MG TAB.RAPDIS PO PRN (08:37)
[2022-07-02 08:51] LABS: Hematocrit 31.4 % (35.3-44.9); Mean Corpuscular HGB Conc 31.8 g/dL (31.6-35.5); Mean Corpuscular Hemoglobin 28.1 pg (28.0-33.3); Mean Corpuscular Volume 88.2 fL (83.0-100.0); Platelet Count 226 K/mcL (140-400); Red Blood Count 3.56 M/mcL (3.82-4.97); Red Cell Distribution Width 12.8 % (11.5-14.5); White Blood Count 6.4 K/mcL (4.3-11.1)
[2022-07-02] MEDS ORDERED: Magnesium Oxide 400 MG TABLET PO SCH (09:00)
[2022-07-02] MEDS: Cholecalciferol (D-3) 1,000 UNIT (25MCG) TABLET PO SCH (09:04)
[2022-07-02] MEDS: Loratadine 10 MG TABLET PO SCH (09:04)
[2022-07-02] MEDS: *HR* OxyCODONE Immed Rel 5 MG TABLET PO SCH ×2 (09:05→21:55)
[2022-07-02] MEDS: Capsaicin 0.025% 60 GM TUBE TP SCH ×2 (09:10→22:25)
[2022-07-02 09:12] LABS: Albumin 3.4 g/dL (3.5-5.7); Calcium 8.8 mg/dL (8.6-10.3); Phosphorous 3.5 mg/dL (2.7-4.5); Potassium 4.6 mEq/L (3.5-5.1)
[2022-07-03 05:14] LABS: Albumin 3.5 g/dL (3.5-5.7); Calcium 9.2 mg/dL (8.6-10.3); Phosphorous 3.4 mg/dL (2.7-4.5); Potassium 5.2 mEq/L (3.5-5.1)
[2022-07-03] MEDS: Budesonide/Formoterol 160/4.5 1 PUFF INH IH SCH (07:34)
[2022-07-03] MEDS ORDERED: lisinopriL 5 MG TABLET PO SCH (09:00)
[2022-07-03] MEDS ORDERED: Furosemide 20 MG TABLET PO SCH (09:00)
[2022-07-03] MEDS: Apixaban 5 MG TABLET PO SCH (10:08)
[2022-07-03] MEDS: *HR* OxyCODONE Immed Rel 5 MG TABLET PO SCH (10:08)
[2022-07-03] MEDS: Cholecalciferol (D-3) 1,000 UNIT (25MCG) TABLET PO SCH (10:09)
[2022-07-03] MEDS: Loratadine 10 MG TABLET PO SCH (10:09)
[2022-07-03 10:12] VITALS: BP 136/79; PULSE 74; TEMP 97.9; O2SAT 96
[2022-07-03] MEDS: Capsaicin 0.025% 60 GM TUBE TP SCH (11:40)
== END 2022-07-03 12:36 ==
LOC: EMEROOARM 20:59 → 3BNU 20:59 → SUATTDRO 07-01 04:26 → 3BNU 07-01 05:03
PROVIDERS: ADMIT Internal Medicine; ATTEND Internal Medicine